=== PATIENT | male | born 1955 | race Caucasian/White ===

== ENCOUNTER 2023-12-26 11:48 | Outpatient (AMB) | payer BC, SELFPAY ==
--- NOTE | 2023-12-26 11:51 | HO.NEPHOV_ITS ---
HPI HPI Comments History of Present Illness Details 68-year-old man with obesity chronic kid lul disease with hypertension. He had an episode of acute kidney injury with hyperkalemia which has resolved. At present he has no specific complaints [facility] Social History Alcohol intake: former Patient Tobacco Use Status: Former Tobacco user Vital Signs 12/26/23 11:53 Height 5 ft 9 in Weight 313 lb BMI 46.2 BP 130/68 Blood Pressure Location Rt brachial Position Sitting Pulse 91 Pulse Source Pulse Oximeter Pulse Oximetry (%) 98 Oxygen Delivery Method Room Air Physical Exam Vital Signs: Last Vital Signs Pulse 91 12/26/23 11:53 BP 130/68 12/26/23 11:53 Pulse Ox 98 12/26/23 11:53 Oxygen Delivery Method Room Air 12/26/23 11:53 BMI result Body Mass Index 46.2 Const General: comfortable Nutritional Appearance: obese Orientation/consciousness: patient oriented x3 HEENT Head: No normal to inspection Mouth: moist mucous membranes Neck Neck: Yes supple and Yes no JVD Resp Auscultation: clear to auscultation bilaterally, no rales and rub present Cardio Jugular venous distension: no JVD Palpation: no palpable S3 and no palpable S4 Heart sounds: no rubs GI Palpation (GI): Soft to palpation and nontender Percussion: No Fluid wave present General: Yes no CVA tenderness Back/Spine/Pelvis Back: no CVA tenderness Skin General skin exam: no rashes or lesions noted Neuro General: patient oriented x3 Extrem General: Yes no pedal edema, No clubbing and Yes edema Assessment & Plan Assessment & Plan (1) CKD (chronic kidney disease): Code(s): N18.9 - Chronic kidney disease, unspecified (2) Hyperkalemia: Code(s): E87.5 - Hyperkalemia Plan Middle-aged man with CKD 3 in the setting of longstanding obesity and diabetes mellitus. He had a history of acute kidney injury which has resolved renal function is back to baseline. Goal is to slow the progression of renal disease. Continue with NAVEEN inhibition. Hemoglobin A1c should be maintained less than 7% and blood pressure less than 130/80. Continue to avoid nephrotoxic agents including NSAIDs. Discussed weight loss and low-sodium diet. He will benefit from an SGLT2 inhibitor. Today the volume status looks acceptable. We will continue the current dose of diuretics. While on high dose of diuretics renal panel needs to be monitored frequently. Orders: Orders Complete Blood Count Auto Diff 12/26/23 N18.30 - Chronic kidney disease, stage 3 unspecified, E87.5 - Hyperkalemia, N18.9 - Chronic kidney disease, unspecified Basic Metabolic Panel 12/26/23 E87.5 - Hyperkalemia, N18.9 - Chronic kidney disease, unspecified Coding Level of Care Code Est Pt Level 4 (22775) Diagnoses CKD (chronic kidney disease) N18.9 Hyperkalemia E87.5 Results Reviewed Results Reviewed: Creatinine note Nephrology Results: No Data to Display
[2023-12-26 11:53] VITALS: BP 130/68; PULSE 91; O2SAT 98; BMI 46.2
== END 2023-12-26 12:24 | disposition home or self-care (01) ==
PROVIDERS: Visit Provider Internal Medicine Hypertension Specialist
DX: N18.9 Chronic kidney disease, unspecified (principal); E87.5 Hyperkalemia
CPT/HCPCS: 99214

== ENCOUNTER → 2023-12-26 11:48 | Outpatient (BNVA) | payer BC, SELFPAY | PROVIDERS: Visit Provider Internal Medicine Hypertension Specialist ==

== ENCOUNTER 2024-01-30 11:31 | Outpatient (AMB) | payer BC, SELFPAY ==
[2024-01-30 11:35] VITALS: BP 110/62; PULSE 80; O2SAT 95; BMI 46.5
--- NOTE | 2024-01-30 11:35 | HO.NEPHOV_ITS ---
HPI HPI Comments History of Present Illness Details 68-year-old man with a history of obesit y longstanding diabetes mellitus and chronic kidney disease. Has history of acute kidney injury and severe hyperkalemia. JULIAN has resolved. He has underlying CKD in a setting of longstanding diabetes mellitus. Baseline creatinine is around 1.1 mg/dL. He is currently on spironolactone and torsemide. Today denies any new complaints no shortness of breath no nausea vomiting. PFSH Social History Alcohol intake: former Patient Tobacco Use Status: Former Tobacco user Vital Signs 01/30/24 11:35 Height 5 ft 9 in Weight 315 lb BMI 46.5 BP 110/62 Blood Pressure Location Lt brachial Position Sitting Pulse 80 Pulse Source Pulse Oximeter Pulse Oximetry (%) 95 Oxygen Delivery Method Room Air Physical Exam Vital Signs: Last Vital Signs Pulse 80 01/30/24 11:35 BP 110/62 01/30/24 11:35 Pulse Ox 95 01/30/24 11:35 Oxygen Delivery Method Room Air 01/30/24 11:35 BMI result Body Mass Index 46.5 Const General: comfortable Nutritional Appearance: obese Orientation/consciousness: patient oriented x3 HEENT Head: No normal to inspection Mouth: moist mucous membranes Neck Neck: Yes supple and Yes no JVD Resp Auscultation: clear to auscultation bilaterally, no rales and rub present Cardio Jugular venous distension: no JVD Palpation: no palpable S3 and no palpable S4 Heart sounds: no rubs GI Palpation (GI): Soft to palpation and nontender Percussion: No Fluid wave present General: Yes no CVA tenderness Back/Spine/Pelvis Back: no CVA tenderness Skin General skin exam: no rashes or lesions noted Neuro General: patient oriented x3 Extrem General: Yes no pedal edema, No clubbing and Yes edema Assessment & Plan Assessment & Plan (1) CKD (chronic kidney disease): Code(s): N18.9 - Chronic kidney disease, unspecified Plan Middle-aged man with CKD 3 in the setting of longstanding obesity and diabetes mellitus. He had a history of acute kidney injury which has resolved renal function is back to baseline. Goal is to slow the progression of renal disease. Continue with NAVEEN inhibition. Hemoglobin A1c should be maintained less than 7% and blood pressure less than 130/80. Continue to avoid nephrotoxic agents including NSAIDs. Discussed weight loss and low-sodium diet. He will benefit from an SGLT2 inhibitor. Today the volume status looks acceptable. We will continue the current dose of diuretics. While on high dose of diuretics renal panel needs to be monitored frequently. Next blood draw scheduled for March 2024. I will see him again in June of 2024. Orders: Orders 2 Basic Metabolic Panel 4 Months N18.9 - Chronic kidney disease, unspecified Vitamin D 25-OH (D2 and D3) 4 Months N18.9 - Chronic kidney disease, unspecified Coding Level of Care Code Est Pt Level 4 (93107) Diagnoses CKD (chronic kidney disease) N18.9 Results Reviewed Results Reviewed: 01/25/2024. Creatinine 1.07 Potassium 4.1. Hemoglobin 11.3. Nephrology Results: No Data to Display
== END 2024-01-30 11:55 | disposition home or self-care (01) ==
PROVIDERS: PCP Family Medicine; Visit Provider Internal Medicine Hypertension Specialist
DX: N18.9 Chronic kidney disease, unspecified (principal)
CPT/HCPCS: 99214

== ENCOUNTER → 2024-01-30 11:31 | Outpatient (BNVA) | payer BC, SELFPAY | PROVIDERS: PCP Family Medicine; Visit Provider Internal Medicine Hypertension Specialist ==

== ENCOUNTER 2024-07-23 13:46 | Outpatient (AMB) | payer BC, SELFPAY ==
--- NOTE | 2024-07-23 13:49 | HO.NEPHOV_ITS ---
Vital Signs 07/23/24 13:51 Height 5 ft 9 in Weight 301 lb 6 oz BMI 44.5 BP 132/70 Blood Pressure Location Rt brachial Position Sitting Pulse 90 Pulse Source Pulse Oximeter Pulse Oximetry (%) 97 Oxygen Delivery Method Room Air Intake Visit Reasons: CKD FU Food Preservation Scientist Required: No Accompanied by: Self / Same As Patient Allergies No Known Allergies Allergy (Verified 07/23/24 13:54) Medication List - Last Reconciled 07/23/24 by Jostin Kenny MD allopurinol 100 mg PO BID betamethasone valerate 0.1% topical BID doxazosin 4 mg PO BEDTIME insulin glargine (Lantus U-100 Insulin) units subcut insulin lispro (Humalog KwikPen (U-100) Insulin) 40 - 100 units subcut TID latanoprost 0.005% 1 drp ophthalmic (eye) QPM simvastatin 20 mg PO DAILY tirzepatide (Mounjaro) 7.5 mg subcut QWEEK torsemide 50 mg PO DAILY triamcinolone acetonide 0.1% appl topical BID HPI Comments Details: 68-year-old man with a history of obesity longstanding diabetes mellitus and chronic kidney disease. Has history of acute kidney injury and severe hyperkalemia. JULIAN has resolved. He has underlying CKD in a setting of longstanding diabetes mellitus. Baseline creatinine is around 1.1 mg/dL. He is currently on spironolactone and torsemide. Today denies any new complaints no shortness of breath no nausea vomiting. 07/23/24 On maunjaro - lost about 30 lbs Off Spironolactone due to high K Torsemide down to 50 mg BP is good Creatinine is bumped up to 1.66. [facility] Medical History (Updated 07/22/24 @ 11:38 by Denise Hay MA) Viral pericarditis Spinal stenosis of lumbar region Sleep apnea Prolapsed lumbosacral intervertebral disc Other anterior pituitary disorders Obesity Metabolic acidosis, increased anion gap Hypertension Hyperlipidemia Hypercholesterolemia History of pericarditis H/O kidney disease Gout GERD (gastroesophageal reflux disease) Diabetes mellitus Coronary atherosclerosis Conductive hearing loss, bilateral Chronic heart failure Cardiac tamponade Anemia Acute sinusitis Surgical History Hx of tonsillectomy Family History Mother Cancer Social History Alcohol intake: former Patient Tobacco Use Status: Former Tobacco user Physical Exam Vital Signs: Last Vital Signs Pulse 90 07/23/24 13:51 BP 132/70 07/23/24 13:51 Pulse Ox 97 07/23/24 13:51 Oxygen Delivery Method Room Air 07/23/24 13:51 BMI result Body Mass Index 44.5 Const General: comfortable; No acute distress Orientation/consciousness: patient oriented x3 Eyes General: appearance normal, both eyes and all related structures Visual Alvarado: normal visual alvarado by confrontation Neck Neck: Yes supple and Yes no JVD Resp Effort & Inspection: normal respiratory effort and respiratory effort not decreased Auscultation: rhonchi Cardio Palpation: no palpable S3 and no palpable S4 Heart sounds: no rubs GI Inspection: Yes normal to inspection Palpation (GI): Soft to palpation Percussion: Yes normal to percussion Auscultation: normal bowel sounds General: Yes no CVA tenderness Back/Spine/Pelvis Back: no CVA tenderness Skin General skin exam: no petechiae and no purpura Neuro General: patient oriented x3 and no focal motor deficits Extrem General: No clubbing and No edema Results Reviewed Results Reviewed: Potassium 5.2 Creatinine 1.66 Nephrology Results: No Data to Display Assessment & Plan Assessment & Plan (1) CKD (chronic kidney disease): Code(s): N18.9 - Chronic kidney disease, unspecified Category: Medical Plan Middle-aged man with CKD 3 in the setting of longstanding obesity and diabetes mellitus. He had a history of acute kidney injury which has resolved renal function is back to baseline. Goal is to slow the progression of renal disease. Continue with NAVEEN inhibition. Hemoglobin A1c should be maintained less than 7% and blood pressure less than 130/80. Continue to avoid nephrotoxic agents including NSAIDs. Discussed weight loss and low-sodium diet. volume status looks acceptable. suggest to decrease Torsemide ot 40 mg DAILY since creatinine is bumped up from 1.07 at 1.66. Agree with the discontinuing spironolactone given JULIAN and hyperkalemia. Orders: Orders Basic Metabolic Panel Today N18.9 - Chronic kidney disease, unspecified Uric Acid Today N18.9 - Chronic kidney disease, unspecified Coding Level of Care Code Est Pt Level 4 (20990) Diagnoses CKD (chronic kidney disease) N18.9
[2024-07-23 13:51] VITALS: BP 132/70; PULSE 90; O2SAT 97; BMI 44.5
== END 2024-07-23 14:20 | disposition home or self-care (01) ==
PROVIDERS: PCP Family Medicine; Visit Provider Internal Medicine Hypertension Specialist
DX: N18.9 Chronic kidney disease, unspecified (principal)
CPT/HCPCS: 99214

== ENCOUNTER → 2024-07-23 13:46 | Outpatient (BNVA) | payer BC, SELFPAY | PROVIDERS: PCP Family Medicine; Visit Provider Internal Medicine Hypertension Specialist ==

== ENCOUNTER 2024-12-24 15:40 | Outpatient (AMB) | payer BC, SELFPAY ==
[2024-12-24 15:41] VITALS: BP 126/60; PULSE 67; O2SAT 96; BMI 43.6
--- NOTE | 2024-12-24 15:41 | HO.NEPHOV_ITS ---
Vital Signs 12/24/24 15:41 Height 5 ft 9 in Weight 295 lb BMI 43.6 BP 126/60 Blood Pressure Location Rt brachial Position Sitting Pulse 67 Pulse Source Pulse Oximeter Pulse Oximetry (%) 96 Oxygen Delivery Method Room Air Intake Visit Reasons: 3 mo fu w/ labs/ Conf Credit Union Field Examiner Required: No Accompanied by: Self / Same As Patient Allergies No Known Allergies Allergy (Verified 12/24/24 15:44) Medication List - Last Reconciled 12/24/24 by Jostin Kenny MD allopurinol 100 mg PO BID betamethasone valerate 0.1% topical BID doxazosin 4 mg PO BEDTIME insulin glargine (Lantus U-100 Insulin) units subcut insulin lispro (Humalog KwikPen (U-100) Insulin) 40 - 100 units subcut TID latanoprost 0.005% 1 drp ophthalmic (eye) QPM lisinopril 20 mg PO DAILY simvastatin 20 mg PO DAILY tirzepatide (Mounjaro) 10 mg subcut QWEEK torsemide 40 mg PO DAILY triamcinolone acetonide 0.1% appl topical BID HPI Comments Details: 68-year-old man with a history of obesity longstanding diabetes mellitus and chronic kidney disease. Has history of acute kidney injury and severe hyperkalemia. JULIAN has resolved. He has underlying CKD in a setting of longstanding diabetes mellitus. Baseline creatinine is around 1.1 mg/dL. He is currently on spironolactone and torsemide. Today denies any new complaints no shortness of breath no nausea vomiting. 07/23/24 On maunjaro - lost about 30 lbs Off Spironolactone due to high K Torsemide down to 50 mg BP is good Creatinine is bumped up to 1.66. 12/24/2024. Overall he is doing well. After adding majority has lost further weight. Torsemide has been decreased to 40 mg. Creatinine has dropped to 0.85. Overall he is feeling fine without any new complaints [facility] Medical History (Updated 07/22/24 @ 11:38 by Denise Hay MA) Viral pericarditis Spinal stenosis of lumbar region Sleep apnea Prolapsed lumbosacral intervertebral disc Other anterior pituitary disorders Obesity Metabolic acidosis, increased anion gap Hypertension Hyperlipidemia Hypercholesterolemia History of pericarditis H/O kidney disease Gout GERD (gastroesophageal reflux disease) Diabetes mellitus Coronary atherosclerosis Conductive hearing loss, bilateral Chronic heart failure Cardiac tamponade Anemia Acute sinusitis Surgical History Hx of tonsillectomy Family History Mother Cancer Social History Alcohol intake: former Patient Tobacco Use Status: Former Tobacco user Physical Exam Vital Signs: Last Vital Signs Pulse 67 12/24/24 15:41 BP 126/60 12/24/24 15:41 Pulse Ox 96 12/24/24 15:41 Oxygen Delivery Method Room Air 12/24/24 15:41 BMI result Body Mass Index 43.6 Comfortable Neck supple no JVD. Lungs entry equal no rales. Heart S1-S2 heard no gallop or rub. Abdomen soft nontender. Neuro alert awake oriented. No asterixis. Extremities no edema. Results Reviewed Results Reviewed: Potassium 5.2 Creatinine 1.66 Nephrology Results: No Data to Display Assessment & Plan Assessment & Plan (1) CKD (chronic kidney disease): Code(s): N18.9 - Chronic kidney disease, unspecified Category: Medical Plan Middle-aged man with CKD 3 in the setting of longstanding obesity and diabetes mellitus. He had a history of acute kidney injury which has resolved renal function is back to baseline. Goal is to slow the progression of renal disease. Continue with NAVEEN inhibition. Hemoglobin A1c should be maintained less than 7% and blood pressure less than 130/80. Continue to avoid nephrotoxic agents including NSAIDs. Discussed weight loss and low-sodium diet. volume status looks acceptable. Agree with Torsemide 40 mg DAILY and titrate dose based on blood pressure and fluid status Agree with the discontinuing spironolactone given JULIAN and hyperkalemia. No contraindication to use SGLT2 inhibitors. Orders: Orders Total Protein Urine Random 6 Months N18.9 - Chronic kidney disease, unspecified UA and rflx microscopic 6 Months N18.9 - Chronic kidney disease, unspecified Creatinine Urine 6 Months N18.9 - Chronic kidney disease, unspecified Basic Metabolic Panel 6 Months N18.9 - Chronic kidney disease, unspecified Coding Level of Care Code Est Pt Level 4 (37204) Diagnoses CKD (chronic kidney disease) N18.9
--- OUTSIDE RECORDS SUMMARY | 2024-12-24 17:30 | XMS_ITS | Encounter Summary ---
Author Organization [facility] Address [address] [place] [address] Care Team Providers Care Paediatric Thoracic Physician Name Role Phone Oneal Farrell MD Primary Care Provider Ludwig Whiting DO Primary Care Provider [phone] Nicolas Gold MD Unavailable Unavailable Juanito Rivas MD Unavailable [phone] Kirk Stringer MD Unavailable Jostin Kenny MD Unavailable [phone] Marcelle Bass RN Unavailable Ashley Tilley MD Unavailable [phone] Bianca Elena Unavailable Ludwig Whiting DO Unavailable [phone] Jostin Kenny MD Unavailable [phone] Trini Brown MD Unavailable [phone] Ashley Tilley MD Unavailable [phone] Franky Fonseca MD Unavailable [phone] Encounter Details Date Type Department Care Team (Late st Contact Info) Description 12/06/2015 Scanned Document [facility] 100 [facility] [address] [place] [id number] Provider, Generic Social History Tobacco Use Types Packs/Day Years Used Date Smoking Tobacco: Former Cigarettes Cigars Comments:Current Tobacco Use r Alcohol Use Standard Drinks/Week Comments Not Asked 0 (1 standard drink = 0.6 oz pur e alcohol) Sex and Gender Information Value Date Recorded Sex Assigned at Male 04/26/2023 10:23 AM EDT Gender Identity Male 04/26/2023 10:23 AM EDT Sexual Orientation Heterosexual (straight) 04/26 10:23 AM EDT documented as of this encounter Plan of Treatment Upcoming Encounters Date Type Department Care Team (Late st Contact Info) Description 04/10/2025 4:00 PM EDT Office Visit [facility] Endocrinology [place] [address] [phone] Trini Brown MD [address] [address] 05/25/2025 3:30 PM EDT Office Visit [facility] [address] [place] [phone] Ludwig Whiting, [address] [place] [address] 06/25/2025 2:00 PM EDT Office Visit [facility] Cardiology [address] [place] [address] Ashley Tilley MD [address] [place] [address] documented as of this encounter Visit Diagnoses Not on filedocumented in this encounter Care Teams Paediatric Thoracic Physician Relationship Specialty Start Date End Date Oneal Farrell MD PCP - General Internal Medicine 08/05/15 11/30/16 Ludwig Whiting DO 1060 [facility] [place] [address] PCP - General Family Medicine 12/01/16 Bianca Elena [address] [place] [address] PCP - Ophthalmology Ophthalmology 01/25/21 [place] [address] [place] [address], [place] [address] PCP - [place] Commercial Attributed 03/26/21 Nicolas Gold MD [address] [place] [address], [place] [address] Endocrinology 07/11/17 Juanito Rivas MD [address] [place] [address] Referring Provider Surgery, Neurosurgery 02/01/18 Kirk Stringer MD [address] [place] [address] Consulting Provider Sleep Medicine 02/01/18 Jostin Kenny MD [address] [place] [address] Nephrology 02/01/18 05/13/23 Marcelle Bass, WING [facility] [address] [place] [address] ICP Transition Nougat Cutter Machine 08/25/20 09/20/21 Ashley Tilley MD [address] [place] [address] Cardiovascular Disease 01/25/21 Jostin Kenny MD [address] [place] [address] Nephrology 05/14/23 Trini Brown MD [address] [place] [address] Endocrinology 01/04/24 Ashley Tilley MD [address] [place] [address] Primary A Operator Cardiovascular Disease 01/17/24 Franky Fonseca MD [address] [place] [address] Nephrology 06/10/24 documented as of this encounter
--- OUTSIDE RECORDS SUMMARY | 2024-12-24 17:30 | XMS_ITS | Encounter Summary ---
Author Organization [facility] Address [address] [place] [address] Care Team Providers Care Classified Advertising Supervisor Name Role Phone Ludwig Whiting DO Primary Care Provider [phone] Nicolas Gold MD Unavailable Unavailable Juanito Rivas MD Unavailable Kirk Stringer MD Unavailable Jostin Kenny MD Unavailable [phone] Ashley Tilley MD Unavailable [phone] Bianca Elena Unavailable Ludwig Whiting DO Unavailable Jostin Kenny MD Unavailable Trini Brown MD Unavailable [phone] Ashley Tilley MD Unavailable [phone] Franky Fonseca MD Unavailable [phone] Encounter Details Date Type Department Care Team (Late st Contact Info) Description 08/13/2022 Scanned Document [facility] Cardiology [address] [place] [address] Ashley Tilley MD [address] [place] [address] Social History Tobacco Use Types Packs/Day Years Used Date Smoking Tobacco: Former Cigarettes 2 27 1 963 - 1989 Cigars Smokeless Tobacco: Never Alcohol Use Standard Drinks/Week Comments No 0 (1 standard drink = 0.6 oz [...] Description 04/10/2025 4:00 PM EDT Office Visit [facility] Endocrinology [address] [address] Trini Brown MD 100 [facility] 101 [place] [address] 05/25/2025 3:30 PM EDT Office Visit [facility] [address] [place] [address] Ludwig Whiting, DO [facility] [place] [address] 06/25/2025 2:00 PM EDT Office Visit [facility] Cardiology [address] [place] [phone] Ashley Tilley MD [address] [place] [address] documented as of this encounter Visit Diagnoses Not on filedocumented in this encounter Care Teams Classified Advertising Supervisor Relationship Specialty Start Date End Date Ludwig Whiting, DO [address] [facility] [place] [address] PCP - General Family Medicine 12/01/16 Bianca Elena [address] [place] [address] PCP - Ophthalmology Ophthalmology 01/25/21 Ludwig Whiting, [address] [place] [address] PCP - [place] Commercial Attributed 03/26/21 Nicolas Gold MD [address] [place] [address] Endocrinology 07/11/17 Juanito Rivas MD [address] [place] [address] Referring Provider Surgery, Neurosurgery 02/01/18 Kirk Stringer MD [address] [place] [address] Consulting Provider Sleep Medicine 02/01/18 Jostin Kenny MD [address] [place] [address] Nephrology 02/01/18 05/13/23 Ashley Tilley MD [address] [place] [address] Cardiovascular Disease 01/25/21 Jostin Kenny MD [address] [place] [address] Nephrology 05/14/23 Trini Brown MD [address] [place] [id number] Endocrinology 01/04/24 Ashley Tilley MD [address] [place] [address] Primary Glass Engraver Cardiovascular Disease 01/17/24 Franky Fonseca MD [address] [place] [address] Nephrology 06/10/24 documented as of this encounter
--- OUTSIDE RECORDS SUMMARY | 2024-12-24 17:30 | XMS_ITS ---
Author Name [facility] Organization Unknown Results Test Name/Text Value Interpretation Date Range Source POC Glucose 115mg/dL Above high normal [id number] 65 - 99 [facility] POC Glucose 114mg/dL Above high normal [id number] 65 - 99 [facility] Eosinophil/leuk NFr Bld Auto 2.6% Normal [id number] [facility] Platelet # Bld Auto 208Thousand/uL Normal [id number] 14 0 - 400 [facility] PMV Bld Jurgen-Zeb 11.6fL Normal [id number] 7.5 - 12 .5 [facility] Hct VFr Bld Auto 42.3% Normal [id number] 38.5 - 50 [facility] Basophils # Bld Auto 29cells/uL Normal [id number] 0 - 2 00 [facility] RBC # Bld Auto 4.55Million/uL Normal [id number] 4.2 - 5 .8 [facility] RDW RBC Auto-Rto 15% Normal [id number] 11 - 15 [facility] Monocytes # Bld Auto 633cells/uL Normal [id number] 200 - 950 [facility] MCHC RBC Auto-mCnc 32.6g/dL Normal [id number] 32 - 36 [facility]CH RBC Qn Auto 30.3pg Normal [id number] 27 - 33 [facility] Neutrophils/leuk NFr Bld Auto 64.5% Normal [id number] [facility] MCV RBC Auto 93fL Normal [id number] 80 - 100 [facility] T Basophils/leuk NFr Bld Auto 0.5% Normal [id number] [facility] Neutrophils # Bld Auto 3677cells/uL Normal [id number] 1500 - 7800 [facility] Lymphocytes/leuk NFr Bld Auto 21.3% Normal [id number] [facility] Hgb Bld-mCnc 13.8g/dL Normal [id number] 13.2 - 17.1 [facility] Monocytes/leuk NFr Bld Auto 11.1% Normal [id number] [facility] Eosinophil # Bld Auto 148cells/uL Normal [id number] 15 - 500 [facility] Lymphocytes # Bld Auto 1214cells/uL Normal [id number] 850 - 3900 [facility] WBC # Bld Auto 5.7Thousand/uL Normal [id number] 3.8 - 1 0.8 [facility] BUN/Creat SerPl SEE NOTE: Normal [id number] 6 - 22 Q [facility] BUN SerPl-mCnc 19mg/dL Normal [id number] 7 - 25 [facility] CO2 SerPl-sCnc 26mmol/L Normal [id number] 20 - 32 [facility] Potassium SerPl-sCnc 4mmol/L Normal [id number] 3.5 - 5.3 [facility] eGFRcr SerPlBld CKD-EPI 2020 96mL/min/1.73m 2 Normal [id number] - [facility] Glucose SerPl-mCnc 76mg/dL Normal [id number] 65 - 99 [facility] Chloride SerPl-sCnc 107mmol/L Normal [id number] 98 - 11 0 [facility] Calcium SerPl-mCnc 9.8mg/dL Normal [id number] 8.6 - 10 .3 [facility] Sodium SerPl-sCnc 142mmol/L Normal [id number] 135 - 146 [facility] Creat SerPl-mCnc 0.82mg/dL Normal [id number] 0.7 - 1.35 [facility] History of Medication Use Medication Directions Dispensed Refills Start Date End Date Status HumaLOG KwikPen 100 UNIT/ML Subcutaneous Solution Pen-injector HumaLOG KwikPen 100 UNIT/ML Subcutaneous Solution Pen-injectorHumaLOG KwikPen (100UNIT/ML Subcutaneous three times daily) Active -Hx Entry Quantity: 0 Refills: 0Unknown, Provider Start : 5-Vso-4050Jiyqdd 10/02/20 18 completed doxazosin (CARDURA) 2 MG tablet Take 1 tablet (2 mg total) by mouth nightly. 11/08/20 21 active Blood Glucose Monitoring Suppl (Lytro Verio) w/Device Kit Use to test blood sugar two times daily 01/23/20 22 active Aspirin 81 81 MG Oral Tablet Delayed Release Aspirin 81 81 MG Oral Tablet Delayed ReleaseAspir-81 81MG, 1 Every Day #0.00, starting 09/03/2007, No Refill. Active. Quantity: 0 Refills: 0Unknown, Provider Start : 9-Ckm-2578Pgalfw 09/03/20 07 completed Dorzolamide HCl-Timolol Mal 22.3-6.8 MG/ML Ophthalmic Solution Dorzolamide HCl-Timolol Mal 22.3-6.8 MG/ML Ophthalmic SolutionDorzolamide HCl-Timolol Mal (22.3-6.8MG/ML Ophthalmic three times daily) Active -Hx Entry Quantity: 0 Refills: 0Unknown, Provider Start : 3-Shu-2116Myduud 10/02/20 18 completed tirzepatide (MOUNJARO) 2.5 mg/0.5 mL pen-injector Inject 1 pen(s) (2.5 mg total) under the skin once a week. 04/04/20 24 active simvastatin (ZOCOR) 20 MG tablet Take 1 tablet (20 mg total) by mouth nightly. 06/12/20 24 active Lantus 100 UNIT/ML injection INJECT 2 ML (200 UNITS TOTAL) UNDER THE SKIN 2 (TWO) TIMES A DAY. 06/19/20 23 active latanoprost (XALATAN) 0.005 % ophthalmic solution Administer 1 drop to both eyes nightly. 10/27/20 19 active hydrALAZINE HCl - 100 MG Oral Tablet hydrALAZINE HCl - 100 MG Oral TabletHydrALAZINE HCl (100MG Oral two times daily) Active -Hx Entry Quantity: 0 Refills: 0Unknown, Provider Start : 0-Cwe-9748Gqvaly 10/02/20 18 completed allopurinol (ZYLOPRIM) 300 MG tablet TAKE 1 TABLET BY MOUTH TWICE A DAY 08/14/20 22 active Simvastatin 40 MG Oral Tablet Simvastatin 40 MG Oral TabletSimvastatin (40MG 1 Oral daily) Active -Hx Entry Quantity: 0 Refills: 0Unknown, Provider Start : 8-Ndv-6855Jgujks 10/02/20 18 completed Cholecalciferol (VITAMIN D3) 2000 UNITS Cap capsule Take 1 capsule (2,000 Units total) by mouth every other day. active vasows-hwcpiuwjc-lj gnesium sulfates (Suprep Bowel Prep Kit) 17.5-3.13-1.6 GM/177ML Solution solution Follow directions provided by physician's office. 03/03/20 22 active tirzepatide (MOUNJARO) 5 mg/0.5 mL pen-injector Inject 1 pen(s) (5 mg total) under the skin once a week. 06/18/20 24 active Allopurinol 300 MG Oral Tablet Allopurinol 300 MG Oral TabletAllopurinol (300MG Oral two times daily) Active -Hx Entry Quantity: 0 Refills: 0Unknown, Provider Start : 4-Kjm-1206Itbffc 10/02/20 18 completed insulin glargine (Lantus) 100 units/mL injection Inject 2 mL (200 Units total) under the skin 2 (two) times a day. 09/28/20 22 active Lisinopril-hydroCHL OROthiazide 20-12.5 MG Oral Tablet Lisinopril-hydroCHLOROt hiazide 20-12.5 MG Oral TabletLisinopril-Hydroc hlorothiazide 20-12.5MG, 2 daily #0.00, starting 09/03/2007, No Refill. Active. Quantity: 0 Refills: 0Unknown, Provider Start : 1-Ofa-2797Vpdqsi 09/03/20 07 completed spironolactone (ALDACTONE) 25 MG tablet TAKE 1 TABLET (25 MG TOTAL) BY MOUTH DAILY. 05/20/20 22 024 active Fish Oil 1000 MG Oral Capsule Fish Oil 1000 MG Oral CapsuleFish Oil (1000MG Oral daily) Active -Hx Entry Quantity: 0 Refills: 0Unknown, Provider Start : 6-Eex-4034Asdgie 10/02/20 18 completed betamethasone valerate (VALISONE) 0.1 % ointment Apply topically 2 (two) times a day. 09/26/20 22 023 active Lantus 100 UNIT/ML injection INJECT 2 ML (200 UNITS TOTAL) UNDER THE SKIN 2 (TWO) TIMES A DAY. 02/21/20 22 active omega-3 fatty acids (FISH OIL) 1000 MG Cap capsule Take by mouth 2 (two) times a day. 300 QD active BiPAP CHANDLER 99 BiPAP CHANDLER 99ResMed AirCurve 10S: IPAP 21 / EPAP 17 cm H2O, ALL NEC SUPPLIES, Heated humidifier&hose. Mask: Pt. Pref. G47.33, CHANDLER: 99months;QTY 1X Ea. Quantity: 1 Refills: 0Shoup Kirk Costello Start : 58-Jin-9876Orbfvt 10/20/20 19 completed Niacin ER 500 MG Oral Capsule Extended Release Niacin ER 500 MG Oral Capsule Extended ReleaseNiacin ER (500MG 1 Oral daily) Active -Hx Entry Quantity: 0 Refills: 0Unknown, Provider Start : 7-Lkx-4659Tuqyij 10/02/20 18 completed Vitamin D3 50 MCG (2000 UT) Oral Capsule Vitamin D3 50 MCG (2000 UT) Oral CapsuleVitamin D3 (2000UNIT 1 Oral daily) Active -Hx Entry Quantity: 0 Refills: 0Unknown, Provider Start : 1-Ray-3292Vacmhp 10/02/20 18 completed Problems Problem Status Onset Date Problem Type Date of Resoluti on Source Personal history of colonic polyps active 2022-02-24 [facility] Anemia of chronic disease active 2021-04-05 [facility] Conductive hearing loss, bilateral active 2020-07-07 [facility] Ex-smoker active 2020-10-05 [facility] Type 2 diabetes mellitus with stage 3a chronic kidney disease, with long-term current use of insulin active 2015-03-18 [facility] 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 [facility]Act [facility] Class 3 severe obesity due to excess calories with serious comorbidity and body mass index (BMI) of 45.0 to 49.9 in adult active 2015-03-18 [facility] GERD (gastroesophageal reflux disease) active 2020-08-24 [facility]Act [facility] Atherosclerosis of abdominal aorta active 2022-10-24 [facility] History of viral pericarditis active 2021-01-25 [facility]Act [facility] Secondary hypercoagulable state active 2022-10-24 [facility]Act [facility] Essential hypertension active 2015-03-18 [facility] Sleep apnea active 2014-02-07 [facility] Chronic low back pain active 2014-02-07 [facility] Other anterior pituitary disorders active 2014-08-11 [facility]Act [facility] 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 active 2021-07-07 ProblemAct [facility] T Type 2 diabetes mellitus with diabetic polyneuropathy, with long-term current use of insulin active 2023-04-27 [facility] Chronic heart failure with preserved ejection fraction active 2021-01-25 [facility]Act [facility] Lumbar herniated disc active 2017-09-24 [facility]Act [facility] Paroxysmal atrial fibrillation active 2020-10-05 ProblemAct [facility] Mixed hyperlipidemia active 2015-03-18 ProblemAct [facility] Gout active 2017-11-02 ProblemAct [facility] Secondary hyperaldosteronism active 2022-10-24 ProblemAct [facility] Encounter for loop recorder at end of battery life active 2024-11-11 ProblemAct [facility] Diabetic retinopathy associated with type 2 diabetes mellitus active 2022-03-16 ProblemAct [facility] Spinal stenosis of lumbar region with radiculopathy active 2017-09-24 ProblemAct [facility] Immunizations Vaccine Date Source Lot Number Status Pneumococcal Conjugate 20-Valent 04/27/2023 [facility] [id number] completed Tdap 04/27/2022 [facility] [id number] completed Zoster Vaccine Recombinant (Shingrix) 04/27/2022 [facility] completed Influenza, Quadrivalent (FLU AD) Adjuvanted Preservative Free IM 65 years and older 10/19/2023 [facility] [id number] completed Influenza Inactivated/Split Preservative Free IM 08/30/2019 [facility] completed TD Preservative Free 11/26/2008 [facility] comp leted Zoster Vaccine Recombinant (Shingrix) 09/05/2022 [facility] [id number] completed Pneumococcal Conjugate 13-Valent 03/18/2015 [facility] [id number] completed Pneumococcal Polysaccharide 23-Valent 08/26/2003 [facility] completed Tdap 12/04/2008 [facility] [id number] completed Influenza, Quadrivalent (FLU ARIX, AFLURIA, FLULAVAL, FLUZONE) Preservative Free IM 10/19/2021 [facility] [id number] completed Covid-19 mRNA Bivalent Vacci ne - Pfizer 30 mcg/0.3mL 12+ 10/27/2022 [facility] [id number] completed Influenza (AFLURIA/FLUZONE) Inactivated/Split Quadrivalent with Preservative IM 2014 [facility] [id number] completed Influenza, Quadrivalent (FLU ARIX, AFLURIA, FLULAVAL, FLUZONE) Preservative Free IM 08/30/2019 [facility] [id number] completed Influenza Inactivated/Split Preservative Free IM 10/27/2022 [facility] [id number] completed Influenza Inactivated/Split Preservative Free IM 09/10/2008 [facility] [id number] completed Influenza Inactivated/Split Preservative Free IM 08/23/2010 [facility] [id number] completed Influenza Inactivated/Split Preservative Free IM 08/16/2009 [facility] [id number] completed Influenza Inactivated/Split Preservative Free IM 08/24/2020 [facility] [id number] completed Influenza Inactivated/Split Preservative Free IM 10/25/2007 [facility] [id number] completed Influenza Inactivated/Split Preservative Free IM 09/05/2012 [facility] [id number] completed Influenza Inactivated/Split Preservative Free IM 11/11/2013 [facility] [id number] completed Zoster Vaccine Recombinant (Shingrix) 04/27/2023 [facility] [id number] completed Covid-19 MRNA Vaccine - Pfiz er 12+ (Purple Cap) 10/27/2021 [facility] [id number] completed
--- OUTSIDE RECORDS SUMMARY | 2024-12-24 17:30 | XMS_ITS | Encounter Summary ---
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 Name Role Phone Ludwig Whiting DO Primary Care Provider [phone] Nicolas Gold MD Unavailable Unavailable Juanito Rivas MD Unavailable Kirk Stringer MD Unavailable Ashley Tilley MD Unavailable [phone] Bianca Elena Unavailable Ludwig Whiting DO Unavailable [phone] Jostin Kenny MD Unavailable [phone] Trini Brown MD Unavailable [phone] Ashley Tilley MD Unavailable [phone] Franky Fonseca MD Unavailable [phone] Reason for Referral * Cardiovascular Test (Routine) - Closed Specialty Diagnoses / Procedures Referred By Jose bronson Referred To Contact Procedures CASE REQUEST EP LAB: REMOVAL LOOP RECORDER Francy Huitron APRN [address] [place] [address] Referral ID Status Reason Start Date Expiration Date Visits Re quested Visits Authorized [id number] Closed 11/11/2024 11/12/2025 1 1 Reason for Visit * Reason Comments Consult * Cardiology (Routine) - Closed Specialty Diagnoses / Procedures Referred By Contact Referred To Contact Cardiac Electrophysiology / Cardiology Diagnoses Paroxysmal atrial fibrillation (HCC) Ashley Tilley MD [address] [place] [address] Mg Electrophy Referral Referral ID Status Reason Start Date Expiration Date V isits Requested Visits Authorized [id number] Closed Consult 09/09/2024 09/10/2025 1 1 Encounter Details Date Type Department Care Team (Late st Contact Info) Description 11/11/2024 3:00 PM EST Office Visit [facility] Heart & Vascular [place] - Electrophysiology [address] [place] [address] Francy Huitron APRN [address] [place] [address] Paroxysmal atrial fibrillation (HCC) (Primary Dx); Pre-op testing Social History Tobacco Use Types Packs/Day Years Used Date Smoking Tobacco: Former Cigarettes 2 27 1 963 - 1989 Cigars Smokeless Tobacco: Never Tobacco Cessation:Counseling Given: Not Answered Alcohol Use Standard Drinks/Week Comments No 0 (1 standard drink = 0.6 oz pur e alcohol) [facility] Utilities Answer Date Recorded In the past 12 months has e [employer], gas, oil, or water [employer] threatened to shut off services in your home? No 11/24/2024 Social Connection and Isolation Panel [NHANES] A nswer Date Recorded In a typical week, how many times do you talk on the phone with family, friends, or neighbors? Three times a week 11/24/2024 Frequency of Social Gatherin gs with Friends and Family Not on file 11/24/2024 Attends Latter-Day Services Not on file 11/24 Active Member of Clubs or Organizations Not on f ile 11/24/2024 Attends Club or Organization Meetings Not on maurizio e 11/24/2024 Marital Status Not on file 11/24/2024 AUDIT-C Answer Date Recorded Q1: How often do you have a drink containing alcohol? Never 11/20/2024 Q2: How many drinks containi ng alcohol do you have on a typical day when you are drinking? Patient does not drink Q3: How often do you have si x or more drinks on one occasion? Never 11/20/2024 Hunger Vital Sign Answer Date Recorded Within the past 12 months, y ou worried that your food would run out before you got the money to buy more. Never true 11/24/20 24 Within the past 12 months, t he food you bought just didn't last and you didn't have money to get more. Never true 11/24/2024 PRAPARE - Transportation Answer Date Re corded In the past 12 months, has l ack of transportation kept you from medical appointments or from getting medications? No 10/28 In the past 12 months, has l ack of transportation kept you from meetings, work, or from getting things needed for daily living? No 11/24/2024 Housing Stability Vital Sign Answer Froy e Recorded In the last 12 months, was t here a time when you were not able to pay the mortgage or rent on time? No 11/24/2024 In the past 12 months, how m any times have you moved where you were living? 0 11/24/2024 At any time in the past 12 m [facility], were you homeless or living in a long-term (including now)? No 11/24/2024 Physical Activity Answer Date Recorded On average, how many days pe r week do you engage in moderate to strenuous exercise (like a brisk walk)? 0 days 08/14/2024 On average, how many minutes do you exercise per day at this level? 0 min 08/14/2024 Sex and Gender Information Value Date Recorded Sex Assigned at Male 04/26/2023 10:23 AM EDT Gender Identity Male 04/26/2023 10:23 AM EDT Sexual Orientation Heterosexual (straight) 04/26 10:23 AM EDT documented as of this encounter Last Filed Vital Signs Vital Sign Reading Time Taken Comments Blood Pressure 130/80 11/11/2024 3:17 PM EST Pulse 105 11/11/2024 3:17 PM EST Temperature - - Respiratory Rate - - Oxygen Saturation - - Inhaled Oxygen Concentration - - Weight 136 kg (300 lb) 11/11/2024 3:17 PM EST Height 175.3 cm (5' 9 ) 11/11/2024 3:17 PM EST Body Mass Index 44.3 11/11/2024 3:17 PM EST documented in this encounter Patient Instructions * Patient Instructions* Francy Huitron APRN - 11/11/2024 4:10 PM EST Your procedure, implantable loop recorder explant, will be performed on December 04, 2023 at [facility] by Dr. Oneal Wong. Nothing to eat or drink after midnight on the day of your procedure. You must follow a clear liquiddiet (as outlined on the table provided) for 24 hours prior to the procedure start. Use the special soap, Hibiclens (chlorhexidine) scrub brushes the night before and the morning of the procedure on your chest Please have blood work done at [facility] within 14 days of your procedure date. If you use insulin or any oral medications for diabetes, please do not take them the morning of theprocedure. Please do not take insulin and torsemide on the morning of the procedure. Take your other medications with a sip of water the morning of the procedure. Our office will contact you about the time to arrive to the surgical center. If you have any questions regarding your procedure please call our offices at [phone]. documented in this encounter H&P Notes * Francy Huitron APRN - 11/11/2024 4:46 PM EST Images from the original note were not included. ELECTROPHYSIOLOGY TEL: FAX: Date of Consult: 11/11/2024 Physician Requesting Consult: Ludwig Whiting DO Patient's Primary Care Physician: Ludwig Whiting DO Patient Name: Varun Galo Date of : 1955 I had the pleasure of seeing Varun Galo today for evaluation in anticipation of ILR explant. Assessment & Plan Assessment: Varun Galo is a 68 year old male referred to electrophysiology by his human resources records clerk, Dr. Delvalle, for explant of an implantable loop recorder. The device was implanted after he wasnoted to have brief episodes of paroxysmal atrial fibrillation following pericardiocentesis for presumed viral pericarditis in July 2020. The device has now reach end of battery life and he wishes to have it explanted. Plan: ILR explant on December 04, 2023 at [facility] with Dr. Wong. Pre-operative labs ordered to [facility]. Instructed patient to start a clear liquid diet 24 hours prior to procedure as he is taking Mounjaro. I provided him with paperwork outlining acceptable liquids. Relevant Information ECG Recent Results (from the past 8760 hour(s)) ECG 12 lead Collection Time: 11/11/24 3:24 PM Result Value Status Ventricular rate 105 Final P-R interval 345 Final QRS duration 80 Final Q-T interval 330 Final QTC calculation (Bazett) 436 Final R axis 50 Final T axis 35 Final Narrative Sinus tachycardia First degree A-V block Cannot rule out Anterior infarct , age undetermined Abnormal ECG Confirmed by MD Mimi, Raul ([id number]) on 11/11/2024 3:57:18 PM Echocardiogram 03/28/2021 Interpretation Summary Left ventricular systolic function is normal. The quantitative EF by 2D Hairston biplane is 61%. Right ventricular systolic function is normal. There is a minimal pericardial effusion. Compared to previous study on September 16, 2020, there is no significant change. Device Information Patient Instruction Your procedure, implantable loop recorder explant, will be performed on December 04, 2023 at [facility] by Dr. Oneal Wong. Nothing to eat or drink after midnight on the day of your procedure. You must follow a clear liquiddiet (as outlined on the table provided) for 24 hours prior to the procedure start. Use the special soap, Hibiclens (chlorhexidine) scrub brushes the night before and the morning of the procedure on your chest Please have blood work done at [facility] within 14 days of your procedure date. If you use insulin or any oral medications for diabetes, please do not take them the morning of theprocedure. Please do not take insulin and torsemide on the morning of the procedure. Take your other medications with a sip of water the morning of the procedure. Our office will contact you about the time to arrive to the surgical center. If you have any questions regarding your procedure please call our offices at [phone]. Consent Discussion The risks, benefits, and alternatives to device explant were reviewed with the patient. Risks discussed include but are not limited to bleeding, infection, damage to surrounding tissue and risks associated with anesthesia such as respiratory suppression and allergic reaction. Consent was signed in the office today. History Patient Active Problem List Diagnosis Type 2 diabetes mellitus with stage 3a chronic kidney disease, with long-term current use of insulin ([facility]) Sleep apnea Class 3 severe obesity due to excess calories with serious comorbidity and body mass index (BMI) of45.0 to 49.9 in adult ([facility]) Other anterior pituitary disorders Essential hypertension Mixed hyperlipidemia Chronic low back pain Isolated gonadotropin deficiency ([facility]) Spinal stenosis of lumbar region with radiculopathy Lumbar herniated disc Gout Conductive hearing loss, bilateral GERD (gastroesophageal reflux disease) Paroxysmal atrial fibrillation ([facility]) Ex-smoker Chronic heart failure with preserved ejection fraction ([facility]) History of viral pericarditis Anemia of chronic disease Coronary artery disease involving pauma coronary artery of pauma heart without angina pectoris Personal history of colonic polyps Diabetic retinopathy associated with type 2 diabetes mellitus ([facility]) Secondary hypercoagulable state ([facility]) Secondary hyperaldosteronism ([facility]) Atherosclerosis of abdominal aorta ([facility]) Type 2 diabetes mellitus with diabetic polyneuropathy, with long-term current use of insulin ([facility]) Encounter for loop recorder at end of battery life HPI: Varun Galo is a 68 y.o. male with a past medical history significant for chronic diastolic heart failure, hypertension, hyperlipidemia, obesity (BMI 43), sleep apnea managed with BIPAP, diabetes, ex smoker and presumed viral pericardial effusion with tamponade status post pericardiocentesis in July 2020 with brief paroxysmal atrial fibrillation during treatment. He had an ILR implantedfor mcc monitoring of atrial fibrillation. His ILR is monitored by his human resources records clerk, Dr. Tilley. There has been no definite atrial fibrillation His device has reached end of battery life and he was referred to electrophysiology for ILR explant. Past Medical History: Diagnosis Date Atrial fibrillation ([facility]) Back pain Congestive heart failure (CHF) ([facility]) Contact dermatitis and other eczema due to plants (except food) Contact dermatitis due to poison kandy: 2014-02-07 00:04:29 Gout History of colon polyps HL (hearing loss) Hypertension Lumbar back pain Obesity PAF (paroxysmal atrial fibrillation) (HCC) PRESENTED WITH TAMPONADE Pericarditis 07/2020 LARGE EFFUSION WITH TAMPONADE Personal history of urinary (tract) infection History of urinary tract infection: 2014 17:36:27 Pure hypercholesterolemia Familial hypercholesterolemia: 2014-02-07 00:04:27 Sciatica History of sciatica: 2014-02-07 00:04:28 Sleep apnea BIPAP Sprain of lumbar region Lumbar strain: 2014-02-07 00:04:28 Trigger finger (acquired) Trigger thumb of right hand: 2014-02-07 00:04:28 Type II or unspecified type diabetes mellitus without mention of complication, not stated as uncontrolled Type 2 diabetes mellitus: 2014 15:46:56 Type II or unspecified type diabetes mellitus without mention of complication, uncontrolled Type 2 diabetes mellitus, uncontrolled: 2014-02-07 00:04:28 Varicella Past Surgical History: Procedure Laterality Date CARDIAC CATHETERIZATION N/A 08/19/2020 Procedure: Right Heart Cath; Surgeon: Coleman Walker MD; Location: [facility]; Service: Cardiovascular; Laterality: N/A; CC PERICARDIOCENTESIS N/A 08/19/2020 Procedure: PERICARDIOCENTESIS; Surgeon: Coleman Walker MD; Location: [facility]; Service: Cardiovascular; Laterality: N/A; COLONOSCOPY Left 04/28/2022 Procedure: COLONOSCOPY; Surgeon: Richard Prakash MD; Location: GI Endoscopy; Service: Gastroenterology; Laterality: Left; ECHOCARDIOGRAM 03/28/2021 EF 61%, RV normal. Minimal pericardial effusion ECHOCARDIOGRAM 09/16/2020 EF 65-70% small effusion. Normal RV. Normal valves IMPLANT LOOP RECORDER N/A 12/28/2020 Procedure: IMPLANT LOOP RECORDER; Surgeon: Roderick Peoples MD; Location: [facility]; Service: Cardiovascular; Laterality: N/A; LOOP RECORDER INSERTION 09/01/2020 30 DAY. Monitored time 43%, SR. VE < 1%, SR, ST, No SX. PERICARDIOCENTESIS 08/19/2020 IN COLONOSCOPY FLX DX W/COLLJ SPEC WHEN PFRMD N/A 12/01/2016 Procedure: COLONOSCOPY; Surgeon: Richard Prakash MD; Location: GI Endoscopy; Service: Gastroenterology TONSILLECTOMY US GUIDED THORACENTESIS- BILATERAL (DIAGNOSTIC & THERAPEUTIC) Bilateral 09/14/2020 Procedure: US Guided Thoracentesis-Bilateral (Diagnostic & Therapeutic); Surgeon: SANDRA Galaviz; Location: [facility]; Service: Interventional Radiology; Laterality: Bilateral; Medications Current Outpatient Medications Medication Sig Dispense Refill allopurinol (ZYLOPRIM) 300 MG tablet TAKE 1 TABLET BY MOUTH TWICE A DAY 180 tablet 3 aspirin enteric coated (ECOTRIN LOW STRENGTH) 81 MG EC tablet Take 1 tablet (81 mg total) by mouth. betamethasone valerate (VALISONE) 0.1 % ointment Apply topically 2 (two) times a day. 30 g 5 Blood Glucose Monitoring Suppl (Readyforce Verio) w/Device Kit Use to test blood sugar two times daily 1 kit 0 Cholecalciferol (VITAMIN D3) 2000 UNITS Cap capsule Take 1 capsule (2,000 Units total) by mouth every other day. Continuous Blood Gluc Sensor (FreeStyle Luis 3 Sensor) Misc 1 each by Does not apply route every 14 days (2 weeks). 6 each 3 doxazosin (CARDURA) 4 MG tablet TAKE 1 TABLET BY MOUTH EVERY DAY NIGHTLY 90 tablet 3 glucose blood test strip 1 test strip by Other (specify) route as needed. Use as instructed insulin glargine (Lantus) 100 units/mL injection Inject 0.8 mL (80 Units total) under the skin 2 (two) times a day. DX CODE E11.21 120 mL 3 insulin lispro (HumaLOG KWIKPEN) 100 UNIT/ML prefilled pen injection Use up to 80 units twice a daybefore meals per sliding scale 60 each 1 Insulin Pen Needle 31G X 5 MM Misc by Does not apply route. Insulin Syringe-Needle U-100 (BD Insulin Syringe U/F) 31G X 5/16 1 ML Misc USE 4 TIMES A DAY WITH INSULIN 400 each 3 multivitamin Tab tablet Take 1 tablet by mouth. omega-3 fatty acids (FISH OIL) 1000 MG Cap capsule Take by mouth 2 (two) times a day. 300 QD OneTouch UltraSoft 2 Lancets Misc Use to test blood sugar two times daily 200 each 1 OneTouch Verio strip Use as instructed to test blood sugars two times daily 200 test strip 1 simvastatin (ZOCOR) 20 MG tablet Take 1 tablet (20 mg total) by mouth nightly. 90 tablet 3 tirzepatide (MOUNJARO) 7.5 mg/0.5 mL pen-injector Inject 1 pen(s) (7.5 mg total) under the skin once a week. 2 mL 3 torsemide (DEMADEX) 20 MG tablet Take 2 tablets (40 mg total) by mouth daily. 180 tablet 3 triamcinolone (KENALOG) 0.1 % cream APPLY TO AFFECTED AREA TWICE A DAY 60 g 1 Vyzulta 0.024 % ophthalmic solution Administer 1 drop to both eyes nightly. Dorzolamide HCl-Timolol Mal PF 2-0.5 % Solution Administer 1 drop to both eyes 2 (two) times a day. latanoprost (XALATAN) 0.005 % ophthalmic solution Administer 1 drop to both eyes nightly. No current facility-administered medications for this visit. Allergies No Known Allergies Social History Social History Tobacco Use Smoking status: Former Current packs/day: 0.00 Average packs/day: 2.0 packs/day for 27.0 years (54.0 ttl pk-yrs) Types: Cigarettes, Cigars Start date: 1960 Quit date: 1989 Years since quittin.9 Smokeless tobacco: Never Vaping Use Vaping status: Never Used Substance Use Topics Alcohol use: No Drug use: Yes Types: Marijuana Family History Family History Problem Relation Age of Onset Breast cancer Mother Diabetes Mother Diabetes Father Glaucoma Father COPD Maternal Uncle Hypertension Paternal Grandfather Review of Systems Review of Systems Constitutional: Negative for chills, fever and weight loss. Cardiovascular: Negative for chest pain, dyspnea on exertion, leg swelling, near-syncope, palpitations and syncope. Respiratory: Negative for cough and shortness of breath. Musculoskeletal: Negative for muscle weakness. Neurological: Negative for dizziness and light-headedness. Psychiatric/Behavioral: Negative for altered mental status. Physical Exam Vitals: 11/11/24 1517 BP: 130/80 BP Location: Right arm Patient Position: Sitting Cuff Size: Large Pulse: (!) 105 Weight: 136 kg (300 lb) Height: 1.753 m (5' 9 ) Physical Exam Constitutional: Appearance: Normal appearance. HENT: Head: Normocephalic. Cardiovascular: Rate and Rhythm: Regular rhythm. Tachycardia present. Pulmonary: Effort: Pulmonary effort is normal. No respiratory distress. Skin: General: Skin is warm and dry. Neurological: Mental Status: He is alert and oriented to person, place, and time. Psychiatric: Behavior: Behavior normal. Sign: Francy Huitron APRN 11/11/2024 4:45 PM documented in this encounter Plan of Treatment Upcoming Encounters Date Type Department Care Team (Late st Contact Info) Description 04/10/2025 4:00 PM EDT Office Visit [facility] Endocrinology [place] [address] [facility] [address] [place] [address] Trini Brown MD 100 [facility] [address] [place] [address] 05/25/2025 3:30 PM EDT [facility] [address] [place] [address] Ludwig Whiting, [address] [place] [address] 06/25/2025 2:00 PM EDT Office Visit [facility] Cardiology [address] [place] [address] Ashley Tilley MD [address] [facility] [address] [place] [id number] documented as of this encounter Procedures Procedure Name Priority Date/Time Associated Diagnosis Comments COMPLETE BLOOD COUNT, WITH DIFFERENTIAL Routine 11/28/2024 7:36 AM EST Pre-op testing BASIC METABOLIC PANEL Routine 11/28/2024 7:36 AM EST Pre-op testing ECG 12-LEAD Routine 11/11/2024 3:24 PM EST Paroxysmal atrial fibrillation (HCC) documented in this encounter Results * Basic metabolic panel (11/28/2024 7:36 AM EST) Pathologist [facility] Glucose 76 65 - 99 mg/dL [facility] Comment: ? Fasting reference interval Blood Urea Nitrogen (BUN) 19 7 - 25 mg/dL [facility] Creatinine 0.82 0.70 - 1.35 mg/dL [facility] Creatinine w/ eGFR 96 > OR = 60 mL/min/1. 73m2 [facility] BUN/Creatinine Ratio SEE NOTE: (calc) [facility] Comment: ?? Not Reported: BUN and Creatinine are within ?? reference range. ? Sodium 142 135 - 146 mmol/L [facility] Potassium 4.0 3.5 - 5.3 mmol/L [facility] Chloride 107 98 - 110 mmol/L [facility] CO2 26 20 - 32 mmol/L [facility] Calcium 9.8 8.6 - 10.3 mg/dL [facility] Blood Blood specimen / Unknown 11/28/2024 7:36 AM EST 11/28/2024 7:36 AM EST Francy Huitron BASIN FINISH OPERATOR [facility] BLOOD ORDERABLE S Performing Organization Address City/State/[facility] Co de Phone Number [email or web address] [address] [place] [phone] * Complete Blood Count, with Differential (11/28/2024 7:36 AM EST) White Blood Cell Count 5.7 3.8 - 10.8 Thousand/u L [facility] Red Blood Cell Count 4.55 4.20 - 5.80 Million/uL [facility] Hemoglobin 13.8 13.2 - 17.1 g/dL [facility] Hematocrit 42.3 38.5 - 50.0 % [facility] MCV 93.0 80.0 - 100.0 fL [facility] MCH 30.3 27.0 - 33.0 pg [facility] MCHC 32.6 32.0 - 36.0 g/dL [facility] Comment: For adults, a slight decrease in the calculated MCHC value (in the range of 30 to 32 g/dL) is most likely not clinically significant; however, it should be interpreted with caution in correlation with other red cell parameters and the patient's clinical condition. RDW 15.0 11.0 - 15.0 % [facility] Platelet Count 208 140 - 400 Thousand/u L [facility] MPV 11.6 7.5 - 12.5 fL [facility] Abs Neutrophils Auto 3,677 1,500 - 7,800 cells/uL [facility] Abs Lymphocytes Auto 1,214 850 - 3,900 cells/uL [facility] Abs Monocytes Auto 633 200 - 950 cells/uL [facility] Abs Eosinophils Auto 148 15 - 500 cells/uL [facility] Abs Basophils Auto 29 0 - 200 cells/uL [facility] Neutrophils Auto 64.5 % [facility] Lymphocytes Auto 21.3 % [employer] [facility] Monocytes Auto 11.1 % [facility] Eosinophils Auto 2.6 % [employer] Basophils Auto 0.5 % [facility] Blood Blood specimen / Unknown 11/28/2024 7:36 AM EST 11/28/2024 7:36 AM EST Francy Huitron BASIN FINISH OPERATOR [employer] LAB BLOOD ORDERABLE S [facility] [address] [place] [address] * ECG 12 lead (11/11/2024 3:24 PM EST) Ventricular rate 105 BPM EKG [facility] P-R interval 345 ms EKG [facility] QRS duration 80 ms EKG [facility] Q-T interval 330 ms EKG [facility] QTC calculation (Bazett) 436 ms EKG [facility] R axis 50 degrees EKG [facility] T axis 35 degrees EKG [facility] 11/11/2024 3:24 PM EST Narrative EKG [facility] - 11/11/2024 3:57 PM EST Sinus tachycardia First degree A-V block Cannot rule out Anterior infarct , age undetermined Abnormal ECG Confirmed by MD Le Eric ([id number]) on 11/11/2024 3:57:18 PM Procedure Note Raul Le MD - 11/11/2024 Sinus tachycardia First degree A-V block Cannot rule out Anterior infarct , age undetermined Abnormal ECG Confirmed by MD Le Eric ([id number]) on 11/11/2024 3:57:18 PM Raul Le MD ECG ORDERABLES [facility] documented in this encounter Visit Diagnoses Diagnosis Paroxysmal atrial fibrillation (HCC)- Primary Atrial fibrillation Pre-op testing Unspecified pre-operative examination documented in this encounter Care Teams Water Plant Maintenance Mechanic Relationship Specialty Start Date End Date Ludwig Whiting DO [address] [place] [address] PCP - General Family Medicine 12/01/16 Bianca Elena [address] [place] [address] PCP - Ophthalmology Ophthalmology 01/25/21 Ludwig Whiting DO [address] [place] [address] PCP - [employer] Attributed 03/26/21 Nicolas Gold MD [address] [place] [address] Endocrinology 07/11/17 Juanito Rivas MD [address] [place] [address] Referring Provider Surgery, Neurosurgery 02/01/18 Kirk Stringer MD [address] [place] [address] Consulting Provider Sleep Medicine 02/01/18 Ashley Tilley MD [address] [place] [address] Cardiovascular Disease 01/25/21 Jostin Kenny MD [address] [place] [address] Nephrology 05/14/23 Trini Brown MD [address] [place] [address] Endocrinology 01/04/24 Ashley Tilley MD [address] [place] [address] Primary Professor Of Economics Cardiovascular Disease 01/17/24 Franky Fonseca MD [address] [place] [address] Nephrology 06/10/24 documented as of this encounter
--- OUTSIDE RECORDS SUMMARY | 2024-12-24 17:30 | XMS_ITS | Encounter Summary ---
Author Organization [facility], Located Within [facility] Address 100 [place] [address] Care Team Providers Care Band Saw Filer Name Role Phone Ludwig Whiting DO Primary Care Provider [phone] Nicolas Gold MD Unavailable Unavailable Juanito Rivas MD Unavailable [phone] Kirk Stringer MD Unavailable [phone] Ashley Tilley MD Unavailable [phone] Bianca Elena Unavailable Ludwig Whiting DO Unavailable [phone] Jostin Kenny MD Unavailable Trini Brown MD Unavailable [phone] Ashley Tilley MD Unavailable [phone] Franky Fonseca MD Unavailable Reason for Visit * Reason Comments Referral Encounter Details Date Type Department Care Team (Late st Contact Info) Description 09/23/[address] [facility] [address] [place] [phone] Thuan Pandya MD [address] [place] [address] Referral Social History Tobacco Use Types Packs/Day Years Used Date Smoking Tobacco: Former Cigarettes 2 27 1 963 - 1989 Cigars Smokeless Tobacco: Never Alcohol Use Standard Drinks/Week Comments No 0 (1 standard drink = 0.6 oz pur e alcohol) Physical Activity Answer Date Recorded On average, [...] Description 04/10/2025 4:00 PM EDT Office Visit [facility] Endocrinology [place] [address] [phone] Trini Brown MD [address] [address] 05/25/2025 3:30 PM EDT Office Visit [facility] [place] 1060 [place] [phone] Ludwig Whiting, 1060 [place] [address] 06/25/2025 2:00 PM EDT Office Visit [facility] Cardiology [address] [place] [address] Ashley Tilley MD [address] [address] documented as of this encounter Visit Diagnoses Not on filedocumented in this encounter Care Teams Band Saw Filer Relationship Specialty Start Date End Date Ludwig Whiting DO 1060 [place] [address] PCP - General Family Medicine 12/01/16 Bianca Elena [address] [place] [address] PCP - Ophthalmology Ophthalmology 01/25/21 Ludwig Whiting DO 1060 [place] [address] PCP - [place] Commercial Attributed 03/26/21 Nicolas Gold MD 1060 [place] [address] Endocrinology 07/11/17 Juanito Rivas MD [address] [place] [address] Referring Provider Surgery, Neurosurgery 02/01/18 Kirk Stringer MD 112 [place] [address] Consulting Provider Sleep Medicine 02/01/18 Ashley Tilley MD [address] [place] [address] Cardiovascular Disease 01/25/21 Jostin Kenny MD [address] [place] [address] Nephrology 05/14/23 Trini Brown MD [address] [place] [address] Endocrinology 01/04/24 Ashley Tilley MD [address] [place] [address] Primary Auto Servicer Cardiovascular Disease 01/17/24 Franky Fonseca MD [address] [place] [address] Nephrology 06/10/24 documented as of this encounter
--- OUTSIDE RECORDS SUMMARY | 2024-12-24 17:30 | XMS_ITS | Encounter Summary ---
Author Organization [facility] Address 100 [place] [address] Care Team Providers Care Laundry Marker Supervisor Name Role Phone Ludwig Whiting DO Primary Care Provider [phone] Nicolas Gold MD Unavailable Unavailable Juanito Rivas MD Unavailable [phone] Kirk Stringer MD Unavailable Jostin Kenny MD Unavailable Marcelle Bass RN Unavailable Ashley Tilley MD Unavailable [phone] Bianca Elena Unavailable Ludwig Whiting DO Unavailable Jostin Kenny MD Unavailable [phone] Trini Brown MD Unavailable Ashley Tilley MD Unavailable [phone] Franky Fonseca MD Unavailable [phone] Encounter Details Date Type Department Care Team (Late st Contact Info) Description 04/07/2021 Scanned Document [facility] 1060 [place] [address] Ludwig Whiting, DO 1060 [facility] [place] [address] Social History Tobacco Use Types Packs/Day Years Used Date Smoking Tobacco: Former Cigarettes Q uit: 1989 Cigars Smokeless Tobacco: Never Alcohol Use Standard Drinks/Week Comments No 0 (1 standard drink = 0.6 oz pur e alcohol) Sex and Gender Information Value Date Recorded Sex Assigned at Male 04/26/2023 10:23 AM EDT Gender Identity Male 04/26/2023 10:23 AM EDT Sexual Orientation Heterosexual (straight) 04/26 10:23 AM EDT COVID-19 Exposure Response Date Recorded In the last month, have you been in contact with someone who was confirmed or suspected to have Coronavirus / COVID-19? No / Unsure 03/26/2021 10:28 AM EDT documented as of this encounter Plan of Treatment Upcoming Encounters Date Type Department Care Team (Late st Contact Info) Description 04/10/2025 4:00 PM EDT Office Visit [facility] Endocrinology [place] [address] [phone] Trini Brown MD [address] [address] 05/25/2025 3:30 PM EDT Office Visit [facility] 1060 [place] [address] Ludwig Whiting, DO 1060 [facility] [place] [address] 06/25/2025 2:00 PM EDT Office Visit [facility] Cardiology [address] [place] [address] Ashley Tilley MD [address] [place] [address] documented as of this encounter Visit Diagnoses Not on filedocumented in this encounter Care Teams Laundry Marker Supervisor Relationship Specialty Start Date End Date Ludwig Whiting DO 1060 [facility] [place] [address] PCP - General Family Medicine 12/01/16 Bianca Elena [address] [place] [address] PCP - Ophthalmology Ophthalmology 01/25/21 Ludwig Whiting DO 1060 [facility] [place] [address] PCP - [place] Commercial Attributed 03/26/21 Nicolas Gold MD 1060 [facility] [place] [address] Endocrinology 07/11/17 Juanito Rivas MD [address] [place] [address] Referring Provider Surgery, Neurosurgery 02/01/18 Kirk Stringer MD [address] [place] [address] Consulting Provider Sleep Medicine 02/01/18 Jostin Kenny MD [address] [place] [address] Nephrology 02/01/18 05/13/23 Marcelle Bass, WING 17 [facility] 2nd [place] [address] ICP Transition Referral Clerk 08/25/20 09/20/21 Ashley Tilley MD [address] [place], [place] [address] Cardiovascular Disease 01/25/21 Jostin Kenny MD [address] [place] [address] Nephrology 05/14/23 Trini Brown MD [address] [place] [address] Endocrinology 01/04/24 Ashley Tilley MD [address] [place] [address] Primary Application Development Project Manager Cardiovascular Disease 01/17/24 Franky Fonseca MD [address] [place] [address] Nephrology 06/10/24 documented as of this encounter
--- OUTSIDE RECORDS SUMMARY | 2024-12-24 17:30 | XMS_ITS | Encounter Summary ---
Author Organization [facility] Address 100 [place] [address] Care Team Providers Care Bread Wrapping Machine Feeder Name Role Phone Ludwig Whiting DO Primary Care Provider [phone] Nicolas Gold MD Unavailable Unavailable Juanito Rivas MD Unavailable [phone] Kirk Stringer MD Unavailable Jostin Kenny MD Unavailable [phone] Ashley Tilley MD Unavailable [phone] Bianca Elena Unavailable Ludwig Whiting DO Unavailable [phone] Jostin Kenny MD Unavailable [phone] Trini Brown MD Unavailable [phone] Ashley Tilley MD Unavailable [phone] Franky Fonseca MD Unavailable [phone] Reason for Visit * Reason Comments Med Change Request Encounter Details Date Type Department Care Team (Late st Contact Info) Description 09/20/2022 [facility] Endocrinology [place] [phone] Nicolas Gold MD Needs valid address Type 2 diabetes mellitus without complications (HCC); Type 2 diabetes mellitus with diabetic nephropathy, with long-term current use of insulin (HCC) Social History Tobacco Use Types Packs/Day Years [...] Exposure Response Date Recorded In the last 10 days, have yo u been in contact with someone who was confirmed or suspected to have Coronavirus/COVID-19? No / Unsure 09/05/2022 11:28 AM EDT documented as of this encounter Plan of Treatment Upcoming Encounters Date Type Department Care Team (Late st Contact Info) Description 04/10/2025 4:00 PM EDT Office Visit [facility] Endocrinology [place] [address] [phone] Trini Brown MD [address] [place] [address] 101 [place] [address] 05/25/2025 3:30 PM EDT Office Visit [facility] 1060 [place] [address] Ludwig Whiting, 10[address] [place] [address] 06/25/2025 2:00 PM EDT Office Visit [facility] Cardiology [address] [place] [address] Ashley Tilley MD [address] [address] documented as of this encounter Visit Diagnoses Diagnosis Type 2 diabetes mellitus without complications (HCC) Type 2 diabetes mellitus with diabetic nephropathy, with long-term current use of insulin (HCC) documented in this encounter Care Teams Bread Wrapping Machine Feeder Relationship Specialty Start Date End Date Ludwig Whiting DO 1060 [place] [address] PCP - General Family Medicine 12/01/16 Bianca Elena [address] [place] [address] PCP - Ophthalmology Ophthalmology 01/25/21 Ludwig Whiting DO 10[address] [place] [address] PCP - [place] Commercial Attributed 03/26/21 Nicolas Gold MD 10[address] [place] [address] Endocrinology 07/11/17 Juanito Rivas MD [address] [place] [address] Referring Provider Surgery, Neurosurgery 02/01/18 Kirk Stringer MD [address] [place] [address] Consulting Provider Sleep Medicine 02/01/18 Jostin Kenny MD [address] [place] [address] Nephrology 02/01/18 05/13/23 Ashley Tilley MD [address] [place] [address] Cardiovascular Disease 01/25/21 Jostin Kenny MD [address] [place] [address] Nephrology 05/14/23 Trini Brown MD [address] [place] [address] Endocrinology 01/04/24 Ashley Tilley MD [address] [place] [address] Primary Church Business Administrator Cardiovascular Disease 01/17/24 Franky Fonseca MD [address] [place] [address] Nephrology 06/10/24 documented as of this encounter
--- OUTSIDE RECORDS SUMMARY | 2024-12-24 17:30 | XMS_ITS | Clinical Summary ---
Author Organization [facility] Address [address] [place] [address] Care Team Providers Care Product Safety Associate Name Role Phone Ludwig Whiting MD Primary Care Provider [phone] Allergies No known active allergies Medications Medication Sig Dispensed Refills Start Date End Date Status ACCU-CHEK SOFTCLIX LANCETS lancets Accu-Chek Softclix Lancets Miscellaneous 4 daily ; Start Date: 12/01/2011; End Date: 0 07/04/2017 Active allopurinol (ZYLOPRIM) 300 MG tablet TAKE 1 TABLET BY MOUTH EVERY DAY 0 09/11/2017 Active Insulin Syringe-Needle U-100 (B-D INS SYR ULTRAFINE 1CC/31G) 31G X 04/10 1 ML MISC USE FOUR TIMES DAILY FOR INSULIN ADMINISTRATION 0 03/15/2016 Active brimonidine (ALPHAGAN P) 0.1 % SOLN Alphagan P 0.1 % Ophthalmic Solution ; Start Date: 04/17/2013; End Date: 0 04/17/2013 Active bumetanide (BUMEX) 2 MG tablet Take 2 mg by mouth. 0 07/13/2015 Acti ve Cholecalciferol (VITAMIN D) 1000 UNITS tablet Vitamin D 1000 UNIT Oral Tablet TAKE 1 TABLET DAILY. ; Start Date: 02/20/2012; End Date: 0 02/20/2012 Active colchicine 0.6 MG tablet Take 0.6 mg by mouth. 0 07/11/2017 Act vanna hydrALAZINE (APRESOLINE) 50 MG tablet Take 75 mg by mouth 3 (three) times a day. 0 Active simvastatin (ZOCOR) tablet 40 mg Take 40 mg by mouth every night at bedtime. 0 Active niacin (NIASPAN) ER capsule 500 mg Take 500 mg by mouth every night at bedtime. 0 Active Immunizations Name Administration Dates Next Due Covid-19 (Pfizer) Dilution Required 03/21/2021,0 02/28/2021 Social History Tobacco Use Types Packs/Day Years Used Date Smoking Tobacco: Former Sex and Gender Information Value Date Recorded Sex Assigned at Not on file Gender Identity Not on file Sexual Orientation Not on file Job Start Date Occupation Industry Not on file Not on file Not on file Last Filed Vital Signs Vital Sign Reading Time Taken Comments Blood Pressure - - Pulse - - Temperature - - Respiratory Rate - - Oxygen Saturation - - Inhaled Oxygen Concentration - - Weight 165.1 kg (364 lb) 09/21/2017 2:36 PM EDT Height 175.3 cm (5' 9 ) 09/21/2017 2:36 PM EDT Body Mass Index 53.75 09/21/2017 2:36 PM EDT Plan of Treatment Health Maintenance Due Date Last Done Comments Hepatitis C Screening 1957 Depression Screening 1969 Preventative Health Evaluation 1975 Colon Cancer Screening (Colonoscopy) 2002 Shingrix-Zoster Vaccine (1 of 2) 2007 DTap / Tdap / Td (2 - Td or Tdap) 12/04/2018 12/04/2008, 11/26/2008 Fall Risk Assessment 2022 Pneumococcal Vaccine (3 of 3 - PPSV23 or PCV20) 2022 03/18/2015, 08/26/2003 COVID-19 Vaccine (3 - season) 2024 03/21/2021, 02/28/2021 Influenza Vaccine (#1) 2024 0, 08/24/2020, 08/30/2019, Additional history exists RSV Adult > 60+ Yrs or (1 - 1-dose 75+ series) 2032 Hepatitis B Vaccines Aged Out No long er eligible based on patient's age to complete this topic RSV Ped < 20 months Aged Out No longe r eligible based on patient's age to complete this topic Care Teams Product Safety Associate Relationship Specialty Start Date End Date Ludwig Whiting MD 1060 [facility] [address] [place], [place] [address] PCP - General Family Medicine 09/21/17
--- OUTSIDE RECORDS SUMMARY | 2024-12-24 17:30 | XMS_ITS | Encounter Summary ---
Author Organization [facility] Address 100 [place] [address] Care Team Providers Care Machine Preservative Filler Name Role Phone Ludwig Whiting DO Primary Care Provider [phone] Nicolas Gold MD Unavailable Unavailable Juanito Rivas MD Unavailable Kirk Stringer MD Unavailable Jostin Kenny MD Unavailable [phone] Marcelle Bass RN Unavailable Ashley Tilley MD Unavailable [phone] Bianca Elena Unavailable Ludwig Whiting DO Unavailable Jostin Kenny MD Unavailable [phone] Trini Brown MD Unavailable [phone] Ashley Tilley MD Unavailable [phone] Franky Fonseca MD Unavailable [phone] Encounter Details Date Type Department Care Team (Late st Contact Info) Description 03/24/2021 Scanned Document [facility] [address] [address] Cardiology, Scan Social History Tobacco Use Types Packs/Day Years [...] 04/10/2025 4:00 PM EDT Office Visit [facility] Endocrinology [place] 100 [facility] 101 [place] [address] Trini Brown MD 100 [facility] 101 [place] [address] 05/25/2025 3:30 PM EDT Office Visit [address] [phone] Ludwig Whiting, [address] [place] [address] 06/25/2025 2:00 PM EDT Office Visit [facility] Cardiology [address] [place] [address] Ashley Tilley MD 100 [facility] 811 [place] [address] documented as of this encounter Visit Diagnoses Not on filedocumented in this encounter Care Teams Machine Preservative Filler Relationship Specialty Start Date End Date Ludwig Whiting, DO 10[address] [place] [address] PCP - General Family Medicine 12/01/16 Bianca Elena [address] [place] [address] PCP - Ophthalmology Ophthalmology 01/25/21 Ludwig Whitign DO 1060 [place] [address] PCP - [place] Commercial Attributed 03/26/21 Nicolsa Gold MD 10[address] [place] [address] Endocrinology 07/11/17 Juanito Rivas MD [address] [place] [address] Referring Provider Surgery, Neurosurgery 02/01/18 Kirk Stringer MD [address] [place] [address] Consulting Provider Sleep Medicine 02/01/18 Jostin Kenny MD [address] [place] [address] Nephrology 02/01/18 05/13/23 Marcelle Bass, WING 17 [facility] 2nd [place] [address] ICP Transition Club Attendant 08/25/20 09/20/21 Ashley Tilley MD [address] [place] [address] Cardiovascular Disease 01/25/21 Jostin Kenny MD [address] [place] [address] Nephrology 05/14/23 Trini Brown MD [address] [place] [address] Endocrinology 01/04/24 Ashley Tilley MD [address] [place] [address] Primary Loom Cleaner Cardiovascular Disease 01/17/24 Franky Fonseca MD [address] [place] [address] Nephrology 06/10/24 documented as of this encounter
--- OUTSIDE RECORDS SUMMARY | 2024-12-24 17:31 | XMS_ITS | Encounter Summary ---
Author Organization [facility] Address [address] [place] [address] Care Team Providers Care Assistant Professor Of Art Name Role Phone Ludwig Whiting DO Primary Care Provider [phone] Nicolas Gold MD Unavailable Unavailable Juanito Rivas MD Unavailable Kirk Stringer MD Unavailable Jostin Kenny MD Unavailable Ashley Tilley MD Unavailable [phone] Bianca Elena Unavailable Ludwig Whiting DO Unavailable Jostin Kenny MD Unavailable [phone] Trini Brown MD Unavailable [phone] Ashley Tilley MD Unavailable [phone] Franky Fonseca MD Unavailable [phone] Encounter Details Date Type Department Care Team (Late st Contact Info) Description 11/16/2022 Scanned Document [facility] PULMONOLGY SCAN Pulmonology, Scan Social History Tobacco Use Types Packs/Day [...] suspected to have Coronavirus/COVID-19? No / Unsure 10/27/2022 1:01 PM EST documented as of this encounter Plan of Treatment Upcoming Encounters Date Type Department Care Team (Late st Contact Info) Description 04/10/2025 4:00 PM EDT Office Visit [facility] Endocrinology [place] 100 [facility] 101 [place] [address] Trini Brown MD 100 [facility] 101 [place] [address] 05/25/2025 3:30 PM EDT Office Visit [facility] 1060 [place] [phone] Ludwig Whiting DO 1060 [place] [address] 06/25/2025 2:00 PM EDT Office Visit [facility] Cardiology [address] [place] [address] Ashley Tilley MD [address] [place] [address] [place] [address] documented as of this encounter Visit Diagnoses Not on filedocumented in this encounter Care Teams Assistant Professor Of Art Relationship Specialty Start Date End Date Ludwig Whiting DO [address] [place] [address] PCP - General Family Medicine 12/01/16 Bianca Elena [address] [place] [address] PCP - Ophthalmology Ophthalmology 01/25/21 Ludwig Whiting DO 1060 [facility] [place] [address] PCP - [place] Commercial Attributed 03/26/21 Nicolas Gold MD 1060 [facility] [place] [address] Endocrinology 07/11/17 Juanito Rivas MD [address] [place] [address] Referring Provider Surgery, Neurosurgery 02/01/18 Kirk Stringer MD [address] [place] [address] Consulting Provider Sleep Medicine 02/01/18 Jostin Kenny MD [address] [place] [address] Nephrology 02/01/18 05/13/23 Ashley Tilley MD [address] [place] [address] Cardiovascular Disease 01/25/21 Jostin Kenny MD [address] [place] [address] Nephrology 05/14/23 Trini Brown MD [address] [place] [address] Endocrinology 01/04/24 Ashley Tilley MD [address] [place] [address] Primary Flight Crew Ordnanceman Cardiovascular Disease 01/17/24 Franky Fonseca MD [address] [place] [address] Nephrology 06/10/24 documented as of this encounter
--- OUTSIDE RECORDS SUMMARY | 2024-12-24 17:31 | XMS_ITS | Encounter Summary ---
Author Organization [facility] Address [address] [place] [address] Care Team Providers Care Handle Lathe Operator Name Role Phone Ludwig Whiting DO Primary Care Provider [phone] Nicolas Gold MD Unavailable Unavailable Juanito Rivas MD Unavailable Kirk Stringer MD Unavailable Ashley Tilley MD Unavailable [phone] Bianca Elena Unavailable Ludwig Whiting DO Unavailable [phone] Jostin Kenny MD Unavailable [phone] Trini Brown MD Unavailable [phone] Ashley Tilley MD Unavailable [phone] Franky Fonseca MD Unavailable [phone] Encounter Details Date Type Department Care Team (Late st Contact Info) Description 11/15/2023 Scanned Document [facility] Endocrinology [address] [phone] Nicolas Gold MD Needs valid address Social History Tobacco Use Types Packs/Day Years [...] Description 04/10/2025 4:00 PM EDT Office Visit [facility] Endocrinology [place] 100 [facility] 101 [place] [address] Trini Brown MD 100 [facility] 101 [place] [address] 05/25/2025 3:30 PM EDT Office Visit [facility] [place] 1060 [place] [address] Ludwig Whiting DO 1060 [place] [address] 06/25/2025 2:00 PM EDT Office Visit [facility] Cardiology [address] [place] [address] Ashley Tilley MD 100 [facility] [address] [place] [address] documented as of this encounter Visit Diagnoses Not on filedocumented in this encounter Care Teams Handle Lathe Operator Relationship Specialty Start Date End Date Ludwig Whiting DO [address] [place] [address] PCP - General Family Medicine 12/01/16 Bianca Elena [address] [place] [address] PCP - Ophthalmology Ophthalmology 01/25/21 Ludwig Whiting DO 1060 [place] [address] PCP - [place] Commercial Attributed 03/26/21 Nicolas Gold MD [address] [facility] [place] [address] Endocrinology 07/11/17 Juanito Rivas MD [address] [place] [address] Referring Provider Surgery, Neurosurgery 02/01/18 Kirk Stringer MD [address] [place] [address] Consulting Provider Sleep Medicine 02/01/18 Ashley Tilley MD [address] [place] [address] Cardiovascular Disease 01/25/21 Jostin Kenny MD [address] [place] [address] Nephrology 05/14/23 Trini Brown MD [address] [place] [address] Endocrinology 01/04/24 Ashley Tilley MD [address] [place] [address] Primary Inseam Trimmer Cardiovascular Disease 01/17/24 Franky Fonseca MD [address] [place] [address] Nephrology 06/10/24 documented as of this encounter
--- OUTSIDE RECORDS SUMMARY | 2024-12-24 17:31 | XMS_ITS | Encounter Summary ---
Author Organization Formerly [facility] Address [address] [place] [address] Care Team Providers Care Junior Accountant Bookkeeper Name Role Phone Ludwig Whiting DO Primary Care Provider [phone] Nicolas Gold MD Unavailable Unavailable Juanito Rivas MD Unavailable Kirk Stringer MD Unavailable [phone] Ashley Tilley MD Unavailable [phone] Bianca Elena Unavailable Ludwig Whiting DO Unavailable [phone] Jostin Kenny MD Unavailable [phone] Trini Brown MD Unavailable [phone] Ashley Tilley MD Unavailable [phone] Franky Fonseca MD Unavailable [phone] Encounter Details Date Type Department Care Team (Late st Contact Info) Description 12/03/2024 Prep for Surgery [facility] Heart & Vascular [place] - Electrophysiology [address] [place] [address] [address] [place] [address] Elvie Schmitz, HOSPITAL INSURANCE CLERK [address] [address] Social History Tobacco Use Types Packs/Day Years Used Date Smoking Tobacco: Former Cigarettes 2 1 963 - 1989 Cigars Smokeless Tobacco: Never Alcohol Use Standard Drinks/Week Comments No 0 (1 standard drink = 0.6 oz pur e alcohol) [facility] Utilities Answer Date Recorded In the past 12 months has th e electric, gas, oil, or water company threatened to shut off services in your home? No 11/24/2024 Social Connection and Isolation Panel [NHANES] A nswer Date Recorded In a typical week, how many times do you talk on the phone with family, friends, or neighbors? Three times a week 11/24/2024 Frequency of Social Gatherin gs with Friends and Family Not on file 11/24/2024 Attends Mosque Services Not on file 11/24 Active Member [...] any time in the past 12 m [facility], were you homeless or living in a mcc (including now)? No 11/24/2024 Physical Activity Answer [...] Description 04/10/2025 4:00 PM EDT Office Visit [facility] Endocrinology [place] 100 [facility] 101 [place] [address] Trini Brown MD 100 [facility] 101 [place] [address] 05/25/2025 3:30 PM EDT Office Visit [facility] 1060 [place] [address] Ludwig Whiting, 1060 [place] [address] 06/25/2025 2:00 PM EDT Office Visit [facility] Cardiology [address] [place] [address] Ashley Tilley MD [address] [facility] [address] [place] [address] documented as of this encounter Visit Diagnoses Not on filedocumented in this encounter Care Teams Junior Accountant Bookkeeper Relationship Specialty Start Date End Date Ludwig Whiting, DO 1060 [facility] [place] [address] PCP - General Family Medicine 12/01/16 Bianca Elena [address] [place] [address] PCP - Ophthalmology Ophthalmology 01/25/21 Ludwig Whiting, DO 1060 [facility] [place] [address] PCP - [place] Commercial Attributed 03/26/21 Nicolas Gold MD 1060 [facility] [place] [address] Endocrinology 07/11/17 Juanito Rivas MD [address] [place] [address] Referring Provider Surgery, Neurosurgery 02/01/18 Kirk Stringer MD [address] [place] [address] Consulting Provider Sleep Medicine 02/01/18 Ashley Tilley MD [address] [place] [address] Cardiovascular Disease 01/25/21 Jostin Kenny MD [address] [place] [address] Nephrology 05/14/23 Trini Brown MD [address] [place] [address] Endocrinology 01/04/24 Ashley Tilley MD [address] [place] [address] Primary Canine Enforcement Officer Cardiovascular Disease 01/17/24 Franky Fonseca MD [address] [place] [address] Nephrology 06/10/24 documented as of this encounter
--- OUTSIDE RECORDS SUMMARY | 2024-12-24 17:31 | XMS_ITS | Encounter Summary ---
Author Organization [facility] Address [address] [place] [address] Care Team Providers Care Floriculture Professor Name Role Phone Ludwig Whiting DO Primary Care Provider [phone] Nicolas Gold MD Unavailable Unavailable Juanito Rivas MD Unavailable Kirk Stringer MD Unavailable Jostin Kenny MD Unavailable [phone] Ashley Tilley MD Unavailable [phone] Bianca Elena Unavailable Ludwig Whiting DO Unavailable Jostin Kenny MD Unavailable Trini Brown MD Unavailable [phone] Ashley Tilley MD Unavailable [phone] Franky Fonseca MD Unavailable [phone] Reason for Visit * Reason Comments Med Change Request Encounter Details Date Type Department Care Team (Late st Contact Info) Description 05/11/2022 [facility] Cardiology [address] [place], [place] [phone] Ashley Tilley MD 100 [place] [facility] 8[address] [place] [address] Med Change Request Social History Tobacco Use Types Packs/Day Years [...] suspected to have Coronavirus/COVID-19? No / Unsure 05/11/2022 1:58 PM EDT documented as of this encounter Plan of Treatment Upcoming Encounters Date Type Department Care Team (Late st Contact Info) Description 04/10/2025 4:00 PM EDT Office Visit [facility] Endocrinology [address] [phone] Trini Brown MD [address] [address] 05/25/2025 3:30 PM EDT [facility] 1060 [place] [address] Ludwig Whiting, [address] [place], [place] [address] 06/25/2025 2:00 PM EDT Office Visit [facility] Cardiology [address] [phone] Ashley Tilley MD [address] [place] [address] documented as of this encounter Visit Diagnoses Diagnosis Essential hypertension Unspecified essential hypertension documented in this encounter Care Teams Floriculture Professor Relationship Specialty Start Date End Date Ludwig Whiting DO 1060 [place] [address] PCP - General Family Medicine 12/01/16 Bianca Elena [address] [place] [address] PCP - Ophthalmology Ophthalmology 01/25/21 Ludwig Whiting DO 1060 [place] [address] PCP - [place] Commercial Attributed 03/26/21 Nicolas Gold MD 1060 [facility] [place] [address] Endocrinology 07/11/17 Juanito Rivas MD [address] [place] [address] Referring Provider Surgery, Neurosurgery 02/01/18 Kirk Stringer MD 112 [place] [address] Consulting Provider Sleep Medicine 02/01/18 Jostin Kenny MD 112 [place] [address] Nephrology 02/01/18 05/13/23 Ashley Tilley MD [address] [place] [address] Cardiovascular Disease 01/25/21 Jostin Kenny MD [address] [place] [address] Nephrology 05/14/23 Trini Brown MD [address] [place] [address] Endocrinology 01/04/24 Ashley Tilley MD [address] [place] [address] Primary Chief Of Vital Statistics Cardiovascular Disease 01/17/24 Franky Fonseca MD [address] [place] [address] Nephrology 06/10/24 documented as of this encounter
--- OUTSIDE RECORDS SUMMARY | 2024-12-24 17:31 | XMS_ITS | Encounter Summary ---
Author Organization [facility] Address [address] [place] [address] Care Team Providers Care Constitutional Law Professor Name Role Phone Ludwig Whiting DO Primary Care Provider [phone] Nicolas Gold MD Unavailable Unavailable Juanito Rivas MD Unavailable Kirk Stringer MD Unavailable [phone] Jostin Kenny MD Unavailable [phone] Marcelle Bass RN Unavailable Ashley Tilley MD Unavailable [phone] Bianca Elena Unavailable Ludwig Whiting DO Unavailable Jostin Kenny MD Unavailable [phone] Trini Brown MD Unavailable [phone] Ashley Tilley MD Unavailable [phone] Franky Fonseca MD Unavailable [phone] Encounter Details Date Type Department Care Team (Late st Contact Info) Description 07/19/2019 Scanned Document [address] [place] [address] Provider, Generic Social History Tobacco Use Types Packs/Day Years Used Date Smoking Tobacco: Former Cigarettes 2 25 Cigars Smokeless Tobacco: Never Comments:quit age 44 Alcohol Use Standard Drinks/Week Comments No 0 [...] Description 04/10/2025 4:00 PM EDT Office Visit [facility] Endocrinology [place] 100 [facility] 101 [place] [address] Trini Brown MD 100 [facility] 101 [place] [address] 05/25/2025 3:30 PM EDT Office Visit [address] [address] Ludwig Whiting, [address] [address] 06/25/2025 2:00 PM EDT Office Visit [facility] Cardiology [address] [address] Ashley Tilley MD 100 [facility] [address] [place] [address] documented as of this encounter Procedures Procedure Name Priority Date/Time Associated Diagnosis Comments HX OPHTHALMOLOGY TESTING PROCEDURES 07/19/2019 documented in this encounter Results * HX OPHTHALMOLOGY TESTING PROCEDURES (07/19/2019) Narrative Chana Clifford - 07/19/2019 Ordered by an unspecified provider. Generic Provider HX AMB PROCEDURES documented in this encounter Visit Diagnoses Not on filedocumented in this encounter Care Teams Constitutional Law Professor Relationship Specialty Start Date End Date Ludwig Whiting DO 1060 [place] [address] PCP - General Family Medicine 12/01/16 Bianca Elena [address] [place] [address] PCP - Ophthalmology Ophthalmology 01/25/21 Ludwig Whiting DO 10[address] [place] [address] PCP - [place] Commercial Attributed 03/26/21 Nicolas Gold MD 1060 [facility] [place] [address] Endocrinology 07/11/17 Juanito Rivas MD 1000 [place] [address] Referring Provider Surgery, Neurosurgery 02/01/18 Kirk Stringer MD [address] [place] [address] Consulting Provider Sleep Medicine 02/01/18 Jostin Kenny MD [address] [place] [address] Nephrology 02/01/18 05/13/23 Marcelle Bass, WING 17 [facility] 2nd [place] [address] ICP Transition Power Station Operator 08/25/20 09/20/21 Ashley Tilley MD [address] [place], [place] [phone] Cardiovascular Disease 01/25/21 Jostin Kenny MD [address] [place] [address] Nephrology 05/14/23 Trini Brown MD [address] [place] [address] Endocrinology 01/04/24 Ashley Tilley MD [address] [place], [place] [phone] Primary Travel Rn Cardiovascular Disease 01/17/24 Frakny Fonseca MD [address] [place] [address] Nephrology 06/10/24 documented as of this encounter
--- OUTSIDE RECORDS SUMMARY | 2024-12-24 17:31 | XMS_ITS | Encounter Summary ---
Author Organization [facility] Address [address] [place] [address] Care Team Providers Care Business Manager College Or University Name Role Phone Ludwig Whiting DO Primary Care Provider [phone] Nicolas Gold MD Unavailable Unavailable Juanito Rivas MD Unavailable Kirk Stringer MD Unavailable Jostin Kenny MD Unavailable [phone] Marcelle Bass RN Unavailable Ashley Tilley MD Unavailable [phone] Bianca Elena Unavailable Ludwig Whiting DO Unavailable Jostin Kenny MD Unavailable [phone] Trini Brown MD Unavailable [phone] Ashley Tilley MD Unavailable [phone] Franky Fonseca MD Unavailable [phone] Encounter Details Date Type Department Care Team (Late st Contact Info) Description 05/26/[address] [facility] 1060 [place] [address] Cardiology, Scan Social History Tobacco Use Types [...] Description 04/10/2025 4:00 PM EDT Office Visit [facility] Endocrinology [place] 100 [facility] 101 [place] [address] Trini Brown MD 100 [facility] 101 [place] [address] 05/25/2025 3:30 PM EDT Office Visit [facility] 1060 [place] [address] Ludwig Whiting DO 1060 [place] [address] 06/25/2025 2:00 PM EDT Office Visit [facility] Cardiology [address] [place] [address] Ashley Tilley MD 100 [facility] [address] [place] [address] documented as of this encounter Visit Diagnoses Not on filedocumented in this encounter Care Teams Business Manager College Or University Relationship Specialty Start Date End Date Ludwig Whiting DO [address] [place] [address] PCP - General Family Medicine 12/01/16 Bianca Elena [address] [place] [address] PCP - Ophthalmology Ophthalmology 01/25/21 Ludwig Whiting DO 10[address] [place] [address] PCP - [place] Commercial Attributed 03/26/21 Nicolas Gold MD 1060 [place] [address] Endocrinology 07/11/17 Juanito Rivas MD 1000 [place] [address] Referring Provider Surgery, Neurosurgery 02/01/18 Kirk Stringer MD 112 [place] [address] Consulting Provider Sleep Medicine 02/01/18 Jostin Kenny MD 112 [place] [address] Nephrology 02/01/18 05/13/23 Marcelle Bass, W[place] [address] [place] [address] ICP Transition Frame Feeder 08/25/20 09/20/21 Ashley Tilley MD [address] [place] [address] Cardiovascular Disease 01/25/21 Jostin Kenny MD [address] [place] [address] Nephrology 05/14/23 Trini Brown MD [address] [place] [address] Endocrinology 01/04/24 Ashley Tilley MD [address] [place] [address] Primary Aoc Airspace Control Officer Cardiovascular Disease 01/17/24 Franky Fonseca MD [address] [place] [address] Nephrology 06/10/24 documented as of this encounter
--- OUTSIDE RECORDS SUMMARY | 2024-12-24 17:31 | XMS_ITS | Encounter Summary ---
Author Organization [facility] Address [address] [place] [address] Care Team Providers Care Brick Cleaner Name Role Phone Ludwig Whiting DO Primary Care Provider [phone] Nicolas Gold MD Unavailable Unavailable Juanito Rivas MD Unavailable Kirk Stringer MD Unavailable Jostin Kenny MD Unavailable [phone] Marcelle Bass RN Unavailable Ashley Tilley MD Unavailable [phone] Bianca Elena Unavailable Ludwig Whiting DO Unavailable Jostin Kenny MD Unavailable [phone] Trini Brown MD Unavailable [phone] Ashley Tilley MD Unavailable [phone] Franky Fonseca MD Unavailable [phone] Encounter Details Date Type Department Care Team (Late st Contact Info) Description 09/02/2020 Scanned Document [facility] [address] [place], [place] [address], [place] [address] Provider, Generic Social History Tobacco Use Types Packs/Day Years Used Date Smoking Tobacco: Former Cigarettes Cigars Smokeless Tobacco: Never Alcohol Use Standard [...] have Coronavirus / COVID-19? No / Unsure 08/20/2020 9:17 AM EDT documented as of this encounter Plan of Treatment Upcoming Encounters Date Type Department Care Team (Late st Contact Info) Description 04/10/2025 4:00 PM EDT Office Visit [facility] Endocrinology [place] 100 [facility] 101 [place] [address] Trini Brown MD 100 [facility] 101 [place] [address] 05/25/2025 3:30 PM EDT Office Visit [address] [address] Ludwig Whiting, [address] [place] [address] 06/25/2025 2:00 PM EDT Office Visit [facility] Cardiology [address] [place] [address] Ashley Tilley MD 100 [facility] 811 [place] [address] documented as of this encounter Procedures Procedure Name Priority Date/Time Associated Diagnosis Comments CARDIOLOGY ECHO 09/02/2020 12:13 PM EDT documented in this encounter Results * CARDIOLOGY ECHO (09/02/2020 12:13 PM EDT) Anatomical Region Laterality Modality Other Narrative 09/02/2020 12:13 PM EDT Ordered by an unspecified provider. Generic Provider HX AMB PROCEDURES documented in this encounter Visit Diagnoses Not on filedocumented in this encounter Care Teams Brick Cleaner Relationship Specialty Start Date End Date Ludwig Whiting DO 1060 [facility] [place] [address] PCP - General Family Medicine 12/01/16 Bianca Elena [address] [place] [address] PCP - Ophthalmology Ophthalmology 01/25/21 Ludwig Whiting DO 1060 [facility] [address] PCP - [place] Commercial Attributed 03/26/21 Nicolas Gold MD 1060 [facility] [place] [address] Endocrinology 07/11/17 Juanito Rivas MD 1000 [place] [address] Referring Provider Surgery, Neurosurgery 02/01/18 Kirk Stringer MD 112 [place] [address] Consulting Provider Sleep Medicine 02/01/18 Jostin Kenny MD 112 [place] [address] Nephrology 02/01/18 05/13/23 Marcelle Bass, RN [address] [facility] [address] 2nd [place] [address] ICP Transition Chemotherapist 08/25/20 09/20/21 Ashley Tilley MD [address] [place] [address] Cardiovascular Disease 01/25/21 Jostin Kenny MD [address] [place] [address] Nephrology 05/14/23 Trini Brown MD [address] [place] [address] Endocrinology 01/04/24 Ashley Tilley MD [address] [place] [address] Primary Mixer Operator Raw Salt Cardiovascular Disease 01/17/24 Franky Fonseca MD [address] [place] [address] Nephrology 06/10/24 documented as of this encounter
--- OUTSIDE RECORDS SUMMARY | 2024-12-24 17:31 | XMS_ITS | Encounter Summary ---
Author Organization [facility] Address [address] [place] [address] Care Team Providers Care Gift Shop Clerk Name Role Phone Ludwig Whiting DO Primary Care Provider [phone] Nicolas Gold MD Unavailable Unavailable Juanito Rivas MD Unavailable Kirk Stringer MD Unavailable Ashley Tilley MD Unavailable [phone] Bianca Elena Unavailable Ludwig Whiting DO Unavailable [phone] Jostin Kenny MD Unavailable [phone] Trini Brown MD Unavailable [phone] Ashley Tilley MD Unavailable [phone] Franky Fonseca MD Unavailable [phone] Encounter Details Date Type Department Care Team (Late st Contact Info) Description 11/18/2024 Orders Only [facility] [address] [place] [address] Cardiology, Scan Social History Tobacco Use Types Packs/Day Years Used Date Smoking Tobacco: Former Cigarettes 2 27 1 963 - 1989 Cigars Smokeless Tobacco: Never Alcohol Use Standard Drinks/Week Comments No 0 (1 standard drink = 0.6 oz pur e alcohol) [facility] Utilities Answer Date Recorded In the past [...] any time in the past 12 m [facility], were you homeless or living in a residential (including now)? No 11/24/2024 Physical Activity Answer [...] Description 04/10/2025 4:00 PM EDT Office Visit [facility] Endocrinology [place] 100 [facility] 101 [place] [address] Trini Brown MD 100 [facility] 101 [place] [address] 05/25/2025 3:30 PM EDT Office Visit [facility] 1060 [place] [phone] Ludwig Whiting, [address] [place] [address] 06/25/2025 2:00 PM EDT Office Visit [facility] Cardiology [address] [place] [address] Ashley Tilley MD [address] [place] [address] documented as of this encounter Procedures Procedure Name Priority Date/Time Associated Diagnosis Comments CARDIOLOGY ECHO Routine 11/18/2024 2:11 PM EST documented in this encounter Results * CARDIOLOGY ECHO (11/18/2024 2:11 PM EST) Anatomical Region Laterality Modality Other Scan Cardiology HX AMB PROCEDURES documented in this encounter Visit Diagnoses Not on filedocumented in this encounter Care Teams Gift Shop Clerk Relationship Specialty Start Date End Date Ludwig Whiting DO [facility] [place] [address] PCP - General Family Medicine 12/01/16 Bianca Elena [address] [place] [address] PCP - Ophthalmology Ophthalmology 01/25/21 Ludwig Whiting DO [address] [place] [address] PCP - [place] Commercial Attributed 03/26/21 Nicolas Gold MD [address] [place] [address] Endocrinology 07/11/17 Juanito Rivas MD [address] [place] [address] Referring Provider Surgery, Neurosurgery 02/01/18 Kirk Stringer MD 112 [place] [address] Consulting Provider Sleep Medicine 02/01/18 Ashley Tilley MD [address] [place] [address] Cardiovascular Disease 01/25/21 Jostin Kenny MD [address] [place] [address] Nephrology 05/14/23 Trini Brown MD [address] [place] [address] Endocrinology 01/04/24 Ashley Tilley MD [address] [place], [place] [phone] Primary Plaster Machine Operator Cardiovascular Disease 01/17/24 Franky Fonseca MD [address] [place] [address] Nephrology 06/10/24 documented as of this encounter
--- OUTSIDE RECORDS SUMMARY | 2024-12-24 17:31 | XMS_ITS | Encounter Summary ---
Author Organization [facility] Address [address] [place] [address] Care Team Providers Care Selector Packer Name Role Phone Ludwig Whiting DO Primary Care Provider [phone] Nicolas Gold MD Unavailable Unavailable Juanito Rivas MD Unavailable Kirk Stringer MD Unavailable Jostin Kenny MD Unavailable [phone] Ashley Tilley MD Unavailable [phone] Bianca Elena Unavailable Ludwig Whiting DO Unavailable Jostin Kenny MD Unavailable [phone] Trini Brown MD Unavailable [phone] Ashley Tilley MD Unavailable [phone] Frnaky Fonseca MD Unavailable [phone] Encounter Details Date Type Department Care Team (Late st Contact Info) Description 07/21/2022 Scanned Document [facility] Cardiology [address] [place] [address] Ashley Tilley MD [address] [place] [address] Social History Tobacco Use Types Packs/Day Years [...] 04/10/2025 4:00 PM EDT Office Visit [facility] Endocrinology [address] [address] Trini Brown MD 100 [facility] 101 [place] [address] 05/25/2025 3:30 PM EDT Office Visit [facility] [address] [place] [address] Ludwig Whiting, DO [facility]0 [place] [address] 06/25/2025 2:00 PM EDT Office Visit [facility] Cardiology [address] [place] [phone] Ashley Tilley MD [address] [place] [address] documented as of this encounter Visit Diagnoses Not on filedocumented in this encounter Care Teams Selector Packer Relationship Specialty Start Date End Date Ludwig Whiting, DO [address] [facility] [address] PCP - General Family Medicine 12/01/16 Bianca Elena [address] [place] [address] PCP - Ophthalmology Ophthalmology 01/25/21 Ludwig Whiting, 10[address] [facility] [place] [address] PCP - [place] Commercial Attributed 03/26/21 Nicolas Gold MD [address] [facility] [place] [address] Endocrinology 07/11/17 Juanito Rivas MD [address] [place] [address] Referring Provider Surgery, Neurosurgery 02/01/18 Kirk Stringer MD [address] [place] [address] Consulting Provider Sleep Medicine 02/01/18 Jostin Kenny MD [address] [place] [address] Nephrology 02/01/18 05/13/23 Ashley Tilley MD [address] [place] [address] Cardiovascular Disease 01/25/21 Jostin Kenny MD [address] [place] [address] Nephrology 05/14/23 Trini Brown MD [address] [place] [id number] Endocrinology 01/04/24 Ashley Tilley MD [address] [place] [address] Primary Lpn Cardiovascular Disease 01/17/24 Franky Fonseca MD [address] [place] [address] Nephrology 06/10/24 documented as of this encounter
--- OUTSIDE RECORDS SUMMARY | 2024-12-24 17:31 | XMS_ITS | Encounter Summary ---
Author Organization [facility] Address [address] [place] [address] Care Team Providers Care Highway Inspector Name Role Phone Ludwig Whiting DO Primary Care Provider [phone] Nicolas Gold MD Unavailable Unavailable Juanito Rivas MD Unavailable [phone] Kirk Stringer MD Unavailable Jostin Kenny MD Unavailable [phone] Marcelle Bass RN Unavailable Ashley Tilley MD Unavailable [phone] Bianca Elena Unavailable Ludwig Whiting DO Unavailable Jostin Kenny MD Unavailable [phone] Trini Brown MD Unavailable [phone] Ashley Tilley MD Unavailable [phone] Franky Fonseca MD Unavailable [phone] Reason for Visit * Reason Comments Medication Refill Encounter Details Date Type Department Care Team (Late st Contact Info) Description 05/19/2019 Refill [facility] Endocrinology [place] [address] [place] [address] Nicolas Gold MD Needs valid address Diabetes mellitus without complication (HCC) Social History Tobacco Use Types Packs/Day [...] [facility] Endocrinology [place] 100 [facility] 101 [place] [address] Trini Brown MD 100 [facility] 101 [place] [address] 05/25/2025 3:30 PM EDT Office Visit [facility] [address] [place] [address] Ludwig Whiting, [address] [place] [address] 06/25/2025 2:00 PM EDT Office Visit [facility] Cardiology [address] [place] [address] Ashley Tilley MD 100 [facility] [address] [place] [address] documented as of this encounter Visit Diagnoses Diagnosis Diabetes mellitus without complication (HCC) Type II or unspecified type diabetes mellitus without mention of complication, not stated as uncontrolled documented in this encounter Care Teams Highway Inspector Relationship Specialty Start Date End Date Ludwig Whiting DO [address] [place] [address] PCP - General Family Medicine 12/01/16 Bianca Elena [address] [place] [address] PCP - Ophthalmology Ophthalmology 01/25/21 Ludwig Whiting DO [address] [place] [address] PCP - [place] Commercial Attributed 03/26/21 Nicolas Gold MD [address] [place] [address] Endocrinology 07/11/17 Juanito Rivas MD [address] [place] [address] Referring Provider Surgery, Neurosurgery 02/01/18 Kirk Stringer MD [address] [place] [address] Consulting Provider Sleep Medicine 02/01/18 Jostin Kenny MD [address] [place] [address] Nephrology 02/01/18 05/13/23 Marcelle Bass, RN [facility] [address] [place], [place] [address] ICP Transition Seat Joiner Chainstitch 08/25/20 09/20/21 Ashley Tilley MD [address] [place] [address] Cardiovascular Disease 01/25/21 Jostin Kenny MD [address] [place] [address] Nephrology 05/14/23 Trini Brown MD [address] [place] [address] Endocrinology 01/04/24 Ashley Tilley MD [address] [place] [address] Primary Pt Escort Cardiovascular Disease 01/17/24 Franky Fonseca MD [address] [place] [address] Nephrology 06/10/24 documented as of this encounter
--- OUTSIDE RECORDS SUMMARY | 2024-12-24 17:31 | XMS_ITS | Encounter Summary ---
Author Organization [facility] Address [address] [place] [address] Care Team Providers Care Product Manager Name Role Phone Ludwig Whiting DO Primary Care Provider [phone] Nicolas Gold MD Unavailable Unavailable Juanito Rivas MD Unavailable [phone] Kirk Stringer MD Unavailable Jostin Kenny MD Unavailable [phone] Marcelle Bass RN Unavailable Ashley Tilley MD Unavailable [phone] Bianca Elena Unavailable Ludwig Whiting DO Unavailable Jostin Kenny MD Unavailable [phone] Trini Brown MD Unavailable [phone] Ashley Tilley MD Unavailable [phone] Franky Fonseca MD Unavailable [phone] Encounter Details Date Type Department Care Team (Late st Contact Info) Description 03/20/2018 Scanned Document [facility] [address] [place], [place] [address], [place] [address] Provider, Generic Social History Tobacco Use Types Packs/Day Years Used Date Smoking Tobacco: Former Cigarettes 2 25 Cigars Comments:quit age 44 Alcohol Use Standard Drinks/Week [...] Description 04/10/2025 4:00 PM EDT Office Visit [facility] Endocrinology [place] 100 [facility] 101 [place] [address] Trini Brown MD 100 [facility] 101 [place] [address] 05/25/2025 3:30 PM EDT Office Visit [address] [address] Ludwig Whiting, [address] [place] [address] 06/25/2025 2:00 PM EDT Office Visit [facility] Cardiology [address] [place] [address] Ashley Tilley MD 100 [facility] [address] [place] [address] documented as of this encounter Procedures Procedure Name Priority Date/Time Associated Diagnosis Comments PULMONARY SLEEP STUDY 03/20/2018 documented in this encounter Results * PULMONARY SLEEP STUDY (03/20/2018) Narrative 03/20/2018 Ordered by an unspecified provider. Generic Provider HX AMB PROCEDURES documented in this encounter Visit Diagnoses Not on filedocumented in this encounter Care Teams Product Manager Relationship Specialty Start Date End Date Ludwig Whiting DO [address] [place] [address] PCP - General Family Medicine 12/01/16 Bianca Elena [address] [place] [address] PCP - Ophthalmology Ophthalmology 01/25/21 [place] [address] [place] [address] PCP - [place] Commercial Attributed 03/26/21 [place] [address] [place] [address] Endocrinology 07/11/17 Juanito Rivas MD [address] [place] [address] Referring Provider Surgery, Neurosurgery 02/01/18 Kirk Stringer MD [address] [place] [address] Consulting Provider Sleep Medicine 02/01/18 Jostin Kenny MD [address] [place] [address] Nephrology 02/01/18 05/13/23 Marcelle Bass, WING [address] [place] [address] ICP Transition Telecommunications Field Engineer 08/25/20 09/20/21 Ashley Tilley MD [address] [place] [address] Cardiovascular Disease 01/25/21 Jostin Kenny MD [address] [place] [address] Nephrology 05/14/23 Trini Brown MD [address] [place] [address] Endocrinology 01/04/24 Ashley Tilley MD [address] [place] [address] Primary Gambling Monitor Cardiovascular Disease 01/17/24 Franky Fonseca MD [address] [place] [address] Nephrology 06/10/24 documented as of this encounter
--- OUTSIDE RECORDS SUMMARY | 2024-12-24 17:31 | XMS_ITS | Clinical Summary ---
Author Organization [facility] Address [address] [place] [address] Care Team Providers Care Clinical Consultant Name Role Phone Ludwig Whiting DO Primary Care Provider [phone] Nicolas Gold MD Unavailable Unavailable Juanito Rivas MD Unavailable [phone] Kirk Stringer MD Unavailable Ashley Tilley MD Unavailable [phone] Bianca Elena Unavailable Ludwig Whiting DO Unavailable [phone] Jostin Kenny MD Unavailable [phone] Trini Brown MD Unavailable [phone] Ashley Tilley MD Unavailable [phone] Franky Fonseca MD Unavailable [phone] Allergies No known active allergies Medications Medication Sig Dispensed Refills Start Date End Date Status aspirin enteric coated (ECOTRIN LOW STRENGTH) 81 MG EC tabletIndications:T ype 2 diabetes mellitus with diabetic nephropathy, with long-term current use of insulin (HCC) Take 1 tablet (81 mg total) by mouth every morning. Active Cholecalciferol (VITAMIN D3) 2000 UNITS Cap capsuleIndications: Healthcare maintenance Take 1 capsule (2,000 Units total) by mouth every morning. Active multivitamin Tab tabletIndications:H ealthcare maintenance Take 1 tablet by mouth. Active omega-3 fatty acids (FISH OIL) 1000 MG Cap capsuleIndications: Mixed hyperlipidemia Take by mouth 2 (two) times a day. 300 QD Active Insulin Pen Needle 31G X 5 MM Misc by Does not apply route. Active glucose blood test strip 1 test strip by Other (specify) route as needed. Use as instructed Active betamethasone valerate (VALISONE) 0.1 % ointmentIndications :Phimosis Apply topically 2 (two) times a day. 30 g 5 3 Active Continuous Blood Gluc Sensor (FreeStyle Luis 3 Sensor) MiscIndications:Typ e 2 diabetes mellitus with diabetic nephropathy, with long-term current use of insulin ([facility]),Type 2 diabetes mellitus with hypoglycemia without coma, with long-term current use of insulin ([facility]) 1 each by Does not apply route every 14 days (2 weeks). 6 each 3 4 Active insulin glargine (Lantus) 100 units/mL injectionIndication s:Type 2 diabetes mellitus without complications ([facility]) Inject 0.8 mL (80 Units total) under the skin 2 (two) times a day. DX CODE E11.21 120 mL 3 4 Active Additional Information Patient taking differently: 35 UnitsSubcutaneous 2 times daily, DX CODE E11.21, Reason: Other, Reported on 11/20/2024 doxazosin (CARDURA) 4 MG tabletIndications:E ssential hypertension TAKE 1 TABLET BY MOUTH EVERY DAY NIGHTLY 90 tablet 3 4 Active simvastatin (ZOCOR) 20 MG tabletIndications:M ixed hyperlipidemia Take 1 tablet (20 mg total) by mouth nightly. 90 tablet 3 4 Active OneTouch Verio stripIndications:Ty pe 2 diabetes mellitus with morbid obesity (HCC) Use as instructed to test blood sugars two times daily 200 test strip 1 4 Active OneTouch UltraSoft 2 Lancets MiscIndications:Typ e 2 diabetes mellitus with morbid obesity (HCC) Use to test blood sugar two times daily 200 each 1 4 Active Blood Glucose Monitoring Suppl (CloudPassage) w/Device KitIndications:Type 2 diabetes mellitus with morbid obesity (HCC) Use to test blood sugar two times daily 1 kit 4 Active torsemide (DEMADEX) 20 MG tabletIndications:C hronic heart failure with preserved ejection fraction (HCC) Take 2 tablets (40 mg total) by mouth daily. 180 tablet 3 4 Active Additional Information Patient taking differently:40 mg OralEvery morning, Reason: Other, Reported on 11/20/2024 allopurinol (ZYLOPRIM) 300 MG tabletIndications:G out, unspecified TAKE 1 TABLET BY MOUTH TWICE A DAY 180 tablet 3 4 Active insulin lispro (HumaLOG KWIKPEN) 100 UNIT/ML prefilled pen injectionIndication s:Type 2 diabetes mellitus with diabetic nephropathy, with long-term current use of insulin ([facility]) Use up to 80 units twice a day before meals per sliding scale 60 each 1 4 Active triamcinolone (KENALOG) 0.1 % creamIndications:St asis dermatitis of both legs APPLY TO AFFECTED AREA TWICE A DAY 60 g 1 4 Active Vyzulta 0.024 % ophthalmic solution Administer 1 drop to both eyes nightly. 4 Active tirzepatide (MOUNJARO) 10 mg/0.5 mL pen-injectorIndicat ions:Type 2 diabetes mellitus with diabetic nephropathy, with long-term current use of insulin ([facility]) Inject 1 Pen (10 mg total) under the skin once a week. 2 mL 3 4 Active Insulin Syringe-Needle U-100 (BD Insulin Syringe U/F) 31G X 5/16 1 ML MiscIndications:Typ e 2 diabetes mellitus with diabetic nephropathy, with long-term current use of insulin ([facility]) USE 4 TIMES A DAY WITH INSULIN 400 each 3 4 Active cetirizine (ZyrTEC) 5 MG chewable tablet Chew 1 tablet (5 mg total) daily. Active lisinopril (PRINIVIL,ZeSTRIL) 20 MG tabletIndications:E ssential hypertension Take 1 tablet (20 mg total) by mouth daily. 90 tablet 3 4 Active Active Problems Problem Noted Date Diagnosed Date Encounter for loop recorder at end of battery li fe 11/11/2024 Type 2 diabetes mellitus wit h diabetic polyneuropathy, with long-term current use of insulin 04/27/2023 Secondary hypercoagulable state 10/24/2022 Overview (10/27/2022): afib [id number] Stroke Risk was calculated. Total Score: 4 Secondary hyperaldosteronism 10/24/2022 Overview (10/24/2022): chf on diuretic Atherosclerosis of abdominal aorta 10/24/2022 Overview (10/24/2022): CT 07/2020 Mild nonproliferative diabet ic retinopathy of both eyes without macular edema associated with type 2 diabetes mellitus 03/16/2022 Personal history of colonic polyps 02/24/2022 Assessment & Plan (02/24/2022 12:44 PM EDT): Adenoma carcinoma sequence discussed High fiber diet Last colon: 11/2016 Recall colonoscopy due: 11/2021 Due to pts BMI, CHF, PRINCE will need to be done in hospital. Will need cardiac clearance Pt has linq monitor A colonoscopy will be scheduled based on current indication. The indications, prep, alternatives and the procedure were thoroughly explained. There is no contraindication to colonoscopy. All questions were answered. The potential risks including but not limited to bleeding, infection, and perforation were also explained. Coronary artery disease invo lving [place] coronary artery of [place] heart without angina pectoris 07/07/2021 Assessment & Plan (07/07/2021 10:42 AM EDT): Seen on CT chest in 2019 Anemia of chronic disease 04/05/2021 Chronic heart failure with preserved ejection fr action 01/25/2021 History of viral pericarditis 01/25/2021 Overview (01/25/2021): 07/2020- pericardial effusion Paroxysmal atrial fibrillation 10/05/2020 Overview (04/27/2023): No further episodes apart from pericarditis. Ex-smoker 10/05/2020 GERD (gastroesophageal reflux disease) 0 Conductive hearing loss, bilateral 07/07/2020 Gout 11/02/2017 Spinal stenosis of lumbar region with radiculopa thy 09/24/2017 Lumbar herniated disc 09/24/2017 Overview (02/01/2018): L5-S1 Type 2 diabetes mellitus wit h stage 3a chronic kidney disease, with long-term current use of insulin 03/18/2015 Overview (12/21/2023): Sees Trini [place] Class 3 severe obesity due t o excess calories with serious comorbidity and body mass index (BMI) of 45.0 to 49.9 in adult 03/18/2015 Essential hypertension 03/18/2015 Mixed hyperlipidemia 03/18/2015 Other anterior pituitary disorders 08/11/2014 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 He has more mild degenerative changes without stenosis at L4-5. He has a central left-sided disc herniation at L5-S1. Resolved Problems Problem Noted Date Diagnosed Date Resolved Date Encounter for loop recorder at end of battery life 11/11/2024 11/24/2024 Personal history of colon cancer 02/24/2022 02/24/2022 Cardiac tamponade 06/22/2021 10/27/2021 Assessment & Plan (07/07/2021 9:50 AM EDT): 07/2020, s/p pericardiocentesis Viral pericarditis 06/22/2021 JULIAN (acute kidney injury) 03/26/2021 Hyponatremia 03/26/2021 04/26/2021 High anion gap metabolic acidosis 03/26/2021 04/26/2021 Hyperkalemia 03/26/2021 04/26/2021 Type 2 diabetes mellitus wit hout complication, with long-term current use of insulin 03/26/2021 10/27/2021 Hypercholesterolemia 03/26/2021 021 Acute sinusitis 03/16/2021 04/26/2021 Chronic diastolic heart failure 10/05/2020 01/25/2021 Acute on chronic diastolic heart failure 09/14/2020 01/25/2021 Hypoxia 09/13/2020 01/25/2021 Pleural effusion 09/13/2020 01/25/2021 Overview (09/14/2020): Added automatically from request for surgery [id number] Shortness of breath 08/16/2020 01/26/20 Elevated liver enzymes 02/01/201806/30 Thoracic or lumbosacral neur itis or radiculitis 02/07/2014 02/01/2018 Special screening for malign ant neoplasm of prostate 02/07/2014 11/02/2017 Hypertension 04/27/2022 Encounters Date Type Department Care Team Description 12/04/2024 8:50 AM EST Anesthesia Event [address] [place] [address] [place] MD Edison, Amanda C, PA-C 12/04/2024 8:30 AM EST - 12/04/2024 9:15 AM EST Surgery [facility] [address] [facility] [address] [place] [address] Oneal Wong MD REMOVAL LOOP RECORDER 12/04/2024 6:54 AM EST - 12/04/2024 10:18 AM EST Hospital Encounter [facility] [address] [facility] [address] [place] [address] Oneal Wong MD Type 2 diabetes mellitus without complications (HCC) Discharge Disposition: Home or Self Care 12/04/2024 Travel 12/03/2024 Prep for Surgery [facility] Heart & Vascular [place] - Electrophysiology [address] [place] [address] [address] [place] [address] Elvie Schmitz APRN 11/24/2024 2:00 PM EST Office Visit [facility] [address] [place] [phone] Ludwig Whiting, DO Type 2 diabetes mellitus with stage 3a chronic kidney disease, with long-term current use of insulin (HCC) (Primary Dx); Type 2 diabetes mellitus with diabetic polyneuropathy, with long-term current use of insulin (HCC); Essential hypertension; Screening for prostate cancer; Mild nonproliferative diabetic retinopathy of both eyes without macular edema associated with type 2 diabetes mellitus (HCC); Paroxysmal atrial fibrillation (HCC) 11/24/2024 Travel 11/20/2024 Travel 11/18/2024 Orders Only [facility] [address] [place] [address] Cardiology, Scan 11/18/2024 Travel 11/14/2024 2:30 PM EST Office Visit [facility] Endocrinology [address] [place] [phone] Trini Brown MD Type 2 diabetes mellitus with morbid obesity (HCC) (Primary Dx); Type 2 diabetes mellitus with diabetic nephropathy, with long-term current use of insulin (HCC); Type 2 diabetes, controlled, with neuropathy (HCC); Mixed hyperlipidemia; Hypertension, essential, benign 11/14/2024 Travel 11/11/2024 3:00 PM EST Office Visit [facility] Heart & Vascular [place] - Electrophysiology [address] [place] [address] Francy Huitron APRN Paroxysmal atrial fibrillation (HCC) (Primary Dx); Pre-op testing 11/11/2024 Travel 10/30/2024 Refill [facility] [address] [place] [address] Ludwig Whiting, DO Stasis dermatitis of both legs 10/24/2024 [facility] Endocrinology [address] [address] Trini Brown MD Type 2 diabetes mellitus with diabetic nephropathy, with long-term current use of insulin ([facility]) 10/21/2024 [facility] Endocrinology [address] [address] Trini Brown MD Type 2 diabetes mellitus with diabetic nephropathy, with long-term current use of insulin ([facility]) 09/23/2024 Telephone [place] [id number] [place] [address] Thuan Pandya MD Referral from Last 3 Months Immunizations Name Administration Dates Next Due Covid-19 MRNA Vaccine - Pfiz er 12+ (Purple Cap) 10/27/2021 Covid-19 mRNA Bivalent Vacci ne - Pfizer 30 mcg/0.3mL 12+ 10/27/2022 Influenza (AFLURIA/FLUZONE) Inactivated/Split Quadrivalent with Preservative IM 2014 Influenza High-Dose Trivalen t,(FLUZONE HIGH-DOSE), Perservative Free IM 0.5 mL 65 years and older 11/24/2024 Influenza Inactivated/Split Preservative Free IM 10/27/2022,08/24/2020,08/30/2019,11/11,09/05/2012,08/23/2010,08/16/2009 ,09/10/2008,10/25/2007 Influenza, Quadrivalent (FLU AD) Adjuvanted Preservative Free IM 65 years and older 10/19/2023 Influenza, Quadrivalent (FLU ARIX, AFLURIA, FLULAVAL, FLUZONE) Preservative Free IM 10/19/2021,08/30/2019 Pneumococcal Conjugate 13-Valent 03/18/2015 Pneumococcal Conjugate 20-Valent 04/27/2023 Pneumococcal Polysaccharide 23-Valent 08/26/2003 TD Preservative Free 11/26/2008 Tdap 04/27/2022,12/04/2008 Zoster Vaccine Recombinant (Shingrix) ,09/05/2022,04/27/2022(Defer red: Other) Family History Medical History Relation Name Comments Diabetes Father Glaucoma Father COPD Maternal Uncle Breast cancer Mother Diabetes Mother Hypertension Paternal Grandfather Relation Name Status Comments Father Maternal Uncle Mother Paternal Grandfather Social History Tobacco Use Types Packs/Day Years Used Date Smoking Tobacco: Former Cigarettes 2 27 1 963 - 1989 Cigars Smokeless Tobacco: Never Tobacco Cessation:Counseling Given: Not Answered Alcohol Use Standard Drinks/Week Comments No 0 (1 standard drink = 0.6 oz pur e alcohol) [facility] Utilities Answer Date Recorded In the [...] and Family Not on file 11/24/2024 Attends [employer] Not on file 11/24 Active Member [...] in the past 12 m [facility], were you homeless or living in a group home (including now)? No 11/24/2024 Physical Activity Answer [...] Orientation Heterosexual (straight) 04/26 10:23 AM EDT Last Filed Vital Signs Vital Sign Reading Time Taken Comments Blood Pressure 178/78 12/04/2024 10:00 AM EST Pulse 71 12/04/2024 9:35 AM EST Temperature 36.5 ??C (97.7 ??F) 12/04/2024 9:14 AM ES T Respiratory Rate 16 12/04/2024 9:50 AM EST Oxygen Saturation 95% 12/04/2024 9:35 AM EST Inhaled Oxygen Concentration - - Weight 135 kg (297 lb 12.8 oz) 11/24/2024 2:12 P M EST Height 175.3 cm (5' 9 ) 11/24/2024 2:12 PM EST Body Mass Index 43.98 11/24/2024 2:12 PM EST Plan of Treatment Upcoming Encounters Date Type Department Care Team (Late st Contact Info) Description 04/10/2025 4:00 PM EDT Office Visit [facility] Endocrinology [place] [address] [facility] [address] [place] [address] Trini Brown MD [address] [place] [address] [address] [place] [address] 05/25/2025 3:30 PM EDT Office Visit [address] [phone] Ludwig Whiting, DO [address] [facility] [place] [address] 06/25/2025 2:00 PM EDT Office Visit [facility] Cardiology [place] [address] [place] [phone] Ashley Tilley MD [address] [place] [address] Health Maintenance Due Date Last Done Comments RSV Vaccine 60 years and older and Patients (1 - Risk 60-74 years 1-dose series) 2017 Physical 01/09/2018 01/09/2017 COVID-19 Vaccine ( season) 2024 11/03/2023, 10/27/2022, 10/27/2021, Additional history exists Microalbumin/Creatinine Ratio Urine 11/15/2024 11/15/2023, 02/28/2023, 03/21/2022, Additional history exists Foot Exam 04/04/2025 04/04/2024, 03/26, 04/04/2024, Additional history exists Hemoglobin A1C 05/13/2025 11/12/2024, 05/26, 04/02/2024, Additional history exists Ophthalmology Exam 08/15/2025 08/15/2024, 0 03/07/2022 (Previously Completed), 02/09/2022, Additional history exists Lipid Panel 11/12/2025 11/12/2024, 090 03/2024, 06/09/2024, Additional history exists Creatinine with GFR 11/28/2025 11/28/2024, 11/12/2024, 07/16/2024, Additional history exists Colonoscopy 04/28/2027 04/28/2022, 12/01/2016 DTaP/Tdap/Td Vaccines (3 - Td or Tdap) 04/27/2032 04/27/2022, 12/04/2008, 11/26/2008 Hepatitis C Virus Screening Completed 08/05/2018 Abdominal Aortic Aneurysm (AAA) Screening Completed 08/18/2020 Chronic Controlled Substance User PDMP Review Discontinued 09/13/2020 Pneumococcal Vaccines 50+ Completed 2022, 03/18/2015, 08/26/2003 Zoster (Shingles) Vaccine Completed 04/27/2023, 09/2022 Influenza Vaccine Completed 11/24/2024, , 10/19/2023, Additional history exists Hepatitis B Vaccines Aged Out No long er eligible based on patient's age to complete this topic Medical Devices Explanted Type Area Bed Worker Device Identifier Shelf Expiration Date Model / Serial / Lot [id number] System Grants Administrator Rvl Linq - [id number] Implanted:Qty : 1 on 12/28/2020 by Roderick Peoples MD at [facility] Explanted:Qty : 1 on 12/04/2024 by Oneal Wong MD at [facility] Implantable Loop Recorder [employer] MINIMALLY INVASIVE T 09/22/2021 [id number] / [id number] / Procedures Procedure Name Priority Date/Time Associated Diagnosis Comments POCT GLUCOSE, FINGERSTICK Routine 12/04/2024 9:56 AM EST REMOVAL LOOP RECORDER 12/04/2024 8:52 AM EST Encounter for loop recorder at end of battery life Special Needs -If you use insulin or any oral medications for diabetes, please do not take them the morning of the procedure.-Please do not take insulin and torsemide on the morning of the procedure. -Take your other medications with a sip of water the morning of the procedure. POCT GLUCOSE, FINGERSTICK Routine 12/04/2024 7:36 AM EST BASIC METABOLIC PANEL Routine 11/28/2024 7:36 AM EST Pre-op testing COMPLETE BLOOD COUNT, WITH DIFFERENTIAL Routine 11/28/2024 7:36 AM EST Pre-op testing CARDIOLOGY ECHO Routine 11/18/2024 2:11 PM EST ECHOCARDIOGRAM (TTE) COMPREHENSIVE (CONTRAST PRN) Routine 11/18/2024 11:09 AM EST Chronic heart failure with preserved ejection fraction (HCC) LIPID PANEL REFLEX DIRECT LDL Routine 11/12/2024 11:17 AM EST Mixed hyperlipidemia BASIC METABOLIC PANEL Routine 11/12/2024 11:14 AM EST Type 2 diabetes mellitus with morbid obesity (HCC) HEMOGLOBIN AND HEMATOCRIT Routine 11/12/2024 11:14 AM EST Type 2 diabetes mellitus with morbid obesity (HCC) HEMOGLOBIN A1C Routine 11/12/2024 11:14 AM EST Type 2 diabetes mellitus with morbid obesity (HCC) ECG 12-LEAD Routine 11/11/2024 3:24 PM EST Paroxysmal atrial fibrillation (HCC) HX OPHTHALMOLOGY TESTING PROCEDURES Routine 08/15/2024 2:11 PM EDT MICROALBUMIN, CREATININE, URINE, RANDOM Routine 11/15/2023 10:43 AM EST Type 2 diabetes mellitus with diabetic nephropathy, with long-term current use of insulin (HCC) CT ABDOMEN+PELVIS W/CONTRAST W/PO Routine 08/18/2020 12:50 PM EDT HEPATITIS C VIRUS (HCV) ANTIBODY Routine 08/05/2018 2:09 PM EDT Need for hepatitis C screening test from Last 3 Months or Most Recently Relevant to Health Maintenance Results * (ABNORMAL) POCT Glucose, Fingerstick (12/04/2024 9:56 AM EST) Only the most recent of2 resultswithin the time period is included. POC Glucose 115(H) 65 - 99 mg/dL 12/04/2024 9:58 AM EST Blood specimen / Unknown 12/04/2024 9:56 AM EST 12/04/2024 9:58 AM EST Oneal Wong MD POINT OF CARE TEST O RDERABLES HOSPITAL LAB See Below * Complete Blood Count, with Differential (11/28/2024 7:36 AM EST) White Blood Cell Count 5.7 3.8 - 10.8 Thousand/u L [facility] Red Blood Cell Count 4.55 4.20 - 5.80 Million/uL [facility] Hemoglobin 13.8 13.2 - 17.1 g/dL [facility] Hematocrit 42.3 38.5 - 50.0 % [facility] MCV 93.0 80.0 - 100.0 fL [facility] MCH 30.3 27.0 - 33.0 pg [facility] MCHC 32.6 32.0 - 36.0 g/dL [facility] Comment: For adults, a slight decrease in the calculated MCHC value (in the range of 30 to 32 g/dL) is most likely not clinically significant; however, it should be interpreted with caution in correlation with other red cell parameters and the patient's clinical condition. RDW 15.0 11.0 - 15.0 % [facility] Platelet Count 208 140 - 400 Thousand/u L [facility] MPV 11.6 7.5 - 12.5 fL [facility] Abs Neutrophils Auto 3,677 1,500 - 7,800 cells/uL [facility] Abs Lymphocytes Auto 1,214 850 - 3,900 cells/uL [facility] Abs Monocytes Auto 633 200 - 950 cells/uL [facility] Abs Eosinophils Auto 148 15 - 500 cells/uL [facility] Abs Basophils Auto 29 0 - 200 cells/uL [facility] Neutrophils Auto 64.5 % [employer] Lymphocytes Auto 21.3 % [employer] Monocytes Auto 11.1 % [facility] Eosinophils Auto 2.6 % [employer] Basophils Auto 0.5 % [facility] Blood Blood specimen / Unknown 11/28/2024 7:36 AM EST 11/28/2024 7:36 AM EST Francy Huitron RACING SECRETARY LAB BLOOD ORDERABLE S Performing Organization Address [facility] de Phone Number [email or web address] [address] [place] [address] * Basic metabolic panel (11/28/2024 7:36 AM EST) Only the most recent of2 resultswithin the time period is included. Glucose 76 65 - 99 mg/dL [facility] Comment: ? Fasting reference interval Blood Urea Nitrogen (BUN) 19 7 - 25 mg/dL [facility] Creatinine 0.82 0.70 - 1.35 mg/dL [facility] Creatinine w/ eGFR 96 > OR = 60 mL/min/1. 73m2 [facility] BUN/Creatinine Ratio SEE NOTE: (calc) [facility] Comment: ?? Not Reported: BUN and Creatinine are within ?? reference range. ? Sodium 142 135 - 146 mmol/L [facility] Potassium 4.0 3.5 - 5.3 mmol/L [facility] Chloride 107 98 - 110 mmol/L [facility] CO2 26 20 - 32 mmol/L [facility] Calcium 9.8 8.6 - 10.3 mg/dL [facility] Blood Blood specimen / Unknown 11/28/2024 7:36 AM EST 11/28/2024 7:36 AM EST Francy Huitron RACING SECRETARY LAB BLOOD ORDERABLE S Performing Organization Address [facility]/ZIP Co de Phone Number [email or web address] [address] [place] [address] * CARDIOLOGY ECHO (11/18/2024 2:11 PM EST) Anatomical Region Laterality Modality Other Scan Cardiology HX AMB PROCEDURES * ECHOCARDIOGRAM COMPREHENSIVE WITH CONTRAST (11/18/2024 11:09 AM EST) Anatomical Region Laterality Modality Ultrasound 11/18/2024 11:4 7 AM EST Narrative 11/18/2024 11:47 AM EST To view the final report click the scan hyperlink below. Scanned documents are not accessible through [employer]lick. Please contact Medical Records for a copy of your scanned result. Procedure Note Ashley Tilley MD - 11/18/2024 To view the final report click the scan hyperlink below. Scanned documents are not accessible through fflick. [facility] for a copy of your scanned result. Ashley Tilley MD CV ECHO ORD ERABLES * (ABNORMAL) Lipid Panel Reflex Direct LDL (11/12/2024 11:17 AM EST) Cholesterol, Total 131 <200 mg/dL [facility] Cholesterol, HDL 30(L) > OR = 40 mg/dL [facility] Triglycerides 126 <150 mg/dL [facility] LDL Cholesterol 78 mg/dL (calc) [facility] Comment: Reference range: <100 Desirable range <100 mg/dL for primary prevention; ?? <70 mg/dL for patients with CHD or diabetic patients with > or = 2 CHD risk factors. LDL-C is now calculated using the Christopher-Serrato calculation, which is a validated novel method providing better accuracy than the Friedewald equation in the estimation of LDL-C. Christopher SS et al. JUAN J. 2013;310(19): 3259-0952 (http://education.Ilusis/faq/RHF452) Cholesterol/HDL Ratio 4.4 <5.0 (calc) [facility] Non HDL Chol. (LDL+VLDL) 101 <130 mg/dL (calc) [facility] Comment: For patients with diabetes plus 1 major ASCVD risk factor, treating to a non-HDL-C goal of <100 mg/dL (LDL-C of <70 mg/dL) is considered a therapeutic option. Blood Blood specimen / Unknown 11/12/2024 11:17 AM EST 11/12/2024 11:18 AM EST Narrative [facility] - 11/13/2024 4:09 AM EST FASTING:YES FASTING: YES Ashley Tilley MD LAB BLOOD O RDERABLES Performing Organization Address [facility] de Phone Number [email or web address] [address] [place] [phone] * Hemoglobin and Hematocrit (11/12/2024 11:14 AM EST) Hemoglobin 14.1 13.2 - 17.1 g/dL [facility] Hematocrit 43.0 38.5 - 50.0 % [facility] Blood Blood specimen / Unknown 11/12/2024 11:14 AM EST 11/12/2024 11:15 AM EST [employer] [facility] - 11/13/2024 4:33 AM EST FASTING:YES FASTING: YES Trini Brown MD LAB BLOOD ORDERABLES Performing Organization Address [facility] de Phone Number [email or web address] [address] [place] [phone] * (ABNORMAL) Hemoglobin A1C (11/12/2024 11:14 AM EST) Hemoglobin A1C 6.1(H) <5.7 % of total Hgb [facility] Comment: For someone without known diabetes, a hemoglobin A1c value between 5.7% and 6.4% is consistent with prediabetes and should be confirmed with a follow-up test. For someone with known diabetes, a value <7% indicates that their diabetes is well controlled. A1c targets should be individualized based on duration of diabetes, age, comorbid conditions, and other considerations. This assay result is consistent with an increased risk of diabetes. Currently, no consensus exists regarding use of hemoglobin A1c for diagnosis of diabetes for children. Blood Blood specimen / Unknown 11/12/2024 11:14 AM EST 11/12/2024 11:15 AM EST Narrative [facility] - 11/13/2024 4:33 AM EST FASTING:YES FASTING: YES Trini Brown MD LAB BLOOD ORDERABLES Performing Organization Address [facility]/ZIP Co de Phone Number [email or web address] [address] [place] [phone] * ECG 12 lead (11/11/2024 3:24 PM EST) Ventricular rate 105 BPM EKG [facility] P-R interval 345 ms EKG [facility] QRS duration 80 ms EKG [facility] Q-T interval 330 ms EKG [facility] QTC calculation (Bazett) 436 ms EKG [facility] R axis 50 degrees EKG [facility] T axis 35 degrees [facility] 11/11/2024 3:24 PM EST Narrative EKG [facility] - 11/11/2024 3:57 PM EST Sinus [...] 3:57:18 PM Raul Le MD ECG ORDERABLES Performing Organization Address [facility] de Phone Number [facility] * OPHTHALMOLOGY TESTING PROCEDURES (08/15/2024 2:11 PM EDT) Scan Ophthalmology HX AMB PROCEDURES * Microalbumin, Creatinine, Urine, Random (11/15/2023 10:43 AM EST) Creatinine, Urine, Random 103 20 - 320 mg/dL [facility] Microalbumin, Urine, Random 1.3 See Note: mg/dL [facility] Comment: Reference Range: Reference Range Not established Microalbumin/Creat inine Ratio 13 <30 mcg/mg creat [facility] Comment: The ADA defines abnormalities in albumin excretion as follows: Albuminuria Category ?Result (mcg/mg creatinine) Normal to Mildly increased ?? <30 Moderately increased ? 30-299 Severely increased ? > OR = 300 The ADA recommends that at least two of three specimens collected within a 3-6 month period be abnormal before considering a patient to be within a diagnostic category. Urine Voided urine specimen / Unknown 11/15/2023 10:43 AM EST 11/15/2023 10:45 AM EST Narrative [facility] - 11/16/2023 4:57 PM EST FASTING:YES FASTING: YES Nicolas Gold MD URINE ORDERABLES [employer] [address] [place] [phone] * CT Abdomen+pelvis w/contrast w/PO (08/18/2020 12:50 PM EDT) Anatomical Region Laterality Modality Abdomen, Pelvis Computed Tomogra phy 08/18/2020 12:5 3 PM EDT Impressions 08/18/2020 3:06 PM EDT 1. ??Moderate pericardial effusion measuring simple fluid density. No pulmonary embolism. 2. ??Lwtij-gx-vxtmbyzw right and small left pleural effusions with associated atelectasis. 3. ??Hepatomegaly. 4. ??Diffuse skin thickening of the anterior abdominal wall around the level of the umbilicus with mild subcutaneous edema. Correlate clinically. VTE: negative Terri Beard M.D. resident care supervisor I personally reviewed the images and, if necessary, I edited the report. I agree with the report as now presented. Narrative 08/18/2020 3:06 PM EDT EXAMINATION: CT ANGIOGRAM OF THE CHEST WITH AND WITHOUT CONTRAST (CT PULMONARY ANGIOGRAM FOR PE) CT ABDOMEN + PELVIS WITH CONTRAST WITH PO CLINICAL INFORMATION: dyspnea, hypoxia, abdominal pain, nausea, weight loss COMPARISON: CXR from 08/16/2020 ?? TECHNIQUE: Prior to contrast administration, noncontrast localization images were obtained. Subsequently, multidetector volumetric imaging was performed from the thoracic inlet to the pubic symphysis through the chest, abdomen, and pelvis following the administration of 80 mL Omnipaque 350 intravenous contrast. No contrast reaction reported Sagittal, coronal, and MIP oblique sagittal (through the chest only) reformatted images were obtained on the CT workstation, uploaded to PACS, and reviewed. Total exam dose-length product: 4143.2 mGy-cm This CT examination was performed using dose optimization techniques as appropriate, variously including the following: * ??Automated exposure control * ??Adjustment of mA and/or kV according to patient size (this includes techniques or standardized protocols for targeted exams where dose is matched to indication/reason for exam; i.e. extremities or head) * ??Use of iterative reconstruction technique FINDINGS: QUALITY OF STUDY/CONTRAST BOLUS: Satisfactory. PULMONARY ARTERIES: No central or segmental pulmonary emboli. ?? THORACIC AORTA: No aneurysm or dissection. LUNG/PLEURA: Small to moderate right and small left pleural effusions with associated atelectasis. No focal consolidation, nodules or masses. No pneumothorax. MEDIASTINUM: Normal heart size. Coronary artery calcifications noted. Moderate pericardial effusion measuring simple fluid density. No hilar lymphadenopathy. Multiple mildly prominent mediastinal lymph nodes are visualized, though none are pathologically enlarged by size criteria. ??No evidence of septal bowing or right heart strain. Heterogeneous enlarged thyroid gland with a peripherally calcified nodule visualized within the left lobe. CHEST WALL/AXILLA: No axillary or internal mammary lymphadenopathy. ABDOMEN/PELVIS: LIVER, GALLBLADDER AND BILIARY TREE: The liver is enlarged in size measuring 22 cm in maximum cc dimension and normal in shape and attenuation. No focal hepatic lesion or biliary ductal dilatation is present. The gallbladder is unremarkable with no evidence of radiopaque gallstones, gallbladder wall thickening, or obvious pericholecystic inflammatory changes. ?? PANCREAS: Normal; no mass or surrounding fluid. ?? SPLEEN: Normal size. Small splenule noted at the tail the pancreas. No focal lesion. ?? ADRENAL GLANDS: Normal; no mass. ?? KIDNEYS AND URETERS: The kidneys are normal in size, shape, and attenuation. No hydronephrosis, hydroureter, or calculi. Mild bilateral nonspecific perinephric stranding. ?? GASTROINTESTINAL TRACT: Stomach and small bowel non-dilated. Scattered diverticulosis without evidence of diverticulitis. No colonic wall thickening or pericolonic inflammatory changes. ??Normal appendix. ABDOMINAL WALL: No significant hernia is appreciated. There is diffuse skin thickening of the anterior abdominal wall around the level of the umbilicus with mild subcutaneous edema. ?? LYMPHOVASCULAR STRUCTURES: No lymphadenopathy. The aorta is unremarkable. Scattered atherosclerotic calcifications noted. ?? BLADDER: No focal mass. Mild wall thickening, likely secondary to underdistention. No bladder calculi. ?? PELVIC VISCERA: The prostate and seminal vesicles are normal. OSSEOUS STRUCTURES: No acute or suspicious osseous abnormality. Moderate multilevel spondylosis. Diffuse idiopathic skeletal hyperostosis. ?? Procedure Note Shoaib Cedeño MD - 08/18/2020 EXAMINATION: CT ANGIOGRAM OF THE CHEST WITH AND WITHOUT CONTRAST (CT PULMONARYANGIOGRAM FOR PE) CT ABDOMEN + PELVIS WITH CONTRAST WITH PO CLINICAL INFORMATION: dyspnea, hypoxia, abdominal pain, nausea, weight loss COMPARISON: CXR from 08/16/2020 TECHNIQUE: Prior to contrast administration, noncontrast localization images were obtained. Subsequently, multidetector volumetric imaging was performedfrom the thoracic inlet to the pubic symphysis through the chest, abdomen,and pelvis following the administration of 80 mL Omnipaque 350 intravenous contrast. No contrast reaction reported Sagittal, coronal, and MIP oblique sagittal (through the chest only) reformatted images were obtained on the CT workstation, uploaded to PACS,and reviewed. Total exam dose-length product: 4143.2 mGy-cm This CT examination was performed using dose optimization techniques as appropriate, variously including the following: * Automated exposure control * Adjustment of mA and/or kV according to patient size (this includes techniques or standardized protocols for targeted exams where dose ismatched to indication/reason for exam; i.e. extremities or head) * Use of iterative reconstruction technique FINDINGS: QUALITY OF STUDY/CONTRAST BOLUS: Satisfactory. PULMONARY ARTERIES: No central or segmental pulmonary emboli. THORACIC AORTA: No aneurysm or dissection. LUNG/PLEURA: Small to moderate right and small left pleural effusionswith associated atelectasis. No focal consolidation, nodules or masses. No pneumothorax. MEDIASTINUM: Normal heart size. Coronary artery calcifications noted.Moderate pericardial effusion measuring simple fluid density. No hilarlymphadenopathy. Multiple mildly prominent mediastinal lymph nodes are visualized, thoughnone are pathologically enlarged by size criteria. No evidence of septalbowing or right heart strain. Heterogeneous enlarged thyroid gland with aperipherally calcified nodule visualized within the left lobe. CHEST WALL/AXILLA: No axillary or internal mammary lymphadenopathy. ABDOMEN/PELVIS: LIVER, GALLBLADDER AND BILIARY TREE: The liver is enlarged in sizemeasuring 22 cm in maximum cc dimension and normal in shape and attenuation. Nofocal hepatic lesion or biliary ductal dilatation is present. The gallbladderis unremarkable with no evidence of radiopaque gallstones, gallbladder wall thickening, or obvious pericholecystic inflammatory changes. PANCREAS: Normal; no mass or surrounding fluid. SPLEEN: Normal size. Small splenule noted at the tail the pancreas. Nofocal lesion. ADRENAL GLANDS: Normal; no mass. KIDNEYS AND URETERS: The kidneys are normal in size, shape, andattenuation. No hydronephrosis, hydroureter, or calculi. Mild bilateral nonspecific perinephric stranding. GASTROINTESTINAL TRACT: Stomach and small bowel non-dilated. Scattered diverticulosis without evidence of diverticulitis. No colonic wallthickening or pericolonic inflammatory changes. Normal appendix. ABDOMINAL WALL: No significant hernia is appreciated. There is diffuseskin thickening of the anterior abdominal wall around the level of theumbilicus with mild subcutaneous edema. LYMPHOVASCULAR STRUCTURES: No lymphadenopathy. The aorta isunremarkable. Scattered atherosclerotic calcifications noted. BLADDER: No focal mass. Mild wall thickening, likely secondary to underdistention. No bladder calculi. PELVIC VISCERA: The prostate and seminal vesicles are normal. OSSEOUS STRUCTURES: No acute or suspicious osseous abnormality. Moderate multilevel spondylosis. Diffuse idiopathic skeletal hyperostosis. IMPRESSION: 1. Moderate pericardial effusion measuring simple fluid density. Nopulmonary embolism. 2. Wsfbz-at-knpyidqx right and small left pleural effusions withassociated atelectasis. 3. Hepatomegaly. 4. Diffuse skin thickening of the anterior abdominal wall around thelevel of the umbilicus with mild subcutaneous edema. Correlate clinically. VTE: negative Terri Beard M.D. resident care supervisor I personally reviewed the images and, if necessary, I edited the report.I agree with the report as now presented. Miguel Sen MD [facility] CT ORDERABLES * Hepatitis C Virus (HCV) Antibody (08/05/2018 2:09 PM EDT) Hepatitis C Antibody NON-REACTI VE NON-REACT [facility] Hepatitis C Antibody (s/co) 0.25 <1.00 [facility] Blood specimen (specimen) Blood specimen / Unknown 08/05/2018 2:09 PM EDT 08/05/2018 2:09 PM EDT Narrative Resulting Agency Comment Performing Organization Information: ?Site ID: [id number] ?Name: [employer] ?Address: [address] [place] [address], [place] [address] ?Director: Meek Isabel MD Ludwig Whiting DO LAB BLOOD ORDERAB L[employer] [facility] NL1 [address], [place] [address] from Last 3 Months or Most Recently Relevant to Health Maintenance Advance Directives * Full Code (Latest Code Status on File) Date Activated Date Inactivated Comments 12/04/2024 10:17 AM * Full Code Date Activated Date Inactivated Comments 03/26/2021 2:33 PM 04/28/2022 7:17 AM Question Answer Comments Decision Thoroughly Discussed with: Patient * Full Code Date Activated Date Inactivated Comments 09/13/2020 9:23 PM 12/28/2020 12:40 PM * Full Code Date Activated Date Inactivated Comments 08/16/2020 11:37 PM 09/13/2020 4:36 PM Healthcare Agents on File Name Relationship Healthcare Agent Relationship Communication April Galo Spouse 4. Next of Kin ( Spouse, Adult Child, Parent, Adult Sibling, Grandparent) Care Teams Clinical Consultant Relationship Specialty Start Date End Date Ludwig Whiting DO [address] [facility] [place] [address] PCP - General Family Medicine 12/01/16 Bianca Elena [address] [place] [address] PCP - Ophthalmology Ophthalmology 01/25/21 Ludwig Whiting DO [address] [facility] [place] [address] PCP - [place] Commercial Attributed 03/26/21 Nicolas Gold MD [address] [facility] [place] [address] Endocrinology 07/11/17 Juanito Rivas MD [address] [place] [address] Referring Provider Surgery, Neurosurgery 02/01/18 Kirk Stringer MD [address] [place] [address] Consulting Provider Sleep Medicine 02/01/18 Ashley Tilley MD [address] [place] [address] Cardiovascular Disease 01/25/21 Jostin Kenny MD [address] [place] [address] Nephrology 05/14/23 Trini Brown MD [address] [place] [address] Endocrinology 01/04/24 Ashley Tilley MD [address] [place] [address] Primary Police Lieutenant Patrol Cardiovascular Disease 01/17/24 Franky Fonseca MD [address] [place] [address] Nephrology 06/10/24
--- OUTSIDE RECORDS SUMMARY | 2024-12-24 17:31 | XMS_ITS | Encounter Summary ---
Author Organization [facility] Address [address] [place] [address] Care Team Providers Care School Cafeteria Head Cook Name Role Phone Ludwig Whiting DO Primary Care Provider [phone] Nicolas Gold MD Unavailable Unavailable Juanito Rivas MD Unavailable Kirk Stringer MD Unavailable Jostin Kenny MD Unavailable [phone] Marcelle Bass RN Unavailable Ashley Tilley MD Unavailable [phone] Bianca Elena Unavailable Ludwig Whiting DO Unavailable Jostin Kenny MD Unavailable [phone] Trini Brown MD Unavailable [phone] Ashley Tilley MD Unavailable [phone] Franky Fonseca MD Unavailable [phone] Encounter Details Date Type Department Care Team (Late st Contact Info) Description 01/25/2021 [facility] [address] [place] [address] Ludwig Whiting, DO [address] [place] [address] Social History Tobacco Use Types Packs/Day Years [...] or suspected to have Coronavirus / COVID-19? Yes 01/27/2021 5:50 PM EST documented as of this encounter Plan of Treatment Upcoming Encounters Date Type Department Care Team (Late st Contact Info) Description 04/10/2025 4:00 PM EDT Office Visit [facility] Endocrinology [place] 100 [facility] 101 [place] [address] Trini Brown MD 100 [facility] 101 [place] [address] 05/25/2025 3:30 PM EDT Office Visit [facility] [address] [place] [address] Ludwig Whiting, DO [address] [place] [address] 06/25/2025 2:00 PM EDT Office Visit [facility] Cardiology [address] [place] [address] Ashley Tilley MD [address] [place] [address] documented as of this encounter Visit Diagnoses Not on filedocumented in this encounter Care Teams School Cafeteria Head Cook Relationship Specialty Start Date End Date Ludwig Whiting DO [address] [place] [address] PCP - General Family Medicine 12/01/16 Bianca Elena [address] [place] [address] PCP - Ophthalmology Ophthalmology 01/25/21 Ludwig Whiting, DO [address] [place] [address] PCP - [place] Commercial Attributed 03/26/21 Nicolas Gold MD [address] [place] [address] Endocrinology 07/11/17 Juanito Rivas MD [address] [place] [address] Referring Provider Surgery, Neurosurgery 02/01/18 Kirk Stringer MD [address] [place] [address] Consulting Provider Sleep Medicine 02/01/18 Jostin Kenny MD [address] [place] [address] Nephrology 02/01/18 05/13/23 Marcelle Bass, RN [address] [facility] [address] [place] [address] ICP Transition Wellness Director 08/25/20 09/20/21 Ashley Tilley MD [address] [place] [address] Cardiovascular Disease 01/25/21 Jostin Kenny MD [address] [place] [phone] Nephrology 05/14/23 Trini Brown MD [address] [place] [id number] Endocrinology 01/04/24 Ashley Tilley MD [address] [place] [address] Primary Fixed Income Analyst Cardiovascular Disease 01/17/24 Franky Fonseca MD [address] [place] [address] Nephrology 06/10/24 documented as of this encounter
--- OUTSIDE RECORDS SUMMARY | 2024-12-24 17:31 | XMS_ITS | Encounter Summary ---
Author Organization [facility] Address [address] [place] [address] Care Team Providers Care Rv Repair Technician Name Role Phone Ludwig Whiting DO Primary Care Provider [phone] Nicolas Gold MD Unavailable Unavailable Juanito Rivas MD Unavailable Kirk Stringer MD Unavailable Jostin Kenny MD Unavailable [phone] Marcelle Bass RN Unavailable Ashley Tilley MD Unavailable [phone] Bianca Elena Unavailable Ludwig Whiting DO Unavailable Jostin Kenny MD Unavailable [phone] Trini Brown MD Unavailable [phone] Ashley Tilley MD Unavailable [phone] Franky Fonseca MD Unavailable [phone] Encounter Details Date Type Department Care Team (Latest Contact Info) Description 12/21/2020 Lab Requisition [employer] [address] [facility] [address] [place] [address] Roderick Peoples MD [address] [place], [place] [phone] Encounter for laboratory testing for COVID-19 virus Social History Tobacco Use Types Packs/Day Years [...] PM EDT Office Visit [facility] [place] [facility] Endocrinology [place] [address] [address] Trini Brown MD 100 [facility] 101 [place] [address] 05/25/2025 3:30 PM EDT Office Visit [facility] [address] [place] [address] Ludwig Whiting, [address] [place] [address] 06/25/2025 2:00 PM EDT Office Visit [facility] Cardiology [address] [place] [address] Ashley Tilley MD [address] [place] [address] documented as of this encounter Procedures Procedure Name Priority Date/Time Associated Diagnosis Comments COVID-19 RT-PCR ([facility]) Routine 12/21/2020 11:24 AM EST Encounter for laboratory testing for COVID-19 virus [ICD-10-CM] documented in this encounter Results * COVID-19 RT-PCR ([facility]) (12/21/2020 11:24 AM EST) COVID-19 RT-PCR SARS-COV-2 NOT DETECTED Not Detected 12/22/2020 1:52 PM EST [facility] Comment: ADDITIONAL INFORMATION The [employer] COVID-19 RT-PCR Assay is Real-Time Reverse Test Case Developer Polymerase Chain Reaction (component lab tech-PCR) for the in vitro qualitative detection of three SARS-Cov-2 target sequences unique to the coronavirus disease 2019 (COVID-19). This is an Emergency Use Authorization (EUA) in vitro diagnostic (IVD) test that has been modified to include the [employer] automated liquid handler. Its analytical performance characteristics have been determined by the certified shorthand reporter and verified by [facility] in a manner consistent with CLIA requirements. This test may be used for clinical purposes and should not be regarded as purely investigational or for research use only. This laboratory is certified under the Clinical Laboratory Improvement Amendments of 1988 (CLIA) as qualified to perform high complexity clinical testing. Reference interval for this testing is SARS-CoV-2 Not Detected. Fact sheets for this Emergency Use Authorization assay can be found at the following links: For Healthcare Providers: https://www.fda.gov/media/794394/download For Patients: https://www.fda.gov/media/604971/download TEST LIMITATIONS Positive results are indicative of the presence of SARS-CoV-2 RNA; clinical correlation with patient history and other diagnostic information is necessary to determine patient infection status. Positive results do not rule out bacterial infection or co-infection with other viruses. The agent detected may not be the definite cause of disease. Negative results do not exclude SARS-CoV-2 infection and should not be used as the sole basis for patient management decisions. Negative results must be combined with clinical observations, patient history, and epidemiological information. Improper sample collection, transport or storage may impede the ability of the assay to detect target sequences. Inconclusive specimens are not repeated, and recollection and submission of a new sample is recommended. The performance of the TaqPath COVID-19 Combo Kit was established using nasopharyngeal swab, nasopharyngeal aspirate, and bronchoalveolar lavage (BAL) specimens. The limit of detection for the assay was determined to be 0.75copies/uL in the specimens of nasopharyngeal swab. Other specimen types may be need for further validation before testing on this system. For further details refer to the [employer] TaqPath COVID-19 Combo Kit EUA submission (https://www.[employer].gov/media/627416/download). ----- Test performed by [facility], [address] [place] [address] CLIA# [id number] ?[id number] ? Gabriele Harris M.D., Ph.D., [facility], Clinical Vessel Builder Microbiology Nasopharyngeal swab / Unknown 12/21/2020 11:24 AM EST 12/21/2020 11:24 AM EST Narrative [facility] - 12/22/2020 1:52 PM EST Performed at [facility], [address] [place] [address], [place] Lic 0695, CLIA [id number] Roderick Peoples MD MICROBIOLOGY - GENER AL ORDERABLES [address] [address] documented in this encounter Visit Diagnoses Diagnosis Encounter for laboratory testing for COVID-19 virus documented in this encounter Care Teams Rv Repair Technician Relationship Specialty Start Date End Date Ludwig Whiting DO [address] [facility] [place] [address] PCP - General Family Medicine 12/01/16 Bianca Elena [address] [place] [address] PCP - Ophthalmology Ophthalmology 01/25/21 Ludwig Whiting DO [address] [place] [address] PCP - [place] Commercial Attributed 03/26/21 Nicolas Gold MD [address] [place] [address] Endocrinology 07/11/17 Juanito Rivas MD [address] [place] [address] Referring Provider Surgery, Neurosurgery 02/01/18 Kirk Stringer MD [address] [place] [address] Consulting Provider Sleep Medicine 02/01/18 Jostin Kenny MD [address] [place] [address] Nephrology 02/01/18 05/13/23 Marcelle Bass, WING [address] [facility] [address] [place] [address] ICP Transition Lube Attendant 08/25/20 09/20/21 Ashley Tilley MD [address] [place] [address] Cardiovascular Disease 01/25/21 Jostin Kenny MD [address] [place] [address] Nephrology 05/14/23 Trini Brown MD [address] [place] [address] Endocrinology 01/04/24 Ashley Tilley MD [address] [place] [address] Primary Pump And Blower Operator Cardiovascular Disease 01/17/24 Franky Fonseca MD [address] [place] [address] Nephrology 06/10/24 documented as of this encounter
--- OUTSIDE RECORDS SUMMARY | 2024-12-24 17:31 | XMS_ITS | Encounter Summary ---
Author Organization [facility] Address [address] [place] [address] Care Team Providers Care Senior Landscape Architect Name Role Phone Ludwig Whiting DO Primary Care Provider [phone] Nicolas Gold MD Unavailable Unavailable Juanito Rivas MD Unavailable Kirk Stringer MD Unavailable [phone] Jostin Kenny MD Unavailable [phone] Marcelle Bass RN Unavailable Ashley Tilley MD Unavailable [phone] Bianca Elena Unavailable Ludwig Whiting DO Unavailable Jostin Kenny MD Unavailable [phone] Trini Brown MD Unavailable [phone] Ashley Tilley MD Unavailable [phone] Franky Fonseca MD Unavailable [phone] Encounter Details Date Type Department Care Team (Late st Contact Info) Description 07/20/2021 Scanned Document [facility] Cardiology [address] [place] [address] Ashley Tilley MD 100 [facility] 811 [place] [address] Social History Tobacco Use Types Packs/Day Years [...] have Coronavirus / COVID-19? No / Unsure 07/07/2021 2:30 PM EDT documented as of this encounter Plan of Treatment Upcoming Encounters Date Type Department Care Team (Late st Contact Info) Description 04/10/2025 4:00 PM EDT Office Visit [facility] Endocrinology [place] [address] [phone] Trini Brown MD [address] [place] [address] 05/25/2025 3:30 PM EDT [facility] 1060 [place] [phone] Ludwig Whiting, 10[address] [place] [address] 06/25/2025 2:00 PM EDT Office Visit [facility] Cardiology [address] [place] [phone] Ashley Tilley MD [address] [place] [address] documented as of this encounter Visit Diagnoses Not on filedocumented in this encounter Care Teams Senior Landscape Architect Relationship Specialty Start Date End Date Ludwig Whiting DO 10[address] [place] [address] PCP - General Family Medicine 12/01/16 Bianca Elena [address] [place] [address] PCP - Ophthalmology Ophthalmology 01/25/21 Ludwig Whiting DO 10[address] [place] [address] PCP - [place] Commercial Attributed 03/26/21 Nicolas Gold MD 10[address] [place] [address] Endocrinology 07/11/17 Juanito Rivas MD [address] [place] [address] Referring Provider Surgery, Neurosurgery 02/01/18 Kirk Stringer MD [address] [place] [address] Consulting Provider Sleep Medicine 02/01/18 Jostin Kenny MD [address] [place] [address] Nephrology 02/01/18 05/13/23 Marcelle Bass, WING [address] [facility] 2nd [place] [address] ICP Transition Cut Off Saw Operator 08/25/20 09/20/21 Ashley Tilley MD [address] [place] [address] Cardiovascular Disease 01/25/21 Jostin Kenny MD [address] [place] [phone] Nephrology 05/14/23 Trini Brown MD [address] [place] [address] Endocrinology 01/04/24 Ashley Tilley MD [address] [place] [address] Primary Sql Programmer Analyst Cardiovascular Disease 01/17/24 Franky Fonseca MD [address] [place] [address] Nephrology 06/10/24 documented as of this encounter
--- OUTSIDE RECORDS SUMMARY | 2024-12-24 17:31 | XMS_ITS | Encounter Summary ---
Author Organization [facility] Address 100 [place] [address] Care Team Providers Care District Director Name Role Phone Ludwig Whiting DO Primary Care Provider [phone] Nicolas Gold MD Unavailable Unavailable Juanito Rivas MD Unavailable Kirk Stringer MD Unavailable Ashley Tilley MD Unavailable [phone] Bianca Elena Unavailable Ludwig Whiting DO Unavailable [phone] Jostin Kenny MD Unavailable [phone] Trini Brown MD Unavailable [phone] Ashley Tilley MD Unavailable [phone] Franky Fonseca MD Unavailable [phone] Reason for Visit * Auth/Cert Specialty Diagnoses / Procedures Referred By Jose t Referred To Contact Diagnoses Encounter for loop recorder at end of battery life Procedures REMOVAL LOOP RECORDER Referral ID Status Reason Start Date Expiration Date Visits Re quested Visits Authorized [id number] 1 1 Encounter Details Date Type Department Care Team (Late st Contact Info) Description 12/04/2024 8:50 AM EST Anesthesia Event [facility] [address] [place] [address] Rancho Mac MD 99 [facility] [place] [address] Layla Boggs, PAAshly [address] [place] [address] Anesthesia Record Procedure Summary Procedure Name Responsible Anesthesiologist Anesthesia Start Time Anesthesia Stop Time REMOVAL LOOP RECORDER (Left) Rancho Mac MD 12/04/24 0850 12/04/24 0916 Events Date Time Event Comment 12/04/2024 0810 AN Equip Check 0817 0850 An Start 0852 An Start Data 0902 Skin Incision 0913 AN Stop Data 0916 An Stop 0916 Handoff to Receiving I compl eted my handoff to the receiving clinician during which we: 1. Identified the patient 2. Identified the responsible provider 3. Reviewed pertinent medical history 4. Discussed the surgical or procedural course 5. Reviewed intraoperative management and issues during anesthesia 6. Set expectations for the post-procedure period 7. Allowed opportunity for questions and acknowledgement of understanding. Meds Name Total labetalol 5 mg/mL injection 40 mg ceFAZolin 2 g in 20 mL SWFI syringe (pre mix) 3 g LR 100 mL * Agents Name Aux O2 * Blood No blood administrations on file. Lines, Drains, and Airways Type Details Placement Removal Incision (Adult, Obstetrics, Pediatrics) 09/14/20; 1956; left; posterior, medial; back 09/14/201956 by Dacia Bond RN Incision (Adult, Obstetrics, Pediatrics) 09/14/20; 1957; right; posterior, medial; back 09/14/201957 by Dacia Bond RN Incision (Adult, Obstetrics, Pediatrics) 12/04/24; 0801; Left; chest; Skin Glue, Covaderm 12/04/24 08 by Alyce Todd RN PIV-Single luman 12/04/24; 0800; metacarpal vein (top of hand), left; cihy-dnl-acfjsl catheter system; 20 gauge; 12/04/24; 0955 12/04/24 0800 by Skyla Castillo RN 12/04/24 09 by Inocencia Valenzuela RN documented in this encounter Social History Tobacco Use Types Packs/Day Years Used Date Smoking Tobacco: Former Cigarettes 2 27 1 963 - 1989 Cigars Smokeless Tobacco: Never Alcohol Use Standard Drinks/Week Comments No 0 (1 standard drink = 0.6 oz pur e alcohol) [facility] Utilities Answer Date Recorded In the past 12 months has th e [employer], gas, oil, or water [employer] threatened to shut off services in your home? No 11/24/2024 Social Connection and Isolation Panel [NHANES] A nswer Date Recorded In a typical week, how many times do you talk on the phone with family, friends, or neighbors? Three times a week 11/24/2024 Frequency of Social Gatherin gs with Friends and Family Not on file 11/24/2024 Attends Sabianist Services Not on file 11/24 Active Member [...] any time in the past 12 m [facility], were you homeless or living in a half-way (including now)? No 11/24/2024 Physical Activity Answer [...] - - Temperature - - Respiratory Rate 1 12/04/2024 8:56 AM EST Oxygen Saturation 95% 12/04/2024 9:11 AM EST Inhaled Oxygen Concentration - - Weight - - Height - - Body Mass Index - - documented in this encounter OR Notes * Anesthesia Postprocedure Evaluation - Nyla Kelley MD - 12/04/2024 10:14 AM EST Department of Anesthesiology Post-Anesthesia Evaluation Patient Name: Varun Galo : 1955 Admission Date: 12/04/2024 Attending Provider: Oneal Wong MD Date of Service: 12/04/2024 Procedure Summary Date: 12/04/24 Room / Location: [facility] OR [address] [place] [address] OR Anesthesia Start: 849 Anesthesia Stop: 915 Procedure: REMOVAL LOOP RECORDER (Left) Diagnosis: Encounter for loop recorder at end of battery life (Encounter for loop recorder at end of battery life [Z45.09]) Surgeons: Oneal Wong MD Responsible Provider: Rancho Mac MD Anesthesia Type: MAC ASA Status: 3 Anesthesia Type: MAC No notable events documented. Last vitals Vitals Value Taken Time BP 184/74 12/04/2452 Temp 36.5 ??C (97.7 ??F) 12/04/24 09 Pulse 76 12/04/24 0946 Resp 16 12/04/24924 SpO2 95 % 12/04/24945 Vitals shown include unfiled device data. Evaluation Vital signs are in the patient's normal range: Yes Respiratory function stable; airway patent: Yes Cardiovascular function and hydration status are stable: Yes Mental status recovered; patient participates in evaluation: Yes Pain control satisfactory: Yes Nausea and vomiting control is satisfactory: Yes This is an OB patient: No Quality Metrics -Obstructive sleep apnea risk education given perioperatively -Two or more strategies used to mitigate risk of obstructive sleep apnea Nyla Kelley MD 12/04/2024 10:14 AM * Anesthesia Preprocedure Evaluation - Nyla Kelley MD - 12/04/2024 7:40 AM EST Department of Anesthesiology Pre-Procedure Evaluation Patient Name: Varun Galo : 1955 Admission Date: 12/04/2024 Attending Provider: Oneal Wong MD Date of Service: 12/04/2024 Scheduled Procedure: REMOVAL LOOP RECORDER, Left Pre-operative Diagnosis: Encounter for loop recorder at end of battery life [Z45.09] Relevant Problems No relevant active problems No Known Allergies STOP-Bang score not indicated as patient has known PRINCE diagnosis Patient summary reviewed. ECG reviewed. Pre-procedure vital signs reviewed. NPO status verified. Respiratory Positives: sleep apnea on CPAP Cardiovascular Positives: Exercise tolerance: >4 METS CAD CHF hypercholesterolemia hypertension- atrial fibrillation (paroxysmal) Negatives: pacemakerAdditional Findings: Hx pericarditis w/ cardiac tamponade s/p pericardiocentesis (2019) Documented CAD however no LHC on file - on ASA/Statin A.Fib in 2019 after treatement for pericarditiis s/p ILR Echo 11/18/24 ?? Normal left ventricular size and systolic function. ?? The calculated LV ejection fraction (MOD, Biplane) is 60 %. ?? Normal right ventricular size and function. ?? No hemodynamically significant valvular disease. ?? Trace anterior pericardial effusion. ?? Definity contrast was used to better visualize the endocardium. ?? Compared to the prior study dated 03/28/2021, there is no significant change. Neuromuscular Positives: neuromuscular disease: GI/Hepatic/Renal Positives: GERD chronic renal disease CRI weight gain (BMI 43.98) Morbid obesity CRI Endo/MET Positives: diabetes mellitus type 2 using insulin gout Additional Findings: On Mounjaro Hem/Lymph Skel/Skin Additional Findings: Lumbar spinal stenosis Psych HEENT Obstetrics Other Syndromes Additional Notes 69 y/o M pmhx HTN, HLD, DMT2 (On insuline/Mounjaro), HRrecEF, PRINCE (BiPAP), pericarditis (?viral etiology) c/b tamponade s/p pericardiocentesis (2019) w/ post-op A.Fib s/p ILR now at end of battery life who presents for removal of ILR. Physical Exam Airway Mallampati III TM distance >3 FB Neck ROM: limited Pulmonary (+) decreased breath sounds Abdominal (+) obesity Additional findings - Randle with dense soft tissue Can see the uvula on mouth opening Past Medical History: Diagnosis Date Atrial fibrillation (HCC) Back pain Congestive heart failure (CHF) (HCC) Contact dermatitis and other eczema due to plants (except food) Contact dermatitis due to poison kandy: 2014-02-07 00:04:29 Gout History of colon polyps HL (hearing loss) Hypertension Lumbar back pain Obesity PAF (paroxysmal atrial fibrillation) ([facility]) PRESENTED WITH TAMPONADE Pericarditis 07/2020 LARGE EFFUSION [...] Heart Cath; Surgeon: Coleman Walker MD; Location: [facility]; Service: Cardiovascular; Laterality: N/A; CC PERICARDIOCENTESIS N/A 08/19/2020 Procedure: PERICARDIOCENTESIS; Surgeon: Coleman Walker MD; Location: [facility]; Service: Cardiovascular; Laterality: N/A; COLONOSCOPY Left 04/28/2022 Procedure: COLONOSCOPY; Surgeon: Richard Prakash MD; Location: GI Endoscopy; Service: Gastroenterology; Laterality: Left; ECHOCARDIOGRAM 03/28/2021 EF 61%, RV normal. Minimal pericardial effusion ECHOCARDIOGRAM 09/16/2020 EF 65-70% small effusion. Normal RV. Normal valves IMPLANT LOOP RECORDER N/A 12/28/2020 Procedure: IMPLANT LOOP RECORDER; Surgeon: Roderick Peoples MD; Location: [facility]; Service: Cardiovascular; Laterality: N/A; LOOP RECORDER INSERTION 09/01/2020 30 DAY. Monitored time 43%, SR. VE < 1%, SR, ST, No SX. PERICARDIOCENTESIS 08/19/2020 [place] COLONOSCOPY FLX DX W/COLLJ SPEC WHEN PFRMD N/A 12/01/2016 Procedure: COLONOSCOPY; Surgeon: Richard Prakash MD; Location: GI Endoscopy; Service: Gastroenterology TONSILLECTOMY US GUIDED THORACENTESIS- BILATERAL (DIAGNOSTIC & THERAPEUTIC) Bilateral 09/14/2020 Procedure: US Guided Thoracentesis-Bilateral (Diagnostic & Therapeutic); Surgeon: SANDRA Galaviz; Location: [facility]; Service: Interventional Radiology; Laterality: Bilateral; Family History Problem Relation Age of Onset Breast cancer Mother Diabetes Mother Diabetes Father Glaucoma Father COPD Maternal Uncle Hypertension Paternal Grandfather Social History Socioeconomic History Marital status: Spouse name: Not on file Number of children: Not on file Years of education: Not on file Highest education level: Not on file Occupational History Not on file Tobacco Use Smoking status: Former Current packs/day: 0.00 Average packs/day: 2.0 packs/day for 27.0 years (54.0 ttl pk-yrs) Types: Cigarettes, Cigars Start date: 1962 Quit date: 1989 Years since quittin.0 Smokeless tobacco: Never Vaping Use Vaping status: Never Used Substance and Sexual Activity Alcohol use: No Drug use: Yes Types: Marijuana Comment: hold 7 days Sexual activity: Yes Other Topics Concern Not on file Social History Narrative Not on file Social Determinants of Health Financial Resource Strain: Not on file Food Insecurity: No Food Insecurity (11/24/2024) Hunger Vital Sign Worried About Running Out of Food in the Last Year: Never true Ran Out of Food in the Last Year: Never true Transportation Needs: No Transportation Needs (11/24/2024) PRAPARE - Transportation Lack of Transportation (Medical): No Lack of Transportation (Non-Medical): No Physical Activity: Inactive (08/14/2024) Physical Activity Days of Exercise per Week: 0 days Minutes of Exercise per Session: 0 min Stress: Not on file Social Connections: Unknown (11/24/2024) Social Connection and Isolation Panel [NHANES] Frequency of Communication with Friends and Family: Three times a week Frequency of Social Gatherings with Friends and Family: Not on file Attends Sabianist Services: Not on file Active Member of Clubs or Organizations: Not on file Attends Club or Organization Meetings: Not on file Marital Status: Not on file Housing Stability: Low Risk (11/24/2024) Housing Stability Vital Sign Unable to Pay for Housing in the Last Year: No Number of Times Moved in the Last Year: 0 Homeless in the Last Year: No Ht Readings from Last 1 Encounters: 11/20/24 1.753 m (5' 9 ) Wt Readings from Last 1 Encounters: 11/20/24 (!) 137 kg (301 lb) Body mass index is 44.45 kg/m??. White Blood Cell Count Date Value Ref Range Status 11/28/2024 5.7 3.8 - 10.8 Thousand/uL Final Hemoglobin Date Value Ref Range Status 11/28/2024 13.8 13.2 - 17.1 g/dL Final Hematocrit Date Value Ref Range Status 11/28/2024 42.3 38.5 - 50.0 % Final Platelet Count Date Value Ref Range Status 11/28/2024 208 140 - 400 Thousand/uL Final Sodium Date Value Ref Range Status 11/28/2024 142 135 - 146 mmol/L Final Potassium Date Value Ref Range Status 11/28/2024 4.0 3.5 - 5.3 mmol/L Final CO2 Date Value Ref Range Status 11/28/2024 26 20 - 32 mmol/L Final Chloride Date Value Ref Range Status 11/28/2024 107 98 - 110 mmol/L Final POC Glucose Date Value Ref Range Status 12/04/2024 114 (H) 65 - 99 mg/dL Final Blood Urea Nitrogen (BUN) Date Value Ref Range Status 11/28/2024 19 7 - 25 mg/dL Final Creatinine Date Value Ref Range Status 11/28/2024 0.82 0.70 - 1.35 mg/dL Final Calcium Date Value Ref Range Status 11/28/2024 9.8 8.6 - 10.3 mg/dL Final ABO/Rh Date Value Ref Range Status 03/26/2021 O NEGATIVE Final INR Date Value Ref Range Status 03/26/2021 1.0 Final Comment: INR Therapeutic Ranges: Standard dose anticoagulant 2.0 to 3.0, High dose anticoagulant 2.5-3.5. 08/16/2020 1.4 Final Comment: INR Therapeutic Ranges: Standard dose anticoagulant 2.0 to 3.0, High dose anticoagulant 2.5-3.5. 07/30/2020 1.1 Final Comment: INR Therapeutic Ranges: Standard dose anticoagulant 2.0 to 3.0, High dose anticoagulant 2.5-3.5. Lab Results Component Value Date ABORH O NEGATIVE 03/26/2021 Recent Results (from the past 8760 hour(s)) [...] Mimi, Raul (121) on 11/11/2024 3:57:18 PM NPO Status: Anesthesia Plan ASA Score: ASA 3 Consent: The anesthetic plan and associated risks was discussed with patient. Anesthesia Plan: MAC anesthesia The plan was discussed with the following care providers: attending. Post-Operative Pain Management: Routine Analgesia and Antiemetics : Attending Note I personally evaluated and examined the patient prior to the intra-operative phase of care. Layla Boggs PA-C documented in this encounter Plan of Treatment Upcoming Encounters Date Type Department Care Team (Late st Contact Info) Description 04/10/2025 4:00 PM EDT Office Visit [facility] Endocrinology [place] 100 [facility] [address] [place] [address] Trini Brown MD [address] [place] [address] 05/25/2025 3:30 PM EDT [facility] [address] [place] [phone] Ludwig Whiting, [address] [place], [place] [phone] 06/25/2025 2:00 PM EDT Office Visit [facility] Cardiology [address] [place] [address] Ashley Tilley MD [address] [place] [facility] [address] [place] [address] documented as of this encounter Visit Diagnoses Not on filedocumented in this encounter Administered Medications Inactive Administered Medications - up to 1 most recent administrations Medication Order MAR Action Action Date Dose Rate Site lactated ringers (LR) infusion Intravenous, Continuous PRN, Starting on Rajwinder 12/04/24 at 0852, Anesthesia Intra-op New Bag 12/04/2024 8:52 AM EST ceFAZolin (ANCEF) 2 g in 20 mL SWFI syringe (premix) Intravenous, As needed, Starting on Rajwinder 12/04/24 at 0904, Anesthesia Intra-op Given 12/04/2024 8:50 AM EST 3 g labetalol (NORMODYNE,TRANDATE) injection Intravenous, As needed, Starting on Rajwinder 12/04/24 at 0857, Anesthesia Intra-op Given 12/04/2024 9:09 AM EST 15 mg documented in this encounter Care Teams District Director Relationship Specialty Start Date End Date Ludwig Whiting DO [address] [place] [address] PCP - General Family Medicine 12/01/16 Bianca Elena [address] [place] [address] PCP - Ophthalmology Ophthalmology 01/25/21 Ludwig Whiting DO [address] [place] [address] PCP - [place] Commercial Attributed 03/26/21 Nicolas Gold MD [address] [facility] [place] [address] Endocrinology 07/11/17 Juanito Rivas MD [address] [place] [address] Referring Provider Surgery, Neurosurgery 02/01/18 Kirk Stringer MD [address] [place] [address] Consulting Provider Sleep Medicine 02/01/18 Ashley Tilley MD [address] [place] [address] Cardiovascular Disease 01/25/21 Jostin Kenny MD [address] [place] [phone] Nephrology 05/14/23 Trini Brown MD [address] [place] [address] Endocrinology 01/04/24 Ashley Tilley MD [address] [place] [address] Primary Calender Feeder Cardiovascular Disease 01/17/24 Franky Fonseca MD [address] [place] [address] Nephrology 06/10/24 documented as of this encounter
--- OUTSIDE RECORDS SUMMARY | 2024-12-24 17:31 | XMS_ITS | Encounter Summary ---
Author Organization [facility] Address [address] [place] [address] Care Team Providers Care Management Planner Name Role Phone Ludwig Whiting DO Primary Care Provider [phone] Nicolas Gold MD Unavailable Unavailable Juanito Rivas MD Unavailable Kirk Stringer MD Unavailable [phone] Ashley Tilley MD Unavailable [phone] Bianca Elena Unavailable Ludwig Whiting DO Unavailable [phone] Jostin Kenny MD Unavailable [phone] Trini Brown MD Unavailable [phone] Ashley Tilley MD Unavailable [phone] Franky Fonseca MD Unavailable [phone] Encounter Details Date Type Department Care Team (Late st Contact Info) Description 11/23/2023 Telephone [facility] Endocrinology [address] [phone] Inderjit Dey MD [address] [address] Social History Tobacco Use Types Packs/Day Years Used Date Smoking Tobacco: Former Cigarettes 2 27 1 3 - 1989 Cigars Smokeless Tobacco: Never Alcohol [...] Description 04/10/2025 4:00 PM EDT Office Visit [facility] Endocrinology [place] 100 [facility] 101 [place] [address] Trini rBown MD 100 [facility] 101 [place] [address] 05/25/2025 3:30 PM EDT Office Visit [facility] 10[address] [place] [phone] Ludwig Whiting DO [address] [place] [address] 06/25/2025 2:00 PM EDT Office Visit [facility] Cardiology [address] [place] [address] Ashley [facility]illey MD [facility] [address] [place] [address] documented as of this encounter Visit Diagnoses Not on filedocumented in this encounter Care Teams Management Planner Relationship Specialty Start Date End Date Ludwig Whiting DO [address] [place] [address] PCP - General Family Medicine 12/01/16 Bianca Elena [address] [place] [address] PCP - Ophthalmology Ophthalmology 01/25/21 Ludwig Whiting DO [address] [place] [address] PCP - [place] Commercial Attributed 03/26/21 Nicolas Gold MD [address] [place] [address] Endocrinology 07/11/17 Juanito Rivas MD [address] [place] [address] Referring Provider Surgery, Neurosurgery 02/01/18 Kirk Stringer MD 112 [place] [address] Consulting Provider Sleep Medicine 02/01/18 Ashley Tilley MD [address] [place] [address] Cardiovascular Disease 01/25/21 Jostin Kenny MD [address] [place] [phone] Nephrology 05/14/23 Trini Brown MD [address] [place] [address] Endocrinology 01/04/24 Ashley Tilley MD [address] [place] [address] Primary Functional Architect Cardiovascular Disease 01/17/24 Franky Fonseca MD [address] [place], [place] [address] Nephrology 06/10/24 documented as of this encounter
--- OUTSIDE RECORDS SUMMARY | 2024-12-24 17:31 | XMS_ITS | Encounter Summary ---
Author Organization [facility] Address [address] [place] [address] Care Team Providers Care Special Systems Technician Name Role Phone Ludwig Whiting DO Primary Care Provider [phone] Nicolas Gold MD Unavailable Unavailable Juanito Rivas MD Unavailable [phone] Kirk Stringer MD Unavailable Ashley Tilley MD Unavailable [phone] Bianca Elena Unavailable Ludwig Whiting DO Unavailable [phone] Jostin Kenny MD Unavailable [phone] Trini Brown MD Unavailable [phone] Ashley Tilley MD Unavailable [phone] Franky Fonseca MD Unavailable [phone] Encounter Details Date Type Department Care Team (Latest Contact Info) Description 11/24/2024 Travel Social History Tobacco Use Types Packs/Day Years Used Date Smoking Tobacco: Former Cigarettes 2 27 1 963 - 1989 Cigars Smokeless Tobacco: Never Alcohol Use Standard Drinks/Week Comments No 0 (1 standard drink = 0.6 oz pur e alcohol) [facility] Utilities Answer Date Recorded In the [...] and Family Not on file 11/24/2024 Attends Church Services Not on file 11/24 Active Member [...] time in the past 12 m [facility], were you homeless or living in a senior living (including now)? No 11/24/2024 Physical Activity Answer [...] Description 04/10/2025 4:00 PM EDT Office Visit [facility] Endocrinology [place] [address] [place] [address] Trini Brown MD 100 [facility] 101 [place] [address] 05/25/2025 3:30 PM EDT Office Visit [facility] 1060 [place] [address] Ludwig Whiting DO 1060 [place] [address] 06/25/2025 2:00 PM EDT Office Visit [facility] Cardiology [address] [place] [address] Ashley Tilley MD [address] [address] documented as of this encounter Visit Diagnoses Not on filedocumented in this encounter Care Teams Special Systems Technician Relationship Specialty Start Date End Date Ludwig Whiting DO 10[address] [place] [address] PCP - General Family Medicine 12/01/16 Bianca Elena [address] [place] [address] PCP - Ophthalmology Ophthalmology 01/25/21 Ludwig Whiting DO [address] [place] [address] PCP - [place] Commercial Attributed 03/26/21 Nicolas Gold MD 1060 [facility] [place] [address] Endocrinology 07/11/17 Juanito Rivas MD [address] [place] [address] Referring Provider Surgery, Neurosurgery 02/01/18 Kirk Stringer MD [address] [place] [address] Consulting Provider Sleep Medicine 02/01/18 Ashley Tilley MD [address] [place] [address] [place] [address] Cardiovascular Disease 01/25/21 Jostin Kenny MD [address] [place] [address] Nephrology 05/14/23 Trini Brown MD [address] [place] [address] Endocrinology 01/04/24 Ashley Tilley MD [address] [place] [address] [place] [address] Primary Sheet Metal Engineer Cardiovascular Disease 01/17/24 Franky Fonseca MD [address] [place] [address] Nephrology 06/10/24 documented as of this encounter
--- OUTSIDE RECORDS SUMMARY | 2024-12-24 17:31 | XMS_ITS | Encounter Summary ---
Author Organization [facility] Address [address] [place] [address] Care Team Providers Care Senior Product Development Engineer Name Role Phone Ludwig Whiting DO Primary Care Provider [phone] Nicolas Gold MD Unavailable Unavailable Juanito Rivas MD Unavailable Kirk Stringer MD Unavailable [phone] Ashley Tilley MD Unavailable [phone] Bianca Elena Unavailable Ludwig Whiting DO Unavailable [phone] Jostin Kenny MD Unavailable [phone] Trini Brown MD Unavailable [phone] Ashley Tilley MD Unavailable [phone] Franky Fonseca MD Unavailable [phone] Encounter Details Date Type Department Care Team (Latest Contact Info) Description 12/04/2024 Travel Social History Tobacco Use Types Packs/Day Years Used Date Smoking Tobacco: Former Cigarettes 2 27 1 963 - 1989 Cigars Smokeless Tobacco: Never Alcohol Use Standard Drinks/Week Comments No 0 (1 standard drink = 0.6 oz pur e alcohol) [facility] Utilities Answer Date Recorded In [...] and Family Not on file 11/24/2024 Attends Restorationist Services Not on file 11/24 Active Member [...] any time in the past 12 m [facility], were you homeless or living in [...] Description 04/10/2025 4:00 PM EDT Office Visit [facility] Endocrinology [place] [address] [place] [address] Trini Brown MD 100 [facility] 101 [place] [address] 05/25/2025 3:30 PM EDT Office Visit [facility] 1060 [place] [address] Ludwig Whiting DO 1060 [place] [address] 06/25/2025 2:00 PM EDT Office Visit [facility] Cardiology [address] [place] [address] Ashley Tilley MD [address] [address] documented as of this encounter Visit Diagnoses Not on filedocumented in this encounter Care Teams Senior Product Development Engineer Relationship Specialty Start Date End Date Ludwig Whiting DO 1060 [place] [address] PCP - General Family Medicine 12/01/16 Bianca Elena [address] [place] [address] PCP - Ophthalmology Ophthalmology 01/25/21 Ludwig Whiting DO 1060 [place] [address] PCP - [place] Commercial Attributed 03/26/21 Nicolas Gold MD 1060 [facility] [place] [address] Endocrinology 07/11/17 Juanito Rivas MD [address] [place] [address] Referring Provider Surgery, Neurosurgery 02/01/18 Kirk Stringer MD [address] [place] [address] Consulting Provider Sleep Medicine 02/01/18 Ashley Tilley MD [address] [place] [address] Cardiovascular Disease 01/25/21 Jostin Kenny MD [address] [place] [address] Nephrology 05/14/23 Trini Brown MD [address] [place] [address] Endocrinology 01/04/24 Ashley Tilley MD [address] [place] [address] Primary Ultrasonic Cleaner Cardiovascular Disease 01/17/24 Franky Fonseca MD [address] [place] [address] Nephrology 06/10/24 documented as of this encounter
--- OUTSIDE RECORDS SUMMARY | 2024-12-24 17:31 | XMS_ITS | Encounter Summary ---
Author Organization [facility] Address [address] [place] [address] Care Team Providers Care Boiler Tube Reamer Name Role Phone Ludwig Whiting DO Primary Care Provider [phone] Nicolas Gold MD Unavailable Unavailable Juanito Rivas MD Unavailable [phone] Kirk Stringer MD Unavailable Jostin Kenny MD Unavailable Marcelle Bass RN Unavailable Ashley Tilley MD Unavailable [phone] Bianca Elena Unavailable Ludwig Whiting DO Unavailable Jostin Kenny MD Unavailable [phone] Trini Brown MD Unavailable [phone] Ashley Tilley MD Unavailable [phone] Franky Fonseca MD Unavailable [phone] Reason for Visit * Reason Comments Medication Refill Encounter Details Date Type Department Care Team (Late st Contact Info) Description 09/07/2019 Refill [facility] Endocrinology [place] [address] [place] [address] Nicolas Gold MD Needs valid address Diabetes [...] [facility] Endocrinology [place] 100 [facility] 101 [place] [address] Trini Brown MD [address] [facility] 101 [place] [address] 05/25/2025 3:30 PM EDT Office Visit [facility] 10[address] [place] [address] Ludwig Whiting, 1060 [place] [address] 06/25/2025 2:00 PM EDT Office Visit [facility] Cardiology [address] [place] [address] Ashley Tilley MD [address] [facility] 811 [place] [address] documented as of this encounter Visit Diagnoses Diagnosis Diabetes mellitus without complication (HCC) Type II or unspecified type diabetes mellitus without mention of complication, not stated as uncontrolled documented in this encounter Care Teams Boiler Tube Reamer Relationship Specialty Start Date End Date Ludwig Whiting DO 1060 [place] [address] PCP - General Family Medicine 12/01/16 Bianca Elena [address] [place] [address] PCP - Ophthalmology Ophthalmology 01/25/21 Ludwig Whiting DO 1060 [place] [address] PCP - [place] Commercial Attributed 03/26/21 Nicolas Gold MD 1060 [place] [address] Endocrinology 07/11/17 Juanito Rivas MD [address] [place] [address] Referring Provider Surgery, Neurosurgery 02/01/18 Kirk Stringer MD [address] [place] [address] Consulting Provider Sleep Medicine 02/01/18 Jostin Kenny MD [address] [place] [address] Nephrology 02/01/18 05/13/23 Marcelle Bass, RN 17 [facility] 2nd [place], [place] [address] ICP Transition Oil Pipeline Operator 08/25/20 09/20/21 Ashley Tilley MD [address] [place] [address] Cardiovascular Disease 01/25/21 Jostin Kenny MD [address] [place] [address] Nephrology 05/14/23 Trini Brown MD [address] [place] [address] Endocrinology 01/04/24 Ashley Tilley MD [address] [place] [address] Primary Aerial Photograph Interpreter Cardiovascular Disease 01/17/24 Franky Fonseca MD [address] [place] [address] Nephrology 06/10/24 documented as of this encounter
--- OUTSIDE RECORDS SUMMARY | 2024-12-24 17:31 | XMS_ITS | Encounter Summary ---
Author Organization [facility] Address [address] [place] [address] Care Team Providers Care Second Officer Name Role Phone Ludwig Whiting DO Primary Care Provider [phone] Nicolas Gold MD Unavailable Unavailable Juanito Rivas MD Unavailable Kirk Stringer MD Unavailable Jostin Kenny MD Unavailable [phone] Marcelle Bass RN Unavailable Ashley Tilley MD Unavailable [phone] Bianca Elena Unavailable Ludwig Whiting DO Unavailable Jostin Kenny MD Unavailable Trini Brown MD Unavailable [phone] Ashley Tilley MD Unavailable [phone] Franky Fonseca MD Unavailable [phone] Encounter Details Date Type Department Care Team (Late st Contact Info) Description 10/14/2020 Scanned Document [facility] 10[address] [place] [address] Ludwig Whiting, DO 1060 [place] [address] Social History Tobacco Use Types Packs/Day Years [...] Description 04/10/2025 4:00 PM EDT Office Visit [facility] Endocrinology [place] 100 [facility] 101 [place] [address] Trini Brown MD 100 [facility] 101 [place] [address] 05/25/2025 3:30 PM EDT Office Visit [address] [address] Ludwig Whiting, DO 1060 [place] [address] 06/25/2025 2:00 PM EDT Office Visit [facility] Cardiology [address] [place] [address] Ashley Tilley MD 100 [facility] 811 [place] [address] documented as of this encounter Visit Diagnoses Not on filedocumented in this encounter Care Teams Second Officer Relationship Specialty Start Date End Date Ludwig Whiting DO 1060 [place] [address] PCP - General Family Medicine 12/01/16 Bianca Elena [address] [place] [address] PCP - Ophthalmology Ophthalmology 01/25/21 Ludwig hWiting DO 1060 [place] [address] PCP - [place] Commercial Attributed 03/26/21 Nicolas Gold MD 1060 [place] [address] Endocrinology 07/11/17 Juanito Rivas MD [address] [place] [address] Referring Provider Surgery, Neurosurgery 02/01/18 Kirk Stringer MD [address] [place] [address] Consulting Provider Sleep Medicine 02/01/18 Jostin Kenny MD [address] [place] [address] Nephrology 02/01/18 05/13/23 Marcelle Bass, RN 17 [facility] 2nd Floor [place], [place] [address] ICP Transition Court Supervisor 08/25/20 09/20/21 Ashley Tilley MD [address] [place] [address] Cardiovascular Disease 01/25/21 Jostin Kenny MD [address] [place] [address] Nephrology 05/14/23 Trini Brown MD [address] [place] [address] Endocrinology 01/04/24 Ashley Tilley MD [address] [place] [address] Primary Injection Mold Tooling Technician Cardiovascular Disease 01/17/24 Franky Fonseca MD [address] [place] [address] Nephrology 06/10/24 documented as of this encounter
--- OUTSIDE RECORDS SUMMARY | 2024-12-24 17:31 | XMS_ITS | Encounter Summary ---
Author Organization [facility] Address [address] [place] [address] Care Team Providers Care Professor Of Spanish Name Role Phone Ludwig Whiting DO Primary Care Provider [phone] Nicolas Gold MD Unavailable Unavailable Juanito Rivas MD Unavailable [phone] Kirk Stringer MD Unavailable Jostin Kenny MD Unavailable [phone] Ashley Tilley MD Unavailable [phone] Bianca Elena Unavailable Ludwig Whiting DO Unavailable Jostin Kenny MD Unavailable [phone] Trini Brown MD Unavailable [phone] Ashley Tilley MD Unavailable [phone] Franky Fonseca MD Unavailable [phone] Encounter Details Date Type Department Care Team (Late st Contact Info) Description 02/02/2023 Scanned Document [facility] Ludwig Whiting, DO [address] [place] [address] Social History Tobacco Use Types Packs/Day Years [...] 4:00 PM EDT Office Visit [facility] Endocrinology [place] 100 [facility] 101 [place] [address] Trini Brown MD 100 [facility] 101 [place] [address] 05/25/2025 3:30 PM EDT Office Visit [facility] 1060 [place] [address] Ludwig Whiting DO 10[address] [place] [address] 06/25/2025 2:00 PM EDT Office Visit [facility] Cardiology [address] [place] [address] Ashley Tilley MD 100 [facility] [address] [place] [address] documented as of this encounter Visit Diagnoses Not on filedocumented in this encounter Care Teams Professor Of Spanish Relationship Specialty Start Date End Date Ludwig Whiting DO [address] [place], [place] [address] PCP - General Family Medicine 12/01/16 Bianca Elena [address] [place] [address] PCP - Ophthalmology Ophthalmology 01/25/21 Ludwig Whiting DO 1060 [facility] [place] [facility] [place] [address] PCP - [place] Commercial Attributed 03/26/21 Nicolas Gold MD [facility] [place] [facility] [place] [address] Endocrinology 07/11/17 Juanito Rivas MD [address] [place] [address] Referring Provider Surgery, Neurosurgery 02/01/18 Kirk Stringer MD 112 [place] [address] Consulting Provider Sleep Medicine 02/01/18 Jostin Kenny MD 112 [place] [address] Nephrology 02/01/18 05/13/23 Ashley Tilley MD [address] [place] [address] Cardiovascular Disease 01/25/21 Jostin Kenny MD [address] [place] [address] Nephrology 05/14/23 Trini Brown MD [address] [place] [address] Endocrinology 01/04/24 Ashley Tilley MD [address] [place] [address] Primary Greenhouse Transplanter Cardiovascular Disease 01/17/24 Franky Fonseca MD [address] [place] [address] Nephrology 06/10/24 documented as of this encounter
--- OUTSIDE RECORDS SUMMARY | 2024-12-24 17:31 | XMS_ITS | Encounter Summary ---
Author Organization [facility] Address [address] [place] [address] Care Team Providers Care Outside Salesperson Name Role Phone Ludwig Whiting DO Primary Care Provider [phone] Nicolas Gold MD Unavailable Unavailable Junaito Rivas MD Unavailable [phone] Kirk Stringer MD Unavailable Jostin Kenny MD Unavailable [phone] Ashley Tilley MD Unavailable [phone] Bianca Elena Unavailable Ludwig Whiting DO Unavailable [phone] Jostin Kenny MD Unavailable [phone] Trini Brown MD Unavailable [phone] Ashley Tilley MD Unavailable [phone] Franky Fonseca MD Unavailable [phone] Encounter Details Date Type Department Care Team (Late st Contact Info) Description 03/08/2022 Scanned Document OPHTHALMOLOGY 85 [place] [address] Ophthalmology, Scan Social History Tobacco Use Types Packs/Day [...] [facility] Endocrinology [place] 100 [facility] 101 [place] [address] Trini Brown MD 100 [facility] 101 [place] [address] 05/25/2025 3:30 PM EDT Office Visit [facility] 1060 [place] [address] Ludwig Whiting DO 10[address] [place] [address] 06/25/2025 2:00 PM EDT Office Visit [facility] Cardiology [address] [place] [address] Ashley Tilley MD [address] [place] [address] [place] [address] documented as of this encounter Visit Diagnoses Not on filedocumented in this encounter Care Teams Outside Salesperson Relationship Specialty Start Date End Date Ludwig Whiting DO [address] [place] [address] PCP - General Family Medicine 12/01/16 Bianca Elena [address] [place] [address] PCP - Ophthalmology Ophthalmology 01/25/21 Ludwig Whiting DO 10[address] [place] [address] PCP - [place] Commercial Attributed 03/26/21 Nicolas Gold MD 1060 [facility] [place] [address] Endocrinology 07/11/17 Juanito Rivas MD 1000 [place] [address] Referring Provider Surgery, Neurosurgery 02/01/18 Kirk Stringer MD 112 [place] [address] Consulting Provider Sleep Medicine 02/01/18 Jostin Kenny MD 112 [place] [address] Nephrology 02/01/18 05/13/23 Ashley Tilley MD [address] [place] [address] Cardiovascular Disease 01/25/21 Jostin Kenny MD [address] [place] [address] Nephrology 05/14/23 Trini Brown MD [address] [place] [address] Endocrinology 01/04/24 Ashley Tilley MD [address] [place] [address] Primary Cardiovascular Technologist Cardiovascular Disease 01/17/24 Franky Fonseca MD [address] [place] [address] Nephrology 06/10/24 documented as of this encounter
--- OUTSIDE RECORDS SUMMARY | 2024-12-24 17:31 | XMS_ITS | Encounter Summary ---
Author Organization [facility]ly [facility] Address [address] [place] [address] Care Team Providers Care Gas Or Water Meter Installer Name Role Phone Ludwig Whiting DO Primary Care Provider [phone] Nicolas Gold MD Unavailable Unavailable Juanito Rivas MD Unavailable [phone] Kirk Stringer MD Unavailable Ashley Tilley MD Unavailable [phone] Bianca Elena Unavailable Ludwig Whiting DO Unavailable [phone] Jostin Kenny MD Unavailable [phone] Trini Brown MD Unavailable [phone] Ashley Tilley MD Unavailable [phone] Franky Fonseca MD Unavailable [phone] Reason for Visit * Reason Comments Follow-up 6mths follow up Encounter Details Date Type Department Care Team (Latest Contact Info) Description 11/24/2024 2:00 PM EST Office Visit [address] [address] Ludwig Whiting, DO [address] [place] [address] Type 2 diabetes mellitus with stage 3a chronic kidney disease, with long-term current use of insulin (HCC) (Primary Dx); Type 2 diabetes mellitus with diabetic polyneuropathy, with long-term current use of insulin (HCC); Essential hypertension; Screening for prostate cancer; Mild nonproliferative diabetic retinopathy of both eyes without macular edema associated with type 2 diabetes mellitus (HCC); Paroxysmal atrial fibrillation (HCC) Social History Tobacco Use Types Packs/Day Years Used Date Smoking Tobacco: Former Cigarettes 2 27 1 963 - 1989 Cigars Smokeless Tobacco: Never Alcohol Use Standard Drinks/Week Comments No 0 (1 standard drink = 0.6 oz pur e alcohol) [facility] Utilities Answer Date Recorded In the past 12 months has e electric, gas, oil, or water [employer] threatened to shut off services in your home? No 11/24/2024 Social Connection and Isolation Panel [NHANES] A nswer Date Recorded In a typical week, how many times do you talk on the phone with family, friends, or neighbors? Three times a week 11/24/2024 Frequency of Social Gatherin gs with Friends and Family Not on file 11/24/2024 Attends Anglican Services Not on file 11/24 Active Member [...] any time in the past 12 m [facility], were you homeless or living in a chcf (including now)? No 11/24/2024 Physical Activity Answer [...] Sign Reading Time Taken Comments Blood Pressure 156/75 11/24/2024 2:45 PM EST Pulse 76 11/24/2024 2:45 PM EST Temperature - - Respiratory Rate - - Oxygen Saturation 98% 11/24/2024 2:12 PM EST Inhaled Oxygen Concentration - - Weight 135 kg (297 lb 12.8 oz) 11/24/2024 2:12 P M EST Height 175.3 cm (5' 9 ) 11/24/2024 2:12 PM EST Body Mass Index 43.98 11/24/2024 2:12 PM EST documented in this encounter Progress Notes * Ludwig Whiting, DO - 11/24/2024 2:21 PM EST ASSESSMENT/PLAN Problem List Items Addressed This Visit Endocrine Type 2 diabetes mellitus with stage 3a chronic kidney disease, with long-term current use of insulin (HCC) - Primary Relevant Orders Lipid Panel Reflex Direct LDL Complete Blood Count, with Differential Comprehensive Metabolic Panel TSH REFLEX FREE T4 Mild nonproliferative diabetic retinopathy of both eyes without macular edema associated with type 2 diabetes mellitus (HCC) Type 2 diabetes mellitus with diabetic polyneuropathy, with long-term current use of insulin (HCC) Relevant Orders Lipid Panel Reflex Direct LDL Complete Blood Count, with Differential Comprehensive Metabolic Panel TSH REFLEX FREE T4 Cardiovascular and Mediastinum Essential hypertension Relevant Medications lisinopril (PRINIVIL,ZeSTRIL) 20 MG tablet Other Relevant Orders Lipid Panel Reflex Direct LDL Complete Blood Count, with Differential Comprehensive Metabolic Panel TSH REFLEX FREE T4 Paroxysmal atrial fibrillation (HCC) Other Visit Diagnoses Screening for prostate cancer Relevant Orders PSA Next follow-up needs 30 min Stasis dermatitis- treat with triamcinolone cream. Doing well. Gout-on allopurinol 300mg twice daily without side effects. Check uric acid. HFpEF- on toresemide 40mg every day. Hypertension- currently on doxazosin- restart lisinopril 20mg a day. Does check blood pressures at home. Low back pain- neurosurgeon no surgery unless he loses weight. Didn;t do MRI again since 2017. Deals with it. Feels a lot better with weight loss. Morbid obesity- defers bariatric surgery. Hyperlipidemia- on simvastatin 40mg a day;on 3000mg of fish oil OTC DM2 with CKD3a; polyneuropathy, mild b/l retonopathy-per endocrine Dr Brown. Using Luis. On [id number] mg bid now. Humalog with meals. On mounjaro 10mg now. Losing weight. CKD 3a- sees nephrology. Much improved creatinine now with lower diuretic use. CAD- on baby ASA Secondary hyperaldosteronism- CHF on torsemide 40mg PAF- has implantable loop for a one episode of Afib. Coming out 12/20. No anticoag. Hyperkalemia- had it in the past. Sees guide escort every 3 months. Had it with spironolactone and when kidney function was worse with diuretics. Will monitor with restart of lisinopril. Has bmp scheduled for nephrology next month. Atherosclerosis of aorta- control blood pressure and cholesterol. Anemia of chronic disease- improved. I spent a total of 41 minutes on the day of the visit. During the day of the visit, time was spent including the following: Examining the patient Chart review in preparation for the visit Documenting in the patient record Reviewing Labs & Radiology Medication Reconciliation Return in about 6 months (around 05/25/2025) for 30min appt.. Communication barriers and lifestyle preferences were addressed with the patient. The care plan including medications and self-management goals were reviewed to the best of the patient's ability. Allquestions and concerns were answered. Patient and/or family verbalized understanding of the plan ofcare. The following portions of the patient's chart were reviewed and updated as appropriate: allergies, current medications, past family history, past medical history, past social history, past surgical history and problem list. Chief Complaint: Chief Complaint Patient presents with Follow-up 6mths follow up HPI HPI SOCIAL HISTORY Social History Socioeconomic History Marital status: Spouse [...] Friends and Family: Not on file Attends Anglican Services: Not on file Active Member of Clubs or Organizations: Not on file Attends Club or Organization Meetings: Not on file Marital Status: Not on file Housing Stability: Low Risk (11/24/2024) Housing Stability Vital Sign Unable to Pay for Housing in the Last Year: No Number of Times Moved in the Last Year: 0 Homeless in the Last Year: No FAMILY HISTORY Family History Problem Relation Age of Onset Breast cancer Mother Diabetes Mother Diabetes Father Glaucoma Father COPD Maternal Uncle Hypertension Paternal Grandfather ALLERGIES No Known Allergies SURGICAL HISTORY Past Surgical History: Procedure Laterality Date CARDIAC CATHETERIZATION N/A 08/19/2020 Procedure: Right Heart Cath; Surgeon: Coleman Walker MD; [facility]; Service: Cardiovascular; Laterality: N/A; CC PERICARDIOCENTESIS N/A 08/19/2020 Procedure: PERICARDIOCENTESIS; Surgeon: Coleman Walker MD; Location: [facility]; Service: Cardiovascular; Laterality: N/A; COLONOSCOPY Left 04/28/2022 Procedure: COLONOSCOPY; Surgeon: Richard Prakash MD; Location: [facility]; Service: Gastroenterology; Laterality: Left; ECHOCARDIOGRAM 03/28/2021 EF 61%, RV normal. Minimal pericardial effusion ECHOCARDIOGRAM 09/16/2020 EF 65-70% small effusion. Normal RV. Normal valves IMPLANT LOOP RECORDER N/A 12/28/2020 Procedure: IMPLANT LOOP RECORDER; Surgeon: Roderick Peoples MD; Location: [facility]; Service: Cardiovascular; Laterality: N/A; LOOP RECORDER INSERTION 09/01/2020 30 DAY. Monitored time 43%, SR. VE < 1%, SR, ST, No SX. PERICARDIOCENTESIS 08/19/2020 PA COLONOSCOPY FLX DX W/COLLJ SPEC WHEN PFRMD N/A 12/01/2016 Procedure: COLONOSCOPY; Surgeon: Richard Prakash MD; Location: GI Endoscopy; Service: Gastroenterology TONSILLECTOMY US GUIDED THORACENTESIS- BILATERAL (DIAGNOSTIC & THERAPEUTIC) Bilateral 09/14/2020 Procedure: US Guided Thoracentesis-Bilateral (Diagnostic & Therapeutic); Surgeon: SANDRA Galaviz; Location: [facility]; Service: Interventional Radiology; Laterality: Bilateral; PROBLEM LIST Patient Active Problem List Diagnosis Type 2 diabetes mellitus with stage 3a chronic kidney disease, with long-term current use of insulin (HCC) Sleep apnea Class 3 severe obesity due to excess calories with serious comorbidity and body mass index (BMI) of45.0 to 49.9 in adult (HCC) Other anterior pituitary disorders Essential hypertension Mixed hyperlipidemia Chronic low back pain Isolated gonadotropin deficiency (HCC) Spinal stenosis of lumbar region with radiculopathy Lumbar herniated disc Gout Conductive hearing loss, bilateral GERD (gastroesophageal reflux disease) Paroxysmal atrial fibrillation (HCC) Ex-smoker Chronic heart failure with preserved ejection fraction (HCC) History of viral pericarditis Anemia of chronic disease Coronary artery disease involving [place] coronary artery of [place] heart without angina pectoris Personal history of colonic polyps Mild nonproliferative diabetic retinopathy of both eyes without macular edema associated with type 2 diabetes mellitus (HCC) Secondary hypercoagulable state (HCC) Secondary hyperaldosteronism (HCC) Atherosclerosis of abdominal aorta (HCC) Type 2 diabetes mellitus with diabetic polyneuropathy, with long-term current use of insulin (HCC) ROS Review of Systems Constitutional: Negative. Respiratory: Negative. Cardiovascular: Negative. PHYSICAL EXAM Wt Readings from Last 3 Encounters: 11/24/24 135 kg (297 lb 12.8 oz) 11/14/24 (!) 137 kg (301 lb) 11/11/24 136 kg (300 lb) , BP Readings from Last 3 Encounters: 11/24/24 (!) 156/75 11/14/24 (!) 189/82 11/11/24 130/80 Body mass index is 43.98 kg/m??. Vitals: 11/24/24 1412 11/24/24 1417 11/24/24 1445 BP: (!) 156/70 (!) 163/78 (!) 156/75 BP Location: Left arm Patient Position: Sitting Cuff Size: Medium (Standard) Pulse: 88 81 76 SpO2: 98% Weight: 135 kg (297 lb 12.8 oz) Height: 1.753 m (5' 9 ) Physical Exam Eyes: Conjunctiva/sclera: Conjunctivae normal. Cardiovascular: Rate and Rhythm: Normal rate and regular rhythm. Heart sounds: Normal heart sounds. Pulmonary: Effort: Pulmonary effort is normal. Breath sounds: Normal breath sounds. Musculoskeletal: Right lower leg: No edema. Left lower leg: No edema. Skin: Comments: Eczematous plaques bilateral shins and calves above sock line RESULTS VISIT ORDERS Orders Placed This Encounter Procedures Flu Vaccine, High-Dose Trivalent (FLUZONE-HD) Preservative Free IM 0.5 mL 65 years and older Lipid Panel Reflex Direct LDL Order Specific Question: Release to Patient Answer: Immediate [1] Complete Blood Count, with Differential Order Specific Question: Release to Patient Answer: Immediate [1] Comprehensive Metabolic Panel Order Specific Question: Release to Patient Answer: Immediate [1] PSA Order Specific Question: Release to Patient Answer: Immediate [1] TSH REFLEX FREE T4 Order Specific Question: Release to Patient Answer: Immediate [1] Requested Prescriptions Signed Prescriptions Disp Refills lisinopril (PRINIVIL,ZeSTRIL) 20 MG tablet 90 tablet 3 Sig: Take 1 tablet (20 mg total) by mouth daily. DISCHARGE MEDS Outpatient Encounter Medications as of 11/24/2024 Medication Sig Dispense Refill allopurinol (ZYLOPRIM) 300 MG tablet TAKE 1 TABLET BY MOUTH TWICE A DAY 180 tablet 3 aspirin enteric coated (ECOTRIN LOW STRENGTH) 81 MG EC tablet Take 1 tablet (81 mg total) by mouth every morning. betamethasone valerate (VALISONE) 0.1 % ointment Apply topically 2 (two) times a day. 30 g 5 Blood Glucose Monitoring Suppl ([employer] Verio) w/Device Kit Use to test blood sugar two times daily 1 kit 0 Cholecalciferol (VITAMIN D3) 2000 UNITS Cap capsule Take 1 capsule (2,000 Units total) by mouth every morning. Continuous Blood Gluc Sensor (FreeStyle Luis 3 [...] (two) times a day. DX CODE E11.21 (Patient taking differently: Inject 0.35 mL (35 Units total) under the skin 2 (two) times a day. DX CODE E11.21) 120 mL 3 insulin lispro (HumaLOG KWIKPEN) [...] mouth nightly. 90 tablet 3 tirzepatide (MOUNJARO) 10 mg/0.5 mL pen-injector Inject 1 Pen (10 mg total) under the skin once a week. 2 mL 3 torsemide (DEMADEX) 20 MG tablet Take 2 tablets (40 mg total) by mouth daily. (Patient taking differently: Take 2 tablets (40 mg total) by mouth every morning.) 180 tablet 3 triamcinolone (KENALOG) 0.1 % cream APPLY TO AFFECTED AREA TWICE A DAY 60 g 1 Vyzulta 0.024 % ophthalmic solution Administer 1 drop to both eyes nightly. lisinopril (PRINIVIL,ZeSTRIL) 20 MG tablet Take 1 tablet (20 mg total) by mouth daily. 90 tablet 3 [DISCONTINUED] Dorzolamide HCl-Timolol Mal PF 2-0.5 % Solution Administer 1 drop to both eyes 2 (two) times a day. [DISCONTINUED] HumaLOG KWIKPEN 100 UNIT/ML prefilled pen injection INJECT 40-100 UNITS UNDER THE SKIN 3 (THREE) TIMES A DAY BEFORE MEALS. 270 each 1 [DISCONTINUED] Insulin Syringe-Needle U-100 (BD Insulin Syringe U/F) 31G X 5/16 1 ML Misc USE 4 TIMES A DAY WITH INSULIN 400 each 3 [DISCONTINUED] latanoprost (XALATAN) 0.005 % ophthalmic solution Administer 1 drop to both eyes nightly. [DISCONTINUED] tirzepatide (MOUNJARO) 7.5 mg/0.5 mL pen-injector Inject 1 pen(s) (7.5 mg total) under the skin once a week. 2 mL 3 [DISCONTINUED] triamcinolone (KENALOG) 0.1 % cream APPLY TO AFFECTED AREA TWICE A DAY 60 g 1 No facility-administered encounter medications on file as of 11/24/2024. There are no Patient Instructions on file for this visit. Electronically signed by: Ludwig Whiting, 11/25/2024 documented in this encounter Plan of Treatment Upcoming Encounters Date Type Department Care Team (Late st Contact Info) Description 04/10/2025 4:00 PM EDT Office Visit [facility] Endocrinology [place] 100 [facility] [address] [place] [address] Trini Brown MD 100 [facility] [address] [place] [address] 05/25/2025 3:30 PM EDT Office Visit [facility] [address] [place] [phone] Ludwig Whiting DO [address] [place] [address] 06/25/2025 2:00 PM EDT Office Visit [facility] Cardiology [address] [place] [address] Ashley Tilley MD [address] [place] [address] Scheduled Orders Name Type Priority Associated Diagnoses Orde r Schedule Lipid Panel Reflex Direct LDL Lab Routine Type 2 diabetes mellitus with stage 3a chronic kidney disease, with long-term current use of insulin (HCC) Type 2 diabetes mellitus with diabetic polyneuropathy, with long-term current use of insulin (HCC) Essential hypertension Ordered: 11/24/2024 Complete Blood Count, with Differential Lab Routine Type 2 diabetes mellitus with stage 3a chronic kidney disease, with long-term current use of insulin (HCC) Type 2 diabetes mellitus with diabetic polyneuropathy, with long-term current use of insulin (HCC) Essential hypertension Ordered: 11/24/2024 Comprehensive Metabolic Panel Lab Routine Type 2 diabetes mellitus with stage 3a chronic kidney disease, with long-term current use of insulin (HCC) Type 2 diabetes mellitus with diabetic polyneuropathy, with long-term current use of insulin (HCC) Essential hypertension Ordered: 11/24/2024 PSA Lab Routine Screening for prostate cancer Ordered: 11/24/2024 TSH REFLEX FREE T4 Lab Routine Type 2 diabetes mellitus with stage 3a chronic kidney disease, with long-term current use of insulin (HCC) Type 2 diabetes mellitus with diabetic polyneuropathy, with long-term current use of insulin (HCC) Essential hypertension Ordered: 11/24/2024 documented as of this encounter Visit Diagnoses Diagnosis Type 2 diabetes mellitus with stage 3a chronic kidney disease, with long-term current use of insulin (HCC)- Primary Type 2 diabetes mellitus with diabetic polyneuropathy, with long-term current use of insulin (HCC) Essential hypertension Unspecified essential hypertension Screening for prostate cancer Special screening for malignant neoplasm of prostate Mild nonproliferative diabetic retinopathy of both eyes without macular edema associated with type 2 diabetes mellitus (HCC) Paroxysmal atrial fibrillation (HCC) Atrial fibrillation documented in this encounter Care Teams Gas Or Water Meter Installer Relationship Specialty Start Date End Date Ludwig Whiting DO [address] [facility] [address] PCP - General Family Medicine 12/01/16 Bianca Elena [address] [place] [address] PCP - Ophthalmology Ophthalmology 01/25/21 Ludwig Whiting DO [address] [facility] [address] PCP - [place] Commercial Attributed 03/26/21 Nicolas Gold MD [address] [facility] [address] Endocrinology 07/11/17 Juanito Rivas MD [address] [place] [address] Referring Provider Surgery, Neurosurgery 02/01/18 Kirk Stringer MD [address] [place] [address] Consulting Provider Sleep Medicine 02/01/18 Ashley Tilley MD [address] [place] [address] Cardiovascular Disease 01/25/21 Jostin Kenny MD [address] [place] [id number] Nephrology 05/14/23 Trini Brown MD [address] [place] [address] Endocrinology 01/04/24 Ashley Tilley MD [address] [place] [address] Primary Wastewater Operator Cardiovascular Disease 01/17/24 Franky Fonseca MD [address] [place] [address] Nephrology 06/10/24 documented as of this encounter
--- OUTSIDE RECORDS SUMMARY | 2024-12-24 17:31 | XMS_ITS | Encounter Summary ---
Author Organization [facility] Address [address] [place] [address] Care Team Providers Care Ground Crew Linesman Name Role Phone Ludwig Whiting DO Primary Care Provider [phone] Nicolas Gold MD Unavailable Unavailable Juanito Rivas MD Unavailable Kirk Stringer MD Unavailable Jostin Kenny MD Unavailable [phone] Ashley Tilley MD Unavailable [phone] Bianca Elena Unavailable Ludwig Whitnig DO Unavailable Jostin Kenny MD Unavailable [phone] Trini Brown MD Unavailable [phone] Ashley Tilley MD Unavailable [phone] Franky Fonseca MD Unavailable [phone] Encounter Details Date Type Department Care Team (Late st Contact Info) Description 04/26/2022 Scanned Document [facility] PRIMARY CARE SCAN Ludwig Whiting DO [address] [place] [address] Social History Tobacco Use Types Packs/Day Years [...] suspected to have Coronavirus/COVID-19? No / Unsure 04/28/2022 7:44 AM EDT documented as of this encounter Plan of Treatment Upcoming Encounters Date Type Department Care Team (Late st Contact Info) Description 04/10/2025 4:00 PM EDT Office Visit [facility] Endocrinology [place] 100 [facility] 101 [place] [address] Trini Brown MD 100 [facility] [address] [place] [address] 05/25/2025 3:30 PM EDT Office Visit [facility] [address] [place] [phone] Ludwig Whiting, [address] [place] [address] 06/25/2025 2:00 PM EDT Office Visit [facility] Cardiology [address] [place] [address] Ashley Tilley MD 100 [facility] [address] [place] [address] documented as of this encounter Visit Diagnoses Not on filedocumented in this encounter Care Teams Ground Crew Linesman Relationship Specialty Start Date End Date Ludwig Whiting DO [address] [place] [address] PCP - General Family Medicine 12/01/16 Bianca Elena [address] [place] [address] PCP - Ophthalmology Ophthalmology 01/25/21 Ludwig Whiting DO [address] [place] [address] PCP - [place] Commercial Attributed 03/26/21 Nicolas Gold MD [address] [place] [address] Endocrinology 07/11/17 Juanito Rivas MD [address] [place] [address] Referring Provider Surgery, Neurosurgery 02/01/18 Kirk Stringer MD [address] [place] [address] Consulting Provider Sleep Medicine 02/01/18 Jostin Kenny MD [address] [place] [address] Nephrology 02/01/18 05/13/23 Ashley Tilley MD [address] [place] [address] Cardiovascular Disease 01/25/21 Jostin Kenny MD [address] [place] [address] Nephrology 05/14/23 Trini Brown MD [address] [place] [address] Endocrinology 01/04/24 Ashley Tilley MD [address] [place] [address] Primary Articulation Officer Cardiovascular Disease 01/17/24 Franky Fonseca MD [address] [place] [address] Nephrology 06/10/24 documented as of this encounter
--- OUTSIDE RECORDS SUMMARY | 2024-12-24 17:31 | XMS_ITS | Encounter Summary ---
Author Organization [facility] Address [address] [place] [address] Care Team Providers Care Meals On Wheels Driver Name Role Phone Oneal Farrell MD Primary Care Provider Ludwig Whiting DO Primary Care Provider [phone] Nicolas Gold MD Unavailable Unavailable Juanito Rivas MD Unavailable [phone] Kirk Stringer MD Unavailable Jostin Kenny MD Unavailable [phone] Marcelle Bass RN Unavailable Ashley Tilley MD Unavailable [phone] Bianca Elena Unavailable Ludwig Whiting DO Unavailable [phone] Jostin Kenny MD Unavailable [phone] Trini Brown MD Unavailable [phone] Ashley Tilley MD Unavailable [phone] Franky Fonseca MD Unavailable [phone] Encounter Details Date Type Department Care Team (Late st Contact Info) Description 05/01/2016 Scanned Document [facility] 100 [facility] 101 [place] [address] Provider, Generic Social History Tobacco Use Types [...] 04/10/2025 4:00 PM EDT Office Visit [facility] Endocrinology [place] [address] [phone] Trini Brown MD [address] [address] 05/25/2025 3:30 PM EDT Office Visit [facility] [address] [place] [phone] Ludwig Whiting, [address] [place] [address] 06/25/2025 2:00 PM EDT Office Visit [facility] Cardiology [address] [place] [address] Ashley Tilley MD [address] [place] [address] documented as of this encounter Visit Diagnoses Not on filedocumented in this encounter Care Teams Meals On Wheels Driver Relationship Specialty Start Date End Date Oneal Farrell MD PCP - General Internal Medicine 08/05/15 11/30/16 Ludwig Whiting DO [address] [place] [address] PCP - General Family Medicine 12/01/16 Bianca Elena [address] [place] [address] PCP - Ophthalmology Ophthalmology 01/25/21 [place] [address] [place] [address], [place] [address] PCP - [place] Commercial Attributed 03/26/21 Nicolas Gold MD [address] [place] [address], [place] [address] Endocrinology 07/11/17 Juanito Rivas MD [address] [place] [address] Referring Provider Surgery, Neurosurgery 02/01/18 Kirk Stringer MD [address] [place] [address] Consulting Provider Sleep Medicine 02/01/18 Jostin Kenny MD [address] [place] [address] Nephrology 02/01/18 05/13/23 Marcelle Bass, WING [facility] [place] [address] ICP Transition Global Regulatory Lead 08/25/20 09/20/21 Ashley Tilley MD [address] [place] [address] Cardiovascular Disease 01/25/21 Jostin Kenny MD [address] [place] [address] Nephrology 05/14/23 Trini Brown MD [address] [place] [address] Endocrinology 01/04/24 Ashley Tilley MD [address] [place] [address] Primary Aquatics Lifeguard Cardiovascular Disease 01/17/24 Franky Fonseca MD [address] [place] [address] Nephrology 06/10/24 documented as of this encounter
--- OUTSIDE RECORDS SUMMARY | 2024-12-24 17:31 | XMS_ITS | Encounter Summary ---
Author Organization [facility] Address [address] [place] [address] Care Team Providers Care Vp Account Director Name Role Phone Ludwig Whiting DO Primary Care Provider [phone] Nicolas Gold MD Unavailable Unavailable Juanito Rivas MD Unavailable Kirk Stringer MD Unavailable [phone] Jostin Kenny MD Unavailable [phone] Marcelle Bass RN Unavailable Ashley Tilley MD Unavailable [phone] Bianca Elena Unavailable Ludwig Whiting DO Unavailable Jostin Kenny MD Unavailable [phone] Trini Brown MD Unavailable [phone] Ashley Tilley MD Unavailable [phone] Franky Fonseca MD Unavailable [phone] Encounter Details Date Type Department Care Team (Late st Contact Info) Description 12/30/2020 Scanned Document [facility] [address] [phone] Cardiology, Scan Social History Tobacco Use Types [...] have Coronavirus / COVID-19? No / Unsure 12/28/2020 12:35 PM EST documented as of this encounter Plan of Treatment Upcoming Encounters Date Type Department Care Team (Late st Contact Info) Description 04/10/2025 4:00 PM EDT Office Visit [facility] End[facility] [place] [address] [facility] [address] [place] [address] Trini Brown MD [address] [address] [place] [address] 05/25/2025 3:30 PM EDT Office Visit [address] [phone] Ludwig Whiting, [address] [place] [address] 06/25/2025 2:00 PM EDT Office Visit [facility] Cardiology [address] [place] [phone] Ashley Tilley MD [address] [facility] [address] [place] [address] documented as of this encounter Visit Diagnoses Not on filedocumented in this encounter Care Teams Vp Account Director Relationship Specialty Start Date End Date Ludwig Whiting DO [address] [place] [address] PCP - General Family Medicine 12/01/16 Bianca Elena [address] [place] [address] PCP - Ophthalmology Ophthalmology 01/25/21 Ludwig Whiting DO [address] [place] [address] PCP - [place] [employer] Attributed 03/26/21 Nicolas Gold MD [address] [place] [address] Endocrinology 07/11/17 Juanito Rivas MD [address] [place] [address] Referring Provider Surgery, Neurosurgery 02/01/18 Kirk Stringer MD [address] [place] [address] Consulting Provider Sleep Medicine 02/01/18 Jostin Kenny MD [address] [place] [address] Nephrology 02/01/18 05/13/23 Marcelle Bass, WING [address] [place] [address] ICP Transition Bag Shaker 08/25/20 09/20/21 Ashley Tilley MD [address] [place] [address] Cardiovascular Disease 01/25/21 Jostin Kenny MD [address] [place] [address] Nephrology 05/14/23 Trini Brown MD [address] [place] [address] Endocrinology 01/04/24 Ashley Tilley MD [address] [place] [address] Primary Opener Tender Cardiovascular Disease 01/17/24 Franky Fonseca MD [address] [place] [address] Nephrology 06/10/24 documented as of this encounter
--- OUTSIDE RECORDS SUMMARY | 2024-12-24 17:31 | XMS_ITS | Encounter Summary ---
Author Organization [facility] Address [address] [place] [address] Care Team Providers Care Security Orderly Name Role Phone Ludwig Whiting DO Primary Care Provider [phone] Nicolas Gold MD Unavailable Unavailable Juanito Rivas MD Unavailable Kirk Stringer MD Unavailable Ashley Tilley MD Unavailable [phone] Bianca Elena Unavailable Ludwig Whiting DO Unavailable [phone] Jostin Kenny MD Unavailable [phone] Trini Brown MD Unavailable [phone] Ashley Tilley MD Unavailable [phone] Franky Fonseca MD Unavailable [phone] Reason for Visit * Auth/Cert Specialty Diagnoses / Procedures Referred By Jose t Referred To Contact Diagnoses Encounter for loop recorder at end of battery life Procedures REMOVAL LOOP RECORDER Referral ID Status Reason Start Date Expiration Date Visits Re quested Visits Authorized [id number] 1 1 Encounter Details Date Type Department Care Team (Latest Contact Info) Description 12/04/2024 6:54 AM EST - 12/04/2024 10:18 AM EST Hospital Encounter [facility] [address] [facility] [address] [place] [address] Oneal Wong MD 65 [facility] [address] [place], [place] [id number] Type 2 diabetes mellitus without complications (HCC) Discharge Disposition: Home or Self Care Social History Tobacco Use Types Packs/Day Years Used Date Smoking Tobacco: Former Cigarettes 2 27 1 963 - 1989 Cigars Smokeless Tobacco: Never Alcohol Use Standard Drinks/Week Comments No 0 (1 standard drink = 0.6 oz pur e alcohol) [facility] Utilities Answer Date Recorded In the past [...] and Family Not on file 11/24/2024 Attends Hinduism Services Not on file 11/24 Active Member [...] any time in the past 12 m [facility], were you homeless or living in a skilled nursing (including now)? No 11/24/2024 Physical Activity Answer [...] EST Inhaled Oxygen Concentration - - Weight 137 kg (301 lb) 11/20/2024 8:36 AM EST Height 175.3 cm (5' 9 ) 11/20/2024 8:36 AM EST Body Mass Index 44.45 11/20/2024 8:36 AM EST documented in this encounter Discharge Summaries * Mela Ramos, GERRY - 12/04/2024 9:17 AM EST Images from the original note were not included. Discharge Summary [facility] Brief Overview Patient Demographics CANDELARIA GALO 1955 69 y.o. No Known Allergies Admission Date: 12/04/2024 Admitting Provider: Oneal Wong MD Discharge Provider: Oneal Wong MD Primary Care Physician at Discharge: Ludwig Whiting DO [employer] Machine Tender: Ashley Tony MD Discharge Date: 12/04/2024 Primary Discharge Diagnosis Principal Problem (Resolved): Encounter for loop recorder at end of battery life (POA: Not Applicable) Active Problems: Encounter for loop recorder at end of battery life (POA: Not Applicable) Summary: Uncomplicated ILR explant. Discharge Disposition Home Or Self Care Discharge Medications Modified Medications Sig torsemide 20 MG tablet Commonly known as: DEMADEX What changed: when to take this Take 2 tablets (40 mg total) by mouth daily. Quantity: 180 tablet Medications To Continue Sig allopurinol 300 MG tablet Commonly known as: ZYLOPRIM TAKE 1 TABLET BY MOUTH TWICE A DAY Quantity: 180 tablet aspirin enteric coated 81 MG EC tablet Commonly known as: ECOTRIN LOW STRENGTH Take 1 tablet (81 mg total) by mouth every morning. betamethasone valerate 0.1 % ointment Commonly known as: VALISONE Apply topically 2 (two) times a day. Quantity: 30 g cetirizine 5 MG chewable tablet Commonly known as: ZyrTEC Chew 1 tablet (5 mg total) daily. Cholecalciferol 2000 UNITS Caps capsule Commonly known as: VITAMIN D3 Take 1 capsule (2,000 Units total) by mouth every morning. doxazosin 4 MG tablet Commonly known as: CARDURA TAKE 1 TABLET BY MOUTH EVERY DAY NIGHTLY Quantity: 90 tablet FreeStyle Luis 3 Sensor Misc 1 each by Does not apply route every 14 days (2 weeks). Quantity: 6 each * glucose blood test strip 1 test strip by Other (specify) route as needed. Use as instructed * OneTouch Verio strip Generic drug: glucose blood Use as instructed to test blood sugars two times daily Quantity: 200 test strip insulin glargine 100 units/mL injection Commonly known as: Lantus Inject 0.8 mL (80 Units total) under the skin 2 (two) times a day. DX CODE E11.21 Quantity: 120 mL insulin lispro 100 UNIT/ML prefilled pen injection Commonly known as: HumaLOG KWIKPEN Use up to 80 units twice a day before meals per sliding scale Quantity: 60 each Insulin Pen Needle 31G X 5 MM Misc by Does not apply route. Insulin Syringe-Needle U-100 31G X 5/16 1 ML Misc Commonly known as: BD Insulin Syringe U/F USE 4 TIMES A DAY WITH INSULIN Quantity: 400 each lisinopril 20 MG tablet Commonly known as: PRINIVIL,ZeSTRIL Take 1 tablet (20 mg total) by mouth daily. Quantity: 90 tablet multivitamin Tabs tablet Take 1 tablet by mouth. omega-3 fatty acids 1000 MG Caps capsule Commonly known as: FISH OIL Take by mouth 2 (two) times a day. 300 QD OneTouch UltraSoft 2 Lancets Misc Use to test blood sugar two times daily Quantity: 200 each OneTouch Verio w/Device Kit Use to test blood sugar two times daily Quantity: 1 kit simvastatin 20 MG tablet Commonly known as: ZOCOR Take 1 tablet (20 mg total) by mouth nightly. Quantity: 90 tablet tirzepatide 10 mg/0.5 mL pen-injector Commonly known as: MOUNJARO Inject 1 Pen (10 mg total) under the skin once a week. Quantity: 2 mL triamcinolone 0.1 % cream Commonly known as: KENALOG APPLY TO AFFECTED AREA TWICE A DAY Quantity: 60 g Vyzulta 0.024 % ophthalmic solution Generic drug: latanoprostene Administer 1 drop to both eyes nightly. * There are duplicate medications prescribed to the patient Discharge Orders No discharge procedures on file. Future Appointments Date Time Provider Department Center 04/10/2025 4:00 PM MD LIZ Fish ENDO EN AC [facility] 05/25/2025 3:30 PM Ludwig Whiting DO [facility] PC [facility] R 06/25/2025 2:00 PM MD LIZ Dunlap CARD [place] Card [place] Whiting DO [address] [place] [address] Bianca Yeh [address] [place] [address] Details of Hospital Stay Hospital Course Candelaria Galo was admitted to the [facility] on 12/04/2024. Consent and NPO states were confirmed and patient underwent a successful ILR explant. Please refer to Oneal Wong MD's operative note for complete details of the procedure. Patient was takento the PACU for post operative recovery, which was uneventful. Once he met same day PACU discharge criteria, instructions were reinforced by the nursing team, and he was discharged home. Of note, no changes were made to his home medications. No formal follow up with EP is required. Mr. Galo will follow up with his primary foster winder, Dr. Lisa Tony, as previously scheduled. Procedures: Surgical/Procedural Cases on this Admission Case IDs Date Procedure Surgeon Location Status [id number] 12/04/24 REMOVAL LOOP RECORDER Oneal Wong MD [facility] OR Comp Conclusions Complications during procedure: none. Summary: Uncomplicated ILR explant. Recommendations/Plan: No need for post-operative antibiotics. Discharge home now. Resume prior medications. Tylenol PRN for pain. No heparin or Lovenox for 24 hours. Call MD with any questions. Complications: none Physical Exam at Discharge Discharge Condition: stable Vitals: 12/04/24 0940 12/04/24 0950 12/04/24 0955 12/04/24 1000 BP: (!) 178/80 (!) 178/78 (!) 178/78 BP Location: Patient Position: Pulse: Resp: (!) 1 16 Temp: TempSrc: SpO2: Weight: Height: Last Vitals: Pulse:71,Resp:16,BP:(!) 178/78,SpO2:95 %,Weight: (!) 137 kg (301 lb) Temp Last 24 hrs: Temp Min: 97.7 ??F (36.5 ??C) Max: 97.9 ??F (36.6 ??C) Of note, this senior grant writer performed the discharge summary remotely and was not involved in direct patient care. Discharge approved by Dr. Wong post ILR explant. Sign Mela Ramos, GERRY 12/04/2024 4:24 PM Associated attestation - Oneal Wong MD - 12/05/2024 12:36 PM EST I have reviewed the discharge for this patient and agree that the patient is stable for discharge. documented in this encounter Discharge Instructions * Discharge Instr - Other Orders* Mela Ramos, LARD TUB WASHER - 12/04/2024 9:14 AM EST Post Internal Loop Recorder Discharge Instructions Electrophysiologists: Dr. Raul Le, Dr. Oneal Wong, Dr. Roque London, Dr. Maximino Childs, Dr. Antonio Floyd, Dr. Thuan Pandya, Dr. Breann Schneider, Dr. Jenny Nguyễn Office: [phone] (8am-4:30pm Sun -Sunday). The on-call MD can be contacted by the answering service for any urgent or emergent matters. Our answering service is available after hours for emergencies and can contact the On-Call MD. Care of the Puncture Sites: Do not take a tub bath, sit in a hot tub, or swim until the puncture site is healed. This usually takes a few days. A small bruise and minimal discomfort at the insertion site is normal. Keep the site clean and dry. You may get the site wet the day after the procedure. Use regular soapand water and pat the area dry; do not rub. Do not use alcohol, ointment, lotion, powder or creams over the site. Monitor the site daily for signs of infection: fever, redness, swelling, warmth, new soreness or drainage. Report any of these symptoms to your onyx chip terrazzo worker. No heavy lifting or strenuous exercise for 5 days. Wound healing: if bleeding occurs, apply pressure for 20 minutes. If it does not stop, go to the nearest ER or walk-in center. General Instructions for patients who received anesthesia during loop recorder implant: If nausea or vomiting occur when you arrive home, please drink clear fluids in small amounts as youare able, such as: water, ice chips, diluted fruit juice, low calorie sports drinks. Please also eat bland, easy to digest foods in small amounts as you are able, such as: bananas, applesauce, rice, toast, crackers. Please call our office if you cannot drink fluids without vomiting, if you are vomiting or nauseousfor >24 hours, you feel light-headed or dizzy or if you have a headache. Do not make important personal or business decisions for 24 hours after your procedure. Do not operate kitchen appliances, machinery or power tools for 24 hours after your procedure. documented in this encounter Medications at Time of Discharge Medication Sig Dispensed Refills Start Date End Date allopurinol (ZYLOPRIM) 300 MG tabletIndications:Gout , unspecified TAKE 1 TABLET BY MOUTH TWICE A DAY 180 tablet 3 09/13/2024 aspirin enteric coated (ECOTRIN LOW STRENGTH) 81 MG EC tabletIndications:Type 2 diabetes mellitus with diabetic nephropathy, with long-term current use of insulin ([facility]) Take 1 tablet (81 mg total) by mouth every morning. betamethasone valerate (VALISONE) 0.1 % ointmentIndications:Ph imosis Apply topically 2 (two) times a day. 30 g 5 02/27/2023 Blood Glucose Monitoring Suppl (Tistagames) w/Device KitIndications:Type 2 diabetes mellitus with morbid obesity (HCC) Use to test blood sugar two times daily 1 kit 07/18/2024 cetirizine (ZyrTEC) 5 MG chewable tablet Chew 1 tablet (5 mg total) daily. Cholecalciferol (VITAMIN D3) 2000 UNITS Cap capsuleIndications:Hea lthcare maintenance Take 1 capsule (2,000 Units total) by mouth every morning. Continuous Blood Gluc Sensor (FreeStyle Luis 3 Sensor) MiscIndications:Type 2 diabetes mellitus with diabetic nephropathy, with long-term current use of insulin (HCC),Type 2 diabetes mellitus with hypoglycemia without coma, with long-term current use of insulin ([facility]) 1 each by Does not apply route every 14 days (2 weeks). 6 each 3 01/04/2024 doxazosin (CARDURA) 4 MG tabletIndications:Esse ntial hypertension TAKE 1 TABLET BY MOUTH EVERY DAY NIGHTLY 90 tablet 3 04/28/2024 glucose blood test strip 1 test strip by Other (specify) route as needed. Use as instructed insulin glargine (Lantus) 100 units/mL injectionIndications:T ype 2 diabetes mellitus without complications (HCC) Inject 0.8 mL (80 Units total) under the skin 2 (two) times a day. DX CODE E11.21 120 mL 3 04/01/2024 insulin lispro (HumaLOG KWIKPEN) 100 UNIT/ML prefilled pen injectionIndications:T ype 2 diabetes mellitus with diabetic nephropathy, with long-term current use of insulin ([facility]) Use up to 80 units twice a day before meals per sliding scale 60 each 1 10/27/2024 Insulin Pen Needle 31G X 5 MM Misc by Does not apply route. Insulin Syringe-Needle U-100 (BD Insulin Syringe U/F) 31G X 5/16 1 ML MiscIndications:Type 2 diabetes mellitus with diabetic nephropathy, with long-term current use of insulin ([facility]) USE 4 TIMES A DAY WITH INSULIN 400 each 3 11/14/2024 lisinopril (PRINIVIL,ZeSTRIL) 20 MG tabletIndications:Esse ntial hypertension Take 1 tablet (20 mg total) by mouth daily. 90 tablet 3 11/24/2024 multivitamin Tab tabletIndications:Heal thcare maintenance Take 1 tablet by mouth. omega-3 fatty acids (FISH OIL) 1000 MG Cap capsuleIndications:Mix ed hyperlipidemia Take by mouth 2 (two) times a day. 300 QD OneTouch UltraSoft 2 Lancets MiscIndications:Type 2 diabetes mellitus with morbid obesity (HCC) Use to test blood sugar two times daily 200 each 1 07/18/2024 OneTouch Verio stripIndications:Type 2 diabetes mellitus with morbid obesity (HCC) Use as instructed to test blood sugars two times daily 200 test strip 1 07/18/2024 simvastatin (ZOCOR) 20 MG tabletIndications:Mixe d hyperlipidemia Take 1 tablet (20 mg total) by mouth nightly. 90 tablet 3 06/12/2024 tirzepatide (MOUNJARO) 10 mg/0.5 mL pen-injectorIndication s:Type 2 diabetes mellitus with diabetic nephropathy, with long-term current use of insulin ([facility]) Inject 1 Pen (10 mg total) under the skin once a week. 2 mL 3 11/14/2024 torsemide (DEMADEX) 20 MG tabletIndications:Call Or Contact Centre Team Leader lelia heart failure with preserved ejection fraction (HCC) Take 2 tablets (40 mg total) by mouth daily. 180 tablet 3 08/14/2024 triamcinolone (KENALOG) 0.1 % creamIndications:Stasi s dermatitis of both legs APPLY TO AFFECTED AREA TWICE A DAY 60 g 1 11/02/2024 Vyzulta 0.024 % ophthalmic solution Administer 1 drop to both eyes nightly. 09/29/2024 documented as of this encounter H&P Notes * Oneal Wong MD - 12/04/2024 8:40 AM EST INTERVAL NOTE - DAY OF SURGERY/PROCEDURE This note validates the H&P. The patient has been examined and there are no changes to the H&P. MD Signature: Oneal Wong MD Date: 12/04/2024 Time: 8:40 AM Source Note - Francy Huitron APRN - 11/11/2024 4:46 PM EST Images from the original note were not included. ELECTROPHYSIOLOGY TEL: FAX: Date of Consult: 11/11/2024 Physician Requesting Consult: Ludwig Whiting DO Patient's Primary Care Physician: Ludwig Whiting DO Patient Name: Candelaria Galo Date of : 1955 I had the pleasure of seeing Candelaria Galo today for evaluation in anticipation of ILR explant. Assessment & Plan Assessment: Candelaria Galo is a 68 year old male referred to electrophysiology by his foster winder, Dr. Delvalle, for explant of an implantable loop recorder. The device was implanted after he wasnoted to have brief episodes of paroxysmal atrial fibrillation following pericardiocentesis for presumed viral pericarditis in July 2020. The device has now reach end of battery life and he wishes to have it explanted. Plan: ILR explant on December 04, 2023 at [facility] with Dr. Wong. Pre-operative labs ordered to [facility]. Instructed patient to start a clear liquid [...] be performed on December 04, 2023 at [facility] by Dr. Oneal Wong. Nothing to [...] chest Please have blood work done at [facility] within 14 days of your procedure date. [...] your procedure please call our offices at [phone]. 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[facility]) Spinal stenosis of lumbar region with radiculopathy Lumbar herniated disc Gout Conductive hearing loss, bilateral GERD (gastroesophageal reflux disease) Paroxysmal atrial fibrillation ([facility]) Ex-smoker Chronic heart failure with preserved ejection fraction ([facility]) History of viral pericarditis Anemia of chronic disease Coronary artery disease involving [place] coronary artery of [place] heart without angina pectoris Personal history of colonic polyps Diabetic retinopathy associated with type 2 diabetes mellitus ([facility]) Secondary hypercoagulable state ([facility]) Secondary hyperaldosteronism ([facility]) Atherosclerosis of abdominal aorta ([facility]) Type 2 diabetes mellitus with diabetic polyneuropathy, with long-term current use of insulin ([facility]) Encounter for loop recorder at end of battery life HPI: Candelaria Galo is a 68 y.o. male with a past medical history significant for chronic diastolic heart failure, hypertension, hyperlipidemia, obesity (BMI 43), sleep apnea managed with BIPAP, diabetes, ex smoker and presumed viral pericardial effusion with tamponade status post pericardiocentesis in July 2020 with brief paroxysmal atrial fibrillation during treatment. He had an ILR implantedfor senior care monitoring of atrial fibrillation. His ILR is monitored by his foster winder, Dr. Tilley. There has been no definite atrial fibrillation His device has reached end of battery life and he was referred to electrophysiology for ILR explant. Past Medical History: Diagnosis Date Atrial fibrillation ([facility]) Back pain Congestive heart failure (CHF) ([facility]) Contact dermatitis and other eczema due to plants (except food) Contact dermatitis due to poison kandy: 2014-02-07 00:04:29 Gout History of colon polyps HL (hearing loss) Hypertension Lumbar back pain Obesity PAF (paroxysmal atrial fibrillation) ([facility]) PRESENTED WITH TAMPONADE Pericarditis 07/2020 LARGE EFFUSION [...] Heart Cath; Surgeon: Coleman Walker MD; Location: [facility]; Service: Cardiovascular; Laterality: N/A; CC PERICARDIOCENTESIS N/A 08/19/2020 Procedure: PERICARDIOCENTESIS; Surgeon: Coleman Walker MD; Location: [facility]; Service: Cardiovascular; Laterality: N/A; COLONOSCOPY Left 04/28/2022 Procedure: COLONOSCOPY; Surgeon: Richard Prakash MD; Location: GI Endoscopy; Service: Gastroenterology; Laterality: Left; ECHOCARDIOGRAM 03/28/2021 EF 61%, RV normal. Minimal pericardial effusion ECHOCARDIOGRAM 09/16/2020 EF 65-70% small effusion. Normal RV. Normal valves IMPLANT LOOP RECORDER N/A 12/28/2020 Procedure: IMPLANT LOOP RECORDER; Surgeon: Roderick Peoples MD; Location: [facility]; Service: Cardiovascular; Laterality: N/A; LOOP RECORDER INSERTION 09/01/2020 30 DAY. Monitored time 43%, SR. VE < 1%, SR, ST, No SX. PERICARDIOCENTESIS 08/19/2020 [place] COLONOSCOPY FLX DX W/COLLJ SPEC WHEN PFRMD N/A 12/01/2016 Procedure: COLONOSCOPY; Surgeon: Richard Prakash MD; Location: GI Endoscopy; Service: Gastroenterology TONSILLECTOMY US GUIDED THORACENTESIS- BILATERAL (DIAGNOSTIC & THERAPEUTIC) Bilateral 09/14/2020 Procedure: US Guided Thoracentesis-Bilateral (Diagnostic & Therapeutic); Surgeon: SANDRA Galaviz; Location: [facility]; Service: Interventional Radiology; Laterality: Bilateral; Medications [...] 30 g 5 Blood Glucose Monitoring Suppl (OneTouch Verio) w/Device Kit Use to test blood [...] 11/11/2024 4:45 PM documented in this encounter Miscellaneous Notes * Op Note - Oneal Wong MD - 12/04/2024 9:00 AM EST Images from the original note were not included. [address] [address] OPERATIVE REPORT Patient Name: Candelaria Galo Date of : 1955 Date of Procedure: 12/04/2024 Surgeons and Role: * Oneal Wong MD - Primary Pre-op Diagnosis: Encounter for loop recorder at end of battery life [Z45.09] Post-Op Diagnosis Codes: * Encounter for loop recorder at end of battery life [Z45.09] Details of Procedure Procedure(s): REMOVAL LOOP RECORDER Additional Procedures Surgeon: Oneal Wong MD Director Of Digital Marketing: none Anesthesia: Monitor Anesthesia Care Indications: ILR battery depletion Description of Procedure: Consent The risks, benefits, and alternatives to ILR explantation were explained to the patient in great detail. The risks discussed with the patient include but are not limited to bleeding and infection. Operative Procedure After informed consent was obtained, the patient was brought into the OR and placed on the table inthe supine position. The patient's left upper chest was prepped and draped in sterile fashion. The skin and subcutaneoustissue over the ILR was anesthetized with 1% lidocaine. A small incision was made over the ILR. Thetissue was dissected and using a hemostat and the ILR was completely removed. The pocket was flushed with sterile antibiotic solution. The incision was closed with an un-interrupted 3.0 Vicryl suture. The wound was dressed with a skin glue dressing. There were no complications and the patient tolerated the procedure well. The patient was brought to the recovery room in stable condition. Dr. Wong personally performed all aspects of the procedure. Conclusions Complications during procedure: none. Summary: Uncomplicated ILR explant. Recommendations/Plan: No need for post-operative antibiotics. Discharge home now. Resume prior medications. Tylenol PRN for pain. No heparin or Lovenox for 24 hours. Call MD with any questions. Complications: none Implants: Implant Name Type Inv. Item Serial No. Force Dispatcher Lot No. LRB No. Used Action [id number] SYSTEM FOUR H AGENT RVL LINQ - [id number] Implantable Loop Recorder [id number] RECORDER CARDIAC RVL LINQ INS MONITOR [id number] [employer] MINIMALLY INVASIVE T N/A 1 Explanted Signed: Oneal Wong MD 12/04/2024 9:13 AM documented in this encounter Plan of Treatment Upcoming Encounters Date Type Department Care Team (Late st Contact Info) Description 04/10/2025 4:00 PM EDT Office Visit [facility] [place] [address] [facility] [address] [place] [address] Trini Brown MD [address] [facility] [address] [place] [address] 05/25/2025 3:30 PM EDT [facility] [address] [place] [id number] Ludwig Whiting DO [address] [place] [address] 06/25/2025 2:00 PM EDT Office Visit [facility] [address] [place] [phone] Ashley Tilley MD [address] [address] documented as of this encounter Procedures Procedure [...] GLUCOSE, FINGERSTICK Routine 12/04/2024 7:36 AM EST documented in this encounter Results * (ABNORMAL) POCT Glucose, Fingerstick (12/04/2024 9:56 AM EST) POC Glucose 115(H) 65 - 99 mg/dL 12/04/2024 9:58 AM EST Blood specimen / Unknown 12/04/2024 9:56 AM EST 12/04/2024 9:58 AM EST Oneal Wong MD POINT OF CARE TEST O JOSE F Performing Organization Address [facility] Co de Phone Number [facility] See Below * (ABNORMAL) POCT Glucose, Fingerstick (12/04/2024 7:36 AM EST) POC Glucose 114(H) 65 - 99 mg/dL 12/04/2024 7:36 AM EST Blood specimen / Unknown 12/04/2024 7:36 AM EST 12/04/2024 7:37 AM EST Oneal Wong MD POINT OF CARE TEST O JOSE F Performing Organization Address [facility] Co ri Phone Number [facility] See Below documented in this encounter Visit Diagnoses Diagnosis Encounter for loop recorder at end of battery life- Primary Type 2 diabetes mellitus without complications (HCC) documented in this encounter Admitting Diagnoses Diagnosis Encounter for loop recorder at end of battery life documented in this encounter Administered Medications Inactive Administered Medications - up to 1 most recent administrations Medication Order MAR Action Action Date Dose Rate Site lactated ringers (LR) infusion 125 mL/hr, Intravenous, Continuous, Starting on Rajwinder 12/04/24 at 1030, PACU (only) chlorhexidine gluconate 2 % wipes Topical, Once, On Rajwinder 12/04/24 at 0730, For 1 dose, Pre-Procedure EP, Apply to torso (front, back, sides) neck, arms, legs, and buttocks Given 12/04/2024 7:37 AM EST hydrALAZINE (APRESOLINE) injection 2.5 mg 2.5 mg, Intravenous, Every 10 min PRN, SBP greater than 180 mmHg, Starting on Rajwinder 12/04/24 at 1017, For 8 doses, PACU (only), Not to exceed 20 mg povidone-iodine (BETADINE) 5 % nasal swab kit Nasal, Once, On Rajwinder 12/04/24 at 0730, For 1 dose, Pre-Procedure EP, Two swabs per nostil, 15 seconds each Given 12/04/2024 7:36 AM EST documented in this encounter Active and Recently Administered Medications Times are shown in EST. Scheduled Medication Order 12/02/2024 12/03/2024 12/04/2024 ceFAZolin (ANCEF) 2 g in 20 mL SWFI syringe (premix) 2 g, Intravenous, Once, On Rajwinder 12/04/24 at 0730, For 1 dose, Pre-Procedure EP, All antimicrobials used at [facility] require an indication. Please complete the following documentation. Surgical Prophylaxis 0730 (Due) chlorhexidine gluconate 2 % wipes (COMPLETED) Topical, Once, On Rajwinder 12/04/24 at 0730, For 1 dose, Pre-Procedure EP, Apply to torso (front, back, sides) neck, arms, legs, and buttocks 0737 (Given - Provid er: Skyla Castillo RN - Comment: scanner does not recognize barcode) povidone-iodine (BETADINE) 5 % nasal swab kit (COMPLETED) Nasal, Once, On Rajwinder 12/04/24 at 0730, For 1 dose, Pre-Procedure EP, Two swabs per nostil, 15 seconds each 0736 (Given - Provid er: Skyla Castillo RN - Comment: unable to scan barcode) Continuous Medication Order 12/02/2024 12/03/2024 12/04/2024 lactated ringers (LR) infusion 125 mL/hr, Intravenous, Continuous, Starting on Rajwinder 12/04/24 at 1030, PACU (only) PRN Medication Order 12/02/2024 12/03/2024 12/04/2024 ceFAZolin (ANCEF) 1 g in sodium chloride irrigation (NS) 0.9 % 500 mL OR irrigation (CANCELED) As needed, Starting on Rajwnider 12/04/24 at 0859, Intra-op 0859 (Given - Provid er: Oneal Wong MD) hydrALAZINE (APRESOLINE) injection 2.5 mg 2.5 mg, Intravenous, Every 10 min PRN, SBP greater than 180 mmHg, Starting on Rajwinder 12/04/24 at 1017, For 8 doses, PACU (only), Not to exceed 20 mg lidocaine (XYLOCAINE) 0.5 % 30 mL, bupivacaine (MARCAINE) 30 mL (CANCELED) As needed, Starting on Rajwinder 12/04/24 at 0905, Intra-op 0905 (Given - Provid er: Oneal Wong MD) documented in this encounter Care Teams Security Orderly Relationship Specialty Start Date End Date Ludwig Whiting DO [address] [place] [address] PCP - General Family Medicine 12/01/16 Bianca Elena [address] [place] [address] PCP - Ophthalmology Ophthalmology 01/25/21 Ludwig Whiting DO [address] [place] [address] PCP - [place] Commercial Attributed 03/26/21 Nicolas Gold MD [address] [place] [address] Endocrinology 07/11/17 Juanito Rivas MD [address] [place] [address] Referring Provider Surgery, Neurosurgery 02/01/18 Kirk Stringer MD [address] [place] [address] Consulting Provider Sleep Medicine 02/01/18 Ashley Tilley MD [address] [place] [address] Cardiovascular Disease 01/25/21 Jostin Kenny MD [address] [place] [address] Nephrology 05/14/23 Trini Brown MD [address] [place] [address] Endocrinology 01/04/24 Ashley Tilley MD [address] [place] [address] Primary Excelsior Machine Tender Cardiovascular Disease 01/17/24 Franky Fonseca MD [address] [place] [address] Nephrology 06/10/24 documented as of this encounter
--- OUTSIDE RECORDS SUMMARY | 2024-12-24 17:31 | XMS_ITS | Encounter Summary ---
Author Organization Formerly [facility] Address [address] [place] [address] Care Team Providers Care Detail Supervisor Name Role Phone Oneal Farrell MD Primary Care Provider [phone] Ludwig Whiting DO Primary Care Provider [phone] Nicolas Gold MD Unavailable Unavailable Juanito Rivas MD Unavailable [phone] Kirk Stringer MD Unavailable [phone] Jostin Kenny MD Unavailable [phone] Marcelle Bass RN Unavailable Ashley Tilley MD Unavailable Bianca Elena Unavailable Ludwig Whiting DO Unavailable [phone] Jostin Kenny MD Unavailable [phone] Trini Brown MD Unavailable [phone] Ashley Tilley MD Unavailable [phone] Franky Fonseca MD Unavailable [phone] Reason for Visit * Reason Comments Medication Refill Encounter Details Date Type Department Care Team (Late st Contact Info) Description 08/22/2016 Refill [facility] Endocrinology [address] [address] Nicolas Gold MD Needs valid address Social [...] Description 04/10/2025 4:00 PM EDT Office Visit [facility] Endocrinology [place] 100 [facility] 101 [place] [address] Trini Brown MD [address] [place] [address] [address] [place] [address] 05/25/2025 3:30 PM EDT Office Visit [facility] 10[address] [place] [address] Ludwig Whiting, [address] [place] [address] 06/25/2025 2:00 PM EDT Office Visit [facility] Cardiology [address] [place] [address] Ashley Tilley MD 100 [facility] [address] [place] [address] documented as of this encounter Visit Diagnoses Not on filedocumented in this encounter Care Teams Detail Supervisor Relationship Specialty Start Date End Date Oneal Farrell MD PCP - General Internal Medicine 08/05/15 11/30/16 Ludwig Whiting DO [address] [place] [address] PCP - General Family Medicine 12/01/16 Bianca Elena [address] [place] [address] PCP - Ophthalmology Ophthalmology 01/25/21 [place] [address] [place] [address] PCP - [place] Commercial Attributed 03/26/21 Nicolas Gold MD [address] [place] [address], [place] [address] Endocrinology 07/11/17 Juanito Rivas MD 1000 [place] [address] Referring Provider Surgery, Neurosurgery 02/01/18 Kirk Stringer MD [address] [place] [address] Consulting Provider Sleep Medicine 02/01/18 Jostin Kenny MD [address] [place] [address] Nephrology 02/01/18 05/13/23 Marcelle Bass, WING [address] [facility] [address] [place] [address] ICP Transition Rn Family 08/25/20 09/20/21 Ashley Tilley MD [address] [place] [address] Cardiovascular Disease 01/25/21 Jostin Kenny MD [address] [place] [address] Nephrology 05/14/23 Trini Brown MD [address] [place] [address] Endocrinology 01/04/24 Ashley Tilley MD [address] [place] [address] Primary Income Tax Consultant Cardiovascular Disease 01/17/24 Franky Fonseca MD [address] [place] [address] Nephrology 06/10/24 documented as of this encounter
--- OUTSIDE RECORDS SUMMARY | 2024-12-24 17:31 | XMS_ITS | Encounter Summary ---
Author Organization Formerly [facility] Address [address] [place] [address] Care Team Providers Care Licensed Prosthetist/Orthotist Name Role Phone Ludwig Whiting DO Primary Care Provider [phone] Nicolas Gold MD Unavailable Unavailable Juanito Rivas MD Unavailable Kirk Stringer MD Unavailable Jostin Kenny MD Unavailable [phone] Marcelle Bass RN Unavailable Ashley Tilley MD Unavailable [phone] Bianca Elena Unavailable Ludwig Whiting DO Unavailable Jostin Kenny MD Unavailable [phone] Trini Brown MD Unavailable [phone] Ashley Tilley MD Unavailable [phone] Franky Fonseca MD Unavailable [phone] Encounter Details Date Type Department Care Team (Late st Contact Info) Description 09/21/2017 Scanned Document [address] [place] [address] Provider, Generic Social History Tobacco Use Types Packs/Day Years Used Date Smoking Tobacco: Former Cigarettes Cigars Comments:Current Tobacco Use r Alcohol Use Standard Drinks/Week Comments No 0 [...] EDT Office Visit [facility] Endocrinology [place] [address] [facility] 101 [place] [address] Trini Brown MD 100 [facility] 101 [place] [address] 05/25/2025 3:30 PM EDT Office Visit [facility] 10[address] [place] [address] Ludwig Whiting DO [address] [place] [address] 06/25/2025 2:00 PM EDT Office Visit [facility] Cardiology [address] [place] [address] Ashley Tilley MD 100 [facility] [address] [place] [address] documented as of this encounter Visit Diagnoses Not on filedocumented in this encounter Care Teams Licensed Prosthetist/Orthotist Relationship Specialty Start Date End Date Ludwig Whiting DO [address] [place] [address] PCP - General Family Medicine 12/01/16 Bianca Elena [address] [place] [address] PCP - Ophthalmology Ophthalmology 01/25/21 Ludwig Whiting DO [address] [place] [address] PCP - [place] Commercial Attributed 03/26/21 Nicolas Gold MD [address] [place] [address] Endocrinology 07/11/17 Juanito Rivas MD [address] [place] [address] Referring Provider Surgery, Neurosurgery 02/01/18 Kirk Stringer MD [address] [place] [address] Consulting Provider Sleep Medicine 02/01/18 Jostin Kenny MD [address] [place] [address] Nephrology 02/01/18 05/13/23 Marcelle Bass, WING [address] [place] [address] ICP Transition Plant Culture Manager 08/25/20 09/20/21 Ashley Tilley MD [address] [place] [address] Cardiovascular Disease 01/25/21 Jostin Kenny MD [address] [place] [address] Nephrology 05/14/23 Trini Brown MD [address] [place] [address] Endocrinology 01/04/24 Ashley Tilley MD [address] [place] [address] Primary Supervisor Insulation Cardiovascular Disease 01/17/24 Franky Fonseca MD [address] [place] [address] Nephrology 06/10/24 documented as of this encounter
--- OUTSIDE RECORDS SUMMARY | 2024-12-24 17:31 | XMS_ITS | Encounter Summary ---
Author Organization [facility] Address [address] [place] [address] Care Team Providers Care Hoop Coiler Name Role Phone Ludwig Whiting DO Primary Care Provider [phone] Nicolas Gold MD Unavailable Unavailable Juanito Rivas MD Unavailable Kirk Stringer MD Unavailable Ashley Tilley MD Unavailable [phone] Bianca Elena Unavailable Ludwig Whiting DO Unavailable Jostin Kenny MD Unavailable [phone] Trini Brown MD Unavailable [phone] Ashley Tilley MD Unavailable [phone] Franky Fonseca MD Unavailable [phone] Encounter Details Date Type Department Care Team (Late st Contact Info) Description 05/09/2024 Scanned Document [facility] ENDOCRINOLOGY SCAN Endocrinology, Scan Social History Tobacco Use Types Packs/Day [...] Description 04/10/2025 4:00 PM EDT Office Visit [facility] Endocrinology [place] 100 [facility] [address] [place] [address] Trini Brown MD [address] [facility] [facility] [address] [place] [address] 05/25/2025 3:30 PM EDT Office Visit [facility] [address] [place] [address] Ludwig Whiting DO [address] [place] [address] 06/25/2025 2:00 PM EDT Office Visit [facility] Cardiology [address] [place] [address] Ashley Tilley MD 100 [facility] [address] [place] [address] documented as of this encounter Visit Diagnoses Not on filedocumented in this encounter Care Teams Hoop Coiler Relationship Specialty Start Date End Date Ludwig Whiting DO [address] [place] [address] PCP - General Family Medicine 12/01/16 Bianca Elena 139 [facility] [address] [place] [address] PCP - Ophthalmology Ophthalmology 01/25/21 Ludwig Whiting DO 1060 [facility] [place] [address] PCP - [place] Commercial Attributed 03/26/21 Nicolas Gold MD [address] [facility] [place] [address] Endocrinology 07/11/17 Juanito Rivas MD [address] [place] [address] Referring Provider Surgery, Neurosurgery 02/01/18 Kirk Stringer MD [address] [place] [address] Consulting Provider Sleep Medicine 02/01/18 Ashley Tilley MD [address] [place] [address] Cardiovascular Disease 01/25/21 Jostin Kenny MD [address] [place] [address] Nephrology 05/14/23 Trini Brown MD [address] [place] [address] Endocrinology 01/04/24 Ashley Tilley MD [address] [place] [address] Primary Food Safety Director Cardiovascular Disease 01/17/24 Franky Fonseca MD [address] [place] [address] Nephrology 06/10/24 documented as of this encounter
--- OUTSIDE RECORDS SUMMARY | 2024-12-24 17:31 | XMS_ITS | Encounter Summary ---
Author Organization [facility] Address [address] [place] [address] Care Team Providers Care Java Sybase Developer Name Role Phone Oneal Farrell MD Primary Care Provider [phone] Ludwig Whiting DO Primary Care Provider [phone] Nicolas Gold MD Unavailable Unavailable Juanito Rivas MD Unavailable [phone] Kirk Stringer MD Unavailable [phone] Jostin Kenny MD Unavailable [phone] Marcelle Bass RN Unavailable Ashley Tilley MD Unavailable Bianca Elena Unavailable Ludwig Whiting DO Unavailable [phone] Jostin Kenny MD Unavailable Trini Brown MD Unavailable [phone] Ashley Tilley MD Unavailable [phone] Franky Fonseca MD Unavailable [phone] Reason for Visit * Reason Comments Medication Refill Encounter Details Date Type Department Care Team (Late st Contact Info) Description 07/30/2016 Refill [facility] Endocrinology [address] [address] Nicolas Gold MD Needs valid address Social [...] Description 04/10/2025 4:00 PM EDT Office Visit [facility] Endocrinology [place] 100 [facility] 101 [place] [address] Trini Brown MD [address] [place] [address] 101 [place] [address] 05/25/2025 3:30 PM EDT Office Visit [facility] [address] [place] [address] Ludwig Whiting, [address] [place] [address] 06/25/2025 2:00 PM EDT Office Visit [facility] Cardiology [address] [place] [address] Ashley Tilley MD 100 [facility] [address] [place] [address] documented as of this encounter Visit Diagnoses Not on filedocumented in this encounter Care Teams Java Sybase Developer Relationship Specialty Start Date End Date Oneal Farrell MD PCP - General Internal Medicine 08/05/15 11/30/16 Ludwig Whiting DO [address] [place] [address] PCP - General Family Medicine 12/01/16 Bianca Elena [address] [place] [address] PCP - Ophthalmology Ophthalmology 01/25/21 [place] [address] [place] [address] PCP - [place] Commercial Attributed 03/26/21 Nicolas Gold MD [address] [place] [address], [place] [address] Endocrinology 07/11/17 Juanito Rivas MD 1000 [place] [address] Referring Provider Surgery, Neurosurgery 02/01/18 Kirk Stringer MD 112 [place] [address] Consulting Provider Sleep Medicine 02/01/18 Jostin Kenny MD [address] [place] [address] Nephrology 02/01/18 05/13/23 Marcelle Bass, WING [facility] 2[facility] [place] [address] ICP Transition Collect On Delivery Clerk 08/25/20 09/20/21 Ashley Tilley MD [address] [place] [address] Cardiovascular Disease 01/25/21 Jostin Kenny MD [address] [place] [address] Nephrology 05/14/23 Trini Brown MD [address] [place] [address] Endocrinology 01/04/24 Ashley Tilley MD [address] [place] [address] Primary [place]man Cardiovascular Disease 01/17/24 Franky Fonseca MD [address] [place] [address] Nephrology 06/10/24 documented as of this encounter
--- OUTSIDE RECORDS SUMMARY | 2024-12-24 17:31 | XMS_ITS | Encounter Summary ---
Author Organization [facility] Address [address] [place] [address] Care Team Providers Care Tank Setter Name Role Phone Ludwig Whiting DO Primary Care Provider [phone] Nicolas Gold MD Unavailable Unavailable Juanito Rivas MD Unavailable Kirk Stringer MD Unavailable [phone] Ashley Tilley MD Unavailable [phone] Bianca Elena Unavailable Ludwig Whiting DO Unavailable Jostin Kenny MD Unavailable [phone] Trini Brown MD Unavailable [phone] Ashley Tilley MD Unavailable [phone] Franky Fonseca MD Unavailable [phone] Encounter Details Date Type Department Care Team (Late st Contact Info) Description 06/04/2024 Scanned Document [facility] PULMONOLGY SCAN Pulmonary, Scan Social History Tobacco Use Types Packs/Day [...] 04/10/2025 4:00 PM EDT Office Visit [facility] Endocrinology [place] 100 [facility] [address] [place] [address] Trini Brown MD 100 [facility] [address] [place] [address] 05/25/2025 3:30 PM EDT Office Visit [facility] 10[address] [place] [address] uLdwig Whiting DO [facility] [place] [address] 06/25/2025 2:00 PM EDT Office Visit [facility] Cardiology [address] [place] [address] Ashley Tilley MD [address] [facility] [address] [place] [address] documented as of this encounter Visit Diagnoses Not on filedocumented in this encounter Care Teams Tank Setter Relationship Specialty Start Date End Date Ludwig Whiting DO [address] [place] [address] PCP - General Family Medicine 12/01/16 Bianca Elena 139 [facility] [address] [place] [address] PCP - Ophthalmology Ophthalmology 01/25/21 Ludwig Whiting DO 1060 [place] [address] PCP - [place] Commercial Attributed 03/26/21 Nicolas Gold MD 1060 [place] [address] Endocrinology 07/11/17 Juanito Rivas MD [address] [place] [address] Referring Provider Surgery, Neurosurgery 02/01/18 Kirk Stringer MD [address] [place] [address] Consulting Provider Sleep Medicine 02/01/18 Ashley Tilley MD [address] [place] [address] Cardiovascular Disease 01/25/21 Jostin Kenny MD [address] [place] [address] Nephrology 05/14/23 Trini Brown MD [address] [place] [address] Endocrinology 01/04/24 Ashley Tilley MD [address] [place] [address] Primary Demolition Hammer Operator Cardiovascular Disease 01/17/24 Franky Fonseca MD [address] [facility] 103 [place] [address] Nephrology 06/10/24 documented as of this encounter
--- OUTSIDE RECORDS SUMMARY | 2024-12-24 17:31 | XMS_ITS | Encounter Summary ---
Author Organization [facility] Address [address] [place] [address] Care Team Providers Care Cartography/Mapping Technician Name Role Phone Ludwig Whiting DO Primary Care Provider [phone] Nicolas Gold MD Unavailable Unavailable Juanito Rivas MD Unavailable Kirk Stringer MD Unavailable Jostin Kenny MD Unavailable [phone] Marcelle Bass RN Unavailable Ashley Tilley MD Unavailable [phone] Bianca Elena Unavailable Ludwig Whiting DO Unavailable Jostin Kenny MD Unavailable [phone] Trini Brown MD Unavailable [phone] Ashley Tilley MD Unavailable [phone] Franky Fonseca MD Unavailable [phone] Encounter Details Date Type Department Care Team (Late st Contact Info) Description 06/01/2021 Scanned Document [facility] [address] [address] Ludwig Whiting, DO [address] [place] [address] Social History Tobacco Use Types Packs/Day Years [...] Description 04/10/2025 4:00 PM EDT Office Visit [facility] Endocrinology [place] 100 [facility] 101 [place] [address] Trini Brown MD 100 [facility] 101 [place] [address] 05/25/2025 3:30 PM EDT Office Visit [address] [address] Ludwig Whiting, DO [address] [place] [address] 06/25/2025 2:00 PM EDT Office Visit [facility] Cardiology [address] [place] [address] Ashley Tilley MD 100 [facility] [address]11 [place] [address] documented as of this encounter Visit Diagnoses Not on filedocumented in this encounter Care Teams Cartography/Mapping Technician Relationship Specialty Start Date End Date Ludwig Whiting DO [address] [place] [address] PCP - General Family Medicine 12/01/16 Bianca Elena [address] [place] [address] PCP - Ophthalmology Ophthalmology 01/25/21 Ludwig Whiting DO [address] [place] [address] PCP - [place] Commercial Attributed 03/26/21 Nicolas Gold MD [address] [place] [address] Endocrinology 07/11/17 Juanito Rivas MD [address] [place] [address] Referring Provider Surgery, Neurosurgery 02/01/18 Kirk Stringer MD [address] [place] [address] Consulting Provider Sleep Medicine 02/01/18 Jostin Kenny MD [address] [place] [address] Nephrology 02/01/18 05/13/23 Marcelle Bass, RN 17 [facility] 2nd [place], [place] [address] ICP Transition Controlled Area Checker 08/25/20 09/20/21 Ashley Tilley MD [address] [place] [address] Cardiovascular Disease 01/25/21 Jostin Kenny MD [address] [place] [address] Nephrology 05/14/23 Trini Brown MD [address] [place] [address] Endocrinology 01/04/24 Ashley Tilley MD [address] [place] [address] Primary Facility Engineer Cardiovascular Disease 01/17/24 Franky Fonseca MD [address] [place] [address] Nephrology 06/10/24 documented as of this encounter
--- OUTSIDE RECORDS SUMMARY | 2024-12-24 17:31 | XMS_ITS | Encounter Summary ---
Author Organization [facility] Address [address] [place] [address] Care Team Providers Care Director Biostatistics Name Role Phone Ludwig Whiting DO Primary Care Provider [phone] Nicolas Gold MD Unavailable Unavailable Juanito Rivas MD Unavailable [phone] Kirk Stringer MD Unavailable Jostin Kenny MD Unavailable [phone] Ashley Tilley MD Unavailable [phone] Bianca Elena Unavailable Ludwig Whiting DO Unavailable Jostin Kenny MD Unavailable [phone] Trini Brown MD Unavailable [phone] Ashley Tilley MD Unavailable [phone] Franky Fonseca MD Unavailable [phone] Encounter Details Date Type Department Care Team (Late st Contact Info) Description 03/24/2022 Scanned Document [address] [address] Ludwig Whiting, DO [address] [place] [address] Social History Tobacco Use Types Packs/Day Years [...] 4:00 PM EDT Office Visit [facility] Endocrinology [place] 100 [facility] 101 [place] [address] Trini Brown MD 100 [facility] 101 [place] [address] 05/25/2025 3:30 PM EDT Office Visit [facility] 10[address] [place] [address] Ludwig Whiting, DO [address] [place] [address] 06/25/2025 2:00 PM EDT Office Visit [facility] Cardiology [address] [place] [address] Ashley Tilley MD 100 [facility] [address] [place] [address] documented as of this encounter Visit Diagnoses Not on filedocumented in this encounter Care Teams Director Biostatistics Relationship Specialty Start Date End Date Ludwig Whiting, DO 1060 [place] [address] PCP - General Family Medicine 12/01/16 Bianca Elena [address] [place] [address] PCP - Ophthalmology Ophthalmology 01/25/21 Ludwig Whiting, DO 1060 [facility] [place] [address] PCP - [place] [employer] Attributed 03/26/21 Nicolas Gold MD 1060 [facility] [place] [address] Endocrinology 07/11/17 Juanito Rivas MD [address] [place] [address] Referring Provider Surgery, Neurosurgery 02/01/18 Kirk Stringer MD [address] [place] [address] Consulting Provider Sleep Medicine 02/01/18 Jostin Kenny MD [address] [place] [address] Nephrology 02/01/18 05/13/23 Ashley Tilley MD [address] [place] [address] Cardiovascular Disease 01/25/21 Jostin Kenny MD [address] [place] [address] Nephrology 05/14/23 Trini Brown MD [address] [place] [id number] Endocrinology 01/04/24 Ashley Tilley MD [address] [place] [address] Primary Plant Senior Manager Cardiovascular Disease 01/17/24 Franky Fonseca MD [address] [place] [id number] Nephrology 06/10/24 documented as of this encounter
--- OUTSIDE RECORDS SUMMARY | 2024-12-24 17:31 | XMS_ITS | Encounter Summary ---
Author Organization [facility] Address [address] [place] [address] Care Team Providers Care Tactical Air Control Party Name Role Phone Ludwig Whiting DO Primary Care Provider [phone] Nicolas Gold MD Unavailable Unavailable Juanito Rivas MD Unavailable Kirk Stringer MD Unavailable Ashley Tilley MD Unavailable [phone] Bianca Elena Unavailable Ludwig Whiting DO Unavailable [phone] Jostin Kenny MD Unavailable [phone] Trini Brown MD Unavailable [phone] Ashley Tilley MD Unavailable [phone] Franky Fonseca MD Unavailable [phone] Reason for Visit * Auth/Cert Specialty Diagnoses / Procedures Referred By Jose t Referred To Contact Diagnoses Encounter for loop recorder at end of battery life Procedures REMOVAL LOOP RECORDER Referral ID Status Reason Start Date Expiration Date Visits Re quested Visits Authorized [id number] 1 1 Encounter Details Date Type Department Care Team (Late st Contact Info) Description 12/04/2024 8:30 AM EST - 12/04/2024 9:15 AM EST [facility] 65 [facility] 500 [place] [phone] Oneal Wong MD 65 [facility] 405 [place] [address] REMOVAL LOOP RECORDER Social History Tobacco Use Types Packs/Day Years Used Date Smoking Tobacco: Former Cigarettes 2 1 963 - 1989 Cigars Smokeless Tobacco: Never Alcohol Use Standard Drinks/Week Comments No 0 (1 standard drink = 0.6 oz pur e alcohol) [facility] Utilities Answer Date Recorded In [...] and Family Not on file 11/24/2024 Attends [employer] Not on file 11/24 Active Member [...] any time in the past 12 m [facility], were you homeless or living in a prison (including now)? No 11/24/2024 Physical Activity Answer [...] Sign Reading Time Taken Comments Blood Pressure 161/73 12/04/2024 9:14 AM EST Pulse 73 12/04/2024 9:14 AM EST Temperature 36.5 ??C (97.7 ??F) 12/04/2024 9:14 AM ES T Respiratory Rate 14 12/04/2024 9:14 AM EST Oxygen Saturation 95% 12/04/2024 9:14 AM EST Inhaled Oxygen Concentration - - Weight 137 kg (301 lb) 11/20/2024 8:36 AM EST Height 175.3 cm (5' 9 ) 11/20/2024 8:36 AM EST Body Mass Index 44.45 11/20/2024 8:36 AM EST documented in this encounter Discharge Summaries * Mela Ramos, EXHIBIT CLEANER - 12/04/2024 9:17 AM EST Images from the original note were not included. Discharge Summary [facility] Brief Overview Patient Demographics CANDELARIA GALO 1955 69 y.o. No Known Allergies Admission Date: 12/04/2024 Admitting Provider: Oneal Wong MD Discharge Provider: Oneal Wong MD Primary Care Physician at Discharge: Ludwig Whiting DO Hardware Engineer: Ashley Tony MD Discharge Date: 12/04/2024 Primary [...] 06/25/2025 2:00 PM MD LIZ Dunlap CARD [place] Card [place] Ludwig Whiting DO [address] [facility] [place] [address] Bianca Yeh [address] [place] [address] Details of Hospital Stay Hospital Course Candelaria Galo was admitted to the [facility] [place] on 12/04/2024. Consent and NPO states were [...] Galo will follow up with his primary supervisor testing, Dr. Lisa Tony, as previously scheduled. Procedures: Surgical/Procedural Cases on this Admission Case IDs Date Procedure Surgeon Location Status [id number] 12/04/24 REMOVAL LOOP RECORDER Oneal Wong MD [facility] Comp Conclusions Complications during procedure: none. [...] 97.9 ??F (36.6 ??C) Of note, this global technical writer performed the discharge summary remotely and was not involved in direct patient care. Discharge approved by Dr. Wong post ILR explant. Sign Mela Ramos APRN 12/04/2024 4:24 PM Associated attestation - Oneal Wong MD - 12/05/2024 12:36 PM EST I have reviewed the discharge for this patient and agree that the patient is stable for discharge. documented in this encounter Discharge Instructions * Discharge Instr - Other Orders* Mela Ramos, EXHIBIT CLEANER - 12/04/2024 9:14 AM EST Post Internal Loop Recorder Discharge Instructions Electrophysiologists: Dr. Raul Le, Dr. Oneal Wong, Dr. Roque London, Dr. Maximino Childs, Dr. Antonio Floyd, Dr. Thuan Pandya, Dr. Breann Schneider, Dr. Jenny Nguyễn Office: [phone] (8am-4:30pm Sun -Sunday). The on-call MD can [...] Report any of these symptoms to your instructional media services technician. No heavy lifting or strenuous exercise for [...] nephropathy, with long-term current use of insulin ([facility]) Take 1 tablet (81 mg total) by mouth every morning. betamethasone valerate (VALISONE) 0.1 % ointmentIndications:Ph imosis Apply topically 2 (two) times a day. 30 g 5 02/27/2023 Blood Glucose Monitoring Suppl ([place]) w/Device KitIndications:Type 2 diabetes mellitus with morbid obesity ([facility]) Use to test blood sugar two times [...] nephropathy, with long-term current use of insulin ([facility]),Type 2 diabetes mellitus with hypoglycemia without coma, with long-term current use of insulin ([facility]) 1 each by Does not apply route [...] nephropathy, with long-term current use of insulin ([facility]) Use up to 80 units twice a day before meals per sliding scale 60 each 1 10/27/2024 Insulin Pen Needle 31G X 5 MM Misc by Does not apply route. Insulin Syringe-Needle U-100 (BD Insulin Syringe U/F) 31G X 5/16 1 ML MiscIndications:Type 2 diabetes mellitus with diabetic nephropathy, with long-term current use of insulin ([facility]) USE 4 TIMES A DAY WITH INSULIN [...] MiscIndications:Type 2 diabetes mellitus with morbid obesity ([facility]) Use to test blood sugar two times daily 200 each 1 07/18/2024 OneTouch Verio stripIndications:Type 2 diabetes mellitus with morbid obesity ([facility]) Use as instructed to test blood sugars two times daily 200 test strip 1 07/18/2024 simvastatin (ZOCOR) 20 MG tabletIndications:Mixe d hyperlipidemia Take 1 tablet (20 mg total) by mouth nightly. 90 tablet 3 06/12/2024 tirzepatide (MOUNJARO) 10 mg/0.5 mL pen-injectorIndication s:Type 2 diabetes mellitus with diabetic nephropathy, with long-term current use of insulin ([facility]) Inject 1 Pen (10 mg total) under the skin once a week. 2 mL 3 11/14/2024 torsemide (DEMADEX) 20 MG tabletIndications:[employer] lelia heart failure with preserved ejection fraction [...] old male referred to electrophysiology by his supervisor testing, Dr. Delvalle, for explant of an implantable loop recorder. The device was implanted after he wasnoted to have brief episodes of paroxysmal atrial fibrillation following pericardiocentesis for presumed viral pericarditis in July 2020. The device has now reach end of battery life and he wishes to have it explanted. Plan: ILR explant on December 04, 2023 at [facility] with Dr. Wong. Pre-operative labs ordered to [...] be performed on December 04, 2023 at [facility] by Dr. Oneal Wong. Nothing to eat [...] your procedure please call our offices at [phone]. Consent Discussion The risks, benefits, and alternatives [...] disease, with long-term current use of insulin ([facility]) Sleep apnea Class 3 severe obesity due to excess calories with serious comorbidity and body mass index (BMI) of45.0 to 49.9 in adult ([facility]) Other anterior pituitary disorders Essential hypertension Mixed hyperlipidemia Chronic low back pain Isolated gonadotropin deficiency ([facility]) Spinal stenosis of lumbar region with radiculopathy Lumbar herniated disc Gout Conductive hearing loss, bilateral GERD (gastroesophageal reflux disease) Paroxysmal atrial fibrillation ([facility]) Ex-smoker Chronic heart failure with preserved ejection fraction ([facility]) History of viral pericarditis Anemia of chronic disease Coronary artery disease involving [place] coronary artery of [place] heart without angina pectoris Personal history of colonic polyps Diabetic retinopathy associated with type 2 diabetes mellitus ([facility]) Secondary hypercoagulable state ([facility]) Secondary hyperaldosteronism ([facility]) Atherosclerosis of abdominal aorta ([facility]) Type 2 diabetes mellitus with diabetic polyneuropathy, with long-term current use of insulin ([facility]) Encounter for loop recorder at end of [...] fibrillation. His ILR is monitored by his supervisor testing, Dr. Tilley. There has been no definite atrial fibrillation His device has reached end of battery life and he was referred to electrophysiology for ILR explant. Past Medical History: Diagnosis Date Atrial fibrillation ([facility]) Back pain Congestive heart failure (CHF) ([facility]) Contact dermatitis and other eczema due to plants (except food) Contact dermatitis due to poison kandy: 2014-02-07 00:04:29 Gout History of colon polyps HL (hearing loss) Hypertension Lumbar back pain Obesity PAF (paroxysmal atrial fibrillation) ([facility]) PRESENTED WITH TAMPONADE Pericarditis 07/2020 LARGE EFFUSION [...] Heart Cath; Surgeon: Coleman Walker MD; Location: [facility]; Service: Cardiovascular; Laterality: N/A; CC PERICARDIOCENTESIS N/A 08/19/2020 Procedure: PERICARDIOCENTESIS; Surgeon: Coleman Walker MD; Location: [facility]; Service: Cardiovascular; Laterality: N/A; COLONOSCOPY Left 04/28/2022 Procedure: COLONOSCOPY; Surgeon: Richard Prakash MD; Location: GI Endoscopy; Service: Gastroenterology; Laterality: Left; ECHOCARDIOGRAM 03/28/2021 EF 61%, RV normal. Minimal pericardial effusion ECHOCARDIOGRAM 09/16/2020 EF 65-70% small effusion. Normal RV. Normal valves IMPLANT LOOP RECORDER N/A 12/28/2020 Procedure: IMPLANT LOOP RECORDER; Surgeon: Roderick Peoples MD; Location: [facility]; Service: Cardiovascular; Laterality: N/A; LOOP RECORDER INSERTION 09/01/2020 30 DAY. Monitored time 43%, SR. VE < 1%, SR, ST, No SX. PERICARDIOCENTESIS 08/19/2020 [place] COLONOSCOPY FLX DX W/COLLJ SPEC WHEN PFRMD N/A 12/01/2016 Procedure: COLONOSCOPY; Surgeon: Richard Prakash MD; Location: GI Endoscopy; Service: Gastroenterology TONSILLECTOMY US GUIDED THORACENTESIS- BILATERAL (DIAGNOSTIC & THERAPEUTIC) Bilateral 09/14/2020 Procedure: US Guided Thoracentesis-Bilateral (Diagnostic & Therapeutic); Surgeon: SANDRA Galaviz; [facility]; Service: Interventional Radiology; Laterality: Bilateral; Medications [...] from the original note were not included. [facility] [address] [address] OPERATIVE REPORT Patient Name: Candelaria Galo Date of : 1955 Date of Procedure: 12/04/2024 Surgeons and Role: * Oneal Wong MD - Primary Pre-op Diagnosis: Encounter for loop recorder at end of battery life [Z45.09] Post-Op Diagnosis Codes: * Encounter for loop recorder at end of battery life [Z45.09] Details of Procedure Procedure(s): REMOVAL LOOP RECORDER Additional Procedures Surgeon: Oneal Wong MD Supervisor Partial Denture Department: none Anesthesia: Monitor Anesthesia Care Indications: ILR [...] small incision was made over the ILR. The tissue was dissected and using a hemostat and [...] Implant Name Type Inv. Item Serial No. Office Sweeper Lot No. LRB No. Used Action LNQ11 SYSTEM PIPE BLANKS CUT OFF SAW OPERATOR RVL LINQ - [id number] Implantable Loop Recorder LNQ11 RECORDER CARDIAC RVL LINQ INS MONITOR [id number] [employer] MINIMALLY INVASIVE T N/A 1 Explanted Signed: Oneal Wong MD 12/04/2024 9:13 AM documented in this encounter Plan of Treatment Upcoming Encounters Date Type Department Care Team (Late st Contact Info) Description 04/10/2025 4:00 PM EDT Office Visit [facility] Endocrinology [place] 100 [facility] 101 [place] [address] Trini Brown MD 100 [facility] [address] [place] [address] 05/25/2025 3:30 PM EDT [facility] [address] [place] [address] Ludwig Whiting, [address] [place] [address] 06/25/2025 2:00 PM EDT Office Visit [facility] Cardiology [address] [place] [address] Ashley Tilley MD [address] [place] [address] documented as of this encounter Procedures Procedure [...] Wong MD POINT OF CARE TEST O RDERABERYL Performing Organization Address [facility] de Phone Number [facility] See Below * (ABNORMAL) POCT Glucose, Fingerstick (12/04/2024 7:36 AM EST) POC Glucose 114(H) 65 - 99 mg/dL 12/04/2024 7:36 AM EST Blood specimen / Unknown 12/04/2024 7:36 AM EST 12/04/2024 7:37 AM EST Oneal Wong MD POINT OF CARE TEST O RDERABERYL Performing Organization Address [facility] Phone Number [facility]OS[facility]ITAL [facility] See Below documented in this encounter Visit Diagnoses Diagnosis Encounter for loop recorder at end of battery life- Primary Type 2 diabetes mellitus without complications (HCC) Encounter for loop recorder at end of battery life documented in this encounter Admitting Diagnoses Diagnosis Encounter for loop recorder at end of battery life documented in this encounter Administered Medications Inactive Administered Medications - up to 1 most recent administrations Medication Order MAR Action Action Date Dose Rate Site lactated ringers (LR) infusion 125 mL/hr, Intravenous, Continuous, Starting on Rajwidner 12/04/24 at 1030, PACU (only) ceFAZolin (ANCEF) 1 g in sodium chloride irrigation (NS) 0.9 % 500 mL OR irrigation As needed, Starting on Sun12/04/24 at 0859, Intra-op Given 12/04/2024 8:59 AM EST 500 mL Left Chest chlorhexidine gluconate 2 % wipes Topical, Once, On Sun12/04/24 at 0730, For 1 dose, Pre-Procedure EP, [...] % 30 mL, bupivacaine (MARCAINE) 30 mL As needed, Starting on Rajwinder 12/04/24 at 0905, Intra-op Given 12/04/2024 9:05 AM EST 6 mL Left Chest povidone-iodine (BETADINE) 5 % nasal swab kit [...] dose, Pre-Procedure EP, All antimicrobials used at [facility] require an indication. Please complete the [...] OR irrigation (CANCELED) As needed, Starting on Rajwinder 12/04/24 at 0859, Intra-op 0859 (Given - [...] MD) documented in this encounter Care Teams Tactical Air Control Party Relationship Specialty Start Date End Date Ludwig Whiting DO [address] [facility] [place] [address] PCP - General Family Medicine 12/01/16 Bianca Elena [address] [place] [address] PCP - Ophthalmology Ophthalmology 01/25/21 Ludwig Whiting DO [address] [facility] [place] [address] PCP - [place] [employer] Attributed 03/26/21 Nicolas Gold MD [address] [facility] [place] [address] Endocrinology 07/11/17 Juanito Rivas MD [address] [place] [address] Referring Provider Surgery, Neurosurgery 02/01/18 Kirk Stringer MD [address] [place] [address] Consulting Provider Sleep Medicine 02/01/18 Ashley Tilley MD [address] [place] [address] Cardiovascular Disease 01/25/21 Jostin Kenny MD [address] [place] [phone] Nephrology 05/14/23 Trini Brown MD [address] [place] [address] Endocrinology 01/04/24 Ashley Tilley MD [address] [place] [address] Primary Hardware Engineer Cardiovascular Disease 01/17/24 Franky Fonseca MD [address] [place] [address] Nephrology 06/10/24 documented as of this encounter
--- OUTSIDE RECORDS SUMMARY | 2024-12-24 17:31 | XMS_ITS | Encounter Summary ---
Author Organization [facility] Address [address] [place] [address] Care Team Providers Care Halal Butcher Name Role Phone Oneal Farrell MD Primary Care Provider [phone] Ludwig Whiting DO Primary Care Provider [phone] Nicolas Gold MD Unavailable Unavailable Juanito Rivas MD Unavailable [phone] Kirk Stringer MD Unavailable Jostin Kenny MD Unavailable [phone] Marcelle Bass RN Unavailable Ashley Tilley MD Unavailable [phone] Bianca Elena Unavailable Ludwig Whiting DO Unavailable [phone] Jostin Kenny MD Unavailable [phone] Trini Brown MD Unavailable [phone] Ashley Tilley MD Unavailable [phone] Franky Fonseca MD Unavailable [phone] Encounter Details Date Type Department Care Team (Late st Contact Info) Description 08/02/2016 Scanned Document [facility] Endocrinology [place] [address] [address] Provider, Generic Social History Tobacco Use Types [...] Description 04/10/2025 4:00 PM EDT Office Visit [facility] Endocrinology [place] [address] [address] Trini Brown MD 100 [facility] 101 [place] [address] 05/25/2025 3:30 PM EDT Office Visit [facility] 10[address] [place] [phone] Ludwig Whiting, [address] [place] [address] 06/25/2025 2:00 PM EDT Office Visit [facility] Cardiology [address] [place] [address] Ashley Tilley MD 100 [facility] [address] [place] [address] documented as of this encounter Visit Diagnoses Not on filedocumented in this encounter Care Teams Halal Butcher Relationship Specialty Start Date End Date Oneal Farrell MD PCP - General Internal Medicine 08/05/15 11/30/16 Ludwig Whiting DO [facility] [place] [address] PCP - General Family Medicine 12/01/16 Bianca Elena [address] [place] [address] PCP - Ophthalmology Ophthalmology 01/25/21 Ludwig Whiting DO [address] [place] [address], [place] [address] PCP - [employer] Commercial Attributed 03/26/21 Nicolas Gold MD [address] [place] [address], [place] [address] Endocrinology 07/11/17 Juanito Rivas MD [address] [place] [address] Referring Provider Surgery, Neurosurgery 02/01/18 Kirk Stringer MD 112 [place] [address] Consulting Provider Sleep Medicine 02/01/18 Jostin Kenny MD [address] [place] [address] Nephrology 02/01/18 05/13/23 Marcelle Bass, [facility] [address] [place] [address] ICP Transition Rn Surgery 08/25/20 09/20/21 Ashley Tilley MD [address] [place] [address] Cardiovascular Disease 01/25/21 Jostin Kenny MD [address] [place] [address] Nephrology 05/14/23 Trini Brown MD [address] [place] [address] Endocrinology 01/04/24 Ashley Tilley MD [address] [place] [address] Primary Faculty Member Cardiovascular Disease 01/17/24 Franky Fonseca MD [address] [place] [address] Nephrology 06/10/24 documented as of this encounter
--- OUTSIDE RECORDS SUMMARY | 2024-12-24 17:32 | XMS_ITS | Encounter Summary ---
Author Organization [facility] Address [address] [place] [address] Care Team Providers Care General Pediatrician Name Role Phone Ludwig Whiting DO Primary Care Provider [phone] Nicolas Gold MD Unavailable Unavailable Juanito Rivas MD Unavailable Kirk Stringer MD Unavailable Jostin Kenny MD Unavailable [phone] Marcelle Bass RN Unavailable Ashley Tilley MD Unavailable [phone] Bianca Elena Unavailable Ludwig Whiting DO Unavailable Jostin Kenny MD Unavailable [phone] Trini Brown MD Unavailable [phone] Ashley Tilley MD Unavailable [phone] Franky Fonseca MD Unavailable Encounter Details Date Type Department Care Team (Late st Contact Info) Description 08/28/2018 Scanned Document [facility] 1060 [place] [address] Ludwig Whiting, DO 1060 [place] [address] Social History Tobacco Use Types Packs/Day Years [...] EDT Office Visit [facility] Endocrinology [place] 100 [facility] 101 [place] [address] Trini Brown MD 100 [facility] 101 [place] [address] 05/25/2025 3:30 PM EDT Office Visit [place] [address] [place] [address] Ludwig Whiting, DO 1060 [place] [address] 06/25/2025 2:00 PM EDT Office Visit [facility] Cardiology [address] [place] [address] Ashley Tilley MD 100 [facility] [address] [place] [address] documented as of this encounter Visit Diagnoses Not on filedocumented in this encounter Care Teams General Pediatrician Relationship Specialty Start Date End Date Ludwig Whiting DO 1060 [place] [address] PCP - General Family Medicine 12/01/16 Bianca Elena [address] [place] [address] PCP - Ophthalmology Ophthalmology 01/25/21 Ludwig Whiting DO 10[address] [place] [address] PCP - [place] Commercial Attributed 03/26/21 Nicolas Gold MD [address] [place] [address] Endocrinology 07/11/17 Juanito Rivas MD [address] [place] [address] Referring Provider Surgery, Neurosurgery 02/01/18 Kirk Stringer MD [address] [place] [address] Consulting Provider Sleep Medicine 02/01/18 Jostin Kenny MD [address] [place] [address] Nephrology 02/01/18 05/13/23 Marcelle Bass, RN 17 [facility] 2nd [place], [place] [address] ICP Transition Watermaster 08/25/20 09/20/21 Ashley Tilley MD [address] [place] [address] Cardiovascular Disease 01/25/21 Jostin Kenny MD [address] [place] [address] Nephrology 05/14/23 Trini Brown MD [address] [place] [address] Endocrinology 01/04/24 Ashley Tilley MD [address] [place] [address] Primary Survey Research Manager Cardiovascular Disease 01/17/24 Franky Fonseca MD [address] [place] [address] Nephrology 06/10/24 documented as of this encounter
--- OUTSIDE RECORDS SUMMARY | 2024-12-24 17:32 | XMS_ITS | Encounter Summary ---
Author Organization [facility] Address [address] [place] [address] Care Team Providers Care Paper Feeder Name Role Phone Ludwig Whiting DO Primary Care Provider [phone] Nicolas Gold MD Unavailable Unavailable Juanito Rivas MD Unavailable [phone] Kirk Stringer MD Unavailable Jostin Kenny MD Unavailable [phone] Ashley Tilley MD Unavailable [phone] Bianca Elena Unavailable Ludwig Whiting DO Unavailable Jostin Kenny MD Unavailable [phone] Trini Brown MD Unavailable Ashley Tilley MD Unavailable [phone] Franky Fonseca MD Unavailable [phone] Encounter Details Date Type Department Care Team (Late st Contact Info) Description 02/09/2022 Scanned Document [address] [address] Provider, Generic Social History Tobacco Use Types [...] [facility] Endocrinology [place] 100 [facility] 101 [place] [address] Trini Brown MD 100 [facility] 101 [place] [address] 05/25/2025 3:30 PM EDT Office Visit [facility] 1060 [place] [address] Ludwig Whiting, [address] [address] 06/25/2025 2:00 PM EDT Office Visit [facility] Cardiology [address] [place] [address] Ashley Tilley MD 100 [facility] [address] [place] [address] documented as of this encounter Procedures Procedure Name Priority Date/Time Associated Diagnosis Comments HX OPHTHALMOLOGY TESTING PROCEDURES 02/09/2022 documented in this encounter Results * HX OPHTHALMOLOGY TESTING PROCEDURES (02/09/2022) 02/09/2022 Narrative Yadira Lewis - 02/09/2022 Ordered by an unspecified provider. Generic Provider HX AMB PROCEDURES documented in this encounter Visit Diagnoses Not on filedocumented in this encounter Care Teams Paper Feeder Relationship Specialty Start Date End Date Ludwig Whiting DO 1060 [place] [address] PCP - General Family Medicine 12/01/16 Bianca Elena [address] [place] [address] PCP - Ophthalmology Ophthalmology 01/25/21 Ludwig Whiting DO 1060 [place] [address] PCP - [place] Commercial Attributed 03/26/21 Nicolas Gold MD 1060 [facility] [place] [address] Endocrinology 07/11/17 Juanito Rivas MD [address] [place] [address] Referring Provider Surgery, Neurosurgery 02/01/18 Kirk Stringer MD 112 [place] [address] Consulting Provider Sleep Medicine 02/01/18 Jostin Kenny MD 112 [place] [address] Nephrology 02/01/18 05/13/23 Ashley Tilley MD [address] [place] [address] Cardiovascular Disease 01/25/21 Jostin Kenny MD [address] [place] [address] Nephrology 05/14/23 Trini Brown MD [address] [place] [address] Endocrinology 01/04/24 Ashley Tilley MD [address] [place] [address] Primary Cost Estimating Engineer Cardiovascular Disease 01/17/24 Franky Fonseca MD [address] [place] [address] Nephrology 06/10/24 documented as of this encounter
--- OUTSIDE RECORDS SUMMARY | 2024-12-24 17:32 | XMS_ITS | Encounter Summary ---
Author Organization [facility] Address [address] [place] [address] Care Team Providers Care Automatic Toe Laster Name Role Phone Ludwig Whiting DO Primary Care Provider [phone] Nicolas Gold MD Unavailable Unavailable Juanito Rivas MD Unavailable Kirk Stringer MD Unavailable Ashley Tilley MD Unavailable [phone] Bianca Elena Unavailable Ludwig Whiting DO Unavailable [phone] Jostin Kenny MD Unavailable [phone] Trini Brown MD Unavailable [phone] Ashley Tilley MD Unavailable [phone] Franky Fonseca MD Unavailable [phone] Reason for Visit * Reason Comments Medication Refill Encounter Details Date Type Department Care Team (Late st Contact Info) Description 08/10/2023 Refill [facility] Endocrinology [address] [address] Nicolas Gold MD Needs valid address Mixed hyperlipidemia Social History Tobacco Use Types Packs/Day Years [...] AM EDT documented as of this encounter Miscellaneous Notes * Telephone Encounter - Neva Jimenes APRN - 08/10/2023 11:10 AM EDT Please kindly change next appt to currently practicing provider, thanks! ~ Neva documented in this encounter Plan of Treatment Upcoming Encounters Date Type Department Care Team (Late st Contact Info) Description 04/10/2025 4:00 PM EDT Office Visit [facility] Endocrinology [place] 100 [facility] 101 [place] [address] Trini Brown MD [address] [place] [address] 101 [place] [address] 05/25/2025 3:30 PM EDT Office Visit [facility] 1060 [place] [address] Ludwig Whiting, [address] [place] [address] 06/25/2025 2:00 PM EDT [facility] Cardiology [address] [place] [address] Ashley Tilley MD [address] [address] documented as of this encounter Visit Diagnoses Diagnosis Mixed hyperlipidemia documented in this encounter Care Teams Automatic Toe Laster Relationship Specialty Start Date End Date Ludwig Whiting DO [address] [place] [address] PCP - General Family Medicine 12/01/16 Bianca Elena [address] [place] [address] PCP - Ophthalmology Ophthalmology 01/25/21 Ludwig Whiting DO [address]60 [place] [address] PCP - [place] Commercial Attributed 03/26/21 Nicolas Gold MD [address] [place] [address] Endocrinology 07/11/17 Juanito Rivas MD [address] [place] [address] Referring Provider Surgery, Neurosurgery 02/01/18 Kirk Stringer MD 112 [place] [address] Consulting Provider Sleep Medicine 02/01/18 Ashley Tilley MD [address] [place] [address] Cardiovascular Disease 01/25/21 Jostin Kenny MD [address] [place] [address] Nephrology 05/14/23 Trini Brown MD [address] [place] [address] Endocrinology 01/04/24 Ashley Tilley MD [address] [place] [address] Primary Erp Technical Lead Cardiovascular Disease 01/17/24 Franky Fonseca MD [address] [place] [address] Nephrology 06/10/24 documented as of this encounter
--- OUTSIDE RECORDS SUMMARY | 2024-12-24 17:32 | XMS_ITS | Encounter Summary ---
Author Organization [facility] Address [address] [place] [address] Care Team Providers Care Medical Cash Poster Name Role Phone Ludwig Whiting DO Primary Care Provider [phone] Nicolas Gold MD Unavailable Unavailable Juanito Rivas MD Unavailable [phone] Kirk Stringer MD Unavailable [phone] Ashley Tilley MD Unavailable [phone] Bianca Elena Unavailable Ludwig Whiting DO Unavailable [phone] Jostin Kenny MD Unavailable [phone] Trini Brown MD Unavailable [phone] Ashley Tilley MD Unavailable [phone] Franky Fonseca MD Unavailable [phone] Reason for Visit * Reason Comments Med Change Request Encounter Details Date Type Department Care Team (Late st Contact Info) Description 06/19/2023 [facility] Endocrinology [address] [address] Nicolas Gold MD Needs valid address Type 2 diabetes mellitus without complications (HCC) Social History Tobacco Use Types Packs/Day [...] Office Visit [facility] Endocrinology [place] 100 [facility] 101 [place] [address] Trini Brown MD [address] [address] 05/25/2025 3:30 PM EDT Office Visit [facility] 1060 [place] [address] Ludwig Whiting DO 1060 [place] [address] 06/25/2025 2:00 PM EDT Office Visit [facility] Cardiology [address] [place] [address] Ashley Tilley MD [address] [address] documented as of this encounter Visit Diagnoses Diagnosis Type 2 diabetes mellitus without complications (HCC) documented in this encounter Care Teams Medical Cash Poster Relationship Specialty Start Date End Date Ludwig Whiting DO 1060 [place] [address] PCP - General Family Medicine 12/01/16 Bianca Elena [address] [place] [address] PCP - Ophthalmology Ophthalmology 01/25/21 Ludwig Whiting DO 1060 [place] [address] PCP - [place] Commercial Attributed 03/26/21 Nicolas Gold MD [facility]0 [place] [address] Endocrinology 07/11/17 Juanito Rivas MD [address] [place] [address] Referring Provider Surgery, Neurosurgery 02/01/18 Kirk Stringer MD [address] [place] [address] Consulting Provider Sleep Medicine 02/01/18 Ashley Tilley MD [address] [place] [address] Cardiovascular Disease 01/25/21 Jostin Kenny MD [address] [place] [address] Nephrology 05/14/23 Trini Brown MD [address] [place] [address] Endocrinology 01/04/24 Ashley Tilley MD [address] [place] [address] Primary Glass Mechanic Cardiovascular Disease 01/17/24 Franky Fonseca MD [address] [place] [address] Nephrology 06/10/24 documented as of this encounter
--- OUTSIDE RECORDS SUMMARY | 2024-12-24 17:32 | XMS_ITS | Encounter Summary ---
Author Organization [facility] Address [address] [place] [address] Care Team Providers Care Security System Installer Name Role Phone Ludwig Whiting DO Primary Care Provider [phone] Nicolas Gold MD Unavailable Unavailable Juanito Rivas MD Unavailable Kirk Stringer MD Unavailable [phone] Jostin Kenny MD Unavailable [phone] Marcelle Bass RN Unavailable Ashley Tilley MD Unavailable [phone] Bianca Elena Unavailable Ludwig Whiting DO Unavailable Jostin Kenny MD Unavailable [phone] Trini Brown MD Unavailable [phone] Ashley Tilley MD Unavailable [phone] Franky Fonseca MD Unavailable [phone] Reason for Visit * Reason Comments Medication Refill Encounter Details Date Type Department Care Team (Late st Contact Info) Description 08/15/2021 Refill [facility] 10[address] [place] [address] Ludwig Whiting, DO 1060 [place] [address] Gout, unspecified Social History Tobacco Use Types Packs/Day Years [...] Visit [facility] Endocrinology [place] 100 [facility] 101 [place] [address] Trini Brown MD 100 [facility] 101 [place] [address] 05/25/2025 3:30 PM EDT Office Visit [facility] [address] [place] [address] Ludwig Whiting, DO [address] [place] [address] 06/25/2025 2:00 PM EDT Office Visit [facility] Cardiology [address] [place] [address] Ashley Tilley MD [address] [address] documented as of this encounter Visit Diagnoses Diagnosis Gout, unspecified documented in this encounter Care Teams Security System Installer Relationship Specialty Start Date End Date Ludwig Whiting DO 1060 [place] [address] PCP - General Family Medicine 12/01/16 Bianca Elena [address] [place] [address] PCP - Ophthalmology Ophthalmology 01/25/21 [place] [address] [place] [address] PCP - [place] Commercial Attributed 03/26/21 Nicolas Gold MD [address] [place] [address] Endocrinology 07/11/17 Juanito Rivas MD [address] [place] [address] Referring Provider Surgery, Neurosurgery 02/01/18 Kirk Stringer MD [address] [place] [address] Consulting Provider Sleep Medicine 02/01/18 Jostin Kenny MD [address] [place] [address] Nephrology 02/01/18 05/13/23 Marcelle Bass, WING [address] [place] [address] ICP Transition Vc++ Developer 08/25/20 09/20/21 Ashley Tilley MD [address] [place] [address] Cardiovascular Disease 01/25/21 Jostin Kenny MD [address] [place] [address] Nephrology 05/14/23 Trini Brown MD [address] [place] [address] Endocrinology 01/04/24 Ashley Tilley MD [address] [place] [address] Primary Medical Surgery Nurse Cardiovascular Disease 01/17/24 Franky Fonseca MD [address] [place] [address] Nephrology 06/10/24 documented as of this encounter
--- OUTSIDE RECORDS SUMMARY | 2024-12-24 17:32 | XMS_ITS | Encounter Summary ---
Author Organization [facility] Address [address] [place] [address] Care Team Providers Care Wet Washer Machine Name Role Phone Ludwig Whiting DO Primary Care Provider [phone] Nicolas Gold MD Unavailable Unavailable Juanito Rivas MD Unavailable [phone] Kirk Stringer MD Unavailable Jostin Kenny MD Unavailable [phone] Ashley Tilley MD Unavailable [phone] Bianca Elena Unavailable Ludwig Whiting DO Unavailable Jostin Kenny MD Unavailable [phone] Trini Brown MD Unavailable [phone] Ashley Tilley MD Unavailable [phone] Franky Fonseca MD Unavailable Encounter Details Date Type Department Care Team (Late st Contact Info) Description 02/24/2022 Scanned Document [facility] [address] [place] [address] Christi Wick PA [address] [facility] 303 [place] [address] Social History Tobacco Use Types Packs/Day Years [...] 04/10/2025 4:00 PM EDT Office Visit [facility] Endocrinology [place] 100 [facility] 101 [place] [address] Trini Brown MD 100 [facility] 101 [place] [address] 05/25/2025 3:30 PM EDT Office [facility] 1060 [place] [address] Ludwig Whiting DO 1060 [place] [address] 06/25/2025 2:00 PM EDT Office Visit [facility] Cardiology [address] [place] [address] Ashley Tilley MD 100 [facility] 811 [place] [address] documented as of this encounter Visit Diagnoses Not on filedocumented in this encounter Care Teams Wet Washer Machine Relationship Specialty Start Date End Date Ludwig Whiting DO [address] [place] [address] [place] [address] PCP - General Family Medicine 12/01/16 Bianca Elena [address] [place] [address] PCP - Ophthalmology Ophthalmology 01/25/21 Ludwig Whiting DO 1060 [facility] [place] [address] PCP - [place] Commercial Attributed 03/26/21 Nicolas Gold MD 1060 [facility] [place] [address] Endocrinology 07/11/17 Juanito Rivas MD [address] [place] [address] Referring Provider Surgery, Neurosurgery 02/01/18 Kirk Stringer MD 112 [place] [address] Consulting Provider Sleep Medicine 02/01/18 Jostin Kenny MD 112 [place] [address] Nephrology 02/01/18 05/13/23 Ashley Tilley MD [address] [place] [address] Cardiovascular Disease 01/25/21 Jostin Kenny MD [address] [place] [address] Nephrology 05/14/23 Trini Brown MD [address] [place] [address] Endocrinology 01/04/24 Ashley Tilley MD [address] [place], [place] [address] Primary Nurse Consultant Cardiovascular Disease 01/17/24 Franky Fonseca MD [address] [place] [address] Nephrology 06/10/24 documented as of this encounter
--- OUTSIDE RECORDS SUMMARY | 2024-12-24 17:32 | XMS_ITS | Encounter Summary ---
Author Organization [facility] Address [address] [place] [address] Care Team Providers Care Ocean Lifeguard Name Role Phone Ludwig Whiting DO Primary Care Provider [phone] Nicolas Gold MD Unavailable Unavailable Juanito Rivas MD Unavailable Kirk Stringer MD Unavailable Jostin Kenny MD Unavailable [phone] Marcelle Bass RN Unavailable Ashley Tilley MD Unavailable [phone] Bianca Elena Unavailable Ludwig Whiting DO Unavailable Jostin Kenny MD Unavailable Trini Brown MD Unavailable [phone] Ashley Tilley MD Unavailable [phone] Franky Fonseca MD Unavailable [phone] Reason for Visit * Reason Comments Medication Refill Encounter Details Date Type Department Care Team (Late st Contact Info) Description 11/11/2017 Refill [facility] 1060 [place] [address] Ludwig Whiting, DO 1059 [place] [address] Gout, unspecified cause, unspecified chronicity, unspecified site Social History Tobacco Use Types Packs/Day Years [...] encounter Miscellaneous Notes * Telephone Encounter - Wendy Givens LPN - 11/12/2017 9:13 AM EST Prescription sent in on 11/02/17 documented in this encounter Plan of Treatment Upcoming Encounters Date Type Department Care Team (Late st Contact Info) Description 04/10/2025 4:00 PM EDT Office Visit [facility] Endocrinology [address] [address] Trini Brown MD 100 [facility] 101 [place] [address] 05/25/2025 3:30 PM EDT Office Visit [facility] 1060 [place] [address] Ludwig Whiting, DO 0 [place] [address] 06/25/2025 2:00 PM EDT Office Visit [facility] Cardiology [address] [place] [address] Ashley Tilley MD [address] [place] [address] documented as of this encounter Visit Diagnoses Diagnosis Gout, unspecified cause, unspecified chronicity, unspecified site documented in this encounter Care Teams Ocean Lifeguard Relationship Specialty Start Date End Date Ludwig Whiting DO 1060 [facility] [place] [address] PCP - General Family Medicine 12/01/16 Bianca Elena [address] [place] [address] PCP - Ophthalmology Ophthalmology 01/25/21 Ludwig Whiting DO 1060 [facility] [place] [address] PCP - [place] Commercial Attributed 03/26/21 Nicolas Gold MD 1060 [facility] [place] [address] Endocrinology 07/11/17 Juanito Rivas MD [address] [place] [address] Referring Provider Surgery, Neurosurgery 02/01/18 Kirk Stringer MD 112 [place] [address] Consulting Provider Sleep Medicine 02/01/18 Jostin Kenny MD 112 [place] [address] Nephrology 02/01/18 05/13/23 Marcelle Bass, RN [address] [place] [address] ICP Transition Hairspring Truing Inspector 08/25/20 09/20/21 Ashley Tilley MD [address] [place] [address] Cardiovascular Disease 01/25/21 Jostin Kenny MD [address] [place] [address] Nephrology 05/14/23 Trini Brown MD [address] [place] [address] Endocrinology 01/04/24 Ashley Tilley MD [address] [place] [address] Primary Homicide Squad Sergeant Cardiovascular Disease 01/17/24 Franky Fonseca MD [address] [place] [address] Nephrology 06/10/24 documented as of this encounter
--- OUTSIDE RECORDS SUMMARY | 2024-12-24 17:32 | XMS_ITS | Encounter Summary ---
Author Organization [facility] Address [address] [place] [address] Care Team Providers Care Emissions Repair Technician Name Role Phone Ludwig Whiting DO Primary Care Provider [phone] Nicolas Gold MD Unavailable Unavailable Juanito Rivas MD Unavailable Kirk Stringer MD Unavailable [phone] Jostin Kenny MD Unavailable [phone] Marcelle Bass RN Unavailable Ashley Tilley MD Unavailable [phone] Bianca Elena Unavailable Ludwig Whiting DO Unavailable Jostin Kenny MD Unavailable [phone] Trini Brown MD Unavailable [phone] Ashley Tilley MD Unavailable [phone] Franky Fonseca MD Unavailable [phone] Encounter Details Date Type Department Care Team (Late st Contact Info) Description 12/31/2019 Scanned Document [facility] [address] [place], [place] [address], [place] [address] Provider, Generic Social History Tobacco Use Types [...] Visit [facility] Endocrinology [place] 100 [facility] 101 [place] [address] Trini Brown MD 100 [facility] 101 [place] [address] 05/25/2025 3:30 PM EDT Office Visit [address] [address] Ludwig Whiting, [address] [address] 06/25/2025 2:00 PM EDT Office Visit [facility] Cardiology [address] [place] [address] Ashley Tilley MD [address] [address] documented as of this encounter Procedures Procedure Name Priority Date/Time Associated Diagnosis Comments HX OPHTHALMOLOGY TESTING PROCEDURES 12/31/2019 documented in this encounter Results * HX OPHTHALMOLOGY TESTING PROCEDURES (12/31/2019) 12/31/2019 Narrative Yadira Lewis - 12/31/2019 Ordered by an unspecified provider. Generic Provider HX AMB PROCEDURES documented in this encounter Visit Diagnoses Not on filedocumented in this encounter Care Teams Emissions Repair Technician Relationship Specialty Start Date End Date Ludwig Whiting DO 10[address] [place] [address] PCP - General Family Medicine 12/01/16 Bianca Elena [address] [place] [address] PCP - Ophthalmology Ophthalmology 01/25/21 Ludwig Whiting DO 10[address] [place] [address] PCP - Hydro Commercial Attributed 03/26/21 Nicolas Gold MD 10[address] [place] [address] Endocrinology 07/11/17 Juanito Rivas MD [address] [place] [address] Referring Provider Surgery, Neurosurgery 02/01/18 Kirk Stringer MD [address] [place] [address] Consulting Provider Sleep Medicine 02/01/18 Jostin Kenny MD [address] [place] [address] Nephrology 02/01/18 05/13/23 Marcelle Bass, WING [address] [place] [place] [address] [address] ICP Transition Dielectric Press Operator 08/25/20 09/20/21 Ashley Tilley MD [address] [place] [address] Cardiovascular Disease 01/25/21 Jostin Kenny MD [address] [place] [address] Nephrology 05/14/23 Trini Brown MD [address] [place] [address] Endocrinology 01/04/24 Ashley Tilley MD [address] [place] [address] Primary Corn Husker Machine Operator Cardiovascular Disease 01/17/24 rFanky Fonseca MD [address] [place] [address] Nephrology 06/10/24 documented as of this encounter
--- OUTSIDE RECORDS SUMMARY | 2024-12-24 17:32 | XMS_ITS | Encounter Summary ---
Author Organization [facility] Address [address] [place] [address] Care Team Providers Care System Development Manager Name Role Phone Ludwig Whiting DO Primary Care Provider [phone] Nicolas Glod MD Unavailable Unavailable Juanito Rivas MD Unavailable Kirk Stringer MD Unavailable Jostin Kenny MD Unavailable [phone] Marcelle Bass RN Unavailable Ashley Tilley MD Unavailable [phone] Bianca Elena Unavailable Ludwig Whiting DO Unavailable Jostin Kenny MD Unavailable [phone] Trini Brown MD Unavailable [phone] Ashley Tilley MD Unavailable [phone] Franky Fonseca MD Unavailable [phone] Encounter Details Date Type Department Care Team (Late st Contact Info) Description 07/07/2020 Scanned Document [facility] [address] [place], [place] [address], [place] [address] Ludwig Whiting, DO 1060 [facility] [place] [address] Social History Tobacco Use Types Packs/Day Years [...] have Coronavirus / COVID-19? No / Unsure 06/24/2020 1:02 PM EDT documented as of this encounter Plan of Treatment Upcoming Encounters Date Type Department Care Team (Late st Contact Info) Description 04/10/2025 4:00 PM EDT Office Visit [facility] Endocrinology [address] [address] Trini Brown MD [address] [address] 05/25/2025 3:30 PM EDT [facility] 1060 [place] [address] Ludwig Whiting, DO 1060 [facility] [place] [address] 06/25/2025 2:00 PM EDT Office Visit [facility] Cardiology [address] [place] [address] Ashley Tilley MD [address] [place] [address] documented as of this encounter Visit Diagnoses Not on filedocumented in this encounter Care Teams System Development Manager Relationship Specialty Start Date End Date Ludwig Whiting DO 1060 [facility] [place] [address] PCP - General Family Medicine 12/01/16 Bianca Elena [address] [place] [address] PCP - Ophthalmology Ophthalmology 01/25/21 Ludwig Whiting DO 1060 [facility] [place] [address] PCP - [place] Commercial Attributed 03/26/21 Nicolas Gold MD 1060 [facility] [place] [address] Endocrinology 07/11/17 Juanito Rivas MD [address] [place] [address] Referring Provider Surgery, Neurosurgery 02/01/18 Kirk Stringer MD [address] [place] [address] Consulting Provider Sleep Medicine 02/01/18 Jostin Kenny MD [address] [place] [address] Nephrology 02/01/18 05/13/23 Marcelle Bass, WING 17 [facility] 2[address] [place] [address] ICP Transition Bobj Developer 08/25/20 09/20/21 Ashley Tilley MD [address] [place], [place] [phone] Cardiovascular Disease 01/25/21 Jostin Kenny MD [address] [place] [address] Nephrology 05/14/23 Trini Brown MD [address] [place] [address] Endocrinology 01/04/24 Ashley Tilley MD [address] [place] [address] Primary Director Of Web Marketing Cardiovascular Disease 01/17/24 Franky Fonseca MD [address] [place] [address] Nephrology 06/10/24 documented as of this encounter
--- OUTSIDE RECORDS SUMMARY | 2024-12-24 17:32 | XMS_ITS | Encounter Summary ---
Author Organization [facility] Address [address] [place] [address] Care Team Providers Care Educational Paraprofessional Name Role Phone Ludwig Whiting DO Primary Care Provider [phone] Nicolas Gold MD Unavailable Unavailable Juanito Rivas MD Unavailable [phone] Kirk Stringer MD Unavailable Jostin Kenny MD Unavailable [phone] Marcelle Bass RN Unavailable Ashley Tilley MD Unavailable [phone] Bianca Elena Unavailable Ludwig Whiting DO Unavailable Jostin Kenny MD Unavailable [phone] Trini Brown MD Unavailable [phone] Ashley Tilley MD Unavailable [phone] Franky Fonseca MD Unavailable [phone] Reason for Visit * Reason Comments Medication Refill Encounter Details Date Type Department Care Team (Late st Contact Info) Description 11/12/2017 Refill [facility] Endocrinology [address] [address] Nicolas Gold MD Needs valid address Diabetes [...] EDT Office Visit [facility] Endocrinology [place] 100 [facility] 101 [place] [address] Trini Brown MD 100 [facility] 101 [place] [address] 05/25/2025 3:30 PM EDT Office Visit [facility] 1060 [place] [address] Ludwig Whiting, 1060 [place] [address] 06/25/2025 2:00 PM EDT Office Visit [facility] Cardiology [address] [place] [address] Ashley Tilley MD 100 [facility] 811 [place] [address] documented as of this encounter Visit Diagnoses Diagnosis Diabetes mellitus without complication (HCC) Type II or unspecified type diabetes mellitus without mention of complication, not stated as uncontrolled documented in this encounter Care Teams Educational Paraprofessional Relationship Specialty Start Date End Date Ludwig Whiting DO 1060 [place] [address] PCP - General Family Medicine 12/01/16 Bianca Elena [address] [place], [place] [address] PCP - Ophthalmology Ophthalmology 01/25/21 Ludwig Whiting DO [address]60 [place] [address] PCP - [place] Commercial Attributed 03/26/21 Nicolas Gold MD 1060 [place] [address] Endocrinology 07/11/17 Juanito Rivas MD [address] [place] [address] Referring Provider Surgery, Neurosurgery 02/01/18 Kirk Stringer MD [address] [place] [address] Consulting Provider Sleep Medicine 02/01/18 Jostin Kenny MD [address] [place] [address] Nephrology 02/01/18 05/13/23 Marcelle Bass, WING 17 [facility] 2[facility] [address] [place], [place] [address] ICP Transition Sound Truck Operator 08/25/20 09/20/21 Ashley Tilley MD [address] [place] [address] Cardiovascular Disease 01/25/21 Jostin Kenny MD [address] [place] [address] Nephrology 05/14/23 Trini Brown MD [address] [place] [address] Endocrinology 01/04/24 Ashley Tilley MD [address] [place] [address] Primary Equipment Operator/Laborer/Supervisor Cardiovascular Disease 01/17/24 Franky Fonseca MD [address] [place] [address] Nephrology 06/10/24 documented as of this encounter
--- OUTSIDE RECORDS SUMMARY | 2024-12-24 17:32 | XMS_ITS | Encounter Summary ---
Author Organization [facility] Address [address] [place] [address] Care Team Providers Care Helper/Driver Name Role Phone Ludwig Whiting DO Primary Care Provider [phone] Nicolas Gold MD Unavailable Unavailable Juanito Rivas MD Unavailable [phone] Kirk Stringer MD Unavailable Jostin Kenny MD Unavailable [phone] Marcelle Bass RN Unavailable Ashley Tilley MD Unavailable [phone] Bianca Elena Unavailable Ludwig Whiting DO Unavailable Jostin Kenny MD Unavailable [phone] Trini Brown MD Unavailable [phone] Ashley Tilley MD Unavailable [phone] Franky Fonseca MD Unavailable [phone] Reason for Visit * Reason Comments Medication Refill Encounter Details Date Type Department Care Team (Late st Contact Info) Description 11/01/2019 Refill [facility] 1060 [place] [address] Ludwig Whiting, DO 1060 [place] [address] Gout, unspecified cause, unspecified chronicity, unspecified site [...] 4:00 PM EDT Office Visit [facility] Endocrinology [place] [address] [address] Trini Brown MD 100 [facility] 101 [place] [address] 05/25/2025 3:30 PM EDT Office Visit [facility] 1060 [place] [address] Ludwig Whiting, DO 1060 [place] [address] 06/25/2025 2:00 PM EDT Office Visit [facility] Cardiology [address] [place] [address] Ashley Tilley MD [address] [address] documented as of this encounter Visit Diagnoses Diagnosis Gout, unspecified cause, unspecified chronicity, unspecified site documented in this encounter Care Teams Helper/Driver Relationship Specialty Start Date End Date Ludwig Whiting DO 1060 [place] [address] PCP - General Family Medicine 12/01/16 Bianca Elena [address] [place] [address] PCP - Ophthalmology Ophthalmology 01/25/21 [place] [address] [place] [address] PCP - [place] Commercial Attributed 03/26/21 Nicolas Gold MD [facility] [place] [address] Endocrinology 07/11/17 Juanito Rivas MD 1000 [place] [address] Referring Provider Surgery, Neurosurgery 02/01/18 Kirk Stringer MD 112 [place] [address] Consulting Provider Sleep Medicine 02/01/18 Jostin Kenny MD 112 [place] [address] Nephrology 02/01/18 05/13/23 Marcelle Bass, WING 17 [facility] 2nd [place] [address] [facility] Transition Leather Production Worker 08/25/20 09/20/21 Ashley Tilley MD [address] [place], [place] [phone] Cardiovascular Disease 01/25/21 Jostin Kenny MD [address] [place] [address] Nephrology 05/14/23 Trini Brown MD [address] [place] [address] Endocrinology 01/04/24 Ashley Tilley MD [address] [place] [address] Primary Household Appliance Assembler Cardiovascular Disease 01/17/24 Franky Fonseca MD [address] [place] [address] Nephrology 06/10/24 documented as of this encounter
--- OUTSIDE RECORDS SUMMARY | 2024-12-24 17:32 | XMS_ITS | Encounter Summary ---
Author Organization [facility] [place] [facility] Address [address] [place] [address] Care Team Providers Care Financial Officer Name Role Phone Ludwig Whiting DO Primary Care Provider [phone] Nicolas Gold MD Unavailable Unavailable Juanito Rivas MD Unavailable [phone] Kirk Stringer MD Unavailable Jostin Kenny MD Unavailable [phone] Marcelle Bass RN Unavailable Ashley Tilley MD Unavailable [phone] Bianca Elena Unavailable Ludwig Whiting DO Unavailable Jostin Kenny MD Unavailable [phone] Trini Brown MD Unavailable [phone] Ashley Tilley MD Unavailable [phone] Franky Fonseca MD Unavailable [phone] Encounter Details Date Type Department Care Team (Late st Contact Info) Description 10/02/2018 Scanned Document [facility] [address] [place] [phone] Provider, Generic Social History Tobacco Use Types [...] Description 04/10/2025 4:00 PM EDT Office Visit [facility] Endocrinology [place] 100 [facility] 101 [place] [address] Trini Brown MD 100 [facility] 101 [place] [address] 05/25/2025 3:30 PM EDT Office Visit [address] [phone] Ludwig Whiting DO [facility] [place] [address] 06/25/2025 2:00 PM EDT Office Visit [facility] Cardiology [address] [address] Ashley Tilley MD [address] [address] documented as of this encounter Visit Diagnoses Not on filedocumented in this encounter Care Teams Financial Officer Relationship Specialty Start Date End Date Ludwig Whiting DO [address] [place] [address] PCP - General Family Medicine 12/01/16 Bianca Elena [address] [place] [address] PCP - Ophthalmology Ophthalmology 01/25/21 Ludwig Whiting DO 1060 [place] [address] PCP - [place] Commercial Attributed 03/26/21 Nicolas Gold MD 1060 [place] [address] Endocrinology 07/11/17 Juanito Rivas MD 1000 [place] [address] Referring Provider Surgery, Neurosurgery 02/01/18 Kirk Stringer MD 112 [place] [address] Consulting Provider Sleep Medicine 02/01/18 Jostin Kenny MD 112 [place] [address] Nephrology 02/01/18 05/13/23 Marcelle Bass, WING [address] [place] [address] ICP Transition Machine Operators 08/25/20 09/20/21 Ashley Tilley MD [address] [place] [address] Cardiovascular Disease 01/25/21 Jostin Kenny MD [address] [place] [address] Nephrology 05/14/23 Trini Brown MD [address] [place] [address] Endocrinology 01/04/24 Ashley Tilley MD [address] [place] [address] Primary Cartridge Maker Cardiovascular Disease 01/17/24 Franky Fonseca MD [address] [place] [address] Nephrology 06/10/24 documented as of this encounter
--- OUTSIDE RECORDS SUMMARY | 2024-12-24 17:32 | XMS_ITS | Encounter Summary ---
Author Organization [facility] Address 100 [place] [address] Care Team Providers Care Band Ripsaw Operator Name Role Phone Ludwig Whiting DO Primary Care Provider [phone] Nicolas Gold MD Unavailable Unavailable Juanito Rivas MD Unavailable Kirk Stringer MD Unavailable Jostin Kenny MD Unavailable [phone] Marcelle Bass RN Unavailable Ashley Tilley MD Unavailable [phone] Bianca Elena Unavailable Ludwig Whiting DO Unavailable Jostin Kenny MD Unavailable Trini Brown MD Unavailable [phone] Ashley Tilley MD Unavailable [phone] Franky Fonseca MD Unavailable [phone] Encounter Details Date Type Department Care Team (Late st Contact Info) Description 08/17/2017 Scanned Document [address] [place] [address] Ludwig Whiting, DO 10[address] [place] [address] Social History Tobacco Use Types Packs/Day Years [...] Description 04/10/2025 4:00 PM EDT Office [facility] Endocrinology [place] 100 [facility] 101 [place] [address] Trini Brown MD 100 [facility] 101 [place] [address] 05/25/2025 3:30 PM EDT Office Visit [address] [address] Ludwig Whiting, DO 10[address] [place] [address] 06/25/2025 2:00 PM EDT Office Visit [facility] Cardiology [address] [place] [address] Ashley Tilley MD 100 [facility] 811 [place] [address] documented as of this encounter Visit Diagnoses Not on filedocumented in this encounter Care Teams Band Ripsaw Operator Relationship Specialty Start Date End Date Ludwig Whiting DO 10[address] [place] [address] PCP - General Family Medicine 12/01/16 Bianca Elena [address] [place], [place] [address] PCP - Ophthalmology Ophthalmology 01/25/21 Ludwig Whiting DO 1060 [place] [address] PCP - [place] Commercial Attributed 03/26/21 Nicolas Gold MD 1060 [place] [address] Endocrinology 07/11/17 Juanito Rivas MD 1000 [place] [address] Referring Provider Surgery, Neurosurgery 02/01/18 Kirk Stringer MD [address] [place] [address] Consulting Provider Sleep Medicine 02/01/18 Jostin Kenny MD [address] [place] [address] Nephrology 02/01/18 05/13/23 Marcelle Bass, WING [facility] 2[facility] [address] [place], [place] [address] ICP Transition Station Helper 08/25/20 09/20/21 Ashley Tilley MD [address] [place] [address] Cardiovascular Disease 01/25/21 Jostin eKnny MD [address] [place] [address] Nephrology 05/14/23 Trini Brown MD [address] [place] [address] Endocrinology 01/04/24 Ashley Tilley MD [address] [place] [address] Primary Product Safety Test Engineer Cardiovascular Disease 01/17/24 Franky Fonseca MD [address] [place] [address] Nephrology 06/10/24 documented as of this encounter
--- OUTSIDE RECORDS SUMMARY | 2024-12-24 17:32 | XMS_ITS | Encounter Summary ---
Author Organization [facility] Address [address] [place] [address] Care Team Providers Care Sleeve Wheel Maker Name Role Phone Ludwig Whiting DO Primary Care Provider [phone] Nicolas Gold MD Unavailable Unavailable Juanito Rivas MD Unavailable Kirk Stringer MD Unavailable Jostin Kenny MD Unavailable [phone] Marcelle Bass RN Unavailable Ashley Tilley MD Unavailable [phone] Bianca Elena Unavailable Ludwig Whiting DO Unavailable Jostin Kenny MD Unavailable Trini Brown MD Unavailable [phone] Ashley Tilley MD Unavailable [phone] Franky Fonseca MD Unavailable Encounter Details Date Type Department Care Team (Late st Contact Info) Description 06/08/2017 Scanned Document [facility] 1060 [place] [address] Provider, Generic Social History Tobacco Use Types [...] Description 04/10/2025 4:00 PM EDT Office Visit [facility] Endocrinology [place] 100 [facility] 101 [place] [address] Trini Brown MD 100 [facility] 101 [place] [address] 05/25/2025 3:30 PM EDT Office Visit [facility] 10[address] [place] [address] Ludwig Whiting DO 1060 [place] [address] 06/25/2025 2:00 PM EDT Office Visit [facility] Cardiology [address] [place] [address] Ashley Tilley MD 100 [facility] [address] [place] [address] documented as of this encounter Visit Diagnoses Not on filedocumented in this encounter Care Teams Sleeve Wheel Maker Relationship Specialty Start Date End Date Ludwig Whiting DO 1060 [place] [address] PCP - General Family Medicine 12/01/16 Bianca Elena [address] [place] [address] PCP - Ophthalmology Ophthalmology 01/25/21 Ludwig Whiting DO 1060 [place] [address] PCP - [place] Commercial Attributed 03/26/21 Nicolas Gold MD 1060 [place] [address] Endocrinology 07/11/17 Juanito Rivas MD 1000 [place] [address] Referring Provider Surgery, Neurosurgery 02/01/18 Kirk Stringer MD 112 [place] [address] Consulting Provider Sleep Medicine 02/01/18 Jostin Kenny MD 112 [place] [address] Nephrology 02/01/18 05/13/23 Marcelle Bass, WING [address] [place] [address] ICP Transition Inspector Clip On Sunglasses 08/25/20 09/20/21 Ashley Tilley MD [address] [place] [address] Cardiovascular Disease 01/25/21 Jostin Kenny MD [address] [place] [address] Nephrology 05/14/23 Trini Brown MD [address] [place] [address] Endocrinology 01/04/24 Ashley Tilley MD [address] [place] [address] Primary Leather Patcher Cardiovascular Disease 01/17/24 Franky Fonseca MD [address] [place] [address] Nephrology 06/10/24 documented as of this encounter
--- OUTSIDE RECORDS SUMMARY | 2024-12-24 17:32 | XMS_ITS | Encounter Summary ---
Author Organization [facility] Address [address] [place] [address] Care Team Providers Care Toll Collector Name Role Phone Ludwig Whiting DO Primary Care Provider [phone] Nicolas Gold MD Unavailable Unavailable Juanito Rivas MD Unavailable [phone] Kirk Stringer MD Unavailable Jostin Kenny MD Unavailable [phone] Ashley Tilley MD Unavailable [phone] Bianca Elena Unavailable Ludwig Whiting DO Unavailable Jostin Kenny MD Unavailable [phone] Trini Brown MD Unavailable [phone] Ashley Tilley MD Unavailable [phone] Franky Fonseca MD Unavailable [phone] Encounter Details Date Type Department Care Team (Late st Contact Info) Description 12/05/2021 Scanned Document [facility] INTERNAL MED SCAN Ludwig Whiting, DO [address] [place] [address] Social History Tobacco Use Types Packs/Day Years [...] have Coronavirus / COVID-19? No / Unsure 11/08/2021 1:46 PM EST documented as of this encounter Plan of Treatment Upcoming Encounters Date Type Department Care Team (Late st Contact Info) Description 04/10/2025 4:00 PM EDT [facility] [place] 100 [facility] 101 [place] [address] Trini Brown MD 100 [facility] 101 [place] [address] 05/25/2025 3:30 PM EDT Office Visit [facility] 10[address] [place] [address] Ludwig Whiting, [address] [place] [address] 06/25/2025 2:00 PM EDT Office Visit [facility] Cardiology [address] [place] [address] Ashley Tilley MD 100 [facility] [address] [place] [address] documented as of this encounter Visit Diagnoses Not on filedocumented in this encounter Care Teams Toll Collector Relationship Specialty Start Date End Date Ludwig Whiting DO [address] [place] [address] PCP - General Family Medicine 12/01/16 Bianca Elena [address] [place] [address] PCP - Ophthalmology Ophthalmology 01/25/21 Ludwig Whiting DO 1060 [facility] [place] [address] PCP - [place] Commercial Attributed 03/26/21 Nicolas Gold MD [address] [place] [address] Endocrinology 07/11/17 Juanito Rivas MD [address] [place] [address] Referring Provider Surgery, Neurosurgery 02/01/18 Kirk Stringer MD [address] [place] [address] Consulting Provider Sleep Medicine 02/01/18 Jostin Kenny MD [address] [place] [address] Nephrology 02/01/18 05/13/23 Ashley Tilley MD [address] [place] [address] Cardiovascular Disease 01/25/21 Jostin Kenny MD [address] [place] [address] Nephrology 05/14/23 Trini Brown MD [address] [place] [address] Endocrinology 01/04/24 Ashley Tilley MD [address] [place] [address] Primary Defensive Driving Instructor Cardiovascular Disease 01/17/24 Franky Fonseca MD [address] [place] [address] Nephrology 06/10/24 documented as of this encounter
--- OUTSIDE RECORDS SUMMARY | 2024-12-24 17:32 | XMS_ITS | Clinical Summary ---
Author Organization [facility] Address [address] [place] [address] Phone Care Team Providers Care Bag Machine Tender Name Role Phone Ludwig Whiting DO Primary Care Provider [phone] Allergies No known active allergies Medications allopurinol (ZYLOPRIM) 300 MG tablet Take 300 mg by mouth in the morning and 300 mg in the evening. 100mg BID. 7 Active aspirin (ST YONATHAN) 81 MG EC tablet Take 1 tablet by mouth 1 (one) time each day Active Dorzolamide HCl-Timolol Mal PF 22.3-6.8 MG/ML solution Administer 1 drop into affected eye(s) twice a day 0 Active omega-3 (FISH OIL) 1000 MG capsule Take 3,000 mg by mouth in the morning and 3,000 mg in the evening. Active simvastatin (ZOCOR) 40 MG tablet Take 1 tablet by mouth 1 (one) time each day 0 Active Multiple Minerals-Vitamins (CALCIUM PYPZNKP-QLO-TFYNP ALS PO) Take 1 capsule by mouth 1 (one) time each day Active allopurinol (ZYLOPRIM) 100 MG tablet Take 100 mg by mouth in the morning and 100 mg in the evening. 1 Active spironolactone (ALDACTONE) 25 MG tablet Take 25 mg by mouth 1 (one) time each day 1 Active lisinopril 20 MG tablet Take 20 mg by mouth 1 (one) time each day 1 Active latanoprost (XALATAN) 0.005 % ophthalmic solution 1 Active Cholecalciferol 50 MCG (1999 UT) capsule Take 2,000 Units by mouth every other day Active doxazosin (CARDURA) 4 MG tablet TAKE 1 TABLET BY MOUTH EVERY DAY NIGHTLY 3 Active Lantus 100 UNIT/ML injection INJECT 2 ML (200 UNITS TOTAL) UNDER THE SKIN 2 (TWO) TIMES A DAY. 3 Active HumaLOG KWIKPEN 100 UNIT/ML solution pen-injector INJECT 200 UNITS UNDER THE SKIN DAILY ON AN EMPTY STOMACH. 3 Active torsemide (DEMADEX) 100 MG tablet Take 50 mg by mouth 1 (one) time each day 3 Active Sodium Zirconium Cyclosilicate (Lokelma) 10 g pack Take 1 Package by mouth every Sunday and Sunday 30 each 3 4 Active Active Problems Problem Noted Date Diagnosed Date Abdominal aortic atherosclerosis 10/24/2022 Overview (05/08/2023): CT 07/2020 Secondary hyperaldosteronism 10/24/2022 Overview (05/08/2023): chf on diuretic Secondary hypercoagulable state 10/24/2022 Overview (05/08/2023): afib [id number] Stroke Risk was calculated. Total Score: 4 Retinopathy due to type 2 diabetes mellitus 02/25 History of polyp of colon 02/24/2022 Overview (04/04/2022): Last Assessment & Plan: Adenoma carcinoma sequence discussed High fiber diet [...] bleeding, infection, and perforation were also explained. Anemia of chronic disease 04/05/2021 Essential hypertension 04/05/2021 Acute nontraumatic kidney injury 03/26/2021 Hyperkalemia 03/26/2021 Hyponatremia 03/26/2021 Type 2 diabetes mellitus without complication Paroxysmal atrial fibrillation 10/05/2020 Chronic low back pain 02/07/2014 Overview (04/05/2021): Lumbar MRI from 08/15/17 and 12/06/12 reveals significant degenerative changes with foraminal stenosis at L5-S1. He has more mild degenerative changes without stenosis at L4-5. He has a central left-sided disc herniation at L5-S1. Resolved Problems Problem Noted Date Diagnosed Date Resolved Date Coronary atherosclerosis 07/07/202108/2022 Overview (10/19/2021): Last Assessment & Plan: Seen on CT chest in 2019 Cardiac tamponade 06/22/2021 04/04/2022 Overview (10/19/2021): Last Assessment & Plan: 07/2020, s/p pericardiocentesis Viral pericarditis 06/22/2021 2 Hypercholesterolemia 03/26/2021 022 Metabolic acidosis, increased anion gap (IAG) 03/26/2004/04/2022 Acute sinusitis 03/16/2021 04/04/2022 Chronic heart failure co-occ urrent with normal ejection fraction 01/25/2021 04/04/2022 History of pericarditis 01/25/2021 05 Overview (04/05/2021): 07/2020- pericardial effusion Ex-smoker 10/05/2020 04/04/2022 Gastroesophageal reflux disease 08/24/2020 04/04/2022 Conductive hearing loss, bilateral 07/07/2020 04/04/2022 Gout 11/02/2017 04/04/2022 Spinal stenosis of lumbar region 09/24/2017 04/04/2022 Prolapsed lumbar intervertebral disc 09/24/2017 04/04/2022 Overview (04/05/2021): L5-S1 Obesity 03/18/2015 04/04/2022 Other anterior pituitary disorders 08/11/2014 04/04/2022 Sleep apnea 02/07/2014 04/04/2022 Overview (04/05/2021): Annotation : bi-pap Encounters Date Type Department Care Team Description 12/22/2024 Orders Only [facility] [address] [address] Jostin Kenny MD from Last 3 Months Immunizations Name Administration Dates Next Due Influenza TIV (IM) 08/24/2020, 9,2014,11/11,09/05/2012,08/23/2010,08/16/2009 ,09/10/2008,10/25/2007 Influenza, Quadrivalent, Pre servative Free 10/19/2021,08/30/2019 Influenza, Quadrivalent, Wit h Preservative 2014 Influenza, Unspecified 10/27/2022 Pfizer SARS-COV-2 10/27/2022,,03/21/2021,02/28 Pneumococcal Conjugate 04/27/2023 Pneumococcal Conjugate 13-Valent 03/18/2015 Pneumococcal Polysaccharide 08/26/2003 Shingrix 04/27/2023,09/05/2022 Td, Unspecified 11/26/2008 Tdap 04/27/2022,12/04/2008 Family History Medical History Relation Comments Cancer Mother Relation Status Comments Father Unknown Mother Unknown Social History Tobacco Use Types Packs/Day Years Used Date Smoking Tobacco: Former Cigarettes Q uit: 11/26/2001 Smokeless Tobacco: Never Tobacco Cessation:Counseling Given: No Sex and Gender Information Value Date Recorded Sex Assigned at Not on file Legal Sex Male 5:02 PM EST Gender Identity Not on file Sexual Orientation Not on file Last Filed Vital Signs Vital Sign Reading Time Taken Comments Blood Pressure 126/64 11/27/2023 2:37 PM EST Pulse 93 11/27/2023 2:37 PM EST Temperature - - Respiratory Rate - - Oxygen Saturation 96% 11/27/2023 2:37 PM EST Inhaled Oxygen Concentration - - Weight 146 kg (322 lb) 11/27/2023 2:37 PM EST Height 177.8 cm (5' 10 ) 12/07/2020 12:00 PM EST Body Mass Index 46.2 12/07/2020 12:00 PM EST Plan of Treatment Health Maintenance Due Date Last Done Comments Colorectal Cancer Screening: Annual FOBT 2006 Colorectal Cancer Screening: Colonoscopy 2006 Colorectal Cancer Screening: Sigmoidoscopy 2006 Diabetes: Ophthalmology Exam 04/05/2021 Diabetes: Pedal Pulse Checked 04/05/2021 Diabetes: Sensory Foot Exam 04/05/2021 Diabetes: Visual Foot Exam 04/05/2021 Diabetes: Hemoglobin A1C 06/20/2022 03/21/2022, 05/0 12/2020 Pneumococcal Vaccine: 65+ Years (3 of 3 - PPSV23 or PCV20) 06/22/2023 04/27/2023, 03/18/2015, 08/26/2003 Influenza Vaccine (#1) 2024 , 10/19/2021, 08/24/2020, Additional history exists Hepatitis B Vaccine Aged Out No longe r eligible based on patient's age to complete this topic Procedures Procedure Name Priority Date/Time Associated Diagnosis Comments URIC ACID Routine 12/22/2024 11:15 AM EST BASIC METABOLIC PANEL Routine 12/22/2024 11:15 AM EST EXT RESULT ENTRY Routine 03/21/2022 from Last 3 Months or Most Recently Relevant to Health Maintenance Results * Uric Acid (12/22/2024 11:15 AM EST) Uric Acid 4.3 4.0 - 8.0 mg/dL See order comments Comment: Therapeutic target for gout patients: <6.0 mg/dL 12/22/2024 11:1 5 AM EST 12/22/2024 11:16 AM EST Narrative [facility] - 12/23/2024 4:34 AM EST FASTING:YES FASTING: YES Resulting Agency Comment Performing Organization Information: ?Site ID: [id number] ?Name: [facility] ?Address: [address] [place] [id number] ?Director: Meek Isabel Jostin Kenny MD LAB BLOOD ORDERABLES Final Res ult [facility] See order comments [place] [address] * (ABNORMAL) Basic Metabolic Panel (12/22/2024 11:15 AM EST) Glucose 119(H) 65 - 99 mg/dL See order comments Comment: ? Fasting reference interval For someone without known diabetes, a glucose value between 100 and 125 mg/dL is consistent with prediabetes and should be confirmed with a follow-up test. BUN 22 7 - 25 mg/dL See order comments Creatinine 0.84 0.70 - 1.35 mg/dL See order comments eGFR CKD-EPI CR 2020 96 > OR = 60 mL/min/1. 73m2 See order comments BUN/Creatinine Ratio SEE NOTE: 6 - 22 (calc) See order comments Comment: ?? Not Reported: BUN and Creatinine are within ?? reference range. ? Sodium 137 135 - 146 mmol/L See order comments Potassium 4.2 3.5 - 5.3 mmol/L See order comments Chloride 102 98 - 110 mmol/L See order comments Bicarbonate (CO2) 25 20 - 32 mmol/L See order comments Calcium 10.0 8.6 - 10.3 mg/dL See order comments 12/22/2024 11:1 5 AM EST 12/22/2024 11:16 AM EST Narrative [facility] - 12/23/2024 4:34 AM EST FASTING:YES FASTING: YES Resulting Agency Comment Performing Organization Information: ?Site ID: [id number] ?Name: [facility] ?Address: [address] [place] [phone] ?Director: Meek Isabel Jostin Kenny MD LAB BLOOD ORDERABLES Final Res ult [facility] See order comments [place] [address] * (ABNORMAL) EXT RESULT ENTRY (03/21/2022) Sodium 138 137 - 147 Potassium 4.5 3.4 - 5.5 Chloride 105.0 99.0 - 108.0 Bicarbonate (CO2) 25 22 - 30 mmol/L Creatinine 0.84 0.60 - 1.30 mg/dL eGFR Non-Afr Wallisian 93 eGFR 107 AST (SGOT) 21 U/L Alkaline Phosphatase 26 U/L Hemoglobin A1C 5.7 4.0 - 6.0 Creatinine, Urine Random 23 mg/dL Alb/Creat Ratio, Ur 130 mg/g Creat Triglycerides 265(A) 40 - 160 Cholesterol 109 0 - 200 HDL 25(A) 35 - 70 MG/DL LDL Calculated 53 0 - 160 mg/dL 03/21/2022 Historical Provider LAB BLOOD ORDERABLES Nancy l Result from Last 3 Months or Most Recently Relevant to Health Maintenance Insurance Care Teams Bag Machine Tender Relationship Specialty Start Date End Date Ludwig Whiting DO [address] [place], [place] PCP - General Family Medicine 04/05/21
--- OUTSIDE RECORDS SUMMARY | 2024-12-24 17:32 | XMS_ITS | Encounter Summary ---
Author Organization [facility] Address [address] [place] [address] Care Team Providers Care Florist Helper Name Role Phone Ludwig Whiting DO Primary Care Provider [phone] Nicolas Gold MD Unavailable Unavailable Juanito Rivas MD Unavailable [phone] Kirk Stringer MD Unavailable Jostin Kenny MD Unavailable [phone] Marcelle Bass RN Unavailable Ashley Tilley MD Unavailable [phone] Bianca Elena Unavailable Ludwig Whiting DO Unavailable Jostin Kenny MD Unavailable [phone] Trini Brown MD Unavailable [phone] Ashley Tilley MD Unavailable [phone] Franky Fonseca MD Unavailable [phone] Reason for Visit * Reason Comments Medication Refill Encounter Details Date Type Department Care Team (Late st Contact Info) Description 08/19/2018 Refill [facility] Endocrinology [place] 100 [facility] 101 [place] [address] Nicolas Gold MD Needs valid address Diabetes [...] encounter Miscellaneous Notes * Telephone Encounter - Rupa Sheriff MA - 08/19/2018 1:50 PM EDT Sent to pharmacy. documented in this encounter Plan of Treatment Upcoming Encounters Date Type Department Care Team (Late st Contact Info) Description 04/10/2025 4:00 PM EDT [facility] Visit [facility]in[facility] [place] [address] [phone] Trini Brown MD [address] [place] [address] 05/25/2025 3:30 PM EDT [facility] 1060 [place] [address] Ludwig Whiting, [address] [place], [place] [address] 06/25/2025 2:00 PM EDT Office Visit [facility] Cardiology [address] [place] [address] sAhley Tilley MD [address] [place] [address] documented as of this encounter Visit Diagnoses Diagnosis Diabetes mellitus without complication (HCC) Type II or unspecified type diabetes mellitus without mention of complication, not stated as uncontrolled documented in this encounter Care Teams Florist Helper Relationship Specialty Start Date End Date Ludwig Whiting DO [address] [place] [address] PCP - General Family Medicine 12/01/16 Bianca Elena [address] [place] [address] PCP - Ophthalmology Ophthalmology 01/25/21 Ludwig Whiting DO [address] [place] [address] PCP - [place] Commercial Attributed 03/26/21 Nicolas Gold MD [address] [place] [address] Endocrinology 07/11/17 Juanito Rivas MD [address] [place] [address] Referring Provider Surgery, Neurosurgery 02/01/18 Kirk Stringer MD [address] [place] [address] Consulting Provider Sleep Medicine 02/01/18 Jostin Kenny MD [address] [place] [address] Nephrology 02/01/18 05/13/23 Marcelle Bass, WING [address] [address] ICP Transition [employer] Manufacturing Technician 08/25/20 09/20/21 Ashley Tilley MD [address] [place] [address] Cardiovascular Disease 01/25/21 Jostin Kenny MD [address] [place] [address] Nephrology 05/14/23 Trini Brown MD [address] [place] [id number] Endocrinology 01/04/24 Ashley Tilley MD [address] [place] [address] Primary Collective Bargaining Specialist Cardiovascular Disease 01/17/24 Franky Fonseca MD [address] [place] [address] Nephrology 06/10/24 documented as of this encounter
--- OUTSIDE RECORDS SUMMARY | 2024-12-24 17:32 | XMS_ITS | Encounter Summary ---
Author Organization [facility] Address [address] [place] [address] Care Team Providers Care Pediatric Ophthalmologist Name Role Phone Ludwig Whiting DO Primary Care Provider [phone] Nicolas Gold MD Unavailable Unavailable Juanito Rivas MD Unavailable [phone] Kirk Stringer MD Unavailable [phone] Ashley Tilley MD Unavailable [phone] Bianca Elena Unavailable Ludwig Whiting DO Unavailable [phone] Jostin Kenny MD Unavailable [phone] Trini Brown MD Unavailable [phone] Ashley Tilley MD Unavailable [phone] Franky Fonseca MD Unavailable [phone] Reason for Visit * Reason Comments Medication Refill Encounter Details Date Type Department Care Team (Late st Contact Info) Description 06/18/2023 Refill [facility] Endocrinology [address] [address] Nicolas Gold MD Needs valid address Type [...] Description 04/10/2025 4:00 PM EDT Office Visit [facility] Endocrinology [place] [address] [facility] 101 [place] [address] Trini Brown MD [address] [address] 05/25/2025 3:30 PM EDT Office Visit [facility] 10[address] [place] [address] Ludwig Whiting DO [address] [place] [address] 06/25/2025 2:00 PM EDT Office Visit [facility] Cardiology [address] [place] [address] Ashley Tilley MD [address] [address] documented as of this encounter Visit Diagnoses Diagnosis Type 2 diabetes mellitus without complications (HCC) documented in this encounter Care Teams Pediatric Ophthalmologist Relationship Specialty Start Date End Date Ludwig Whiting DO [address] [place] [address] PCP - General Family Medicine 12/01/16 Bianca Elena [address] [place] [address] PCP - Ophthalmology Ophthalmology 01/25/21 Ludwig Whiting DO [address] [place] [address] PCP - [place] Commercial Attributed 03/26/21 Nicolas Gold MD [facility] [place] [address] Endocrinology 07/11/17 Juanito Rivas MD [address] [place] [address] Referring Provider Surgery, Neurosurgery 02/01/18 Kirk Stringer MD [address] [place] [address] Consulting Provider Sleep Medicine 02/01/18 Ashley Tilley MD [address] [place] [address] Cardiovascular Disease 01/25/21 Jostin Kenny MD [address] [place] [address] Nephrology 05/14/23 Trini Brown MD [address] [place] [address] Endocrinology 01/04/24 Ashley Tilley MD [address] [place] [address] Primary Chocolate Coater Cardiovascular Disease 01/17/24 Franky Fonseca MD [address] [place] [address] Nephrology 06/10/24 documented as of this encounter
--- OUTSIDE RECORDS SUMMARY | 2024-12-24 17:32 | XMS_ITS | Encounter Summary ---
Author Organization [facility] Address [address] [place] [address] Care Team Providers Care Risk Control Specialist Name Role Phone Ludwig Whiting DO Primary Care Provider [phone] Nicolas Gold MD Unavailable Unavailable Juanito Rivas MD Unavailable [phone] Kirk Stringer MD Unavailable Jostin Kenny MD Unavailable [phone] Ashley Tilley MD Unavailable [phone] Bianca Elena Unavailable Ludwig Whiting DO Unavailable Jostin Kenny MD Unavailable Trini Brown MD Unavailable [phone] Ashley Tilley MD Unavailable [phone] Franky Fonseca MD Unavailable Encounter Details Date Type Department Care Team (Late st Contact Info) Description 11/04/2021 Scanned Document [facility] PRIMARY CARE SCAN Ludwig Whiting DO [address] [place] [address] Social History Tobacco Use Types Packs/Day Years [...] have Coronavirus / COVID-19? No / Unsure 10/27/2021 1:00 PM EST documented as of this encounter Plan of Treatment Upcoming Encounters Date Type Department Care Team (Late st Contact Info) Description 04/10/2025 4:00 PM EDT Office Visit [facility] Endocrinology [place] 100 [facility] 101 [place] [address] Trini Brown MD 100 [facility] 101 [place] [address] 05/25/2025 3:30 PM EDT Office Visit [facility] [address] [place] [address] Ludwig Whiting, [address] [place] [address] 06/25/2025 2:00 PM EDT Office Visit [facility] Cardiology [address] [place] [address] Ashley [facility]illey MD [facility] [address] [place] [address] documented as of this encounter Visit Diagnoses Not on filedocumented in this encounter Care Teams Risk Control Specialist Relationship Specialty Start Date End Date Ludwig Whiting DO [address] [place] [address] PCP - General Family Medicine 12/01/16 Bianca Elena [address] [place] [address] PCP - Ophthalmology Ophthalmology 01/25/21 Ludwig Whiting DO [address] [facility] [place] [address] PCP - [place] Commercial Attributed 03/26/21 Nicolas Gold MD [address] [place] [address] Endocrinology 07/11/17 Juanito Rivas MD [address] [place] [address] Referring Provider Surgery, Neurosurgery 02/01/18 Kirk Stringer MD [address] [place] [address] Consulting Provider Sleep Medicine 02/01/18 Jostin Kenny MD [address] [place] [address] Nephrology 02/01/18 05/13/23 Ashley Tilley MD [address] [place] [address] Cardiovascular Disease 01/25/21 Jostin Kenny MD [address] [place] [address] Nephrology 05/14/23 Trini Brown MD [address] [place] [address] Endocrinology 01/04/24 Ashley Tilley MD [address] [place] [address] Primary Child Attendant Cardiovascular Disease 01/17/24 Franky Fonseca MD [address] [place] [address] Nephrology 06/10/24 documented as of this encounter
--- OUTSIDE RECORDS SUMMARY | 2024-12-24 17:32 | XMS_ITS | Encounter Summary ---
Author Organization Formerly [facility] Address [address] [place] [address] Care Team Providers Care Pilot Plant Supervisor Name Role Phone Ludwig Whiting DO Primary Care Provider [phone] Nicolas Gold MD Unavailable Unavailable Juanito Rivas MD Unavailable [phone] Kirk Stringer MD Unavailable [phone] Jostin Kenny MD Unavailable [phone] Marcelle Bass RN Unavailable Ashley Tilley MD Unavailable [phone] Bianca Elena Unavailable Ludwig Whiting DO Unavailable Jostin Kenny MD Unavailable [phone] Trini Brown MD Unavailable [phone] Ashley Tilley MD Unavailable [phone] Franky Fonseca MD Unavailable [phone] Reason for Visit * Reason Comments Medication Refill Encounter Details Date Type Department Care Team (Late st Contact Info) Description 04/22/2018 Refill [facility] Endocrinology [address] [address] Nicolas Gold MD Needs valid address Diabetes [...] Description 04/10/2025 4:00 PM EDT Office Visit [facility] Endocrinology [place] 100 [facility] 101 [place] [address] Trini Brown MD 100 [facility] 101 [place] [address] 05/25/2025 3:30 PM EDT Office Visit [facility] 1060 [place] [address] Ludwig Whiting, 1060 [place] [address] 06/25/2025 2:00 PM EDT Office Visit [facility] Cardiology [address] [place] [address] Ashley Tilley MD 100 [facility] 811 [place] [address] documented as of this encounter Visit Diagnoses Diagnosis Diabetes mellitus without complication (HCC) Type II or unspecified type diabetes mellitus without mention of complication, not stated as uncontrolled documented in this encounter Care Teams Pilot Plant Supervisor Relationship Specialty Start Date End Date Ludwig Whiting DO 1060 [place] [address] PCP - General Family Medicine 12/01/16 Bianca Elena [address] [place], [place] [address] PCP - Ophthalmology Ophthalmology 01/25/21 Ludwig Whiting DO 10[address] [place] [address] PCP - [place] Commercial Attributed 03/26/21 Nicolas Gold MD 10[address] [place] [address] Endocrinology 07/11/17 Juanito Rivas MD [address] [place] [address] Referring Provider Surgery, Neurosurgery 02/01/18 Kirk Stringer MD [address] [place] [address] Consulting Provider Sleep Medicine 02/01/18 Jostin Kenny MD [address] [place] [address] Nephrology 02/01/18 05/13/23 Marcelle Bass, WING [facility] [address] [place], [place] [address] ICP Transition Grape Picker 08/25/20 09/20/21 Ashley Tilley MD [address] [place] [address] Cardiovascular Disease 01/25/21 Jostin Kenny MD [address] [place] [address] Nephrology 05/14/23 Trini Brown MD [address] [place] [address] Endocrinology 01/04/24 Ashley Tilley MD [address] [place] [address] Primary Development Coach Cardiovascular Disease 01/17/24 Franky Fonseca MD [address] [place] [address] Nephrology 06/10/24 documented as of this encounter
--- OUTSIDE RECORDS SUMMARY | 2024-12-24 17:32 | XMS_ITS | Encounter Summary ---
Author Organization [facility] Address [address] [place] [address] Care Team Providers Care Counter Intelligence Name Role Phone Ludwig Whiting DO Primary Care Provider [phone] Nicolas Gold MD Unavailable Unavailable Juanito Rivas MD Unavailable [phone] Kirk Stringer MD Unavailable [phone] Jostin Kenny MD Unavailable [phone] Ashley Tilley MD Unavailable [phone] Bianca Elena Unavailable Ludwig Whiting DO Unavailable [phone] Jostin Kenny MD Unavailable [phone] Trini Brown MD Unavailable [phone] Ashley Tilley MD Unavailable [phone] Franky Fonseca MD Unavailable [phone] Encounter Details Date Type Department Care Team (Late st Contact Info) Description 11/29/2021 Scanned Document [address] [address] Provider, Generic Social History Tobacco [...] EDT Office Visit [facility] Endocrinology [place] 100 [facility] 101 [place] [address] Trini Brown MD [address] [facility] 101 [place] [address] 05/25/2025 3:30 PM EDT Office Visit [facility] 1060 [place] [address] Ludwig Whiting, 10[address] [place] [address] 06/25/2025 2:00 PM EDT Office Visit [facility] Cardiology [address] [place] [address] Ashley Tilley MD [address] [place] [address] documented as of this encounter Visit Diagnoses Not on filedocumented in this encounter Care Teams Counter Intelligence Relationship Specialty Start Date End Date Ludwig Whiting, DO [address] [facility] [place] [address] PCP - General Family Medicine 12/01/16 Bianca Elena [address] [place] [address] PCP - Ophthalmology Ophthalmology 01/25/21 Ludwig Whiting, DO [address] [facility] [place] [address] PCP - [place] Commercial Attributed 03/26/21 Nicolas Gold MD 1060 [facility] [place] [address] Endocrinology 07/11/17 Juanito Rivas MD [address] [place] [address] Referring Provider Surgery, Neurosurgery 02/01/18 Kirk Stringer MD 112 [place] [address] Consulting Provider Sleep Medicine 02/01/18 Jostin Kenny MD [address] [place] [address] Nephrology 02/01/18 05/13/23 Ashley Tilley MD [address] [place] [address] Cardiovascular Disease 01/25/21 Jostin Kenny MD [address] [place] [address] Nephrology 05/14/23 Trini Brown MD [address] [place] [phone] Endocrinology 01/04/24 Ashley Tilley MD [address] [place] [phone] Primary Artificial Breeding Technician Cardiovascular Disease 01/17/24 Franky Fonseca MD [address] [place] [id number] Nephrology 06/10/24 documented as of this encounter
--- OUTSIDE RECORDS SUMMARY | 2024-12-24 17:32 | XMS_ITS | Encounter Summary ---
Author Organization [facility] Address [address] [place] [address] Care Team Providers Care Excelsior Machine Operator Name Role Phone Ludwig Whiting DO Primary Care Provider [phone] Nicolas Gold MD Unavailable Unavailable Juanito Rivas MD Unavailable [phone] Kirk Stringer MD Unavailable Jostin Kenny MD Unavailable [phone] Ashley Tilley MD Unavailable [phone] Bianca Elena Unavailable Ludwig Whiting DO Unavailable [phone] Jostin Kenny MD Unavailable [phone] Trini Brown MD Unavailable [phone] Ashley Tilley MD Unavailable [phone] Franky Fonseca MD Unavailable [phone] Encounter Details Date Type Department Care Team (Late st Contact Info) Description 10/25/2021 Scanned Document [address] [address] Provider, Generic Social History Tobacco [...] Description 04/10/2025 4:00 PM EDT Office Visit [facility] Endocrinology [place] 100 [facility] 101 [place] [address] Trini Brown MD 100 [facility] 101 [place] [address] 05/25/2025 3:30 PM EDT Office Visit [facility] 1060 [place] [address] Ludwig Whiting, [address] [place] [address] 06/25/2025 2:00 PM EDT Office Visit [facility] Cardiology [address] [place] [address] Ashley Tilley MD [address] [place] [address] documented as of this encounter Visit Diagnoses Not on filedocumented in this encounter Care Teams Excelsior Machine Operator Relationship Specialty Start Date End Date Ludwig Whiting, DO 1060 [place] [address] PCP - General Family Medicine 12/01/16 Bianca Elena [address] [place] [address] PCP - Ophthalmology Ophthalmology 01/25/21 Ludwig Whiting, DO 1060 [place] [address] PCP - [place] Commercial Attributed 03/26/21 Nicolas Gold MD 1060 [place] [address] Endocrinology 07/11/17 Juanito Rivas MD [address] [place] [address] Referring Provider Surgery, Neurosurgery 02/01/18 Kirk Stringer MD 112 [place] [address] Consulting Provider Sleep Medicine 02/01/18 Jostin Kenny MD [address] [place] [address] Nephrology 02/01/18 05/13/23 Ashley Tilley MD [address] [place] [address] Cardiovascular Disease 01/25/21 Jostin Kenny MD [address] [place] [address] Nephrology 05/14/23 Trini Brown MD [address] [place] [phone] Endocrinology 01/04/24 Ashley Tilley MD [address] [place], [place] [phone] Primary Navy Material Inspector Cardiovascular Disease 01/17/24 Franky Fonseca MD [address] [place] [phone] Nephrology 06/10/24 documented as of this encounter
--- OUTSIDE RECORDS SUMMARY | 2024-12-24 17:32 | XMS_ITS | Encounter Summary ---
Author Organization [facility] Address [address] [place] [address] Care Team Providers Care Side Seam Machine Operator Name Role Phone Ludwig Whiting DO Primary Care Provider [phone] Nicolas Gold MD Unavailable Unavailable Juanito Rivas MD Unavailable [phone] Kirk Stringer MD Unavailable Jostin Kenny MD Unavailable [phone] Ashley Tilley MD Unavailable [phone] Bianca Elena Unavailable Ludwig Whiting DO Unavailable [phone] Jostin Kenny MD Unavailable [phone] Trini Brown MD Unavailable [phone] Ashley Tilley MD Unavailable [phone] Franky Fonseca MD Unavailable [phone] Reason for Visit * Reason Comments Medication Refill Encounter Details Date Type Department Care Team (Late st Contact Info) Description 10/25/2021 Refill [facility] Endocrinology [place] [phone] Nicolas Gold MD Needs valid address Type [...] Description 04/10/2025 4:00 PM EDT Office Visit [facility] Endocrinology [place] 100 [facility] 101 [place] [address] Trini Brown MD 100 [facility] 101 [place] [address] 05/25/2025 3:30 PM EDT Office [facility] 1060 [place] [address] Ludwig Whiting, DO 1060 [place] [address] 06/25/2025 2:00 PM EDT Office Visit [facility] Cardiology [address] [place] [address] Ashley Tilley MD [address] [address] documented as of this encounter Visit Diagnoses Diagnosis Type 2 diabetes mellitus without complications (HCC) documented in this encounter Care Teams Side Seam Machine Operator Relationship Specialty Start Date End Date Ludwig Whiting DO 1060 [place] [address] PCP - General Family Medicine 12/01/16 Bianca Elena [address] [place] [address] PCP - Ophthalmology Ophthalmology 01/25/21 Ludwig Whiting DO 1060 [place] [address] PCP - [place] Commercial Attributed 03/26/21 Nicolas Gold MD 1060 [facility] [address] Endocrinology 07/11/17 Juanito Rivas MD [address] [place] [address] Referring Provider Surgery, Neurosurgery 02/01/18 Kirk Stringer MD 112 [place] [address] Consulting Provider Sleep Medicine 02/01/18 Jostin Kenny MD [address] [place] [address] Nephrology 02/01/18 05/13/23 Ashley Tilley MD [address] [place] [address] Cardiovascular Disease 01/25/21 Jostin Kenny MD [address] [place] [address] Nephrology 05/14/23 Trini Brown MD [address] [place] [address] Endocrinology 01/04/24 Ashley Tilley MD [address] [place] [address] Primary Bat Lathe Operator Cardiovascular Disease 01/17/24 Franky Fonseca MD [address] [place] [address] Nephrology 06/10/24 documented as of this encounter
--- OUTSIDE RECORDS SUMMARY | 2024-12-24 17:32 | XMS_ITS | Encounter Summary ---
Author Organization [facility] Address 100 [place] [address] Care Team Providers Care Studio Model Name Role Phone Oneal Farrell MD Primary Care Provider [phone] Ludwig Whiting DO Primary Care Provider [phone] Nicolas Gold MD Unavailable Unavailable Juanito Rivas MD Unavailable [phone] Kirk Stringer MD Unavailable Jostin Kenny MD Unavailable [phone] Marcelle Bass RN Unavailable Ashley Tilley MD Unavailable Bianca Elena Unavailable Ludwig Whiting DO Unavailable [phone] Ludwig Whiting DO Primary Care Provider Jostin Kenny MD Unavailable [phone] Trini Brown MD Unavailable [phone] Ashley Tilley MD Unavailable [phone] Franky Fonseca MD Unavailable [phone] Encounter Details Date Type Department Care Team (Late st Contact Info) Description 02/22/2009 Scanned Document [facility] 1060 [place] [address] Provider, Generic Social History Tobacco Use Types Packs/Day Years Used Date Smoking Tobacco: Never Assessed Sex and Gender Information Value Date Recorded Sex Assigned at Male 04/26/2023 10:23 AM EDT Gender Identity Male 04/26/2023 10:23 AM EDT Sexual Orientation Heterosexual (straight) 04/26 10:23 AM EDT documented as of this encounter Plan of Treatment Upcoming Encounters Date Type Department Care Team (Late st Contact Info) Description 04/10/2025 4:00 PM EDT Office Visit [facility] Endocrinology [place] 100 [facility] [address] [place] [address] Trini Brown MD 100 [facility] 101 [place] [address] 05/25/2025 3:30 PM EDT Office Visit [facility] [address] [place] [address] Ludwig Whiting, 1060 [place] [address] 06/25/2025 2:00 PM EDT Office Visit [facility] Cardiology [address] [place] [address] Ashley Tilley MD [address] [place] [address] documented as of this encounter Procedures Procedure Name Priority Date/Time Associated Diagnosis Comments XRAY EXTERNAL RESULT 02/22/2009 documented in this encounter Results * XRAY EXTERNAL RESULT (02/22/2009) Anatomical Region Laterality Modality Computed Radiogr aphy Narrative 01/12/2017 5:17 AM EST Ordered by an unspecified provider. Generic Provider IMG DIAGNOSTIC IMAGI NG ORDERABLES documented in this encounter Visit Diagnoses Not on filedocumented in this encounter Care Teams Studio Model Relationship Specialty Start Date End Date Oneal Farrell MD PCP - General Internal Medicine 08/05/15 11/30/16 Ludwig Whiting, DO 1060 [place] [address] PCP - General Family Medicine 12/01/16 Bianca Elena [address] [place] [address] PCP - Ophthalmology Ophthalmology 01/25/21 Ludwig Whiting, DO 1060 [place] [address] PCP - [place] Commercial Attributed 03/26/21 Ludwig Whiting, DO 1060 [place] [address] PCP - General 08/04/15 Nicolas Gold MD 1060 [place] [address] Endocrinology 07/11/17 Juanito Rivas MD [address] [place] [address] Referring Provider Surgery, Neurosurgery 02/01/18 Kirk Stringer MD [address] [place] [address] Consulting Provider Sleep Medicine 02/01/18 Jostin Kenny MD 112 [place] [address] Nephrology 02/01/18 05/13/23 Marcelle Bass, RN [address] [facility] [address] 2nd [place] [address] ICP Transition Driver Service Technician 08/25/20 09/20/21 Ashley Tilley MD [address] [place] [address] Cardiovascular Disease 01/25/21 Jostin Kenny MD [address] [place] [address] Nephrology 05/14/23 Trini Brown MD [address] [place] [address] Endocrinology 01/04/24 Ashley Tilley MD [address] [place] [address] Primary Chemist Proteins Cardiovascular Disease 01/17/24 Franky Fonseca MD [address] [place] [address] Nephrology 06/10/24 documented as of this encounter
--- OUTSIDE RECORDS SUMMARY | 2024-12-24 17:32 | XMS_ITS | Encounter Summary ---
Author Organization [facility] Address [address] [place] [address] Care Team Providers Care Caddymaster Name Role Phone Ludwig Whiting DO Primary Care Provider [phone] Nicolas Gold MD Unavailable Unavailable Juanito Rivas MD Unavailable Kirk Stringer MD Unavailable Jostin Kenny MD Unavailable [phone] Marcelle Bass RN Unavailable Ashley Tilley MD Unavailable [phone] Bianca Elena Unavailable Ludwig Whiting DO Unavailable Jostin Kenny MD Unavailable [phone] Trini Brown MD Unavailable [phone] Ashley Tilley MD Unavailable [phone] Franky Fonseca MD Unavailable [phone] Encounter Details Date Type Department Care Team (Late st Contact Info) Description 03/23/2017 Scanned Document [address] [place] [address] Provider, Generic Social History Tobacco Use Types [...] Description 04/10/2025 4:00 PM EDT Office Visit [facility] Endocrinology [place] 100 [facility] 101 [place] [address] Trini Brown MD 100 [facility] 101 [place] [address] 05/25/2025 3:30 PM EDT Office Visit [facility] 1060 [place] [address] Ludwig Whiting DO 1060 [place] [address] 06/25/2025 2:00 PM EDT Office Visit [facility] Cardiology [address] [place] [address] Ashley Tilley MD 100 [facility] [address] [place] [address] documented as of this encounter Visit Diagnoses Not on filedocumented in this encounter Care Teams Caddymaster Relationship Specialty Start Date End Date Ludwig Whiting DO [address] [place] [address] PCP - General Family Medicine 12/01/16 Bianca Elena [address] [place] [address] PCP - Ophthalmology Ophthalmology 01/25/21 Ludwig Whiting DO [address] [place] [address] PCP - [place] Commercial Attributed 03/26/21 Nicolas Gold MD [address] [place] [address] Endocrinology 07/11/17 Juanito Rivas MD 1000 [place] [address] Referring Provider Surgery, Neurosurgery 02/01/18 Kirk Stringer MD 112 [place] [address] Consulting Provider Sleep Medicine 02/01/18 Jostin Kenny MD 112 [place] [address] Nephrology 02/01/18 05/13/23 Marcelle Bass, WING [address] [place] [address] ICP Transition Locomotive Firer/Fireman 08/25/20 09/20/21 Ashley Tilley MD [address] [place] [address] Cardiovascular Disease 01/25/21 Jostin Kenny MD [address] [place] [address] Nephrology 05/14/23 Trini Brown MD [address] [place] [address] Endocrinology 01/04/24 Ashley Tilley MD [address] [place] [address] Primary Soil Conservation Aide Cardiovascular Disease 01/17/24 Franky Fonseca MD [address] [place] [address] Nephrology 06/10/24 documented as of this encounter
--- OUTSIDE RECORDS SUMMARY | 2024-12-24 17:32 | XMS_ITS | Encounter Summary ---
Author Organization [facility] Address [address] [place] [address] Care Team Providers Care Hydroelectric Component Machinist Name Role Phone Ludwig Whiting DO Primary Care Provider [phone] Nicolas Gold MD Unavailable Unavailable Juanito Rivas MD Unavailable Kirk Stringer MD Unavailable Jostin Kenny MD Unavailable [phone] Marcelle Bass RN Unavailable Ashley Tilley MD Unavailable [phone] Bianca Elena Unavailable Ludwig Whiting DO Unavailable Jostin Kenny MD Unavailable [phone] Trini Brown MD Unavailable [phone] Ashley Tilley MD Unavailable [phone] Franky Fonseca MD Unavailable [phone] Encounter Details Date Type Department Care Team (Late st Contact Info) Description 12/19/2017 Scanned Document [facility] 1060 [place] [address] Provider, Generic Social History Tobacco Use Types [...] Visit [facility] Endocrinology [place] 100 [facility] 101 [place] [address] Trini Brown MD [address] [address] 05/25/2025 3:30 PM EDT Office Visit [facility] 1060 [place] [address] Ludwig Whiting DO 1060 [place] [address] 06/25/2025 2:00 PM EDT Office Visit [facility] Cardiology [address] [place] [address] Ashley Tilley MD 100 [facility] [address] [place] [address] documented as of this encounter Visit Diagnoses Not on filedocumented in this encounter Care Teams Hydroelectric Component Machinist Relationship Specialty Start Date End Date Ludwig Whiting DO 1060 [place] [address] PCP - General Family Medicine 12/01/16 Bianca Elena [address] [place] [address] PCP - Ophthalmology Ophthalmology 01/25/21 Ludwig Whiting DO [address] [place] [address] PCP - [place] Commercial Attributed 03/26/21 Nicolas Gold MD 10[address] [place] [address] Endocrinology 07/11/17 Juanito Rivas MD 1000 [place] [address] Referring Provider Surgery, Neurosurgery 02/01/18 Kirk Stringer MD 112 [place] [address] Consulting Provider Sleep Medicine 02/01/18 Jostin Kenny MD 112 [place] [address] Nephrology 02/01/18 05/13/23 Marcelle Bass, WING [address] 2nd [place] [address] ICP Transition Flexible Machining System Machinist 08/25/20 09/20/21 Ashley Tilley MD [address] [place] [address] Cardiovascular Disease 01/25/21 Jostin Kenny MD [address] [place] [address] Nephrology 05/14/23 Trini Brown MD [address] [place] [address] Endocrinology 01/04/24 Ashley Tilley MD [address] [place] [address] Primary Special Events Assistant Cardiovascular Disease 01/17/24 Franky Fonseca MD [address] [place] [address] Nephrology 06/10/24 documented as of this encounter
--- OUTSIDE RECORDS SUMMARY | 2024-12-24 17:32 | XMS_ITS | Encounter Summary ---
Author Organization [facility] Address [address] [facility] [address] [place] [address] Phone Care Team Providers Care Dynamite Cartridge Crimper Name Role Phone Jenniferdaniel Ludwig Primary Care Provider Encounter Details Date Type Department Care Team (Late st Contact Info) Description 12/22/2024 Orders Only [facility] [address] [facility] [address] [place] [address] Jostin Kenny MD Social History Tobacco Use Types Packs/Day Years Used Date Smoking Tobacco: Former Cigarettes Q uit: 11/26/2001 Smokeless Tobacco: Never Sex and Gender Information Value Date Recorded Sex Assigned at Not on file Legal Sex Male 5:02 PM EST Gender Identity Not on file Sexual Orientation Not on file documented as of this encounter Plan of Treatment Not on file documented as of this encounter Procedures Procedure Name Priority Date/Time Associated Diagnosis Comments URIC ACID Routine 12/22/2024 11:15 AM EST BASIC METABOLIC PANEL Routine 12/22/2024 11:15 AM EST documented in this encounter Results * Uric Acid (12/22/2024 11:15 AM EST) Uric Acid 4.3 4.0 - 8.0 mg/dL See order comments Comment: Therapeutic target for gout patients: <6.0 mg/dL 12/22/2024 11:1 5 AM EST 12/22/2024 11:16 AM EST Narrative [facility] - 12/23/2024 4:34 AM EST FASTING:YES FASTING: YES Resulting Agency Comment Performing Organization Information: ?Site ID: [id number] ?Name: [facility] ?Address: [address] [place] [phone] ?Director: Meek Isabel Jostin Kenny MD LAB BLOOD ORDERABLES Final Res ult [facility] See order comments [place] [address] * (ABNORMAL) Basic Metabolic Panel (12/22/2024 11:15 [...] Performing Organization Information: ?Site ID: [id number] ?Name: [facility] ?Address: [address] [place] [phone] ?Director: Meek Isabel Jostin Kenny MD LAB BLOOD ORDERABLES Final Res ult [facility] See order comments [place] [address] documented in this encounter Visit Diagnoses Not on filedocumented in this encounter Care Teams Dynamite Cartridge Crimper Relationship Specialty Start Date End Date Ludwig Whiting DO [address] [place], [place] PCP - General Family Medicine 04/05/21 documented as of this encounter
--- OUTSIDE RECORDS SUMMARY | 2024-12-24 17:32 | XMS_ITS | Encounter Summary ---
Author Organization [facility] Address [address] [place] [address] Care Team Providers Care Campus Safety Officer Name Role Phone Ludwig Whiting DO Primary Care Provider [phone] Nicolas Gold MD Unavailable Unavailable Juanito Rivas MD Unavailable Kirk Stringer MD Unavailable Jostin Kenny MD Unavailable [phone] Marcelle Bass RN Unavailable Ashley Tilley MD Unavailable [phone] Bianca Elena Unavailable Ludwig Whiting DO Unavailable Jostin Kenny MD Unavailable [phone] Trini Brown MD Unavailable [phone] Ashley Tilley MD Unavailable [phone] Franky Fonseca MD Unavailable [phone] Encounter Details Date Type Department Care Team (Late st Contact Info) Description 07/28/2021 Scanned Document [facility] [address] [place] [address] Ludwig Whiting, DO [address] [facility] [place] [address] Social History Tobacco Use Types Packs/Day Years [...] 4:00 PM EDT Office Visit [facility] Endocrinology [address] [address] Trini Brown MD [address] [address] 05/25/2025 3:30 PM EDT Office Visit [facility] [address] [place] [address] Ludwig Whiting, DO 1060 [facility] [address] 06/25/2025 2:00 PM EDT Office Visit [facility] Cardiology [address] [place] [address] Ashley Tilley MD [address] [place] [address] documented as of this encounter Visit Diagnoses Not on filedocumented in this encounter Care Teams Campus Safety Officer Relationship Specialty Start Date End Date Ludwig Whiting DO [address] [place] [address] PCP - General Family Medicine 12/01/16 Bianca Elena [address] [place] [address] PCP - Ophthalmology Ophthalmology 01/25/21 Ludwig Whiting DO [address] [place] [address] PCP - [place] Commercial Attributed 03/26/21 Nicolas Gold MD [address] [facility] [place] [address] Endocrinology 07/11/17 Juanito Rivas MD [address] [place] [address] Referring Provider Surgery, Neurosurgery 02/01/18 Kirk Stringer MD [address] [place] [address] Consulting Provider Sleep Medicine 02/01/18 Jostin Kenny MD [address] [place] [address] Nephrology 02/01/18 05/13/23 Marcelle Bass, WING [facility] [place] [address] ICP Transition Check Out Cashier 08/25/20 09/20/21 Ashley Tilley MD [address] [place] [address] Cardiovascular Disease 01/25/21 Jostin Kenny MD [address] [place] [address] Nephrology 05/14/23 Trini Brown MD [address] [place] [address] Endocrinology 01/04/24 Ashley Tilley MD [address] [place] [address] Primary Hearing Aid Mechanic Cardiovascular Disease 01/17/24 Franky Fonseca MD [address] [place] [address] Nephrology 06/10/24 documented as of this encounter
--- OUTSIDE RECORDS SUMMARY | 2024-12-24 17:32 | XMS_ITS | Encounter Summary ---
Author Organization [facility] Address [address] [place] [address] Care Team Providers Care Housing Inspector Name Role Phone Oneal Farrell MD Primary Care Provider [phone] Ludwig Whiting DO Primary Care Provider [phone] Nicolas Gold MD Unavailable Unavailable Juanito Rivas MD Unavailable [phone] Kirk Stringer MD Unavailable Jostin Kenny MD Unavailable [phone] Marcelle Bass RN Unavailable Ashley Tilley MD Unavailable Bianca Elena Unavailable Ludwig Whiting DO Unavailable [phone] Ludwig Whiting DO Primary Care Provider Jostin Kenny MD Unavailable [phone] Trini Brown MD Unavailable [phone] Ashley Tilley MD Unavailable [phone] Franky Fonseca MD Unavailable [phone] Encounter Details Date Type Department Care Team (Late st Contact Info) Description 02/15/2012 Scanned Document [facility] [address] [place] [address] Provider, Generic Social History Tobacco Use Types [...] 4:00 PM EDT Office Visit [facility] Endocrinology [place] [address] [facility] 101 [place] [address] Trini Brown MD 100 [facility] 101 [place] [address] 05/25/2025 3:30 PM EDT Office Visit [facility] [address] [place] [address] Ludwig Whiting, [address] [place] [address] 06/25/2025 2:00 PM EDT Office Visit [facility] Cardiology [address] [place] [address] Ashley Tilley MD [address] [place] [address] documented as of this encounter Procedures Procedure Name Priority Date/Time Associated Diagnosis Comments MRI EXTERNAL RESULT 02/15/2012 documented in this encounter Results * MRI EXTERNAL RESULT (02/15/2012) Anatomical Region Laterality Modality Magnetic Resonan ce Narrative 01/12/2017 5:17 AM EST Ordered by an unspecified provider. Generic Provider IMG MRI ORDERABLES documented in this encounter Visit Diagnoses Not on filedocumented in this encounter Care Teams Housing Inspector Relationship Specialty Start Date End Date Oneal Farrell MD PCP - General Internal Medicine 08/05/15 11/30/16 Ludwig Whiting, DO 1060 [place] [address] PCP - General Family Medicine 12/01/16 Bianca Elena [address] [place] [address] PCP - Ophthalmology Ophthalmology 01/25/21 Ludwig Whiting, DO 1060 [place] [address] PCP - [place] Commercial Attributed 03/26/21 Ludwig Whiting, DO [address] [place] [address] PCP - General 08/04/15 Nicolas Gold MD 1060 [place] [address] Endocrinology 07/11/17 Juanito Rivas MD [address] [place] [address] Referring Provider Surgery, Neurosurgery 02/01/18 Kirk Stringer MD [address] [place] [address] Consulting Provider Sleep Medicine 02/01/18 Jostin Kenny MD [address] [place] [address] Nephrology 02/01/18 05/13/23 Marcelle Bass, RN [address] [facility] [address] 2nd [place] [address] ICP Transition Roll Up Guider Operator 08/25/20 09/20/21 Ashley Tilley MD [address] [place] [address] Cardiovascular Disease 01/25/21 Jostin Kenny MD [address] [place] [address] Nephrology 05/14/23 Trini Brown MD [address] [place] [address] Endocrinology 01/04/24 Ashley Tilley MD [address] [place] [address] Primary Warehouse Freight Handler Cardiovascular Disease 01/17/24 Franky Fonseca MD [address] [place] [address] Nephrology 06/10/24 documented as of this encounter
--- OUTSIDE RECORDS SUMMARY | 2024-12-24 17:32 | XMS_ITS | Encounter Summary ---
Author Organization [facility] Address [address] [place] [address] Care Team Providers Care Net Ui Developer Name Role Phone Oneal Farrell MD Primary Care Provider Ludwig Whiting DO Primary Care Provider [phone] Nicolas Gold MD Unavailable Unavailable Juanito Rivas MD Unavailable [phone] Kirk Stringer MD Unavailable [phone] Jostin Kenny MD Unavailable [phone] Marcelle Bass RN Unavailable Ashley Tilley MD Unavailable [phone] Bianca Elena Unavailable Ludwig Whiting DO Unavailable [phone] Jostin Kenny MD Unavailable [phone] Trini Brown MD Unavailable [phone] Ashley Tilley MD Unavailable [phone] Franky Fonseca MD Unavailable [phone] Encounter Details Date Type Department Care Team (Late st Contact Info) Description 08/16/[address] [facility] [address] [place] [address] Provider, Generic Social History Tobacco Use Types [...] 04/10/2025 4:00 PM EDT Office Visit [facility] Endocrinology [place] [address] [facility] [address] [place] [address] Trini Brown MD 100 [facility] 101 [place] [address] 05/25/2025 3:30 PM EDT Office Visit [facility] [address] [place] [address] Ludwig Whiting, [address] [place] [address] 06/25/2025 2:00 PM EDT Office Visit [facility] Cardiology [address] [place] [address] Ashley Tilley MD 100 [facility] [address] [place] [address] documented as of this encounter Visit Diagnoses Not on filedocumented in this encounter Care Teams Net Ui Developer Relationship Specialty Start Date End Date Oneal Farrell MD PCP - General Internal Medicine 08/05/15 11/30/16 Ludwig Whiting, DO [address] [place] [address] PCP - General Family Medicine 12/01/16 Bianca Elena [address] [place] [address] PCP - Ophthalmology Ophthalmology 01/25/21 Ludwig Whiting, DO [address] [place] [address] PCP - [place] Commercial Attributed 03/26/21 Nicolas Gold MD 1060 [place] [address] Endocrinology 07/11/17 Juanito Rivas MD [address] [place] [address] Referring Provider Surgery, Neurosurgery 02/01/18 Kirk Stringer MD 112 [place] [address] Consulting Provider Sleep Medicine 02/01/18 Jostin Kenny MD 112 [place] [address] Nephrology 02/01/18 05/13/23 Marcelle Bass, WING 17 [facility] 2nd [place] [address] ICP Transition Medical Affairs Director 08/25/20 09/20/21 Ashley Tilley MD [address] [place] [address] Cardiovascular Disease 01/25/21 Jostin Kenny MD [address] [place] [address] Nephrology 05/14/23 Trini Brown MD [address] [place] [address] Endocrinology 01/04/24 Ashely Tilley MD [address] [place] [address] Primary Social Media Content Specialist Cardiovascular Disease 01/17/24 Franky Fonseca MD [address] [place] [address] Nephrology 06/10/24 documented as of this encounter
--- OUTSIDE RECORDS SUMMARY | 2024-12-24 17:32 | XMS_ITS | Encounter Summary ---
Author Organization [facility] Address [address] [place] [address] Care Team Providers Care Produce Wrapper Name Role Phone Ludwig Whiting DO Primary Care Provider [phone] Nicolas Gold MD Unavailable Unavailable Juanito Rivas MD Unavailable [phone] Kirk Stringer MD Unavailable [phone] Jostin Kenny MD Unavailable [phone] Ashley Tilley MD Unavailable [phone] Bianca Elena Unavailable Ludwig Whiting DO Unavailable Jostin Kenny MD Unavailable [phone] Trini Brown MD Unavailable [phone] Ashley Tilley MD Unavailable [phone] Franky Fonseca MD Unavailable [phone] Reason for Visit * Reason Comments Medication Refill Encounter Details Date Type Department Care Team (Late st Contact Info) Description 03/02/2022 Refill [facility] [address] [place] [address] Richard Prakash MD [address] [facility] [address] [place] [address] History of colon polyps Social History Tobacco Use Types Packs/Day Years [...] encounter Miscellaneous Notes * Telephone Encounter - May Draper PA-C - 03/03/2022 10:59 AM EDT Will change to suprep - please ensure he has updated prep instructions documented in this encounter Plan of Treatment Upcoming Encounters Date Type Department Care Team (Late st Contact Info) Description 04/10/2025 4:00 PM EDT Office Visit [facility] Endocrinology [address] [address] Trini Brown MD [address] [place] [address] 05/25/2025 3:30 PM EDT [facility] 1060 [place] [address] Ludwig Whiting, [address] [place] [address] 06/25/2025 2:00 PM EDT Office Visit [facility] Cardiology [address] [address] Ashley Tilley MD [address] [place] [address] documented as of this encounter Visit Diagnoses Diagnosis History of colon polyps documented in this encounter Care Teams Produce Wrapper Relationship Specialty Start Date End Date Ludwig Whiting DO 10[address] [place] [address] PCP - General Family Medicine 12/01/16 Bianca Elena [address] [place] [address] PCP - Ophthalmology Ophthalmology 01/25/21 Ludwig Whiting DO [address] [place] [address] PCP - [place] Commercial Attributed 03/26/21 Nicolas Gold MD [address] [place] [address] Endocrinology 07/11/17 Juanito Rivas MD [address] [place] [address] Referring Provider Surgery, Neurosurgery 02/01/18 Kirk Stringer MD [address] [place] [address] Consulting Provider Sleep Medicine 02/01/18 Jostin Kenyn MD [address] [place] [address] Nephrology 02/01/18 05/13/23 Ashley Tilley MD [address] [place] [address] Cardiovascular Disease 01/25/21 Jostin Kenny MD [address] [place] [address] Nephrology 05/14/23 Trini Brown MD [address] [place] [address] Endocrinology 01/04/24 Ashley Tilley MD [address] [place] [address] Primary Fleet Administrator Cardiovascular Disease 01/17/24 Franky Fonseca MD [address] [place] [address] Nephrology 06/10/24 documented as of this encounter
--- OUTSIDE RECORDS SUMMARY | 2024-12-24 17:32 | XMS_ITS | Encounter Summary ---
Author Organization [facility] Address [address] [place] [address] Care Team Providers Care Cloth Wire Weaver Name Role Phone Ludwig Whiting DO Primary Care Provider [phone] Nicolas Gold MD Unavailable Unavailable Juanito Rivas MD Unavailable [phone] Kirk Stringer MD Unavailable Jostin Kenny MD Unavailable [phone] Ashley Tilley MD Unavailable [phone] Bianca Elena Unavailable Ludwig Whiting DO Unavailable +[phone] Jostni Kenny MD Unavailable [phone] Trini Brown MD Unavailable [phone] Ashley Tilley MD Unavailable [phone] Franky Fonseca MD Unavailable [phone] Encounter Details Date Type Department Care Team (Late st Contact Info) Description 10/17/2021 Scanned Document [address] [address] Ludwig Whiting, DO [address] [place] [address] Social History Tobacco Use Types Packs/Day Years [...] have Coronavirus / COVID-19? No / Unsure 10/04/2021 12:53 PM EST documented as of this encounter Plan of Treatment Upcoming Encounters Date Type Department Care Team (Late st Contact Info) Description 04/10/2025 4:00 PM EDT Office Visit [facility] Endocrinology [place] 100 [facility] 101 [place] [address] Trini Brown MD 100 [facility] 101 [place] [address] 05/25/2025 3:30 PM EDT Office Visit [facility] [address] [place] [address] Ludwig Whiting, DO [address] [place] [address] 06/25/2025 2:00 PM EDT Office Visit [facility] Cardiology [address] [place] [address] Ashley Tilley MD [address] [address] documented as of this encounter Visit Diagnoses Not on filedocumented in this encounter Care Teams Cloth Wire Weaver Relationship Specialty Start Date End Date Ludwig Whiting DO [address] [place] [address] PCP - General Family Medicine 12/01/16 Bianca Elena [address] [place] [address] PCP - Ophthalmology Ophthalmology 01/25/21 Ludwig Whiting DO [address] [place] [address] PCP - [place] Commercial Attributed 03/26/21 Nicolas Gold MD [address] [place] [address] Endocrinology 07/11/17 Juanito Rivas MD [address] [place] [address] Referring Provider Surgery, Neurosurgery 02/01/18 Kirk Stringer MD 112 [place] [address] Consulting Provider Sleep Medicine 02/01/18 Jostin Kenny MD 112 [place] [address] Nephrology 02/01/18 05/13/23 Ashley Tilley MD [address] [place] [address] Cardiovascular Disease 01/25/21 Jostin Kenny MD [address] [place] [address] Nephrology 05/14/23 Trini Brown MD [address] [place] [address] Endocrinology 01/04/24 Ashley Tilley MD [address] [place] [address] Primary Oncology Radiation Physician Cardiovascular Disease 01/17/24 Franky Fonseca MD [address] [place] [address] Nephrology 06/10/24 documented as of this encounter
--- OUTSIDE RECORDS SUMMARY | 2024-12-24 17:32 | XMS_ITS | Encounter Summary ---
Author Organization [facility] Address [address] [place] [address] Care Team Providers Care Scrap Baller Name Role Phone Ludwig Whiting DO Primary Care Provider [phone] Nicolas Gold MD Unavailable Unavailable Juanito Rivas MD Unavailable Kirk Stringer MD Unavailable Jostin Kenny MD Unavailable [phone] Marcelle Bass RN Unavailable Ashley Tilley MD Unavailable [phone] Bianca Elena Unavailable Ludwig Whiting DO Unavailable Jostin Kenny MD Unavailable [phone] Trini Brown MD Unavailable [phone] Ashley Tilley MD Unavailable [phone] Franky Fonseca MD Unavailable Encounter Details Date Type Department Care Team (Late st Contact Info) Description 07/01/2020 Scanned Document [facility] [address] [place], [place] [address], [place] [address] Ludwig Whiting, DO [address] [facility] [place] [address] Social History Tobacco Use Types Packs/Day Years [...] Description 04/10/2025 4:00 PM EDT Office Visit [facility] Endocrinology [address] [address] Trini Brown MD [address] [address] 05/25/2025 3:30 PM EDT [facility] 1060 [facility] [place] [address] Ludwig Whiting, DO 1060 [facility] [address] 06/25/2025 2:00 PM EDT Office Visit [facility] Cardiology [address] [place] [address] Ashley Tilley MD [address] [place] [address] documented as of this encounter Visit Diagnoses Not on filedocumented in this encounter Care Teams Scrap Baller Relationship Specialty Start Date End Date Ludwig Whiting DO 1060 [facility] [address] PCP - General Family Medicine 12/01/16 Bianca Elena [address] [place] [address] PCP - Ophthalmology Ophthalmology 01/25/21 Ludwig Whiting DO 1060 [facility] [address] PCP - [place] Commercial Attributed 03/26/21 Nicolas Gold MD 1060 [facility] [address] Endocrinology 07/11/17 Juanito Rivas MD [address] [place] [address] Referring Provider Surgery, Neurosurgery 02/01/18 Kirk Stringer MD [address] [place] [address] Consulting Provider Sleep Medicine 02/01/18 Jostin Kenny MD [address] [place] [address] Nephrology 02/01/18 05/13/23 Marcelle Bass, WING [address] [facility] 2nd [place] [address] ICP Transition Business Operations Manager 08/25/20 09/20/21 Ashley Tilley MD [address] [place], [place] [address] Cardiovascular Disease 01/25/21 Jostin Kenny MD [address] [place] [address] Nephrology 05/14/23 Trini Brown MD [address] [place] [address] Endocrinology 01/04/24 Ashley Tilley MD [address] [place] [address] Primary Rn Tele Cardiovascular Disease 01/17/24 Franky Fonseca MD [address] [place] [address] Nephrology 06/10/24 documented as of this encounter
--- OUTSIDE RECORDS SUMMARY | 2024-12-24 17:32 | XMS_ITS | Encounter Summary ---
Author Organization [facility] Address [address] [place] [address] Care Team Providers Care Pharmacy Assistant Name Role Phone Ludwig Whiting DO Primary Care Provider [phone] Nicolas Gold MD Unavailable Unavailable Juanito Rivsa MD Unavailable Kirk Stringer MD Unavailable Ashley Tilley MD Unavailable [phone] Bianca Elena Unavailable Ludwig Whiting DO Unavailable Jostin Kenny MD Unavailable [phone] Trini Brown MD Unavailable [phone] Ashley Tilley MD Unavailable [phone] Franky Fonseca MD Unavailable [phone] Encounter Details Date Type Department Care Team (Late st Contact Info) Description 06/07/2023 Scanned Document [facility] Cardiology [address] [place] [phone] Ashley Tilley MD [address] [place] [address] Social History Tobacco Use Types Packs/Day Years [...] [facility] Endocrinology [address] [address] Trini Brown MD [address] [address] 05/25/2025 3:30 PM EDT Office Visit [facility] 1060 [place] [address] Ludwig Whiting DO 10[address] [place] [address] 06/25/2025 2:00 PM EDT Office Visit [facility] Cardiology [address] [place] [address] Ashley Tilley MD [address] [place] [address] documented as of this encounter Visit Diagnoses Not on filedocumented in this encounter Care Teams Pharmacy Assistant Relationship Specialty Start Date End Date Ludwig Whiting DO [address] [place] [address] PCP - General Family Medicine 12/01/16 Bianca Elena [address] [place] [address] PCP - Ophthalmology Ophthalmology 01/25/21 Ludwig Whiting DO [address] [place] [address] PCP - [place] Commercial Attributed 03/26/21 Nicolas Gold MD 1060 [facility] [place] [address] Endocrinology 07/11/17 Juanito Rivas MD [address] [place] [address] Referring Provider Surgery, Neurosurgery 02/01/18 Kirk Stringer MD [address] [place] [address] Consulting Provider Sleep Medicine 02/01/18 Ashley Tilley MD [address] [place] [address] Cardiovascular Disease 01/25/21 Jostin Kenny MD [address] [place] [address] Nephrology 05/14/23 Trini Brown MD [address] [place] [address] Endocrinology 01/04/24 Ashley Tilley MD [address] [place] [address] Primary Tar Man Cardiovascular Disease 01/17/24 Franky Fonseca MD [address] [place] [address] Nephrology 06/10/24 documented as of this encounter
--- OUTSIDE RECORDS SUMMARY | 2024-12-24 17:32 | XMS_ITS | Encounter Summary ---
Author Organization [facility] Address [address] [place] [address] Care Team Providers Care Yarn Man Name Role Phone Ludwig Whiting DO Primary Care Provider [phone] Nicolas Gold MD Unavailable Unavailable Juanito Rivas MD Unavailable [phone] Kirk Stringer MD Unavailable Jostin Kenny MD Unavailable [phone] Ashley Tilley MD Unavailable [phone] Bianca Elena Unavailable Ludwig Whiting DO Unavailable [phone] Jostin Kenny MD Unavailable [phone] Trini Brown MD Unavailable [phone] Ashley Tilley MD Unavailable [phone] Franky Fonseca MD Unavailable [phone] Reason for Visit * Reason Comments Medication Refill Encounter Details Date Type Department Care Team (Late st Contact Info) Description 10/17/2021 Refill [facility] Endocrinology [place] [phone] Nicolas Gold MD Needs valid address Type [...] Visit [facility] Endocrinology [place] 100 [facility] 101 [place] [address] Trini Brown MD 100 [facility] 101 [place] [address] 05/25/2025 3:30 PM EDT Office Visit [facility] [place] 10[address] [place] [address] Ludwig Whiting, DO 1060 [place] [address] 06/25/2025 2:00 PM EDT Office Visit [facility] Cardiology [address] [place] [address] Ashley Tilley MD [address] [address] documented as of this encounter Visit Diagnoses Diagnosis Type 2 diabetes mellitus without complications (HCC) documented in this encounter Care Teams Yarn Man Relationship Specialty Start Date End Date Ludwig Whiting DO 1060 [facility] [place] [address] PCP - General Family Medicine 12/01/16 Bianca Elena [address] [place] [address] PCP - Ophthalmology Ophthalmology 01/25/21 Ludwig Whiting DO 1060 [facility] [place] [address] PCP - [place] Commercial Attributed 03/26/21 Nicolas Gold MD 1060 [place] [address] Endocrinology 07/11/17 Juanito Rivas MD [address] [place] [address] Referring Provider Surgery, Neurosurgery 02/01/18 Kirk Stringer MD 112 [place] [address] Consulting Provider Sleep Medicine 02/01/18 Jostin Kenny MD [address] [place] [address] Nephrology 02/01/18 05/13/23 Ashley Tilley MD [address] [place] [address] Cardiovascular Disease 01/25/21 Jostin Kenny MD [address] [place] [address] Nephrology 05/14/23 Trini Brown MD [address] [place] [address] Endocrinology 01/04/24 Ashley Tilley MD [address] [place] [address] Primary Hydro Plant Technician Cardiovascular Disease 01/17/24 Franky Fonseca MD [address] [place] [address] Nephrology 06/10/24 documented as of this encounter
== END 2024-12-24 15:59 | disposition home or self-care (01) ==
PROVIDERS: PCP Family Medicine; Visit Provider Internal Medicine Hypertension Specialist
DX: N18.9 Chronic kidney disease, unspecified (principal)
CPT/HCPCS: 99214

== ENCOUNTER 2025-06-24 14:12 | Outpatient (AMB) | payer BC, SELFPAY ==
--- NOTE | 2025-06-24 14:17 | HO.NEPHOV_ITS ---
Vital Signs 06/24/25 14:18 Height 5 ft 9 in Weight 280 lb BMI 41.3 BP 112/52 L Blood Pressure Location Rt brachial Position Sitting Pulse 93 Pulse Source Pulse Oximeter Pulse Oximetry (%) 95 Oxygen Delivery Method Room Air Intake Visit Reasons: 6mon follow-up w/labs Non Licensed Nuclear Equipment Operator Required: No Accompanied by: Self / Same As Patient Allergies No Known Allergies Allergy (Verified 06/24/25 14:20) Medication List - Last Reconciled 06/24/25 by Jostin Kenny MD allopurinol 300 mg PO BID betamethasone valerate 0.1% topical BID dapagliflozin propanediol 5 mg PO QAM doxazosin 4 mg PO BEDTIME insulin glargine (Lantus U-100 Insulin) units subcut insulin lispro (Humalog KwikPen (U-100) Insulin) 40 - 100 units subcut TID latanoprost 0.005% 1 drp ophthalmic (eye) QPM lisinopril 20 mg PO DAILY simvastatin 20 mg PO DAILY tirzepatide (Mounjaro) mg subcut QWEEK torsemide 40 mg PO DAILY triamcinolone acetonide 0.1% appl topical BID HPI Comments Details: 68-year-old man with a history of obesity longstanding diabetes mellitus and chronic kidney disease. Has history of acute kidney injury and severe hyperkalemia. JULIAN has resolved. He has underlying CKD in a setting of longstanding diabetes mellitus. Baseline creatinine is around 1.1 mg/dL. He is currently on spironolactone and torsemide. Today denies any new complaints no shortness of breath no nausea vomiting. 07/23/24 On maunjaro - lost about 30 lbs Off Spironolactone due to high K Torsemide down to 50 mg BP is good Creatinine is bumped up to 1.66. 12/24/2024. Overall he is doing well. After adding majority has lost further weight. Torsemide has been decreased to 40 mg. Creatinine has dropped to 0.85. Overall he is feeling fine without any new complaints 06/24/25 Dapa has been started BP rather low Cr up from 0.8 to 1.55 [facility] Medical History (Updated 07/22/24 @ 11:38 by Denise Hay MA) Viral pericarditis Spinal stenosis of lumbar region Sleep apnea Prolapsed lumbosacral intervertebral disc Other anterior pituitary disorders Obesity Metabolic acidosis, increased anion gap Hypertension Hyperlipidemia Hypercholesterolemia History of pericarditis H/O kidney disease Gout GERD (gastroesophageal reflux disease) Diabetes mellitus Coronary atherosclerosis Conductive hearing loss, bilateral Chronic heart failure Cardiac tamponade Anemia Acute sinusitis Surgical History Hx of tonsillectomy Family History Mother Cancer Social History Alcohol intake: former Patient Tobacco Use Status: Former Tobacco user Physical Exam Vital Signs: Last Vital Signs Pulse 93 06/24/25 14:18 BP 112/52 L 06/24/25 14:18 Pulse Ox 95 06/24/25 14:18 Oxygen Delivery Method Room Air 06/24/25 14:18 BMI result Body Mass Index 41.3 Comfortable Neck supple no JVD. Lungs entry equal no rales. Heart S1-S2 heard no gallop or rub. Abdomen soft nontender. Neuro alert awake oriented. No asterixis. Extremities no edema. Results Reviewed Results Reviewed: Potassium 5.2 Creatinine 1.66 Assessment & Plan Assessment & Plan (1) CKD (chronic kidney disease): Code(s): N18.9 - Chronic kidney disease, unspecified Category: Medical Plan Middle-aged man with CKD 3 in the setting of longstanding obesity and diabetes mellitus. He had a history of acute kidney injury which has resolved renal function is back to baseline. Goal is to slow the progression of renal disease. Continue with NAVEEN inhibition. Hemoglobin A1c should be maintained less than 7% and blood pressure less than 130/80. Continue to avoid nephrotoxic agents including NSAIDs. Discussed weight loss and low-sodium diet. volume status looks acceptable. Agree with Torsemide 40 mg DAILY and titrate dose based on blood pressure and fluid status Agree with the discontinuing spironolactone given JULIAN and hyperkalemia. Continue with SGLT2 inhibitors. Increase PO fluids Recheck labs Orders: Orders Basic Metabolic Panel 1 Week N18.9 - Chronic kidney disease, unspecified Coding Level of Care Code Est Pt Level 4 (03434) Diagnoses CKD (chronic kidney disease) N18.9
[2025-06-24 14:18] VITALS: BP 112/52; PULSE 93; O2SAT 95; BMI 41.3
--- OUTSIDE RECORDS SUMMARY | 2025-06-24 14:54 | XMS_ITS | Clinical Summary ---
Author Organization [facility] Address [address] [place] [address] Phone Care Team Providers Care Engineering Supplies Sales Name Role Phone Ludwig Whiting DO Primary Care Provider [phone] Allergies No known active allergies Medications allopurinol [...] each day 0 Active Multiple Minerals-Vitamins (CALCIUM [id number] ALS PO) Take 1 capsule by mouth [...] Secondary hypercoagulable state 10/24/2022 Overview (05/08/2023): afib [id number] Stroke Risk was calculated. Total Score: 4 [...] 02/07/2014 04/04/2022 Overview (04/05/2021): Annotation : bi-pap Immunizations Immunization Administration Dates Next Due Influenza TIV (IM) [...] A1C 06/20/2022 03/21/2022, 05/0 12/2020 Pneumococcal Vaccine: 50+ Years (3 of 3 - PCV20 or PCV21) 06/22/2023 04/27/2023, 03/18/2015, 08/26/2003 Influenza Vaccine (#1) 2025 2, 10/19/2021, 08/24/2020, Additional history exists Pneumococcal Vaccine: Peds (0 to 5 Years) and At-Risk Patients (6 to 49 Years) Discontinued 04/27/2023, 03/18/2015, 08/26/2003 Hepatitis B Vaccine Aged Out No longe r eligible based on patient's age to complete this topic Procedures Procedure Name Priority Date/Time Associated Diagnosis Comments EXT RESULT ENTRY Routine 03/21/2022 from Last 3 Months or Most Recently Relevant to Health Maintenance Results * (ABNORMAL) EXT RESULT ENTRY (03/21/2022) Sodium 138 137 - 147 Potassium 4.5 3.4 - 5.5 Chloride 105.0 99.0 - 108.0 Bicarbonate (CO2) 25 22 - 30 mmol/L Creatinine 0.84 0.60 - 1.30 mg/dL eGFR Non-Afr Hungarian 93 eGFR 107 AST (SGOT) 21 U/L Alkaline Phosphatase 26 U/L Hemoglobin A1C 5.7 4.0 - 6.0 Creatinine, Urine Random 23 mg/dL Alb/Creat Ratio, Ur 130 mg/g Creat Triglycerides 265(A) 40 - 160 Cholesterol 109 0 - 200 HDL 25(A) 35 - 70 MG/DL LDL Calculated 53 0 - 160 mg/dL 03/21/2022 us Historical Provider LAB BLOOD ORDERABLES Nancy calderon Result from Last 3 Months or Most Recently Relevant to Health Maintenance Insurance Care Teams Engineering Supplies Sales Relationship Specialty Start Date End Date Ludwig Whiting DO [address] [place], [place] PCP - General Family Medicine 04/05/21
--- OUTSIDE RECORDS SUMMARY | 2025-06-24 14:54 | XMS_ITS | Encounter Summary ---
Author Organization [facility] Address [address] [place] [address] Care Team Providers Care Drafter Geophysical Name Role Phone Ludwig Whiting DO Primary Care Provider [phone] Nicolas Gold MD Unavailable Unavailable Juanito Rivas MD Unavailable Kirk Stringer MD Unavailable Jostin Kenny MD Unavailable [phone] Marcelle Bass RN Unavailable Ashley Tilley MD Unavailable [phone] Bianca Elena Unavailable Ludwig Whiting DO Unavailable Jostin Kenny MD Unavailable [phone] Trini Brown MD Unavailable [phone] Ashley Tilley MD Unavailable [phone] Franky Fonseca MD Unavailable [phone] Encounter Details Date Type Department Care Team (Late st Contact Info) Description 04/07/2021 Scanned Document [facility] [address] [address] Ludwig Whiting, DO [facility] [place] [address] Social History Tobacco Use Types Packs/Day Years Used Date Smoking Tobacco: Former Cigarettes Q uit: 1989 Cigars Smokeless Tobacco: Never Alcohol Use Standard Drinks/Week Comments No 0 (1 standard drink = 0.6 oz pur e alcohol) Sex and Gender Information Value Date Recorded Sex Assigned at Male 04/26/2023 10:23 AM EDT Legal Sex Male 12:11 PM EDT Gender Identity Male 04/26/2023 10:23 AM [...] Care Team (Late st Contact Info) Description 06/25/2025 2:00 PM EDT Office Visit [facility] Cardiology [address] [place] [address] Ashley Tilley MD 100 [facility] [address] [place] [address] 08/21/2025 11:30 AM EDT Office Visit [facility] Endocrinology [place] 100 [facility] [address] [place] [address] Trini Brown MD 100 [facility] 101 [place] [address] 10/08/2025 2:30 PM EST Office Visit [address] [address] Ludwig Whiting, DO 1060 [facility] [address] 12/11/2025 1:30 PM EST Office Visit [facility] Endocrinology [place] [address] [place] [address] Trini Brown MD [address] [place] [address] documented as of this encounter Visit Diagnoses Not on filedocumented in this encounter Care Teams Drafter Geophysical Relationship Specialty Start Date End Date Ludwig Whiting DO [address] [place] [address] [place] [address] PCP - General Family Medicine 12/01/16 Bianca Elena 139 [facility] [address] [place] [address] PCP - Ophthalmology Ophthalmology 01/25/21 Ludwig Whiting, [address] [place] [address] [place] [address] PCP - [place] Commercial Attributed 03/26/21 Nicolas Gold MD [address] [place] [address] [place] [address] Endocrinology 07/11/17 Juanito Rivas MD [address] [place] [address] Referring Provider Surgery, Neurosurgery 02/01/18 Kirk Stringer MD [address] [place] [address] Consulting Provider Sleep Medicine 02/01/18 Jostin Kenny MD 112 [place] [address] Nephrology 02/01/18 05/13/23 Marcelle Bass, RN [address] [facility] [address] [address] [place] [address] ICP Transition Ecommerce Merchandising Manager 08/25/20 09/20/21 Ashley Tilley MD [address] [place] [address] Cardiovascular Disease 01/25/21 Jostin Kenny MD [address] [place] [address] Nephrology 05/14/23 Trini Brown MD [address] [place] [address] Endocrinology 01/04/24 Ashley Tilley MD [address] [place] [address] Primary Beef Cattle Farm Manager Cardiovascular Disease 01/17/24 Franky Fonseca MD [address] [place] [address] Nephrology 06/10/24 documented as of this encounter
--- OUTSIDE RECORDS SUMMARY | 2025-06-24 14:54 | XMS_ITS | Clinical Summary ---
Author Organization [facility] Address [address] [place] [address] Care Team Providers Care Production Control Pegboard Clerk Name Role Phone Kirk Stringer Primary Care Provider Unav ailable Medications LISINOPRIL-HCTZ (PRINZIDE,ZESTO RETIC) 20-12.5 MG per tablet Lisinopril-Erie chlorothiazide 20-12.5MG, 2 daily #0.00, starting 09/03/2007, No Refill. Active. 0 0 7 Active Simvastatin (Zocor) 40 MG tablet Zocor 40MG, 1 Every Day #0.00, starting 09/03/2007, No Refill. Active. 0 0 7 Active MetFORMIN HCl (FORTAMET) 1000 MG 24 hr tablet MetFORMIN HCl ER (OSM) 1000MG (OSM), 1 TAB QAM AND 1 1/2 TAB Q PM #0.00, starting 09/03/2007, No Refill. Active. 0 0 7 Active Aspirin (Aspirin 81) 81 MG EC tablet Aspir-81 81MG, 1 Every Day #0.00, starting 09/03/2007, No Refill. Active. 0 0 7 Active Bumetanide (Bumex) 1 MG tablet Bumex 1MG, 2 Every A.M. #0.00, starting 07/20/2010, No Refill. Active. 0 0 0 Active Bumetanide (BUMEX) 2 MG tablet Bumetanide (2MG 1 Oral daily) Active -Hx Entry 0 0 8 Active hydrALAZINE HCl (APRESOLINE) 100 MG tablet HydrALAZINE HCl (100MG Oral two times daily) Active -Hx Entry 0 0 11/07/201 8 Active Niacin CR 500 MG CR capsule Niacin ER (500MG 1 Oral daily) Active -Hx Entry 0 0 8 Active Dorzolamide-Zane olol (COSOPT) 2-0.5 % ophthalmic solution Dorzolamide HCl-Timolol Mal (22.3-6.8MG/ML Ophthalmic three times daily) Active -Hx Entry 0 0 8 Active Insulin Lispro, 1 Unit Dial, (HumaLOG KwikPen) 100 UNIT/ML Solution Pen-injector HumaLOG KwikPen (100UNIT/ML Subcutaneous three times daily) Active -Hx Entry 0 0 8 Active Fenofibrate Micronized (LOFIBRA) 134 MG capsule Fenofibrate Micronized (134MG 1 Oral daily) Active -Hx Entry 0 0 8 Active NIFEdipine CR Osmotic (PROCARDIA XL) 30 MG 24 hr tablet NIFEdipine ER Osmotic Release (30MG Oral daily) Active -Hx Entry 0 0 8 Active Allopurinol (Zyloprim) 300 MG tablet Allopurinol (300MG Oral two times daily) Active -Hx Entry 0 0 8 Active Liraglutide (VICTOZA) 18 MG/3ML prefilled pen Victoza (18MG/3ML Subcutaneous daily) Active -Hx Entry 0 0 8 Active Aspirin (Aspirin Childrens) 81 MG chewable tablet Aspirin Child (81MG 1 Oral daily) Active -Hx Entry 0 0 8 Active Bimatoprost (Lumigan) 0.01 % ophthalmic drops Lumigan (0.01% Ophthalmic daily) Active -Hx Entry 0 0 8 Active Vitamin D3 (VITAMIN D-3) 50 MCG (1999 UT) capsule Vitamin D3 (2000UNIT 1 Oral daily) Active -Hx Entry 0 0 8 Active Simvastatin (ZOCOR) 40 MG tablet Simvastatin (40MG 1 Oral daily) Active -Hx Entry 0 0 8 Active Fish Oil (FISH OIL) 1000 MG Cap Fish Oil (1000MG Oral daily) Active -Hx Entry 0 0 8 Active Multiple Vitamins-Iron (Multi-Vitamin/ Iron) Tab Multivitamin/Iro n ( Oral daily) Active -Hx Entry 0 0 8 Active FLUTICASONE PROPIONATE, NASAL, (FT Allergy Relief 24 HR) 50 MCG/ACT nasal spray USE 1 SPRAY IN EACH NOSTRIL TWICE DAILY (USE AFTER NASAL SALINE). 1 3 0 Active Saline Nasal Scalf (OCEAN) 0.65 % nasal spray USE 1 SPRAY IN EACH NOSTRIL TWICE DAILY. 1 spray 5 0 Active Doxazosin Mesylate (CARDURA) 2 MG tablet 90 0 2 Active Lisinopril (PRINIVIL,ZESTR IL) 20 MG tablet TAKE 1 TABLET BY MOUTH EVERY DAY 90 0 2 Active Triamcinolone Acetonide (KENALOG) 0.1 % cream 60 0 2 Active Dorzolamide HCl-Timolol Mal PF 2-0.5 % Solution 180 0 2 Active Torsemide (DEMADEX) 100 MG tablet TAKE 1 TABLET BY MOUTH EVERY DAY 90 0 2 Active Doxazosin Mesylate (CARDURA) 4 MG tablet 90 0 2 Active Spironolactone (ALDACTONE) 25 MG tablet 90 0 2 Active Continuous Blood Gluc Sensor (FreeStyle Luis 14 Day Sensor) Misc 6 0 2 Active Betamethasone Valerate (VALISONE) 0.1 % ointment 30 0 2 Active Active Problems Problem Noted Date Diagnosed Date 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 Hearing loss 07/05/2020 Eustachian tube dysfunction 07/05/2020 Daily caffeine consumption 05/16/2019 Overview (12/30/2023): Onset: 09/03/2007; Description: Sleep Medicine Migration - Source Name: CAFFEINE: Consumes a moderate amount of caffeinated beverages daily Mother 05/16/2019 Overview (12/30/2023): Onset: 09/03/2007; Description: Sleep Medicine Migration - Source Name: MOTHER: The mother is Father 05/16/2019 Overview (12/30/2023): Onset: 09/03/2007; Description: Sleep Medicine Migration - Source Name: FATHER: The father is 05/16/2019 Overview (12/30/2023): Onset: 09/03/2007; Description: Sleep Medicine Migration - Source Name: MARITAL STATUS: , living with spouse Tonsillectomy with adenoidectomy 05/16/2019 Overview (12/30/2023): Onset: 09/03/2007; Description: Sleep Medicine Migration - Source Name: SURGICAL: Tonsils and adenoids Rhinitis, chronic 05/16/2019 Overview (12/30/2023): Onset: 09/03/2007; Description: Sleep Medicine Migration - Source Name: Rhinitis, chronic (472.0); Notes: ASSESSMENT: resolved. History of marijuana use 05/16/2019 Overview (12/30/2023): Onset: 09/03/2007; Description: Sleep Medicine Migration - Source Name: ILLICIT DRUG USE: Previously used marijuana Hypertension 05/16/2019 Overview (12/30/2023): Onset: 07/19/2012; Description: Sleep Medicine Migration - Source Name: MEDICAL: Hypertension Glaucoma 05/16/2019 Overview (12/30/2023): Onset: 07/19/2012; Description: Sleep Medicine Migration - Source Name: MEDICAL: Glaucoma Seldom use of alcohol 05/16/2019 Overview (12/30/2023): Onset: 09/03/2007; Description: Sleep Medicine Migration - Source Name: ALCOHOL: Seldom drinks alcohol Does not exercise 05/16/2019 Overview (12/30/2023): Onset: 09/03/2007; Description: Sleep Medicine Migration - Source Name: EXERCISES: The patient does not exercise regularly Smokes cigarettes 05/16/2019 Overview (12/30/2023): Onset: 09/03/2007; Description: Sleep Medicine Migration - Source Name: TOBACCO USE: Smoked for 20 to 30 years Former cigarette smoker 05/16/2019 Overview (12/30/2023): Onset: 09/03/2007; Description: Sleep Medicine Migration - Source Name: TOBACCO USE: Stopped using cigarettes recently Diabetes 05/16/2019 Overview (12/30/2023): Onset: 07/19/2012; Description: Sleep Medicine Migration - Source Name: MEDICAL: Diabetes Hypercholesterolemia 05/16/2019 Overview (12/30/2023): Onset: 07/19/2012; Description: Sleep Medicine Migration - Source Name: MEDICAL: Hypercholesterolemia 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 Sleep related hypoxia 05/16/2019 Overview (12/30/2023): Transitioned From: Comorbid sleep-related hypoventilation Impression - [id number]: Continue with PAP; Description: O2< 89% for 54% of the night with earlene of 30%. Was responsive to CPAP. Obstructive sleep apnea 05/16/2019 Overview (12/30/2023): Onset: 09/03/2007 Impression - [id number]: Continue APAP with all sleep. He can remain at the current pressures.; He benefits from PAP use.; He should replace the mask cushion and filter at least once a month.; Replace the tubing every 3 months.; Replace the headgear and water chamber every 6 months. Impression - [id number]: Continue with PAP at current pressure setting. Will send script for supplies. Will f/u in 1 year or sooner as needed.; Description: 07/2007 dxPSG: AHI 87.6, O2 earlene 30% 08/2007 CPAP Titration: Excellent results at 2117 Morbid obesity with BMI of 50.0-59.9, adult 04/27 Overview (12/30/2023): Onset: 09/03/2007 Impression - [id number]: Additional weight loss is advised. Impression - [id number]: Additional weight loss is advised.; Description: A risk factor for PRINCE. Social History Tobacco Use Types Packs/Day Years Used Date Smoking Tobacco: Never Assessed Comments:Smoking Status:Form er smoker Sex and Gender Information Value Date Recorded Sex Assigned at Not on file Legal Sex Male 7:02 PM EDT Gender Identity Not on file Sexual Orientation Not on file Last Filed Vital Signs Vital Sign Reading Time Taken Comments Blood Pressure 140/50 02/02/2023 1:20 PM EST Pulse 106 02/02/2023 1:20 PM EST Temperature - - Respiratory Rate 16 10/20/2019 11:11 AM EST Oxygen Saturation 96% 02/02/2023 1:20 PM EST Inhaled Oxygen Concentration - - Weight 145 kg (320 lb) 02/02/2023 1:20 PM EST Height 176.5 cm (5' 9.5 ) 10/02/2018 12:40 PM ES T Body Mass Index 46.58 10/02/2018 12:40 PM EST Plan of Treatment Health Maintenance Due Date Last Done Comments HA1C 1955 Hepatitis C Screening 1955 DTaP/Tdap/Td (1 - Tdap) 1975 Eye/Retina Exam 1975 GFR 1975 LDL Cholesterol 1975 Microalbumin 1975 Pneumococcal 50+ years (1 of 2 - PCV) 1976 Colon Cancer Screening 2002 Zoster (Shingrix) (1 of 2) 2007 RSV (1 - Risk 60-74 years 1- dose series) 2017 COVID-19 Vaccine ( - 2023-2 5 season) 2024 Influenza (#1) 2025 Abdominal Aorta Imaging Discontinued HPV Vaccine (No Doses Required) Completed Hep A Aged Out No longer eligi ble based on patient's age to complete this topic Hep B Aged Out No longer eligi ble based on patient's age to complete this topic Hib Aged Out No longer eligi ble based on patient's age to complete this topic Meningococcal ACWY Aged Out No longer eligible based on patient's age to complete this topic Zoster (Zostavax) Discontinued Care Teams Production Control Pegboard Clerk Relationship Specialty Start Date End Date Kirk Stringer PCP - General 07/02/23
--- OUTSIDE RECORDS SUMMARY | 2025-06-24 14:54 | XMS_ITS | Clinical Summary ---
Author Organization [facility] Address [address] [place] [address] Care Team Providers Care Mixer Helper Name Role Phone Ludwig Whiting MD Primary Care Provider [phone] Allergies No known active allergies Medications Medication [...] season) 2024 03/21/2021, 02/28/2021 Influenza Vaccine (#1) 2025 0, 08/24/2020, 08/30/2019, Additional history exists RSV Adult > 60+ Yrs or (1 - 1-dose 75+ series) 2032 Hepatitis B Vaccines Aged Out No long er eligible based on patient's age to complete this topic RSV Ped < 20 months Aged Out No longe r eligible based on patient's age to complete this topic Care Teams Mixer Helper Relationship Specialty Start Date End Date Ludwig Whiting MD [address] [place], [place] [id number] PCP - General Family Medicine 09/21/17
--- OUTSIDE RECORDS SUMMARY | 2025-06-24 14:54 | XMS_ITS ---
Author Name [facility] Organization Unknown Results Test Name/Text Value Interpretation Date Range Source HbA1c MFr Bld 6.7 % Above high normal 04/09/2025 - 5.7 [facility] BUN SerPl-mCnc 22.0 mg/dL Normal 04/09/2025 7 - [address] Chloride SerPl-sCnc 105.0 mmol/L Normal 04/09/2025 98 - 1 10 [facility] Sodium SerPl-sCnc 138.0 mmol/L Normal 04/09/2025 135 - 14 6 [facility] CO2 SerPl-sCnc 25.0 mmol/L Normal 04/09/2025 20 - 32 [facility] EST eGFRcr SerPlBld CKD-EPI 2020 94.0 mL/min/1.73m2 Normal 04/09/2025 - [facility] Glucose SerPl-mCnc 131.0 mg/dL Above high normal 04/09/2025 65 - 99 [facility] BUN/Creat SerPl SEE NOTE: 04/09/2025 6 - [address] Potassium SerPl-sCnc 4.0 mmol/L Normal 04/09/2025 3.5 - 5 .3 [facility] Calcium SerPl-mCnc 10.1 mg/dL Normal 04/09/2025 8.6 - 10. 3 [facility] Creat SerPl-mCnc 0.9 mg/dL Normal 04/09/2025 0.7 - 1.35 Q [facility] POC Glucose 115.0 mg/dL Above high normal 12/04/2024 65 - 99 [facility] POC Glucose 114.0 mg/dL Above high normal 12/04/2024 65 - 99 [facility] Calcium SerPl-mCnc 9.8 mg/dL Normal 11/29/2024 8.6 - 10.3 [facility] Creat SerPl-mCnc 0.82 mg/dL Normal 11/29/2024 0.7 - 1.35 [facility] CO2 SerPl-sCnc 26.0 mmol/L Normal 11/29/2024 20 - 32 [facility] Sodium SerPl-sCnc 142.0 mmol/L Normal 11/29/2024 135 - 14 6 [facility] Glucose SerPl-mCnc 76.0 mg/dL Normal 11/29/2024 65 - 99 [facility] Potassium SerPl-sCnc 4.0 mmol/L Normal 11/29/2024 3.5 - 5 .3 [facility] BUN/Creat SerPl SEE NOTE: Normal 11/29/2024 6 - [address] BUN SerPl-mCnc 19.0 mg/dL Normal 11/29/2024 7 - [address] Chloride SerPl-sCnc 107.0 mmol/L Normal 11/29/2024 98 - 1 10 [facility] eGFRcr SerPlBld CKD-EPI 2020 96.0 mL/min/1.73m2 Normal 11/29/2024 - [facility] Neutrophils/leuk NFr Bld Auto 64.5 % Normal 11/29/2024 [facility] Neutrophils # Bld Auto 3677.0 cells/uL Normal 11/29/2024 1500 - 7800 [facility] Platelet # Bld Auto 208.0 Thousand/uL Normal 11/29/2024 140 - 400 [facility] Hgb Bld-mCnc 13.8 g/dL Normal 11/29/2024 13.2 - 17.1 [facility] T Basophils/leuk NFr Bld Auto 0.5 % Normal 11/29/2024 [facility] Hct VFr Bld Auto 42.3 % Normal 11/29/2024 38.5 - 50 [facility] EST Basophils # Bld Auto 29.0 cells/uL Normal 11/29/2024 0 - 200 [facility] RBC # Bld Auto 4.55 Million/uL Normal 11/29/2024 4.2 - 5. 8 [facility] Monocytes/leuk NFr Bld Auto 11.1 % Normal 11/29/2024 [facility] Lymphocytes/leuk NFr Bld Auto 21.3 % Normal 11/29/2024 [facility] Lymphocytes # Bld Auto 1214.0 cells/uL Normal 11/29/2024 850 - 3900 [facility] WBC # Bld Auto 5.7 Thousand/uL Normal 11/29/2024 3.8 - 10 .8 [facility] MCH RBC Qn Auto 30.3 pg Normal 11/29/2024 27 - [address] Eosinophil/leuk NFr Bld Auto 2.6 % Normal 11/29/2024 [facility] MCHC RBC Auto-mCnc 32.6 g/dL Normal 11/29/2024 32 - 36 [facility] Eosinophil # Bld Auto 148.0 cells/uL Normal 11/29/2024 15 - 500 [facility] RDW RBC Auto-Rto 15.0 % Normal 11/29/2024 11 - 15 [facility] EST PMV Bld Jurgen-Zeb 11.6 fL Normal 11/29/2024 7.5 - 12.5 [facility] MCV RBC Auto 93.0 fL Normal 11/29/2024 80 - 100 [facility] Monocytes # Bld Auto 633.0 cells/uL Normal 11/29/2024 200 - 950 [facility] History of Medication Use Medication Directions Dispensed Refills Start Date End Date Status dapagliflozin (FARXIGA) 5 mg tablet Take 1 tablet (5 mg total) by mouth every morning. 04/10/20 25 active tirzepatide (MOUNJARO) 12.5 mg/0.5 mL pen-injector Inject 1 Pen (12.5 mg total) under the skin once a week. 04/10/20 25 active insulin glargine (Lantus) 100 units/mL injection Inject 0.35 mL (35 Units total) under the skin 2 (two) times a day. DX CODE E11.21 02/13/20 25 active lisinopril (PRINIVIL,ZeSTRIL) 20 MG tablet Take 1 tablet (20 mg total) by mouth daily. 11/24/20 24 active tirzepatide (MOUNJARO) 5 mg/0.5 mL pen-injector Inject 1 pen(s) (5 mg total) under the skin once a week. 06/18/20 24 active simvastatin (ZOCOR) 20 MG tablet Take 1 tablet (20 mg total) by mouth nightly. 06/12/20 24 active tirzepatide (MOUNJARO) 2.5 mg/0.5 mL pen-injector Inject 1 pen(s) (2.5 mg total) under the skin once a week. 04/04/20 24 active Lantus 100 UNIT/ML injection INJECT 2 ML (200 UNITS TOTAL) UNDER THE SKIN 2 (TWO) TIMES A DAY. 06/19/20 23 active insulin glargine (Lantus) 100 units/mL injection Inject 2 mL (200 Units total) under the skin 2 (two) times a day. 09/28/20 22 active betamethasone valerate (VALISONE) 0.1 % ointment Apply topically 2 (two) times a day. 09/26/20 22 023 active allopurinol (ZYLOPRIM) 300 MG tablet TAKE 1 TABLET BY MOUTH TWICE A DAY 08/14/20 22 active spironolactone (ALDACTONE) 25 MG tablet TAKE 1 TABLET (25 MG TOTAL) BY MOUTH DAILY. 05/20/20 22 024 active zlpsku-hsfyewirz-lo gnesium sulfates (Suprep Bowel Prep Kit) 17.5-3.13-1.6 GM/177ML Solution solution Follow directions provided by physician's office. 03/03/20 22 active Lantus 100 UNIT/ML injection INJECT 2 ML (200 UNITS TOTAL) UNDER THE SKIN 2 (TWO) TIMES A DAY. 02/21/20 22 active Blood Glucose Monitoring Suppl (Stremor Verio) w/Device Kit Use to test blood sugar two times daily 01/23/20 22 active doxazosin (CARDURA) 2 MG tablet Take 1 tablet (2 mg total) by mouth nightly. 11/08/20 21 active latanoprost (XALATAN) 0.005 % ophthalmic solution Administer 1 drop to both eyes nightly. 10/27/20 19 active BiPAP CHANDLER 99 BiPAP CHANDLER 99ResMed AirCurve 10S: IPAP 21 / EPAP 17 cm H2O, ALL NEC SUPPLIES, Heated humidifier&hose. Mask: Pt. Pref. G47.33, CHANDLER: 99months;QTY 1X Ea. Quantity: 1 Refills: 0ShouKirk jolly M.D. Start : [id number]-[id number] 10/20/20 19 completed Allopurinol 300 MG Oral Tablet Allopurinol 300 MG Oral TabletAllopurinol (300MG Oral two times daily) Active -Hx Entry Quantity: 0 Refills: 0Unknown, Provider Start : 6-Voc-8549Rudyht 10/02/20 18 completed Dorzolamide HCl-Timolol Mal 22.3-6.8 MG/ML Ophthalmic Solution Dorzolamide HCl-Timolol Mal 22.3-6.8 MG/ML Ophthalmic SolutionDorzolamide HCl-Timolol Mal (22.3-6.8MG/ML Ophthalmic three times daily) Active -Hx Entry Quantity: 0 Refills: 0Unknown, Provider Start : 3-Gwh-9558Jhupmh 10/02/20 18 completed Fish Oil 1000 MG Oral Capsule Fish Oil 1000 MG Oral CapsuleFish Oil (1000MG Oral daily) Active -Hx Entry Quantity: 0 Refills: 0Unknown, Provider Start : 0-Ucx-6976Bgfhzx 10/02/20 18 completed HumaLOG KwikPen 100 UNIT/ML Subcutaneous Solution Pen-injector HumaLOG KwikPen 100 UNIT/ML Subcutaneous Solution Pen-injectorHumaLOG KwikPen (100UNIT/ML Subcutaneous three times daily) Active -Hx Entry Quantity: 0 Refills: 0Unknown, Provider Start : 10/02/20 18 completed hydrALAZINE HCl - 100 MG Oral Tablet hydrALAZINE HCl - 100 MG Oral TabletHydrALAZINE HCl (100MG Oral two times daily) Active -Hx Entry Quantity: 0 Refills: 0Unknown, Provider Start : 3-Jar-6288Jylhzv 10/02/20 18 completed Niacin ER 500 MG Oral Capsule Extended Release Niacin ER 500 MG Oral Capsule Extended ReleaseNiacin ER (500MG 1 Oral daily) Active -Hx Entry Quantity: 0 Refills: 0Unknown, Provider Start : 10/02/20 18 completed Simvastatin 40 MG Oral Tablet Simvastatin 40 MG Oral TabletSimvastatin (40MG 1 Oral daily) Active -Hx Entry Quantity: 0 Refills: 0Unknown, Provider Start : 2-Eru-0224Azvffl 10/02/20 18 completed Vitamin D3 50 MCG (2000 UT) Oral Capsule Vitamin D3 50 MCG (2000 UT) Oral CapsuleVitamin D3 (2000UNIT 1 Oral daily) Active -Hx Entry Quantity: 0 Refills: 0Unknown, Provider Start : 1-Dpk-4812Zmfvpe 10/02/20 18 completed Aspirin 81 81 MG Oral Tablet Delayed Release Aspirin 81 81 MG Oral Tablet Delayed ReleaseAspir-81 81MG, 1 Every Day #0.00, starting 09/03/2007, No Refill. Active. Quantity: 0 Refills: 0Unknown, Provider Start : 3-Afc-6018Mxnltp 09/03/20 07 completed Lisinopril-hydroCHL OROthiazide 20-12.5 MG Oral Tablet Lisinopril-hydroCHLOROt hiazide 20-12.5 MG Oral TabletLisinopril-Hydroc hlorothiazide 20-12.5MG, 2 daily #0.00, starting 09/03/2007, No Refill. Active. Quantity: 0 Refills: 0Unknown, Provider Start : 2-Fqe-2978Orlndb 09/03/20 07 completed cetirizine (ZyrTEC) 5 MG chewable tablet Chew 1 tablet (5 mg total) daily. active Cholecalciferol (VITAMIN D3) 2000 UNITS Cap capsule Take 1 capsule (2,000 Units total) by mouth every other day. active omega-3 fatty acids (FISH OIL) 1000 MG Cap capsule Take by mouth 2 (two) times a day. 300 QD active Problems Problem Status Onset Date Problem Type Date of Resoluti on Source Gout active 2017-11-02 ProblemAct [facility] Chronic heart failure with preserved ejection fraction active 2021-01-25 ProblemAct [facility] Mild nonproliferative diabetic retinopathy of both eyes without macular edema associated with type 2 diabetes mellitus active 2022-03-16 ProblemAct [facility] Conductive hearing loss, bilateral active 2020-07-07 ProblemAct [facility] Secondary hypercoagulable state active 2022-10-24 ProblemAct [facility] Essential hypertension active 2015-03-18 ProblemAct [facility] Type 2 diabetes mellitus with stage 3a chronic kidney disease, with long-term current use of insulin active 2015-03-18 ProblemAct [facility] Chronic low back pain active 2014-02-07 ProblemAct [facility] GERD (gastroesophageal reflux disease) active 2020-08-24 ProblemAct [facility] PRINCE treated with BiPAP active 2014-02-07 ProblemAct [facility] Lumbar herniated disc active 2017-09-24 ProblemAct [facility] History of viral pericarditis active 2021-01-25 ProblemAct [facility] Ex-smoker active 2020-10-05 ProblemAct [facility] Coronary artery disease involving [place] coronary artery of [place] heart without angina pectoris active 2021-07-07 ProblemAct [facility] T Spinal stenosis of lumbar region with radiculopathy active 2017-09-24 ProblemAct [facility] Other anterior pituitary disorders active 2014-08-11 ProblemAct [facility] Type 2 diabetes mellitus with diabetic polyneuropathy, with long-term current use of insulin active 2023-04-27 ProblemAct [facility] 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 ProblemAct [facility] Anemia of chronic disease active 2021-04-05 ProblemAct [facility] Class 3 severe obesity due to excess calories with serious comorbidity and body mass index (BMI) of 45.0 to 49.9 in adult active 2015-03-18 ProblemAct [facility] Atherosclerosis of abdominal aorta active 2022-10-24 ProblemAct [facility] Secondary hyperaldosteronism active 2022-10-24 ProblemAct [facility] Mixed hyperlipidemia active 2015-03-18 ProblemAct [facility] Personal history of colonic polyps active 2022-02-24 ProblemAct [facility] Paroxysmal atrial fibrillation active 2020-10-05 ProblemAct [facility] Immunizations Vaccine Date Source Lot Number Status Influenza High-Dose Trivalen t,(FLUZONE HIGH-DOSE), Perservative Free IM 0.5 mL 65 years and older 11/24/2024 [facility] [id number] completed Influenza, Quadrivalent (FLU AD) Adjuvanted Preservative Free IM 65 years and older 10/19/2023 [facility] [id number] completed Pneumococcal Conjugate 20-Valent 04/27/2023 [facility] [id number] [id number] completed Zoster Vaccine Recombinant (Shingrix) 04/27/2023 [facility] [id number] completed Covid-19 mRNA Bivalent Vacci ne - Pfizer 30 mcg/0.3mL 12+ 10/27/2022 [facility] [id number] completed Influenza Inactivated/Split Preservative Free IM 10/27/2022 [facility] [id number] completed Zoster Vaccine Recombinant (Shingrix) 09/05/2022 [facility] [id number] completed Tdap 04/27/2022 [facility] [id number] completed Zoster Vaccine Recombinant (Shingrix) 04/27/2022 [facility] completed Covid-19 MRNA Vaccine - Pfiz er 12+ (Purple Cap) 10/27/2021 [facility] [id number] completed Influenza, Quadrivalent (FLU ARIX, AFLURIA, FLULAVAL, FLUZONE) Preservative Free IM 10/19/2021 [facility] [id number] completed Influenza Inactivated/Split Preservative Free IM 08/24/2020 [facility] [id number] completed Influenza Inactivated/Split Preservative Free IM 08/30/2019 [facility] completed Influenza, Quadrivalent (FLU ARIX, AFLURIA, FLULAVAL, FLUZONE) Preservative Free IM 08/30/2019 [facility] [id number] completed Pneumococcal Conjugate 13-Valent 03/18/2015 [facility] [id number] completed Influenza (AFLURIA/FLUZONE) Inactivated/Split Quadrivalent with Preservative IM 2014 [facility] [id number] completed Influenza Inactivated/Split Preservative Free IM 11/11/2013 [facility] [id number] completed Influenza Inactivated/Split Preservative Free IM 09/05/2012 [facility] [id number] completed Influenza Inactivated/Split Preservative Free IM 08/23/2010 [facility] [id number] completed Influenza Inactivated/Split Preservative Free IM 08/16/2009 [facility] [id number] completed Tdap 12/04/2008 [facility] [id number] completed TD Preservative Free 11/26/2008 [facility] comp leted Influenza Inactivated/Split Preservative Free IM 09/10/2008 [facility] [id number] completed Influenza Inactivated/Split Preservative Free IM 10/25/2007 [facility] [id number] completed Pneumococcal Polysaccharide 23-Valent 08/26/2003 [facility] completed Encounters Encounter Type Encounter Reason Primary Diagnosis Location Date Ambulatory Type 2 diabetes mellitus with other specified complication Type 2 diabetes mellitus with other specified complication bttn 04/10/2025 Ambulatory Type 2 diabetes mellitus without complications Type 2 diabetes mellitus without complications bttn 12/04/2024 Ambulatory Type 2 diabetes mellitus with diabetic chronic kidney disease Type 2 diabetes mellitus with diabetic chronic kidney disease bttn 11/24/2024 Ambulatory bttn 11/18/2024 Ambulatory Type 2 diabetes mellitus with other specified complication Type 2 diabetes mellitus with other specified complication bttn 11/14/2024 Ambulatory Paroxysmal atrial fibrillation Paroxysmal atrial fibrillation bttn 11/11/2024 Ambulatory Paroxysmal atrial fibrillation Paroxysmal atrial fibrillation bttn 09/09/2024 Ambulatory Paroxysmal atrial fibrillation Paroxysmal atrial fibrillation bttn 08/14/2024 Ambulatory Unspecified atrial fibrillation Unspecified atrial fibrillation bttn 08/11/2024 Ambulatory Type 2 diabetes mellitus with other specified complication Type 2 diabetes mellitus with other specified complication bttn 07/18/2024 Ambulatory Paroxysmal atrial fibrillation Paroxysmal atrial fibrillation bttn 07/11/2024 Ambulatory Paroxysmal atrial fibrillation Paroxysmal atrial fibrillation bttn 06/12/2024 Ambulatory Paroxysmal atrial fibrillation Paroxysmal atrial fibrillation bttn 06/11/2024 Ambulatory Essential (primary) hypertension Essential (primary) hypertension bttn 05/22/2024 Ambulatory Paroxysmal atrial fibrillation Paroxysmal atrial fibrillation bttn 04/14/2024 Ambulatory Type 2 diabetes mellitus with hypoglycemia without coma Type 2 diabetes mellitus with hypoglycemia without coma bttn 04/04/2024 Ambulatory Paroxysmal atrial fibrillation Paroxysmal atrial fibrillation bttn 03/13/2024 Ambulatory Paroxysmal atrial fibrillation Paroxysmal atrial fibrillation bttn 02/12/2024 Ambulatory Paroxysmal atrial fibrillation Paroxysmal atrial fibrillation bttn 01/14/2024 Ambulatory 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 bttn 01/04/2024 Ambulatory Atherosclerosis of aorta Atherosclerosis of aorta bttn 12/21/2023 Ambulatory Paroxysmal atrial fibrillation Paroxysmal atrial fibrillation bttn 12/14/2023 Ambulatory Paroxysmal atrial fibrillation Paroxysmal atrial fibrillation bttn 11/14/2023 Ambulatory Paroxysmal atrial fibrillation Paroxysmal atrial fibrillation bttn 10/15/2023 Ambulatory Paroxysmal atrial fibrillation Paroxysmal atrial fibrillation bttn 09/17/2023 Ambulatory Essential (primary) hypertension Essential (primary) hypertension bttn 08/30/2023 Ambulatory Paroxysmal atrial fibrillation Paroxysmal atrial fibrillation bttn 08/16/2023 Ambulatory Paroxysmal atrial fibrillation Paroxysmal atrial fibrillation bttn 07/17/2023 Ambulatory Paroxysmal atria l fibrillation bttn 06/19/2023 Ambulatory Categorical 06/05/2023 Ambulatory Paroxysmal atria l fibrillation bttn 05/18/2023 Ambulatory Encounter for screening for malignant neoplasm of prostate bttn 04/27/2023 Ambulatory Paroxysmal atria l fibrillation bttn 04/18/2023 Ambulatory Paroxysmal atria l fibrillation bttn 03/20/2023 Ambulatory Type 2 diabetes mellitus with diabetic nephropathy bttn 03/05/2023 Ambulatory [employer] 02/27/2023 Ambulatory Paroxysmal atria l fibrillation bttn 02/19/2023 Ambulatory Paroxysmal atria l fibrillation bttn 01/19/2023 Ambulatory Paroxysmal atria l fibrillation bttn 12/19/2022 Ambulatory Essential (prima ry) hypertension bttn 12/07/2022 Ambulatory Phimosis bttn 11/28/2022 Ambulatory Paroxysmal atria l fibrillation bttn 11/22/2022 Ambulatory Type 2 diabetes mellitus with diabetic chronic kidney disease bttn 10/27/2022 Ambulatory Paroxysmal atria l fibrillation bttn 10/24/2022 Ambulatory Type 2 diabetes mellitus with diabetic nephropathy bttn 10/09/2022 Ambulatory Phimosis bttn 09/26/2022 Ambulatory Paroxysmal atria l fibrillation bttn 09/20/2022 Ambulatory Encounter for immunization bttn 09/05/2022 Ambulatory Paroxysmal atria l fibrillation bttn 08/21/2022 Ambulatory Paroxysmal atria l fibrillation bttn 07/24/2022 Ambulatory Unspecified atri al fibrillation bttn 06/23/2022 Ambulatory Paroxysmal atria l fibrillation bttn 05/23/2022 Ambulatory [facility] [place] 05/11/2022 Ambulatory Unspecified atri al fibrillation bttn 04/28/2022 Ambulatory Personal history of colonic polyps bttn 04/28/2022 Ambulatory Type 2 diabetes mellitus with diabetic nephropathy bttn 04/27/2022 Ambulatory Type 2 diabetes mellitus with diabetic nephropathy bttn 03/28/2022 Ambulatory Paroxysmal atria l fibrillation bttn 03/24/2022 Ambulatory Personal history of colonic polyps bttn 02/24/2022 Ambulatory Paroxysmal atria l fibrillation bttn 02/22/2022 Ambulatory Unspecified atri al fibrillation bttn 01/23/2022 Ambulatory Essential (prima ry) hypertension bttn 11/08/2021 Ambulatory Type 2 diabetes mellitus with diabetic nephropathy bttn 10/27/2021 Ambulatory Unspecified atri al fibrillation bttn 10/25/2021 Ambulatory Type 2 diabetes mellitus with diabetic nephropathy bttn 10/04/2021 Ambulatory Paroxysmal atria l fibrillation bttn 09/26/2021 Ambulatory Paroxysmal atria l fibrillation bttn 08/26/2021 Care Team Organization Name Specialty Phone Email Start Date End Da felicia bttn [facility] 04/10/2025 [facility] 09/28/2023 [facility] 10/27/202204/26 [facility] 10/26/2021 11/14/2022 [facility] 10/04/2021
== END 2025-06-24 14:36 | disposition home or self-care (01) ==
LOC: HO.HKAE 14:13
PROVIDERS: PCP Family Medicine; Visit Provider Internal Medicine Hypertension Specialist
DX: N18.9 Chronic kidney disease, unspecified (principal)
CPT/HCPCS: 99214

== ENCOUNTER 2025-11-04 14:25 | Outpatient (AMB) | payer BC, SELFPAY ==
--- NOTE | 2025-11-04 14:32 | HO.NEPHOV_ITS ---
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: No Accompanied by: Self / Same As Patient Allergies No Known Allergies Allergy (Verified 06/24/25 14:20) Medication List - Last Reconciled 11/04/25 by Jostin Kenny MD allopurinol 300 mg PO BID betamethasone valerate 0.1% topical BID dapagliflozin propanediol 5 mg PO QAM doxazosin 4 mg PO BEDTIME insulin glargine (Lantus U-100 Insulin) units subcut insulin lispro (Humalog KwikPen (U-100) Insulin) 40 - 100 units subcut TID latanoprost 0.005% 1 drp ophthalmic (eye) QPM lisinopril 20 mg PO DAILY simvastatin 20 mg PO DAILY tirzepatide (Mounjaro) mg subcut QWEEK triamcinolone acetonide 0.1% appl topical BID HPI Comments Details: History of Present Illness The patient is a 69 year old male presenting for follow-up regarding his kidney function. His high lead yarder expressed concern about his kidney function, noting a creatinine level of 1.55 mg/dL in May. Following this, the patient independently discontinued torsemide, which he was taking at a dose of 20 mg after it had been reduced from 40 mg. After stopping the torsemide, his creatinine level improved to 1.03 mg/dL in August. He reports that his history of pedal edema has resolved since stopping the medication, and he denies any shortness of breath. The patient has experienced significant weight loss, from 368 pounds down to a current weight of 272 pounds over more than a year. He reports excellent blood sugar control. His primary care provider noted labile blood pressure readings and suggested he may need to restart a diuretic. His current medications include lisinopril, Mounjaro, doxazosin, and Farxiga. The patient uses CPAP therapy for sleep apnea. Results - Labs: - Creatinine (May): 1.55 mg/dL. - Creatinine (August): 1.03 mg/dL. [facility] Medical History (Updated 07/22/24 @ 11:38 by Denise Hay MA) Viral pericarditis Spinal stenosis of lumbar region Sleep apnea Prolapsed lumbosacral intervertebral disc Other anterior pituitary disorders Obesity Metabolic acidosis, increased anion gap Hypertension Hyperlipidemia Hypercholesterolemia History of pericarditis H/O kidney disease Gout GERD (gastroesophageal reflux disease) Diabetes mellitus Coronary atherosclerosis Conductive hearing loss, bilateral Chronic heart failure Cardiac tamponade Anemia Acute sinusitis Surgical History Hx of tonsillectomy Family History Mother Cancer Social History Alcohol intake: former Patient Tobacco Use Status: Former Tobacco user Physical Exam Exam Exam: Physical Exam General: Awake. Comfortable. HENT: Neck supple. Mucosa moist. Pulmonary: Lungs clear. No rales. Cardiology: Heart S1-S2 heard. No gallop. Abdomen: Soft. Non tender. Bowel sounds normal. Neurologic: No involuntary movements. No myoclonus. Extremities: Trace edema. No rash. Vital Signs: Last Vital Signs Pulse 94 11/04/25 14:33 BP 130/70 11/04/25 14:49 Pulse Ox 94 11/04/25 14:33 Oxygen Delivery Method Room Air 11/04/25 14:33 BMI result Body Mass Index 40.2 Assessment & Plan Assessment & Plan (1) CKD (chronic kidney disease): Code(s): N18.9 - Chronic kidney disease, unspecified Category: Medical Plan Plan 1. Acute Kidney Injury superimposed on CKD CKD 3 in the setting of longstanding obesity and diabetes mellitus. - The patient's kidney function has improved significantly, with creatinine decreasing from 1.55 mg/dL to 1.03 mg/dL, after discontinuing torsemide. h/o CHD Currently not on diuretics and there is evidence of mild hypervolemia Add LAsix 20 mg DIALY Check BMP in two weeks to check kidney function. 2. Hypertension - Blood pressure today was 150/62 mmHg, and the patient's PCP has noted labile readings. - To help manage blood pressure and potential hypervolemia, the patient will be started on the lowest possible dose of a diuretic. - Prescribed furosemide (Lasix) 20 mg daily, with a 90-day supply sent to the pharmacy. Orders: Orders Basic Metabolic Panel 2 Weeks N18.9 - Chronic kidney disease, unspecified Medications: New furosemide (Lasix) 20 mg PO DAILY 90 tabs 1RF Coding Level of Care Code Est Pt Level 4 (48406) Diagnoses CKD (chronic kidney disease) N18.9
[2025-11-04 14:33] VITALS: BP 150/62; PULSE 94; O2SAT 94; BMI 40.2
[2025-11-04 14:49] VITALS: BP 130/70
--- OUTSIDE RECORDS SUMMARY | 2025-11-04 22:38 | XMS_ITS | Encounter Summary ---
Author Organization [facility] Address [address] [place] [address] Care Team Providers Care Team Foreman Name Role Phone Ludwig Whiting DO Primary Care Provider [phone] Nicolas Gold MD Unavailable Unavailable Juanito Rivas MD Unavailable Kirk Stringer MD Unavailable Jostin Kenny MD Unavailable [phone] Ashley Tilley MD Unavailable [phone] Bianca Elena Unavailable Ludwig Whiting DO Unavailable Jostin Kenny MD Unavailable [phone] Trini Brown MD Unavailable [phone] Ashley Tilley MD Unavailable [phone] Franky Fonseca MD Unavailable [phone] Encounter Details Date Type Department Care Team (Late st Contact Info) Description 08/13/2022 Scanned Document [facility] Cardiology [address] [place] [phone] Ashley Tilley MD [address] [place] [address] Social History Tobacco Use Types Packs/Day Years [...] Care Team (Late st Contact Info) Description 12/11/2025 1:30 PM EST Office Visit [facility] Endocrinology [address] [phone] Trini Brown MD [address] [place] [address] 04/08/2026 1:45 PM EDT Office Visit [facility] 10[address] [place] [address] Ludwig Whiting, [address] [address] 05/06/2026 2:45 PM EDT Office Visit [facility] Cardiology [address] [place] [phone] Ashley Tilley MD [address] [place] [address] 06/01/2027 12:00 PM EDT Office Visit [facility] Endocrinology [place] [address] [place] [address] Trini Brown MD [address] [place] [address] documented as of this encounter Visit Diagnoses Not on filedocumented in this encounter Care Teams Team Foreman Relationship Specialty Start Date End Date Ludwig Whiting DO 1060 [facility] [place] [address] PCP - General Family Medicine 12/01/16 Bianca Elena [address] [facility] [address] [place] [address] PCP - Ophthalmology Ophthalmology 01/25/21 Ludiwg Whiting DO 1060 [facility] [place] [address] PCP - [place] Commercial Attributed 03/26/21 Nicolas Gold MD 1060 [facility] [place] [address] Endocrinology 07/11/17 Juanito Rivas MD [address] [place] [address] Referring Provider Surgery, Neurosurgery 02/01/18 Kirk Stringer MD [address] [place] [address] Consulting Provider Sleep Medicine 02/01/18 Jostin Kenny MD [address] [place] [address] Nephrology 02/01/18 05/13/23 Ashley Tilley MD [address] [place] [address] Cardiovascular Disease 01/25/21 Jostin Kenny MD [address] [place] [address] Nephrology 05/14/23 Trini Brown MD [address] [place] [address] Endocrinology 01/04/24 Ashley Tilley MD [address] [place] [address] Primary Retail Field Representative Cardiovascular Disease 01/17/24 Franky Fonseca MD [address] [place] [address] Nephrology 06/10/24 documented as of this encounter
--- OUTSIDE RECORDS SUMMARY | 2025-11-04 22:38 | XMS_ITS | Encounter Summary ---
Author Organization [facility] Address [address] [place] [address] Care Team Providers Care Box Office Manager Name Role Phone Ludwig Whiting DO Primary Care Provider [phone] Nicolas Gold MD Unavailable Unavailable Juanito Rivas MD Unavailable [phone] Kirk Stringer MD Unavailable Jostin Kenny MD Unavailable [phone] Marcelle Bass RN Unavailable Ashley Tilley MD Unavailable [phone] Bianca Elena Unavailable Ludwig Whiting DO Unavailable Jostin Kenny MD Unavailable [phone] Trini Brown MD Unavailable [phone] Ashley Tilley MD Unavailable [phone] Franky Fonseca MD Unavailable Encounter Details Date Type Department Care Team (Late st Contact Info) Description 03/24/2021 Scanned Document [facility] 1060 [place] [address] Cardiology, Scan Social History Tobacco Use Types Packs/Day Years Used Date Smoking Tobacco: Former Cigarettes 0 Q uit: 1990 Cigars Smokeless Tobacco: Never Alcohol Use Standard [...] AM EDT documented as of this encounter Functional Status * Level of Risk per Screen Answer Date of Assessment Author Low Risk 03/26/2021 4:00 PM EDT Lois Sewell RN documented as of this encounter Plan of Treatment Upcoming Encounters Date Type Department Care Team (Late st Contact Info) Description 12/11/2025 1:30 PM EST Office Visit [facility] Endocrinology [place] [address] [address] Trini Brown MD [address] [address] 04/08/2026 1:45 PM EDT Office Visit [place] [address] [place] [address] Ludwig Whiting, [address] [place] [address] 05/06/2026 2:45 PM EDT Office Visit [facility] Cardiology [address] [place] [address] Ashley Tilley MD [address] [place] [address] 06/01/2027 12:00 PM EDT Office Visit [facility] Endocrinology [place] [address] [place] [address] Trini Brown MD [address] [place] [address] documented as of this encounter Visit Diagnoses Not on filedocumented in this encounter Care Teams Box Office Manager Relationship Specialty Start Date End Date Ludwig Whiting DO [address] [place] [address] PCP - General Family Medicine 12/01/16 Bianca Elena 139 [facility] [address] [place] [address] PCP - Ophthalmology Ophthalmology 01/25/21 Ludwig Whiting, [address]60 [facility] [place] [address] PCP - [place] Commercial Attributed 03/26/21 Nicolas Gold MD 1060 [place] [address] Endocrinology 07/11/17 Juanito Rivas MD [address] [place] [address] Referring Provider Surgery, Neurosurgery 02/01/18 Kirk Stringer MD [address] [place] [address] Consulting Provider Sleep Medicine 02/01/18 Jostin Kenny MD [address] [place] [address] Nephrology 02/01/18 05/13/23 Marcelle Bass, RN [address] [facility] [facility] 2nd [place] [address] ICP Transition Behavioral Health Care Coordinator 08/25/20 09/20/21 Ashley Tilley MD [address] [place] [address] Cardiovascular Disease 01/25/21 Jostin Kenny MD [address] [place] [address] Nephrology 05/14/23 Trini Brown MD [address] [place] [address] Endocrinology 01/04/24 Ashley Tilley MD [address] [place] [address] Primary Marketing Services Manager Cardiovascular Disease 01/17/24 Franky Fonseca MD [address] [place] [address] Nephrology 06/10/24 documented as of this encounter
--- OUTSIDE RECORDS SUMMARY | 2025-11-04 22:38 | XMS_ITS | Clinical Summary ---
Author Organization [facility] Address [address] [place] [address] Care Team Providers Care Correctional Case Manager Name Role Phone Kirk Stringer Primary Care Provider Unav ailable Medications LISINOPRIL-HCTZ (PRINZIDE,ZESTO RETIC) 20-12.5 MG per tablet Lisinopril-Austin chlorothiazide 20-12.5MG, 2 daily #0.00, starting 09/03/2007, [...] SALINE). 1 3 0 Active Saline Nasal [place] (OCEAN) 0.65 % nasal spray USE 1 [...] Transitioned From: Comorbid sleep-related hypoventilation Impression - [id number]: Continue with PAP; Description: O2< 89% for [...] water chamber every 6 months. Impression - [id number]: Continue with PAP at current pressure setting. Will send script for supplies. Will f/u in 1 year or sooner as needed.; Description: 07/2007 dxPSG: AHI 87.6, O2 earlene 30% 08/2007 CPAP Titration: Excellent results at 2117 Morbid obesity with BMI of 50.0-59.9, adult 04/27 Overview (12/30/2023): Onset: 09/03/2007 Impression - [id number]: Additional weight loss is advised. Impression - [id number]: Additional weight loss is advised.; Description: A [...] - PCV) 1976 Colon Cancer Screening 2002 RSV (1 - Risk 50-74 years 1- dose series) 2007 Zoster (Shingrix) (1 of 2) 2007 COVID-19 Vaccine ( - 2024-2 6 season) 2025 Influenza (#1) 2025 Abdominal Aorta Imaging Discontinued [...] this topic Zoster (Zostavax) Discontinued Care Teams Correctional Case Manager Relationship Specialty Start Date End Date Kirk Stringer PCP - General 07/02/23
--- OUTSIDE RECORDS SUMMARY | 2025-11-04 22:38 | XMS_ITS | Encounter Summary ---
Author Organization [facility] Address [address] [place] [address] Care Team Providers Care Electronic Funds Transfer Coordinator Name Role Phone Oneal Farrell MD Primary Care Provider Ludwig Whiting DO Primary Care Provider [phone] Nicolas Gold MD Unavailable Unavailable Juanito Rivas MD Unavailable [phone] Kirk Stringer MD Unavailable Jostin Kenny MD Unavailable [phone] Marcelle Bass RN Unavailable Ashley Tilley MD Unavailable [phone] Bianca Elena Unavailable Ludwig Whiting DO Unavailable [phone] Jostin Kenny MD Unavailable [phone] Tirni Brown MD Unavailable [phone] Ashley Tilley MD Unavailable [phone] Franky Fonseca MD Unavailable [phone] Encounter Details Date Type Department Care Team (Late st Contact Info) Description 12/06/2015 Scanned Document [facility] [address] [phone] Provider, Generic Social History Tobacco Use Types [...] Description 12/11/2025 1:30 PM EST Office Visit [facility] Endocrinology [address] [phone] Trini Brown MD [address] [address] 04/08/2026 1:45 PM EDT Office Visit [facility] 10[address] [place] [address] Ludwig Whiting, [address] [place] [address] 05/06/2026 2:45 PM EDT Office Visit [facility] Cardiology [address] [place] [address] Ashley Tilley MD [address] [place] [address] 811 [place] [address] 06/01/2027 12:00 PM EDT Office Visit [facility] Endocrinology [address] [address] Trini Brown MD [address] [place] [address] documented as of this encounter Visit Diagnoses Not on filedocumented in this encounter Care Teams Electronic Funds Transfer Coordinator Relationship Specialty Start Date End Date Oneal Farrell MD PCP - General Internal Medicine 08/05/15 11/30/16 Ludwig Whiting DO 1060 [place] [address] PCP - General Family Medicine 12/01/16 Bianca Elena [address] [place] [address] PCP - Ophthalmology Ophthalmology 01/25/21 Ludwig Whiting DO 1060 [place] [address] PCP - [place] Commercial Attributed 03/26/21 Nicolas Gold MD 1060 [place] [address] Endocrinology 07/11/17 Juanito Rivas MD 1000 [place] [address] Referring Provider Surgery, Neurosurgery 02/01/18 Kirk Stringer MD [address] [place] [address] Consulting Provider Sleep Medicine 02/01/18 Jostin Kenny MD [address] [place] [address] Nephrology 02/01/18 05/13/23 Marcelle Bass, RN [address] [facility] [address] 2nd [place] [address] ICP Transition Prior Authorization Technician 08/25/20 09/20/21 Ashley Tilley MD [address] [place] [address] Cardiovascular Disease 01/25/21 Jostin Kenny MD [address] [place] [address] Nephrology 05/14/23 Trini Brown MD [address] [place] [address] Endocrinology 01/04/24 Ashley Tilley MD [address] [place] [address] Primary Lead Pressman [employer] Cardiovascular Disease 01/17/24 Franky Fonseca MD [address] [place] [address] Nephrology 06/10/24 documented as of this encounter
--- OUTSIDE RECORDS SUMMARY | 2025-11-04 22:38 | XMS_ITS | Encounter Summary ---
Author Organization [facility] Address [address] [place] [address] Care Team Providers Care Mail Caller Name Role Phone Ludwig Whiting DO Primary Care Provider [phone] Nicolas Gold MD Unavailable Unavailable Juanito Rivas MD Unavailable Kirk Stringer MD Unavailable [phone] Jostin Kenny MD Unavailable [phone] Marcelle Bass RN Unavailable Ashley Tilley MD Unavailable [phone] Bianca Elena Unavailable Ludwig Whiting DO Unavailable Jostin Kenny MD Unavailable [phone] Trini Brown MD Unavailable [phone] Ashley Tilley MD Unavailable [phone] Franky Fonseca MD Unavailable [phone] Encounter Details Date Type Department Care Team (Late st Contact Info) Description 01/25/2021 Scanned Document [facility] 1060 [place] [address] Ludwig Whiting, 1059 [place] [address] Social History Tobacco Use Types Packs/Day Years [...] Description 12/11/2025 1:30 PM EST Office Visit [facility] Endocrinology [address] [address] Trini Brown MD [address] [place] [address] 04/08/2026 1:45 PM EDT Office [facility] 10[address] [place] [address] Ludwig Whiting, [facility] [place] [address] 05/06/2026 2:45 PM EDT Office Visit [facility] Cardiology [address] [place] [address] Ashley Tilley MD [address] [place] [address] 06/01/2027 12:00 PM EDT Office Visit [facility] Endocrinology [place] [address] [place] [address] Trini Brown MD [address] [place] [address] documented as of this encounter Visit Diagnoses Not on filedocumented in this encounter Care Teams Mail Caller Relationship Specialty Start Date End Date Ludwig Whiting DO 10[address] [place] [address] PCP - General Family Medicine 12/01/16 Bianca Elena [address] [facility] [address] [place] [address] PCP - Ophthalmology Ophthalmology 01/25/21 Ludwig Whiting DO 1060 [facility] [place] [address] PCP - [place] Commercial Attributed 03/26/21 Nicolas Gold MD 1060 [facility] [place] [address] Endocrinology 07/11/17 Juanito Rivas MD [address] [place] [address] Referring Provider Surgery, Neurosurgery 02/01/18 Kirk Stringer MD [address] [place] [address] Consulting Provider Sleep Medicine 02/01/18 Jostin Kenny MD 112 [place] [address] Nephrology 02/01/18 05/13/23 Marcelle Bass, RN [address] [place] [address] ICP Transition Material Preparation Worker 08/25/20 09/20/21 Ashley Tilley MD [address] [place] [address] Cardiovascular Disease 01/25/21 Jostin Kenny MD [address] [place] [address] Nephrology 05/14/23 Trini Brown MD [address] [place] [address] Endocrinology 01/04/24 Ashley Tilley MD [address] [place] [address] Primary Ux Research Associate Cardiovascular Disease 01/17/24 Franky Fonseca MD [address] [place] [address] Nephrology 06/10/24 documented as of this encounter
--- OUTSIDE RECORDS SUMMARY | 2025-11-04 22:38 | XMS_ITS | Clinical Summary ---
Author Organization [facility] Prior to 04/25/25 Address [address] [place] [address] Care Team Providers Care Home Health Aide Name Role Phone Ludwig Whiting MD Primary Care Provider [phone] Allergies No known active allergies Medications Medication [...] 03/18/2015, 08/26/2003 COVID-19 Vaccine (3 - season) 2025 03/21/2021, 02/28/2021 Influenza Vaccine (#1) 2025 0, 08/24/2020, 08/30/2019, Additional history exists RSV Adult > 60+ Yrs or (1 - 1-dose 75+ series) 2032 Hepatitis B Vaccines Aged Out No long er eligible based on patient's age to complete this topic RSV Ped < 20 months Aged Out No longe r eligible based on patient's age to complete this topic Care Teams Home Health Aide Relationship Specialty Start Date End Date Ludwig Whiting MD 1060 [facility] [address] [place] [address] PCP - General Family Medicine 09/21/17
--- OUTSIDE RECORDS SUMMARY | 2025-11-04 22:38 | XMS_ITS | Encounter Summary ---
Author Organization [facility] Address [address] [place] [address] Care Team Providers Care Orthodontist Assistant Name Role Phone Ludwig Whiting DO Primary Care Provider [phone] Nicolas Gold MD Unavailable Unavailable Juanito Rivas MD Unavailable Kirk Stringer MD Unavailable Jostin Kenny MD Unavailable [phone] Marcelle Bass RN Unavailable Ashley Tilley MD Unavailable [phone] Bianca Elena Unavailable Ludwig Whiting DO Unavailable Jostin Kenny MD Unavailable [phone] Trini Brown MD Unavailable [phone] Ashley Tilley MD Unavailable [phone] Franky Fonseca MD Unavailable [phone] Encounter Details Date Type Department Care Team (Late st Contact Info) Description 04/07/2021 Scanned Document [facility] 10[address] [place] [address] Ludwig Whiting, DO 1060 [facility] [place] [address] Social History Tobacco Use Types Packs/Day Years [...] Description 12/11/2025 1:30 PM EST Office Visit [facility] Endocrinology [address] [address] Trini Brown MD [address] [place] [address] 04/08/2026 1:45 PM EDT Office Visit [facility] 10[address] [place] [address] Ludwig Whiting, DO 1060 [facility] [place] [address] 05/06/2026 2:45 PM EDT Office Visit [facility] Cardiology [address] [place] [address] Ashley Tilley MD [address] [place] [address] 06/01/2027 12:00 PM EDT Office Visit [facility] Endocrinology [place] [address] [place] [address] Trini Brown MD [address] [place] [address] documented as of this encounter Visit Diagnoses Not on filedocumented in this encounter Care Teams Orthodontist Assistant Relationship Specialty Start Date End Date Ludwig Whiting DO 1060 [place] [address] PCP - General Family Medicine 12/01/16 Bianca Elena 139 [facility] [address] [place] [address] PCP - Ophthalmology Ophthalmology 01/25/21 Ludwig Whitign DO [address] [place] [address] PCP - [place] Commercial Attributed 03/26/21 Nicolas Gold MD 1060 [facility] [place] [address] Endocrinology 07/11/17 Juanito Rivas MD 1000 [place] [address] Referring Provider Surgery, Neurosurgery 02/01/18 Kirk Stringer MD [address] [place] [address] Consulting Provider Sleep Medicine 02/01/18 Jostin Kenny MD 112 [place] [address] Nephrology 02/01/18 05/13/23 Marcelle Bass, RN [address] [facility] [address] 2nd [place] [address] ICP Transition Fuel Efficient Automobile Designer 08/25/20 09/20/21 Ashley Tilley MD [address] [place] [address] Cardiovascular Disease 01/25/21 Jostin Kenny MD [address] [place] [address] Nephrology 05/14/23 Trini Brown MD [address] [place] [address] Endocrinology 01/04/24 Ashley Tilley MD [address] [place] [address] Primary Felt Strip Finisher Cardiovascular Disease 01/17/24 Franky Fonseca MD [address] [place] [address] Nephrology 06/10/24 documented as of this encounter
--- OUTSIDE RECORDS SUMMARY | 2025-11-04 22:39 | XMS_ITS | Encounter Summary ---
Author Organization [facility] Address [address] [place] [address] Care Team Providers Care Tavern Operator Name Role Phone Ludwig Whiting DO Primary Care Provider [phone] Nicolas Gold MD Unavailable Unavailable Juanito Rivas MD Unavailable Kirk Stringer MD Unavailable Jostin Kenny MD Unavailable [phone] Marcelle Bass RN Unavailable Ashley Tilley MD Unavailable [phone] Bianca Elena Unavailable Ludwig Whiting DO Unavailable Jostin Kenny MD Unavailable [phone] Trini Brown MD Unavailable [phone] Ashley Tilley MD Unavailable [phone] Franky Fonseca MD Unavailable [phone] Encounter Details Date Type Department Care Team (Late st Contact Info) Description 07/20/2021 Scanned Document [facility] Cardiology [address] [place] [address] Ashley Tilley MD [address] [facility] [address] [place] [address] Social History Tobacco Use Types Packs/Day Years [...] Description 12/11/2025 1:30 PM EST Office Visit [facility] Endocrinology [address] [address] Trini Brown MD [address] [place] [address] 04/08/2026 1:45 PM EDT [facility] 1060 [place] [address] Ludwig Whiting, [address] [place] [address] 05/06/2026 2:45 PM EDT Office Visit [facility] Cardiology [address] [place] [address] Ashley Tilley MD [address] [place] [address] 06/01/2027 12:00 PM EDT Office Visit [facility] Endocrinology [place] [address] [place] [address] Trini Brown MD [address] [place] [address] documented as of this encounter Visit Diagnoses Not on filedocumented in this encounter Care Teams Tavern Operator Relationship Specialty Start Date End Date Ludwig Whiting DO [address] [place] [address] PCP - General Family Medicine 12/01/16 Bianca Elena 139 [facility] [address] [place] [address] PCP - Ophthalmology Ophthalmology 01/25/21 Ludwig Whiting DO [address] [place] [address] PCP - [place] Commercial Attributed 03/26/21 Nicolas Gold MD [facility] [place] [address] Endocrinology 07/11/17 Juanito Rivas MD [address] [place] [address] Referring Provider Surgery, Neurosurgery 02/01/18 Kirk Stringer MD [address] [place] [address] Consulting Provider Sleep Medicine 02/01/18 Jostin Kenny MD 112 [place] [address] Nephrology 02/01/18 05/13/23 Marcelle Bass, RN [address] [facility] [address] 2nd [place] [address] ICP Transition Judicial Clerk 08/25/20 09/20/21 Ashley Tilley MD [address] [place] [address] Cardiovascular Disease 01/25/21 Jostin Kenny MD [address] [place] [address] Nephrology 05/14/23 Trini Brown MD [address] [place] [address] Endocrinology 01/04/24 Ashley Tilley MD [address] [place] [address] Primary Heading And Priming Tool Setter Cardiovascular Disease 01/17/24 Franky Fonseca MD [address] [place] [address] Nephrology 06/10/24 documented as of this encounter
--- OUTSIDE RECORDS SUMMARY | 2025-11-04 22:39 | XMS_ITS | Encounter Summary ---
Author Organization [facility] Address [address] [place] [address] Care Team Providers Care Language Interpreter Name Role Phone Oneal Farrell MD Primary Care Provider Ludwig Whiting DO Primary Care Provider [phone] Nicolas Gold MD Unavailable Unavailable Juanito Rivas MD Unavailable [phone] Kirk Stringer MD Unavailable [phone] Jostin Kenny MD Unavailable [phone] Marcelle Bass RN Unavailable Ashley Tilley MD Unavailable [phone] Bianca Elena Unavailable Ludwig Whiting DO Unavailable [phone] Jostin Kenny MD Unavailable [phone] Trini Brown MD Unavailable [phone] Ashley Tilley MD Unavailable [phone] Franky Fonseca MD Unavailable [phone] Encounter Details Date Type Department Care Team (Late st Contact Info) Description 05/01/2016 Scanned Document [facility] [address] [id number] Provider, Generic Social History Tobacco Use Types [...] Description 12/11/2025 1:30 PM EST Office Visit [facility] Endocrinology [address] [phone] Trini Brown MD [address] [address] 04/08/2026 1:45 PM EDT Office Visit [facility] [address] [place] [phone] Ludwig Whiting, [address] [place] [address] 05/06/2026 2:45 PM EDT Office Visit [facility] Cardiology [address] [place] [phone] Ashley Tilley MD [address] [place] [address] [address] [place] [address] 06/01/2027 12:00 PM EDT Office Visit [facility] Endocrinology [address] [address] Trini Brown MD [address] [place] [address] documented as of this encounter Visit Diagnoses Not on filedocumented in this encounter Care Teams Language Interpreter Relationship Specialty Start Date End Date Oneal Farrell MD PCP - General Internal Medicine 08/05/15 11/30/16 Ludwig Whiting DO [address] [place] [address] PCP - General Family Medicine 12/01/16 Bianca Elena [address] [place] [address] PCP - Ophthalmology Ophthalmology 01/25/21 Ludwig Whiting DO [address] [place] [address] PCP - [place] Commercial Attributed 03/26/21 Nicolas Gold MD [address] [place] [address] Endocrinology 07/11/17 Juanito Rivas MD [address] [place] [address] Referring Provider Surgery, Neurosurgery 02/01/18 Kirk Stringer MD [address] [place] [address] Consulting Provider Sleep Medicine 02/01/18 Jostin Kenny MD [address] [place] [address] Nephrology 02/01/18 05/13/23 Marcelle Bass, RN [address] [place] [address] ICP Transition Accounting Representative 08/25/20 09/20/21 Ashley Tilley MD [address] [place] [address] Cardiovascular Disease 01/25/21 Jostin Kenny MD [address] [place] [phone] Nephrology 05/14/23 Trini Brown MD [address] [place] [address] Endocrinology 01/04/24 Ashley Tilley MD [address] [place] [address] Primary Clinical Program Manager Cardiovascular Disease 01/17/24 Franky Fonseca MD [address] [place] [address] Nephrology 06/10/24 documented as of this encounter
--- OUTSIDE RECORDS SUMMARY | 2025-11-04 22:39 | XMS_ITS | Encounter Summary ---
Author Organization [facility] Address [address] [place] [address] Care Team Providers Care Coding Educator Name Role Phone Ludwig Whiting DO Primary Care Provider [phone] Nicolas Gold MD Unavailable Unavailable Juanito Rivas MD Unavailable Kirk Stringer MD Unavailable [phone] Jostin Kenny MD Unavailable [phone] Ashley Tilley MD Unavailable [phone] Bianca Elena Unavailable Ludwig Whiting DO Unavailable Jostin Kenny MD Unavailable [phone] Trini Brown MD Unavailable [phone] Ashley Tilley MD Unavailable [phone] Franky Fonseca MD Unavailable [phone] Encounter Details Date Type Department Care Team (Late st Contact Info) Description 02/02/2023 Scanned Document [facility] Ludwig Whiting, DO [address] [place] [address] Social History Tobacco Use Types Packs/Day Years [...] Description 12/11/2025 1:30 PM EST Office Visit [facility] Endocrinology [address] [phone] Trini Brown MD [address] [place] [address] 04/08/2026 1:45 PM EDT Office Visit [facility] [address] [place] [address] Ludwig Whiting, [address] [place] [address] 05/06/2026 2:45 PM EDT Office Visit [facility] Cardiology [address] [place] [address] Ashley Tilley MD [address] [place] [address] 06/01/2027 12:00 PM EDT Office Visit [facility] Endocrinology [address] [address] Trini Brown MD [address] [place] [address] documented as of this encounter Visit Diagnoses Not on filedocumented in this encounter Care Teams Coding Educator Relationship Specialty Start Date End Date Ludwig Whiting DO [address] [place] [address] PCP - General Family Medicine 12/01/16 Bianca Elena [address] [place] [address] PCP - Ophthalmology Ophthalmology 01/25/21 Ludwig Whiting, [address] [place] [address] PCP - [place] Commercial Attributed 03/26/21 Nicolas Gold MD [address] [place] [address] Endocrinology 07/11/17 Juanito Rivas MD [address] [place] [address] Referring Provider Surgery, Neurosurgery 02/01/18 Kirk Stringer MD [address] [place] [address] Consulting Provider Sleep Medicine 02/01/18 Jostin Kenny MD [address] [place] [address] Nephrology 02/01/18 05/13/23 Ashley Tilley MD [address] [place] [address] Cardiovascular Disease 01/25/21 Jostin Kenny MD [address] [place] [address] Nephrology 05/14/23 Trini Brown MD [address] [place] [address] Endocrinology 01/04/24 Ashley Tilley MD [address] [place] [address] Primary Manager Of [employer] Cardiovascular Disease 01/17/24 Franky Fonseca MD [address] [place] [address] Nephrology 06/10/24 documented as of this encounter
--- OUTSIDE RECORDS SUMMARY | 2025-11-04 22:39 | XMS_ITS | Encounter Summary ---
Author Organization [facility] Address [address] [place] [address] Care Team Providers Care Membership Director Name Role Phone Ludwig Whiting DO Primary Care Provider [phone] Nicolas Gold MD Unavailable Unavailable Juanito Rivas MD Unavailable [phone] Kirk Stringer MD Unavailable Jostin Kenny MD Unavailable [phone] Ashley Tilley MD Unavailable [phone] Bianca Elena Unavailable Ludwig Whiting DO Unavailable [phone] Jostin Kenny MD Unavailable [phone] Trini Brown MD Unavailable Ashley Tilley MD Unavailable [phone] Franky Fonseca MD Unavailable [phone] Encounter Details Date Type Department Care Team (Late st Contact Info) Description 03/08/2022 Scanned Document [facility] [address] [place] [address] Ophthalmology, Scan Social History Tobacco Use Types [...] Description 12/11/2025 1:30 PM EST Office Visit [facility] Endocrinology [address] [phone] Trini Brown MD [address] [place] [address] 04/08/2026 1:45 PM EDT Office Visit [facility] [address] [place] [phone] Ludwig Whiting, [address] [address] 05/06/2026 2:45 PM EDT Office Visit [facility] Cardiology [address] [place] [phone] Ashley Tilley MD [address] [place] [address] 06/01/2027 12:00 PM EDT Office Visit [facility] Endocrinology [address] [phone] Trini Brown MD [address] [place] [address] documented as of this encounter Visit Diagnoses Not on filedocumented in this encounter Care Teams Membership Director Relationship Specialty Start Date End Date Ludwig Whiting DO [facility] [place] [address] PCP - General Family Medicine 12/01/16 Bianca Elena [address] [place] [address] PCP - Ophthalmology Ophthalmology 01/25/21 Ludwig Whiting DO [address] [place] [address] PCP - [place] Commercial Attributed 03/26/21 Nicolas Gold MD [address] [place] [address] Endocrinology 07/11/17 Juanito Rivas MD [address] [place] [address] Referring Provider Surgery, Neurosurgery 02/01/18 Kirk Stringer MD [address] [place] [address] Consulting Provider Sleep Medicine 02/01/18 Jostin Kenny MD [address] [place] [address] Nephrology 02/01/18 05/13/23 Ashley Tilley MD [address] [place] [address] Cardiovascular Disease 01/25/21 Jsotin Kenny MD [address] [place] [address] Nephrology 05/14/23 Trini Brown MD [address] [place] [address] Endocrinology 01/04/24 Ashley Tilley MD [address] [place] [address] Primary Director Counseling Bureau Cardiovascular Disease 01/17/24 Franky Fonseca MD [address] [place] [address] Nephrology 06/10/24 documented as of this encounter
--- OUTSIDE RECORDS SUMMARY | 2025-11-04 22:39 | XMS_ITS | Clinical Summary ---
Author Organization [facility] Address [address] [place] [address] Care Team Providers Care Biomathematician Name Role Phone Ludwig Whiting DO Primary Care Provider [phone] Nicolas Gold MD Unavailable Unavailable Juanito Rivas MD Unavailable Kirk Stringer MD Unavailable [phone] Ashley Tilley MD Unavailable [phone] Bianca Elena Unavailable Ludwig Whiting DO Unavailable [phone] Jostin Kenny MD Unavailable [phone] Trini Brown MD Unavailable [phone] Ashley Tilley MD Unavailable [phone] Franky Fonseca MD Unavailable [phone] Allergies No known active allergies Medications aspirin enteric coated (ECOTRIN LOW STRENGTH) 81 MG EC tabletIndications :Type 2 diabetes mellitus with diabetic nephropathy, with long-term current use of insulin (HCC) Take 1 tablet (81 mg total) by mouth every morning. Active Cholecalciferol (VITAMIN D3) 2000 UNITS Cap capsuleIndication s:Healthcare maintenance Take 1 capsule (2,000 Units total) by mouth every morning. Active multivitamin Tab tabletIndications :Healthcare maintenance Take 1 tablet by mouth. Active omega-3 fatty acids (FISH OIL) 1000 MG Cap capsuleIndication s:Mixed hyperlipidemia Take by mouth 2 (two) times a day. 300 QD Active Insulin Pen Needle 31G X 5 MM Misc by Does not apply route. Active glucose blood test strip 1 test strip by Other (specify) route as needed. Use as instructed Active OneTouch Verio stripIndications: Type 2 diabetes mellitus with morbid obesity (HCC) Use as instructed to test blood sugars two times daily 200 test strip 1 Active Studio WhaleTouch UltraSoft 2 Lancets MiscIndications:T ype 2 diabetes mellitus with morbid obesity (HCC) Use to test blood sugar two times daily 200 each 1 Active Blood Glucose Monitoring Suppl (Studio WhaleTouch Verio) w/Device KitIndications:Ty pe 2 diabetes mellitus with morbid obesity (HCC) Use to test blood sugar two times daily 1 kit Active Vyzulta 0.024 % ophthalmic solution Administer 1 drop to both eyes nightly. Active cetirizine (ZyrTEC) 5 MG chewable tablet Chew 1 tablet (5 mg total) daily. Active lisinopril (PRINIVIL,ZeSTRIL ) 20 MG tabletIndications :Essential hypertension Take 1 tablet (20 mg total) by mouth daily. 90 tablet 3 Active insulin glargine (Lantus) 100 units/mL injectionIndicati ons:Type 2 diabetes mellitus without complications (HCC) Inject 0.35 mL (35 Units total) under the skin 2 (two) times a day. DX CODE E11.21 70 mL 3 025 2025 Active Additional Information Patient taking differently: 10 UnitsSubcutaneous 2 times daily, DX CODE E11.21, Reported on 10/08/2025 doxazosin (CARDURA) 4 MG tabletIndications :Essential hypertension TAKE 1 TABLET BY MOUTH EVERY DAY NIGHTLY 90 tablet 3 025 Active insulin lispro (HumaLOG KWIKPEN) 100 UNIT/ML prefilled pen injectionIndicati ons:Type 2 diabetes mellitus with diabetic nephropathy, with long-term current use of insulin (HCC) USE UP TO 80 UNITS TWICE A DAY BEFORE MEALS PER SLIDING SCALE 150 mL 3 025 Active simvastatin (ZOCOR) 20 MG tabletIndications :Mixed hyperlipidemia TAKE 1 TABLET BY MOUTH EVERY DAY AT NIGHT 90 tablet 3 025 Active tirzepatide (MOUNJARO) 10 mg/0.5 mL pen-injectorIndic ations:Type 2 diabetes mellitus with diabetic nephropathy, with long-term current use of insulin ([facility]) Inject 1 Pen (10 mg total) under the skin once a week. 2 mL 3 025 Active Continuous Glucose Sensor (FreeStyle Luis 3 Plus Sensor) MiscIndications:T ype 2 diabetes mellitus with diabetic nephropathy, with long-term current use of insulin (HCC) Change every 15 days 6 each 3 025 Active Insulin Syringe-Needle U-100 (BD Insulin Syringe U/F) 31G X 5/16 1 ML MiscIndications:T ype 2 diabetes mellitus with diabetic nephropathy, with long-term current use of insulin ([facility]) USE 2 TIMES A DAY WITH INSULIN 200 each 3 025 Active dapagliflozin (FARXIGA) 5 mg tabletIndications :Type 2 diabetes mellitus with diabetic nephropathy, with long-term current use of insulin ([facility]) Take 1 tablet (5 mg total) by mouth every morning. 90 tablet 1 025 2025 Active allopurinol (ZYLOPRIM) 300 MG tabletIndications :Gout, unspecified TAKE 1 TABLET BY MOUTH TWICE A DAY 180 tablet 3 025 Active triamcinolone (KENALOG) 0.1 % creamIndications: Stasis dermatitis of both legs APPLY TO AFFECTED AREA TWICE A DAY 60 g 1 025 Active betamethasone valerate (VALISONE) 0.1 % ointmentIndicatio ns:Phimosis Apply topically 2 (two) times a day. 30 g 5 025 Active betamethasone valerate (VALISONE) 0.1 % ointmentIndicatio ns:Phimosis Apply topically 2 (two) times a day. 30 g 5 023 2024 Disconti nued(Reo rder) torsemide (DEMADEX) 20 MG tabletIndications :Chronic heart failure with preserved ejection fraction (HCC) TAKE 2 TABLETS (40 MG TOTAL) BY MOUTH DAILY. 180 tablet 3 025 2024 Disconti nued(Med List Clean-up /Old Med - No E-Cancel /No AVS) Active Problems Problem Noted Date Diagnosed Date White coat syndrome with diagnosis of hypertensi on 06/25/2025 Type 2 diabetes mellitus wit h diabetic polyneuropathy, with long-term current use of insulin 04/27/2023 Secondary hypercoagulable state 10/24/2022 Overview (10/27/2022): afib [id number] Stroke Risk was calculated. Total Score: 4 [...] also explained. Coronary artery disease invo [place]ving [place] coronary artery of [place] heart without angina pectoris 07/07/2021 Assessment & [...] Conductive hearing loss, bilateral 07/07/2020 Gout 11/02/2017 Assessment & Plan (10/08/2025 3:18 PM EST): Orders: Uric Acid Spinal stenosis of lumbar region with radiculopa thy 09/24/2017 Lumbar herniated disc 09/24/2017 Overview (02/01/2018): L5-S1 Type 2 diabetes mellitus wit h stage 3a chronic kidney disease, with long-term current use of insulin 03/18/2015 Overview (12/21/2023): [place] Class 3 severe obesity due t o excess calories with serious comorbidity and body mass index (BMI) of 45.0 to 49.9 in adult 03/18/2015 Essential hypertension 03/18/2015 Assessment & Plan (10/08/2025 3:18 PM EST): Mixed hyperlipidemia 03/18/2015 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 He has more mild degenerative changes without stenosis at L4-5. He has a central left-sided disc herniation at L5-S1. Resolved Problems Problem Noted Date Diagnosed Date Resolved Date Encounter for loop recorder at end of battery life 11/11/2024 11/24/2024 Encounter for loop recorder at end of battery life 11/11/2024 05/30/2025 Personal history of colon cancer 02/24/2022 02/24/2022 [...] (09/14/2020): Added automatically from request for surgery [id number] Shortness of breath 08/16/2020 01/26/20 21 Elevated liver enzymes 02/01/201806/30 Thoracic or lumbosacral neur itis or radiculitis 02/07/2014 02/01/2018 Special screening for malign ant neoplasm of prostate 02/07/2014 11/02/2017 Hypertension 04/27/2022 Encounters Date Type Department Care Team Description 10/28/2025 3:00 PM EST Office Visit [facility] Cardiology [address] [place] [phone] Lorrie Corbin, GERRY Chronic heart failure with preserved ejection fraction (HCC) (Primary Dx); Mixed hyperlipidemia; Paroxysmal atrial fibrillation (HCC); White coat syndrome with diagnosis of hypertension 10/08/2025 2:30 PM EST Office Visit [facility] [place] [address] [place] [phone] Ludwig Whiting DO Essential hypertension (Primary Dx); Phimosis; Gout of foot, unspecified cause, unspecified chronicity, unspecified laterality; Screening for prostate cancer 08/29/2025 10:55 AM EDT Office Visit [facility] [place] [address] [place] [phone] Robert Martinez MD Kelly, Martin J, PA-C Wound check, abscess (Primary Dx) 08/27/2025 8:05 AM EDT Office Visit 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); Type 2 diabetes mellitus with hypoglycemia without coma, with long-term current use of insulin (HCC); Hyponatremia; Mixed hyperlipidemia from Last 3 Months Immunizations Immunization Administration Dates Next Due Covid-19 MRNA Vaccine [...] AFLURIA, FLULAVAL, FLUZONE) Preservative Free IM 10/19/2021,08/30/2019 Influenza, Trivalent (FLUAD) Adjuvanted Preservative Free IM 65 years and older 10/08/2025 Pneumococcal Conjugate 13-Valent 03/18/2015 Pneumococcal Conjugate 20-Valent [...] drink = 0.6 oz pur e alcohol) [facility] Utilities Answer Date Recorded In the past 12 months has [facility] shipbeat, gas, oil, or water [employer] threatened to shut off services in your home? No 11/24/2024 Social Connection and Isolation Panel Answer Date Recorded In a typical week, how many times do you talk on the phone with family, friends, or neighbors? Three times a week 11/24/2024 Frequency of Social Gatherin gs with Friends and Family Not on file 11/24/2024 Attends Nondenominational Services Not on file 11/24 Active Member [...] any time in the past 12 m [facility], were you homeless or living in a retirement (including now)? No 11/24/2024 Physical Activity Answer [...] Sign Reading Time Taken Comments Blood Pressure 138/60 10/28/2025 2:57 PM EST Pulse 90 10/28/2025 2:57 PM EST Temperature 35.9 C (96.7 F) 10/08/2025 2:20 PM EST Respiratory Rate 17 10/08/2025 2:20 PM EST Oxygen Saturation 97% 10/28/2025 2:57 PM EST Inhaled Oxygen Concentration - - Weight 123 kg (271 lb) 10/28/2025 2:57 PM EST Height 172.7 cm (5' 8 ) 10/28/2025 2:57 PM EST Body Mass Index 41.21 10/28/2025 2:57 PM EST Plan of Treatment Upcoming Encounters Date Type Department Care Team (Late st Contact Info) Description 12/11/2025 1:30 PM EST Office Visit [facility]inology [place] [address] [phone] Trini Brown MD [address] [place] [phone] 04/08/2026 1:45 PM EDT Office Visit [facility] [address] [place] [address] Ludwig Whiting, [address] [place] [address] 05/06/2026 2:45 PM EDT Office Visit [facility] Cardiology [address] [place] [phone] Ashley Tilley MD [address] [place] [address] [place] [phone] 06/01/2027 12:00 PM EDT Office Visit [facility] Endocrinology [address] [phone] Trini Brown MD [address] [place] [phone] Health Maintenance Due Date Last Done Comments Advance Care Planning 1955 RSV Vaccine 50 years and older and Patients (1 - Risk 50-74 years 1-dose series) 2007 Physical 01/09/2018 01/09/2017 COVID-19 Vaccine ( season) 2025 11/03/2023, 10/27/2022, 10/27/2021, Additional history exists Ophthalmology Exam 08/15/2025 08/15/2024, 0 03/07/2022 (Previously Completed), 02/09/2022, Additional history exists Hemoglobin A1C 02/11/2026 08/14/2025, 03/26, 11/12/2024, Additional history exists Lipid Panel 08/14/2026 08/14/2025, 10/26, 07/31/2024, Additional history exists Foot Exam 08/21/2026 08/21/2025, 07/28, 08/21/2025, Additional history exists Creatinine with GFR 08/27/2026 08/27/2025, 08/14/2025, 04/08/2025, Additional history exists Colonoscopy 04/28/2027 04/28/2022, 12/01/2016 DTaP/Tdap/Td Vaccines (3 - Td or Tdap) 04/27/2032 04/27/2022, 12/04/2008, 11/26/2008 Hepatitis C Virus Screening Completed 08/05/2018 Abdominal Aortic Aneurysm (AAA) Screening Completed 08/18/2020 Chronic Controlled Substance User PDMP Review Discontinued 09/13/2020 Pneumococcal Vaccines 50+ Completed 2022, 03/18/2015, 08/26/2003 Zoster (Shingles) Vaccine Completed 04/27/2023, 09/2022 Microalbumin/Creatinine Ratio Urine Discontinued 08/27/2025, 11/15/2023, 02/28/2023, Additional history exists Influenza Vaccine Completed 10/08/2025, , 10/19/2023, Additional history exists Hepatitis B Vaccines Aged Out No long er eligible based on patient's age to complete this topic Medical Devices Explanted Type Area [employer] Worker Device Identifier Shelf Expiration Date Model / Serial / Lot [id number] System Livestock Counter Rvl Linq - [id number] Implanted:Qty : 1 on 12/28/2020 by Roderick Peoples MD at [facility] Explanted:Qty : 1 on 12/04/2024 by Oneal Wong MD at [facility] Implantable Loop Recorder [employer] MINIMALLY INVASIVE T 09/22/2021 [id number] / [id number] / Procedures Procedure Name Priority Date/Time Associated Diagnosis Comments ECG 12-LEAD Routine 10/28/2025 2:28 PM EST Chronic heart failure with preserved ejection fraction (HCC) COMPLETE BLOOD COUNT, WITH DIFFERENTIAL Routine 08/27/2025 1:58 PM EDT MICROALBUMIN, CREATININE, URINE, RANDOM Routine 08/27/2025 1:58 PM EDT BASIC METABOLIC PANEL Routine 08/27/2025 1:58 PM EDT Type 2 diabetes mellitus with diabetic nephropathy, with long-term current use of insulin (HCC) HEMOGLOBIN A1C Routine 08/14/2025 11:00 AM EDT Type 2 diabetes mellitus with diabetic nephropathy, with long-term current use of insulin (HCC) LIPID PANEL REFLEX DIRECT LDL Routine 08/14/2025 11:00 AM EDT Type 2 diabetes mellitus with diabetic nephropathy, with long-term current use of insulin (HCC) COMPREHENSIVE METABOLIC PANEL Routine 08/14/2025 11:00 AM EDT Type 2 diabetes mellitus with diabetic nephropathy, with long-term current use of insulin (HCC) HX OPHTHALMOLOGY TESTING PROCEDURES Routine 08/15/2024 2:[address] ABDOMEN+PELVIS W/CONTRAST W/PO Routine 08/18/2020 12:50 PM EDT HEPATITIS C VIRUS (HCV) ANTIBODY Routine 08/05/2018 2:09 PM EDT Need for hepatitis C screening test from Last 3 Months or Most Recently Relevant to Health Maintenance Results * ECG 12 lead (10/28/2025 2:28 PM EST) Ventricular rate 90 BPM EKG [facility] Atrial rate 101 BPM EKG [facility] P-R interval 360 ms EKG [facility] QRS duration 88 ms EKG [facility] Q-T interval 350 ms EKG [facility] QTC calculation (Bazett) 428 ms EKG [facility] P axis 39 degrees EKG [facility] R axis 62 degrees EKG [facility] T axis 36 degrees EKG [facility] 10/28/2025 2:28 PM EST Narrative EKG [facility] - 10/28/2025 4:19 PM EST Normal sinus rhythm with First degree AV block Low voltage QRS When compare with multiple prior ECGs, No significant change was found Confirmed by GERRY Corbin Lauren ([id number]) on 10/28/2025 4:19:17 PM Procedure Note Lorrie Corbin APRN - 10/28/2025 Normal sinus rhythm with First degree AV block Low voltage QRS When compare with multiple prior ECGs, No significant change was found Confirmed by GERRY Corbin Lauren ([id number]) on 10/28/2025 4:19:17 PM Lorrie Corbin APRN ECG ORDERABLES Final Result [facility] * (ABNORMAL) Microalbumin, Creatinine, Urine, Random (08/27/2025 1:58 PM EDT) Creatinine, Urine, Random 68 20 - 320 mg/dL [facility] Microalbumin, Urine, Random 10.1 See Note: mg/dL [facility] Comment: Reference Range: Reference Range Not established Microalbumin/Crea tinine Ratio 149(H) <30 mg/g creat [facility] Comment: The ADA defines abnormalities in albumin excretion as follows: Albuminuria Category Result (mg/g creatinine) Normal to Mildly increased <30 Moderately increased 30-299 Severely increased > OR = 300 The ADA recommends that at least two of three specimens collected within a 3-6 month period be abnormal before considering a patient to be within a diagnostic category. 08/27/2025 1:58 PM EDT 08/27/2025 2:02 PM EDT Narrative [facility] - 08/28/2025 8:59 PM EDT FASTING:YES FASTING: YES us Trini Brown MD URINE ORDERABLES Final Result [facility] [address] [place] [address] * (ABNORMAL) Complete Blood Count, with Differential (08/27/2025 1:58 PM EDT) White Blood Cell Count 7.0 3.8 - 10.8 Thousand/ uL [facility] Red Blood Cell Count 4.10(L) 4.20 - 5.80 Million/u L [facility] Hemoglobin 13.1(L) 13.2 - 17.1 g/dL [facility] Hematocrit 39.7 38.5 - 50.0 % [facility] MCV 96.8 80.0 - 100.0 fL [facility] MCH 32.0 27.0 - 33.0 pg [facility] MCHC 33.0 32.0 - 36.0 g/dL [facility] Comment: For adults, a slight decrease in the calculated MCHC value (in the range of 30 to 32 g/dL) is most likely not clinically significant; however, it should be interpreted with caution in correlation with other red cell parameters and the patient's clinical condition. RDW 14.2 11.0 - 15.0 % [facility] Platelet Count 182 140 - 400 Thousand/ uL [facility] MPV 10.7 7.5 - 12.5 fL [facility] Abs Neutrophils Auto 5,110 1,500 - 7,800 cells/uL [facility] Abs Lymphocytes Auto 1,225 850 - 3,900 cells/uL [facility] Abs Monocytes Auto 567 200 - 950 cells/uL [facility] Abs Eosinophils Auto 77 15 - 500 cells/uL [facility] Abs Basophils Auto 21 0 - 200 cells/uL [facility] Neutrophils Auto 73 % [facility] Lymphocytes Auto 17.5 % [facility] Monocytes Auto 8.1 % [facility] Eosinophils Auto 1.1 % [facility] Basophils Auto 0.3 % [facility] 08/27/2025 1:58 PM EDT 08/27/2025 2:02 PM EDT Narrative [facility] - 08/28/2025 8:59 PM EDT FASTING:YES FASTING: YES us Trini Brown MD LAB BLOOD ORDERABLES Final Resu lt [facility] [address] [place] [address] * Basic Metabolic Panel (08/27/2025 1:58 PM EDT) Pathologist [facility] Glucose 98 65 - 99 mg/dL [facility] Comment: Fasting reference interval Blood Urea Nitrogen (BUN) 23 7 - 25 mg/dL [facility] Creatinine 1.03 0.70 - 1.35 mg/dL [facility] Creatinine w/ eGFR 80 > OR = 60 mL/min/1. 73m2 [facility] BUN/Creatinine Ratio SEE NOTE: 6 - 22 (calc) [facility] Comment: Not Reported: BUN and Creatinine are within reference range. Sodium 138 135 - 146 mmol/L [facility] Comment: Verified by repeat analysis. Potassium 4.8 3.5 - 5.3 mmol/L [facility] Comment: Verified by repeat analysis. Chloride 107 98 - 110 mmol/L [facility] Comment: Verified by repeat analysis. CO2 24 20 - 32 mmol/L [facility] Calcium 9.8 8.6 - 10.3 mg/dL [facility] Blood Blood specimen / Unknown 08/27/2025 1:58 PM EDT 08/27/2025 2:02 PM EDT Narrative [facility] - 08/28/2025 8:59 PM EDT FASTING:YES FASTING: YES us Trini Brown MD LAB BLOOD ORDERABLES Final Resu lt [facility] [address] [place] [address] * (ABNORMAL) Lipid Panel Reflex Direct LDL (08/14/2025 11:00 AM EDT) Cholesterol, Total 98 <200 mg/dL [facility] Cholesterol, HDL 21(L) > OR = 40 mg/dL [facility] Triglycerides 285(H) <150 mg/dL [facility] Comment: If a non-fasting specimen was collected, consider repeat triglyceride testing on a fasting specimen if clinically indicated. Ivett et al. J. of Clin. Lipidol. 2015;9:129-169. LDL Cholesterol 43 mg/dL (calc) [facility] Comment: Reference range: <100 Desirable range <100 mg/dL for primary prevention; <70 mg/dL for patients with CHD or diabetic patients with > or = 2 CHD risk factors. LDL-C is now calculated using the Christopher-Serrato calculation, which is a validated novel method providing better accuracy than the Friedewald equation in the estimation of LDL-C. Christopher SS et al. JUAN J. 2013;310(19): 4285-2716 (http://education.LogicBay/faq/JHL553) Cholesterol/HDL Ratio 4.7 <5.0 (calc) [facility] Non HDL Chol. (LDL+VLDL) 77 <130 mg/dL (calc) [facility] Comment: For patients with diabetes plus 1 major ASCVD risk factor, treating to a non-HDL-C goal of <100 mg/dL (LDL-C of <70 mg/dL) is considered a therapeutic option. Blood Blood specimen / Unknown 08/14/2025 11:00 AM EDT 08/14/2025 11:00 AM EDT Narrative [facility] - 08/15/2025 8:07 AM EDT FASTING:YES PATIENT UNABLE TO VOID; ADVISED TO RETURN FOR COLLECTION. FASTING: YES Trini Brown MD LAB BLOOD ORDERABLES Final Resu lt Performing Organization Address [facility] de Phone Number [facility] [address] [place] [address] * (ABNORMAL) Hemoglobin A1C (08/14/2025 11:00 AM EDT) Hemoglobin A1C 6.0(H) <5.7 % [facility] Comment: For someone without known diabetes, a [...] for children. Blood Blood specimen / Unknown 08/14/2025 11:00 AM EDT 08/14/2025 11:00 AM EDT Narrative [facility] - 08/15/2025 8:07 AM EDT FASTING:YES PATIENT UNABLE TO VOID; ADVISED TO RETURN FOR COLLECTION. FASTING: YES Trini Brown MD LAB BLOOD ORDERABLES Final Resu lt Performing Organization Address [facility] de Phone Number [email or web address] [address] [place] [address] * (ABNORMAL) Comprehensive Metabolic Panel (08/14/2025 11:00 AM EDT) Glucose 132(H) 65 - 99 mg/dL [facility] Comment: Fasting reference interval For someone without known diabetes, a glucose value >125 mg/dL indicates that they may have diabetes and this should be confirmed with a follow-up test. Blood Urea Nitrogen (BUN) 42(H) 7 - 25 mg/dL [facility] Creatinine 1.59(H) 0.70 - 1.35 mg/dL [facility] Creatinine w/ eGFR 47(L) > OR = 60 mL/min/1. 73m2 [facility] BUN/Creatinine Ratio 26(H) 6 - 22 (calc) [facility] Sodium 133(L) 135 - 146 mmol/L [facility] Potassium 4.3 3.5 - 5.3 mmol/L [facility] Chloride 103 98 - 110 mmol/L [facility] CO2 19(L) 20 - 32 mmol/L [facility] Calcium 9.6 8.6 - 10.3 mg/dL [facility] Protein, Total 6.0(L) 6.1 - 8.1 g/dL [facility] Albumin 4.1 3.6 - 5.1 g/dL [facility] Globulin 1.9 1.9 - 3.7 g/dL (calc) [facility] Albumin/Globulin Ratio 2.2 1.0 - 2.5 (calc) [facility] Bilirubin, Total 0.5 0.2 - 1.2 mg/dL [facility] Alkaline Phosphatase 94 35 - 144 U/L [facility] Aspartate Aminotrans (AST) 13 10 - 35 U/L [facility] Alanine Aminotrans (ALT) 16 9 - 46 U/L [facility] Blood Blood specimen / Unknown 08/14/2025 11:00 AM EDT 08/14/2025 11:00 AM EDT Narrative [facility] - 08/15/2025 8:07 AM EDT FASTING:YES PATIENT UNABLE TO VOID; ADVISED TO RETURN FOR COLLECTION. FASTING: YES us Trini Brown MD LAB BLOOD ORDERABLES Final Resu lt [facility] [address] [place] [phone] * OPHTHALMOLOGY TESTING PROCEDURES (08/15/2024 2:11 PM EDT) us Scan Ophthalmology HX AMB PROCEDURES Final Resul t * CT Abdomen+pelvis w/contrast w/PO (08/18/2020 12:50 PM EDT) Anatomical Region Laterality Modality Abdomen, Pelvis Computed Tomogra phy 08/18/2020 12:5 3 PM EDT Impressions 08/18/2020 3:06 PM EDT 1. Moderate pericardial effusion measuring simple fluid density. No pulmonary embolism. 2. [id number] right and small left pleural effusions with associated atelectasis. 3. Hepatomegaly. 4. Diffuse skin thickening of the anterior abdominal wall around the level of the umbilicus with mild subcutaneous edema. Correlate clinically. VTE: negative Terri Beard M.D. human resources vice president I personally reviewed the images and, if [...] none are pathologically enlarged by size criteria. No evidence of septal bowing or right heart [...] the tail the pancreas. No focal lesion. ADRENAL GLANDS: Normal; no mass. KIDNEYS AND URETERS: The kidneys are normal in size, shape, and attenuation. No hydronephrosis, hydroureter, or calculi. Mild bilateral nonspecific perinephric stranding. GASTROINTESTINAL TRACT: Stomach and small bowel non-dilated. Scattered diverticulosis without evidence of diverticulitis. No colonic wall thickening or pericolonic inflammatory changes. Normal appendix. ABDOMINAL WALL: No significant hernia is appreciated. There is diffuse skin thickening of the anterior abdominal wall around the level of the umbilicus with mild subcutaneous edema. LYMPHOVASCULAR STRUCTURES: No lymphadenopathy. The aorta is unremarkable. Scattered atherosclerotic calcifications noted. BLADDER: No focal mass. Mild wall thickening, likely secondary to underdistention. No bladder calculi. PELVIC VISCERA: The prostate and seminal vesicles are normal. OSSEOUS STRUCTURES: No acute or suspicious osseous abnormality. Moderate multilevel spondylosis. Diffuse idiopathic skeletal hyperostosis. Procedure Note Shoaib Cedeño MD - 08/18/2020 [...] measuring simple fluid density. Nopulmonary embolism. 2. Rqhir-[id number] right and small left pleural effusions withassociated atelectasis. 3. Hepatomegaly. 4. Diffuse skin thickening of the anterior abdominal wall around thelevel of the umbilicus with mild subcutaneous edema. Correlate clinically. VTE: negative Terri Beard M.D. human resources vice president I personally reviewed the images and, if necessary, I edited the report.I agree with the report as now presented. Miguel Sen MD IMG CT ORDERABLES Final Result * Hepatitis C Virus (HCV) Antibody (08/05/2018 2:09 PM EDT) Hepatitis C Antibody NON-REACTI VE NON-REACT MAGDA [facility] Hepatitis C Antibody (s/co) 0.25 <1.00 [facility] Blood specimen (specimen) Blood specimen / Unknown 08/05/2018 2:09 PM EDT 08/05/2018 2:09 PM EDT Narrative Resulting Agency Comment Performing Organization Information: Site ID: [id number] Name: [facility] Address: [address] [place] [address], [place] [address] Director: Meek Isabel MD us Ludwig Whiting DO LAB BLOOD ORDERABLES Nancy l Result [facility] [address] [place] [address], [place] [address] from Last 3 Months or Most Recently Relevant to Health Maintenance Insurance [facility] MEDICARE PART A HOPE CROSS OUT OF [facility] BLUE ELIM OUT [facility] - PPO Advance Directives * Full Code (Latest Code [...] File Name Relationship Healthcare Agent Relationship Communication Guera Galo Spouse 4. Next of Kin ( Spouse, Adult Child, Parent, Adult Sibling, Grandparent) Care Teams Biomathematician Relationship Specialty Start Date End Date Ludwig Whiting DO [address] [place] [address] PCP - General Family Medicine 12/01/16 Bianca Elena [address] [place] [address] PCP - Ophthalmology Ophthalmology 01/25/21 Ludwig Whiting DO 1060 [place] [address] PCP - [place] Commercial Attributed 03/26/21 Nicolas Gold MD [facility] [place] [address] Endocrinology 07/11/17 Juanito Rivas MD [address] [place] [address] Referring Provider Surgery, Neurosurgery 02/01/18 Kirk Stringer MD [address] [place] [address] Consulting Provider Sleep Medicine 02/01/18 Ashley Tilley MD [address] [place] [address] Cardiovascular Disease 01/25/21 Jostin Kenny MD [address] [place] [address] Nephrology 05/14/23 Trini Brown MD [address] [place] [address] Endocrinology 01/04/24 Ashley Tilley MD [address] [place] [address] Primary Commercial Finance Analyst Cardiovascular Disease 01/17/24 Franky Fonseca MD [address] [place] [address] Nephrology 06/10/24
--- OUTSIDE RECORDS SUMMARY | 2025-11-04 22:39 | XMS_ITS | Encounter Summary ---
Author Organization [facility] Address [address] [place] [address] Care Team Providers Care Sash Installer Name Role Phone Oneal Farrell MD Primary Care Provider Ludwig Whiting DO Primary Care Provider [phone] Nicolas Gold MD Unavailable Unavailable Juanito Rivas MD Unavailable [phone] Kirk Stringer MD Unavailable [phone] Jostin Kenny MD Unavailable [phone] Marcelle Bass RN Unavailable Ashley Tilley MD Unavailable [phone] Bianca Elena Unavailable Ludwig Whiting DO Unavailable [phone] Jostin Kenny MD Unavailable [phone] Trini Brown MD Unavailable [phone] Ashley Tilley MD Unavailable [phone] Franky Fonseca MD Unavailable [phone] Encounter Details Date Type Department Care Team (Late st Contact Info) Description 08/02/2016 Scanned Document [facility] Endocrinology [place] 100 [facility] 101 [place] [address] Provider, Generic Social History Tobacco Use Types [...] Description 12/11/2025 1:30 PM EST Office Visit [facility] Endocrinology [place] 100 [facility] 101 [place] [address] Trini Brown MD 100 [facility] 101 [place] [address] 04/08/2026 1:45 PM EDT [facility] 1060 [place] [address] Ludwig Whiting, 1060 [place] [address] 05/06/2026 2:45 PM EDT Office Visit [facility] Cardiology [address] [place] [address] Ashley Tilley MD 100 [facility] 811 [place] [address] 06/01/2027 12:00 PM EDT Office Visit [facility] Endocrinology [place] [address] [phone] Trini Brown MD [address] [place] [address] documented as of this encounter Visit Diagnoses Not on filedocumented in this encounter Care Teams Sash Installer Relationship Specialty Start Date End Date Oneal Farrell MD PCP - General Internal Medicine 08/05/15 11/30/16 Ludwig Whiting DO 1060 [place] [address] PCP - General Family Medicine 12/01/16 Bianca Elena [address] [place] [address] PCP - Ophthalmology Ophthalmology 01/25/21 Ludwig Whiting DO 1060 [place] [address] PCP - [place] Commercial Attributed 03/26/21 Nicolas Gold MD 1060 [place] [address] Endocrinology 07/11/17 Juanito Rivas MD [address] [place] [address] Referring Provider Surgery, Neurosurgery 02/01/18 Kirk Stringer MD [address] [place] [address] Consulting Provider Sleep Medicine 02/01/18 Jostin Kenny MD [address] [place] [address] Nephrology 02/01/18 05/13/23 Marcelle Bass, RN [address]nd [place] [address] ICP Transition Mail List Librarian 08/25/20 09/20/21 Ashley Tilley MD [address] [place] [address] Cardiovascular Disease 01/25/21 Jostin Kenny MD [address] [place] [address] Nephrology 05/14/23 Trini Brown MD [address] [place] [address] Endocrinology 01/04/24 Ashley Tilley MD [address] [place] [address] Primary Game Author Cardiovascular Disease 01/17/24 Franky Fonseca MD [address] [place] [address] Nephrology 06/10/24 documented as of this encounter
--- OUTSIDE RECORDS SUMMARY | 2025-11-04 22:39 | XMS_ITS | Encounter Summary ---
Author Organization [facility] Address [address] [place] [address] Care Team Providers Care Backbreaker Name Role Phone Ludwig Whiting DO Primary Care Provider [phone] Nicolas Gold MD Unavailable Unavailable Juanito Rivas MD Unavailable [phone] Kirk Stringer MD Unavailable Ashley Tilley MD Unavailable [phone] Bianca Elena Unavailable Ludwig Whiting DO Unavailable Jostin Kenny MD Unavailable [phone] Trini Brown MD Unavailable [phone] Ashley Tilley MD Unavailable [phone] Franky Fonseca MD Unavailable [phone] Encounter Details Date Type Department Care Team (Late st Contact Info) Description 06/07/2023 Scanned Document [facility] Cardiology [address] [place] [address] Ashley Tilley MD [address] [place] [address] Social History Tobacco Use Types Packs/Day Years [...] Description 12/11/2025 1:30 PM EST Office Visit [facility] Endocrinology [address] [phone] Trini Brown MD [address] [place] [address] 04/08/2026 1:45 PM EDT Office Visit [facility] 1060 [place] [address] Ludwig Whiting, [address] [address] 05/06/2026 2:45 PM EDT Office Visit [facility] Cardiology [address] [phone] Ashley Tilley MD [address] [place] [address] 06/01/2027 12:00 PM EDT Office Visit [facility] Endocrinology [address] [address] Trini Brown MD [address] [place] [address] documented as of this encounter Visit Diagnoses Not on filedocumented in this encounter Care Teams Backbreaker Relationship Specialty Start Date End Date Ludwig Whiting DO 1060 [place] [address] PCP - General Family Medicine 12/01/16 Bianca Elena [address] [place] [address] PCP - Ophthalmology Ophthalmology 01/25/21 Ludwig Whiting DO 10[address] [place] [address] PCP - [place] Commercial Attributed 03/26/21 Nicolas Gold MD [address] [place] [address] Endocrinology 07/11/17 Juanito Rivas MD [address] [place] [address] Referring Provider Surgery, Neurosurgery 02/01/18 Kirk Stringer MD [address] [place] [address] Consulting Provider Sleep Medicine 02/01/18 Ashley Tilley MD [address] [place] [address] Cardiovascular Disease 01/25/21 Jostin Kenny MD [address] [place] [address] Nephrology 05/14/23 Trini Brown MD [address] [place] [address] Endocrinology 01/04/24 Ashley Tilley MD [address] [place] [address] Primary Personal Chef Cardiovascular Disease 01/17/24 Franky Fonseca MD [address] [place] [address] Nephrology 06/10/24 documented as of this encounter
--- OUTSIDE RECORDS SUMMARY | 2025-11-04 22:39 | XMS_ITS | Encounter Summary ---
Author Organization [facility] Address 100 [place] [address] Care Team Providers Care Dispatcher Street Department Name Role Phone Ludwig Whiting DO Primary Care Provider [phone] Nicolas Gold MD Unavailable Unavailable Juanito Rivas MD Unavailable [phone] Kirk Stringer MD Unavailable Jostin Kenny MD Unavailable [phone] Marcelle Bass RN Unavailable Ashley Tilley MD Unavailable [phone] Bianca Elena Unavailable Ludwig Whiting DO Unavailable Jostin Kenny MD Unavailable [phone] Trini Brown MD Unavailable [phone] Ashley Tilley MD Unavailable [phone] Franky Fonseca MD Unavailable [phone] Encounter Details Date Type Department Care Team (Late st Contact Info) Description 07/19/2019 Scanned Document [address] [place] [address] Provider, Generic Social History Tobacco Use Types [...] Description 12/11/2025 1:30 PM EST Office Visit [facility] Endocrinology [address] [address] Trini Brown MD [address] [address] 04/08/2026 1:45 PM EDT Office Visit [facility] [address] [place] [address] Ludwig Whiting, 10[address] [place] [address] 05/06/2026 2:45 PM EDT Office Visit [facility] Cardiology [address] [place] [address] Ashley Tilley MD [address] [place] [address] 06/01/2027 12:00 PM EDT Office Visit [facility] Endocrinology [address] [address] Trini Brown MD [address] [place] [address] documented as of this encounter Procedures Procedure Name Priority Date/Time Associated Diagnosis Comments HX OPHTHALMOLOGY TESTING PROCEDURES 07/19/2019 documented in this encounter Results * HX OPHTHALMOLOGY TESTING PROCEDURES (07/19/2019) Chana Fuller - 07/19/2019 Ordered by an unspecified provider. us Generic Provider HX AMB PROCEDURES Edited Result - Final documented in this encounter Visit Diagnoses Not on filedocumented in this encounter Care Teams Dispatcher Street Department Relationship Specialty Start Date End Date Ludwig Whiting DO [address] [place] [address] PCP - General Family Medicine 12/01/16 Bianca Elena [address] [place] [address] PCP - Ophthalmology Ophthalmology 01/25/21 Ludwig Whiting DO [address] [place] [address] PCP - [place] Commercial Attributed 03/26/21 Nicolas Gold MD [address] [place] [address] Endocrinology 07/11/17 Juanito Rivas MD [address] [place] [address] Referring Provider Surgery, Neurosurgery 02/01/18 Kirk Stringer MD [address] [place] [address] Consulting Provider Sleep Medicine 02/01/18 Jostin Kenny MD [address] [place] [address] Nephrology 02/01/18 05/13/23 Marcelle Bass, RN [address] 2nd [place] [address] ICP Transition Vacuum Spindle Sander 08/25/20 09/20/21 Ashley Tilley MD [address] [place] [address] Cardiovascular Disease 01/25/21 Jostin Kenny MD [address] [place] [address] Nephrology 05/14/23 Trini Brown MD [address] [place] [address] Endocrinology 01/04/24 Ashley Tilley MD [address] [place] [address] Primary Construction Helper Cardiovascular Disease 01/17/24 Franky Fonseca MD [address] [place] [address] Nephrology 06/10/24 documented as of this encounter
--- OUTSIDE RECORDS SUMMARY | 2025-11-04 22:39 | XMS_ITS | Encounter Summary ---
Author Organization [facility] Address 100 [place] [address] Care Team Providers Care Food Production Supervisor Name Role Phone Ludwig Whiting DO Primary Care Provider [phone] Nicolas Gold MD Unavailable Unavailable Juanito Rivas MD Unavailable Kirk Stringer MD Unavailable Ashley Tilley MD Unavailable [phone] Bianca Elena Unavailable Ludwig Whiting DO Unavailable [phone] Jostin Kenny MD Unavailable [phone] Trini Brown MD Unavailable [phone] Ashley Tilley MD Unavailable [phone] Franky Fonseca MD Unavailable [phone] Encounter Details Date Type Department Care Team (Late st Contact Info) Description 12/03/2024 Prep for Surgery [facility] [place] - Electrophysiology [address] [place] [address] [address] [place] [address] Elvie Schmitz, PUBLIC ADDRESS TECHNICIAN [address] [address] Social History Tobacco Use Types Packs/Day Years Used Date Smoking Tobacco: Former Cigarettes 2 27 1 963 - 1989 Cigars Smokeless Tobacco: Never Alcohol Use Standard Drinks/Week Comments No 0 (1 standard drink = 0.6 oz pur e alcohol) [facility] Utilities Answer Date Recorded In the past [...] and Family Not on file 11/24/2024 Attends [employer] Not on file 11/24 Active Member [...] any time in the past [address] [facility], were you homeless or living in a [...] Description 12/11/2025 1:30 PM EST Office Visit [facility] Endocrinology [place] 100 [facility] 101 [place] [address] Trini Brown MD 100 [facility] 101 [place] [address] 04/08/2026 1:45 PM EDT Office Visit [facility] 10[address] [place] [address] Ludwig Whiting, [address] [place] [address] 05/06/2026 2:45 PM EDT Office Visit [facility] Cardiology [address] [place] [address] Ashley Tilley MD [address] [place] [address] [place] [address] 06/01/2027 12:00 PM EDT Office Visit [facility] Endocrinology [place] [address] [place] [address] Trini Brown MD [address] [place] [address] documented as of this encounter Visit Diagnoses Not on filedocumented in this encounter Care Teams Food Production Supervisor Relationship Specialty Start Date End Date Ludwig Whiting DO [address] [place] [address] PCP - General Family Medicine 12/01/16 Bianca Elena [address] [facility] [address] [place] [address] PCP - Ophthalmology Ophthalmology 01/25/21 Ludwig Whiting DO [address] [place] [address] PCP - [place] Commercial Attributed 03/26/21 Nicolas Gold MD [address] [place] [address] Endocrinology 07/11/17 Juanito Rivas MD [address] [place] [address] Referring Provider Surgery, Neurosurgery 02/01/18 Kirk Stringer MD [address] [place] [address] Consulting Provider Sleep Medicine 02/01/18 Ashley Tilley MD [address] [place] [address] Cardiovascular Disease 01/25/21 Jostin Kenny MD [address] [place] [address] Nephrology 05/14/23 Trini Brown MD [address] [place] [address] Endocrinology 01/04/24 Ashley Tilley MD [address] [place] [address] Primary Budget Accountant Cardiovascular Disease 01/17/24 Franky Fonseca MD [address] [place] [address] Nephrology 06/10/24 documented as of this encounter
--- OUTSIDE RECORDS SUMMARY | 2025-11-04 22:39 | XMS_ITS | Encounter Summary ---
Author Organization [facility] Address 100 [place] [address] Care Team Providers Care Blanket Winder Helper Name Role Phone Ludwig Whiting DO Primary Care Provider [phone] Nicolas Gold MD Unavailable Unavailable Juanito Rivas MD Unavailable Kirk Stringer MD Unavailable Jostin Kenny MD Unavailable [phone] Marcelle Bass RN Unavailable Ashley Tilley MD Unavailable [phone] Bianca Elena Unavailable Ludwig Whiting DO Unavailable Jostin Kenny MD Unavailable [phone] Trini Brown MD Unavailable [phone] Ashley Tilley MD Unavailable [phone] Franky Fonseca MD Unavailable [phone] Encounter Details Date Type Department Care Team (Late st Contact Info) Description 10/14/2020 Scanned Document [facility] 1060 [place] [address] Ludwig Whiting, DO 10[address] [place] [address] Social History Tobacco Use Types Packs/Day Years [...] [facility] Endocrinology [place] 100 [facility] 101 [place] [address] Trini Brown MD 100 [facility] 101 [place] [address] 04/08/2026 1:45 PM EDT Office Visit [address] [address] Ludwig Whiting, DO [address] [place] [address] 05/06/2026 2:45 PM EDT Office [facility] Cardiology [address] [place] [address] Ashley Tilley MD [address] [address] 06/01/2027 12:00 PM EDT Office Visit [facility] Endocrinology [place] [address] [place] [address] Trini Brown MD [address] [place] [address] documented as of this encounter Visit Diagnoses Not on filedocumented in this encounter Care Teams Blanket Winder Helper Relationship Specialty Start Date End Date Ludwig Whiting DO [address] [facility] [place] [address] PCP - General Family Medicine 12/01/16 Bianca Elena 139 [facility] [address] [place] [address] PCP - Ophthalmology Ophthalmology 01/25/21 Ludwig Whiting DO [address] [facility] [place] [address] PCP - [place] Commercial Attributed 03/26/21 Nicolas Gold MD 1060 [facility] [place] [address] Endocrinology 07/11/17 Juanito Rivas MD [address] [place] [address] Referring Provider Surgery, Neurosurgery 02/01/18 Kirk Stringer MD 112 [place] [address] Consulting Provider Sleep Medicine 02/01/18 Jostin Kenny MD 112 [place] [address] Nephrology 02/01/18 05/13/23 Marcelle Bass, RN [address] [place] [address] ICP Transition Senior Sales Associate 08/25/20 09/20/21 Ashley Tilley MD [address] [place] [address] Cardiovascular Disease 01/25/21 Jostin Kenny MD [address] [place] [address] Nephrology 05/14/23 Trini Brown MD [address] [place] [address] Endocrinology 01/04/24 Ashley Tilley MD [address] [place] [address] Primary Pole Peeling Machine Operator Cardiovascular Disease 01/17/24 Franky Fonseca MD [address] [place] [address] Nephrology 06/10/24 documented as of this encounter
--- OUTSIDE RECORDS SUMMARY | 2025-11-04 22:39 | XMS_ITS | Encounter Summary ---
Author Organization [facility] Address 100 [place] [address] Care Team Providers Care Websphere Commerce Consultant Name Role Phone Ludwig Whiting DO Primary Care Provider [phone] Nicolas Gold MD Unavailable Unavailable Juanito Rivas MD Unavailable [phone] Kirk Stringer MD Unavailable Jostin Kenny MD Unavailable [phone] Ashley Tilley MD Unavailable [phone] Bianca Elena Unavailable Ludwig Whiting DO Unavailable Jostin Kenny MD Unavailable [phone] Trini Brown MD Unavailable [phone] Ashley Tilley MD Unavailable [phone] Franky Fonseca MD Unavailable [phone] Encounter Details Date Type Department Care Team (Late st Contact Info) Description 10/17/2021 Scanned Document [address] [address] Ludwig Whiting, DO [address] [place] [address] Social History Tobacco Use Types Packs/Day Years [...] Description 12/11/2025 1:30 PM EST Office [facility] Endocrinology [place] 100 [facility] 101 [place] [address] Trini Brown MD 100 [facility] 101 [place] [address] 04/08/2026 1:45 PM EDT Office Visit [facility] 1060 [place] [address] Ludwig Whiting, DO [facility]0 [place] [address] 05/06/2026 2:45 PM EDT Office Visit [facility] Cardiology [address] [place] [address] Ashley Tilley MD [address] [place] [address] 06/01/2027 12:00 PM EDT Office [facility] Endocrinology [place] [address] [place] [address] Trini Brown MD [address] [place] [address] documented as of this encounter Visit Diagnoses Not on filedocumented in this encounter Care Teams Websphere Commerce Consultant Relationship Specialty Start Date End Date Ludwig Whiting DO [address] [place] [address] PCP - General Family Medicine 12/01/16 Bianca Elena 139 [facility] [address] [place] [address] PCP - Ophthalmology Ophthalmology 01/25/21 Ludwig Whiting, [address] [place] [address] PCP - [place] Commercial Attributed 03/26/21 Nicolas Gold MD [address] [place] [address] Endocrinology 07/11/17 Juanito Rivas MD [address] [place] [address] Referring Provider Surgery, Neurosurgery 02/01/18 Kirk Stringer MD [address] [place] [address] Consulting Provider Sleep Medicine 02/01/18 Jostin Kenny MD [address] [place] [address] Nephrology 02/01/18 05/13/23 Ashley Tilley MD [address] [place] [address] Cardiovascular Disease 01/25/21 Jostin Kenny MD [address] [place] [address] Nephrology 05/14/23 Trini Brown MD [address] [place] [address] Endocrinology 01/04/24 Ashley Tilley MD [address] [place] [address] Primary Commercial Construction Estimator Cardiovascular Disease 01/17/24 Franky Fonseca MD [address] [place] [address] Nephrology 06/10/24 documented as of this encounter
--- OUTSIDE RECORDS SUMMARY | 2025-11-04 22:39 | XMS_ITS | Encounter Summary ---
Author Organization [facility] Address [address] [place] [address] Care Team Providers Care Information Systems Planner Name Role Phone Oneal Farrell MD Primary Care Provider Ludwig Whiting DO Primary Care Provider [phone] Nicolas Gold MD Unavailable Unavailable Juanito Rivas MD Unavailable [phone] Kirk Stringer MD Unavailable Jostin Kenny MD Unavailable [phone] Marcelle Bass RN Unavailable Ashley Tilley MD Unavailable [phone] Bianca Elena Unavailable Ludwig Whiting DO Unavailable [phone] Jostin Kenny MD Unavailable [phone] Trini Brown MD Unavailable [phone] Ashley Tilley MD Unavailable [phone] Franky Fonseca MD Unavailable [phone] Encounter Details Date Type Department Care Team (Late st Contact Info) Description 08/16/2015 Scanned Document [facility] 10[address] [place] [address] Provider, Generic Social History Tobacco Use Types [...] [facility] Endocrinology [place] 100 [facility] 101 [place] [address] Trini Brown MD 100 [facility] 101 [place] [address] 04/08/2026 1:45 PM EDT Office Visit [facility] 10[address] [place] [address] Ludwig Whiting, 10[address] [place] [address] 05/06/2026 2:45 PM EDT Office Visit [facility] Cardiology [address] [place] [address] Ashley Tilley MD [address] [place] [address] 06/01/2027 12:00 PM EDT Office Visit [facility] Endocrinology [place] 100 [facility] 101 [place] [address] Trini Brown MD [address] [place] [address] documented as of this encounter Visit Diagnoses Not on filedocumented in this encounter Care Teams Information Systems Planner Relationship Specialty Start Date End Date Oneal Farrell MD PCP - General Internal Medicine 08/05/15 11/30/16 Ludwig Whiting DO 10[address] [place] [address] PCP - General Family Medicine 12/01/16 Bianca Elena [address] [place] [address] PCP - Ophthalmology Ophthalmology 01/25/21 Ludwig Whiting DO 1060 [facility] [place] [address] PCP - [place] Commercial Attributed 03/26/21 Nicolas Gold MD 1060 [facility] [place] [address] Endocrinology 07/11/17 Juanito Rivas MD [address] [place] [address] Referring Provider Surgery, Neurosurgery 02/01/18 Kirk Stringer MD [address] [place] [address] Consulting Provider Sleep Medicine 02/01/18 Jostin Kenny MD [address] [place] [address] Nephrology 02/01/18 05/13/23 Marcelle Bass, RN [address] 2nd [place] [address] ICP Transition Fish Boning Machine Feeder 08/25/20 09/20/21 Ashley Tilley MD [address] [place] [address] Cardiovascular Disease 01/25/21 Jostin Kenny MD [address] [place] [address] Nephrology 05/14/23 Trini Brown MD [address] [place] [address] Endocrinology 01/04/24 Ashley Tilley MD [address] [place] [address] Primary Green Chain Marker Cardiovascular Disease 01/17/24 Franky Fonseca MD [address] [place] [address] Nephrology 06/10/24 documented as of this encounter
--- OUTSIDE RECORDS SUMMARY | 2025-11-04 22:39 | XMS_ITS | Encounter Summary ---
Author Organization [facility] Address [address] [place] [address] Care Team Providers Care Sports Lawyer Name Role Phone Oneal Farrell MD Primary Care Provider [phone] Ludwig Whiting DO Primary Care Provider [phone] Nicolas Gold MD Unavailable Unavailable Juanito Rivas MD Unavailable [phone] Kirk Stringer MD Unavailable Jostin Kenny MD Unavailable [phone] Marcelle Bass RN Unavailable Ashley Tilley MD Unavailable Bianca Elena Unavailable Ludwig Whiting DO Unavailable [phone] Ludwig Whiting DO Primary Care Provider Jostin Kenny MD Unavailable [phone] Trini Brown MD Unavailable [phone] Ashley Tilley MD Unavailable [phone] Franky Fonseca MD Unavailable [phone] Encounter Details Date Type Department Care Team (Late st Contact Info) Description 02/22/2009 Scanned Document [facility] [address] [place] [address] Provider, Generic Social History Tobacco Use Types [...] Description 12/11/2025 1:30 PM EST Office Visit [facility] Endocrinology [place] 100 [facility] 101 [place] [address] Trini Brown MD 100 [facility] 101 [place] [address] 04/08/2026 1:45 PM EDT Office Visit [facility] 1060 [place] [address] Ludwig Whiting, [address] [place] [address] 05/06/2026 2:45 PM EDT Office Visit [facility] Cardiology [address] [place] [address] Ashley Tilley MD [address] [place] [address] 06/01/2027 12:00 PM EDT Office Visit [facility] Endocrinology [place] [address] [phone] Trini Brown MD [address] [place] [address] documented as of this encounter Procedures Procedure Name Priority Date/Time Associated Diagnosis Comments XRAY EXTERNAL RESULT 02/22/2009 documented in this encounter Results * XRAY EXTERNAL RESULT (02/22/2009) Anatomical Region Laterality Modality Computed Radiogr aphy Narrative 01/12/2017 5:17 AM EST Ordered by an unspecified provider. us Generic Provider IMG DIAGNOSTIC IMAGING ORDERABL ES Final Result documented in this encounter Visit Diagnoses Not on filedocumented in this encounter Care Teams Sports Lawyer Relationship Specialty Start Date End Date Oneal Farrell MD PCP - General Internal Medicine 08/05/15 11/30/16 Ludwig Whiting DO [facility] [place] [address] PCP - General Family Medicine 12/01/16 Bianca Elena [address] [place] [address] PCP - Ophthalmology Ophthalmology 01/25/21 Ludwig Whiting DO [facility] [place] [address] PCP - [place] Commercial Attributed 03/26/21 Ludwig Whiting DO 1060 [facility] [place] [address] PCP - General 08/04/15 Nicolas Gold MD 1060 [place] [address] Endocrinology 07/11/17 Juanito Rivas MD [address] [place] [address] Referring Provider Surgery, Neurosurgery 02/01/18 Kirk Stringer MD 112 [place] [address] Consulting Provider Sleep Medicine 02/01/18 Jostin Kenny MD 112 [place] [address] Nephrology 02/01/18 05/13/23 Marcelle Bass, WING 17 [facility] 2nd [place] [address] ICP Transition Yarn Twister 08/25/20 09/20/21 Ashley Tilley MD [address] [place] [address] Cardiovascular Disease 01/25/21 Jostin Kenny MD [address] [place] [address] Nephrology 05/14/23 Trini Brown MD [address] [place] [address] Endocrinology 01/04/24 Ashley Tilley MD [address] [place] [address] Primary Forest Ecologist Cardiovascular Disease 01/17/24 Franky Fonseca MD [address] [place] [address] Nephrology 06/10/24 documented as of this encounter
--- OUTSIDE RECORDS SUMMARY | 2025-11-04 22:39 | XMS_ITS | Encounter Summary ---
Author Organization [facility] Address [address] [place] [address] Care Team Providers Care Etcher Aircraft Name Role Phone Ludwig Whiting DO Primary Care Provider [phone] Nicolas Gold MD Unavailable Unavailable Juanito Rivas MD Unavailable Kirk Stringer MD Unavailable Jostin Kenny MD Unavailable Marcelle Bass RN Unavailable Ashley Tilley MD Unavailable [phone] Bianca Elena Unavailable Ludwig Whiting DO Unavailable Jostin Kenny MD Unavailable [phone] Trini Brown MD Unavailable Ashley Tilley MD Unavailable [phone] Franky Fonseca MD Unavailable [phone] Encounter Details Date Type Department Care Team (Late st Contact Info) Description 10/02/2018 Scanned Document [facility] [address] [place], [place] [address], [place] [address] Provider, Generic Social History Tobacco Use Types [...] 12/11/2025 1:30 PM EST Office [facility] Endocrinology [address] [phone] Trini Brown MD [address] [place] [address] 04/08/2026 1:45 PM EDT Office Visit [facility] [address] [place] [phone] Ludwig Whiting, [address] [place] [address] 05/06/2026 2:45 PM EDT Office [facility] Cardiology [address] [place] [address] Ashley Tilley MD [address] [place] [address] 06/01/2027 12:00 PM EDT Office Visit [facility] Endocrinology [address] [phone] Trini Brown MD [address] [place] [address] documented as of this encounter Visit Diagnoses Not on filedocumented in this encounter Care Teams Etcher Aircraft Relationship Specialty Start Date End Date Ludwig Whiting, DO [address] [place] [address] PCP - General Family Medicine 12/01/16 Bianca Elena [address] [place] [address] PCP - Ophthalmology Ophthalmology 01/25/21 Ludwig Whiting, DO [address] [place] [address] PCP - [place] Commercial Attributed 03/26/21 Nicolas Gold MD [address] [facility] [address] Endocrinology 07/11/17 Juanito Rivas MD 1000 [place] [address] Referring Provider Surgery, Neurosurgery 02/01/18 Kirk Stringer MD [address] [place] [address] Consulting Provider Sleep Medicine 02/01/18 Jostin Kenny MD [address] [place] [address] Nephrology 02/01/18 05/13/23 Marcelle Bass, WING 17 [facility] 2nd [place] [address] ICP Transition Assistant Professor Of Music 08/25/20 09/20/21 Ashley Tilley MD [address] [place] [address] Cardiovascular Disease 01/25/21 Jostin Kenny MD [address] [place] [address] Nephrology 05/14/23 Trini Brown MD [address] [place] [address] Endocrinology 01/04/24 Ashley Tilley MD [address] [place] [address] Primary Hydro Generation Manager Cardiovascular Disease 01/17/24 Franky Fonseca MD [address] [place] [address] Nephrology 06/10/24 documented as of this encounter
--- OUTSIDE RECORDS SUMMARY | 2025-11-04 22:39 | XMS_ITS | Encounter Summary ---
Author Organization [facility] Address [address] [place] [address] Care Team Providers Care Laboratory Coordinator Name Role Phone Oneal Farrell MD Primary Care Provider [phone] Ludwig Whiting DO Primary Care Provider [phone] Nicolas Gold MD Unavailable Unavailable Juanito Rivas MD Unavailable [phone] Kirk Stringer MD Unavailable Jostin Kenny MD Unavailable [phone] Marcelle Bass RN Unavailable Ashley Tilley MD Unavailable Bianca Elena Unavailable Ludwig Whiting DO Unavailable [phone] Ludwig Whiting DO Primary Care Provider Jostin Kenny MD Unavailable [phone] Trini Brown MD Unavailable [phone] Ashley Tilley MD Unavailable [phone] Franky Fonseca MD Unavailable [phone] Encounter Details Date Type Department Care Team (Late st Contact Info) Description 02/15/2012 Scanned Document [facility] 1060 [place] [address] Provider, Generic Social History Tobacco Use Types [...] Description 12/11/2025 1:30 PM EST Office Visit [facility] Endocrinology [place] 100 [facility] 101 [place] [address] Trini Brown MD 100 [facility] 101 [place] [address] 04/08/2026 1:45 PM EDT Office Visit [facility] 1060 [place] [address] Ludwig Whiting, [address] [place] [address] 05/06/2026 2:45 PM EDT Office Visit [facility] Cardiology [address] [place] [address] Ashley Tilley MD [address] [place] [address] 06/01/2027 12:00 PM EDT Office Visit [facility] Endocrinology [place] [address] [phone] Trini Brown MD [address] [place] [address] documented as of this encounter Procedures Procedure Name Priority Date/Time Associated Diagnosis Comments MRI EXTERNAL RESULT 02/15/2012 documented in this encounter Results * MRI EXTERNAL RESULT (02/15/2012) Anatomical Region Laterality Modality Magnetic Resonan ce Narrative 01/12/2017 5:17 AM EST Ordered by an unspecified provider. us Generic Provider IMG MRI ORDERABLES Final Result documented in this encounter Visit Diagnoses Not on filedocumented in this encounter Care Teams Laboratory Coordinator Relationship Specialty Start Date End Date Oneal Farrell MD PCP - General Internal Medicine 08/05/15 11/30/16 Ludwig Whiting, [address] [place] [address] [place] [address] PCP - General Family Medicine 12/01/16 Bianca Elena [address] [place] [address] PCP - Ophthalmology Ophthalmology 01/25/21 Ludwig Whiting DO [facility] [place] [address] PCP - [place] Commercial Attributed 03/26/21 Ludwig Whiting DO 1060 [facility] [place] [address] PCP - General 08/04/15 Nicolas Gold MD 1060 [place] [address] Endocrinology 07/11/17 Juanito Rivas MD [address] [place] [address] Referring Provider Surgery, Neurosurgery 02/01/18 Kirk Stringer MD 112 [place] [address] Consulting Provider Sleep Medicine 02/01/18 Jostin Kenny MD 112 [place] [address] Nephrology 02/01/18 05/13/23 Marcelle Bass, RN 17 [facility] 2nd [place] [address] ICP Transition [id number] Tank Crewman 08/25/20 09/20/21 Ashley Tilley MD [address] [place] [address] Cardiovascular Disease 01/25/21 Jostin Kenny MD [address] [place] [address] Nephrology 05/14/23 Trini Brown MD [address] [place] [address] Endocrinology 01/04/24 Ashley Tilley MD [address] [place] [address] Primary Employee Relations Administrator Cardiovascular Disease 01/17/24 Franky Fonseca MD [address] [place] [address] Nephrology 06/10/24 documented as of this encounter
--- OUTSIDE RECORDS SUMMARY | 2025-11-04 22:39 | XMS_ITS | Encounter Summary ---
Author Organization [facility] Address [address] [place] [address] Care Team Providers Care Decorator Consultant Name Role Phone Ludwig Whiting DO Primary Care Provider [phone] Nicolas Gold MD Unavailable Unavailable Juanito Rivas MD Unavailable Kirk Stringer MD Unavailable Jostin Kenny MD Unavailable [phone] Marcelle Bass RN Unavailable Ashley Tilley MD Unavailable [phone] Bianca Elena Unavailable Ludwig Whiting DO Unavailable Jostin Kenny MD Unavailable [phone] Trini Brown MD Unavailable [phone] Ashley Tilley MD Unavailable [phone] Franky Fonseca MD Unavailable [phone] Encounter Details Date Type Department Care Team (Late st Contact Info) Description 05/26/2021 Scanned Document [facility] [address] [address] Cardiology, Scan Social History Tobacco Use Types [...] Description 12/11/2025 1:30 PM EST Office Visit [facility] Endocrinology [address] [address] Trini Brown MD [address] [place] [address] 04/08/2026 1:45 PM EDT Office Visit [address] [phone] Ludwig Whiting, 10[address] [place] [address] 05/06/2026 2:45 PM EDT Office Visit [facility] Cardiology [address] [place] [address] Ashley Tilley MD [address] [place] [address] 06/01/2027 12:00 PM EDT Office Visit [facility] Endocrinology [address] [address] Trini Brown MD [address] [place] [address] documented as of this encounter Visit Diagnoses Not on filedocumented in this encounter Care Teams Decorator Consultant Relationship Specialty Start Date End Date Ludwig Whiting, DO [address] [place] [address] PCP - General Family Medicine 12/01/16 Bianca Elena [address] [place] [address] PCP - Ophthalmology Ophthalmology 01/25/21 Ludwig Whiting, DO [address] [place] [address] PCP - [place] Commercial Attributed 03/26/21 Nicolas Gold MD 1060 [facility] [place] [address] Endocrinology 07/11/17 Juanito Rivas MD 1000 [place] [address] Referring Provider Surgery, Neurosurgery 02/01/18 Kirk Stringer MD [address] [place] [address] Consulting Provider Sleep Medicine 02/01/18 Jostin Kenny MD [address] [place] [address] Nephrology 02/01/18 05/13/23 Marcelle Bass, WING 17 [facility] 2nd [place] [address] ICP Transition Telephone Coin Box Collector 08/25/20 09/20/21 Ashley Tilley MD [address] [place] [address] Cardiovascular Disease 01/25/21 Jostin Kenny MD [address] [place] [address] Nephrology 05/14/23 Trini Brown MD [address] [place] [address] Endocrinology 01/04/24 Ashley Tilley MD [address] [place] [address] Primary Caustic Preparer Cardiovascular Disease 01/17/24 Franky Fonseca MD [address] [place] [address] Nephrology 06/10/24 documented as of this encounter
--- OUTSIDE RECORDS SUMMARY | 2025-11-04 22:39 | XMS_ITS | Clinical Summary ---
Author Organization [facility] Address [address] [place] [address] Phone Care Team Providers Care Product/Industry Consultant Name Role Phone Ludwig Whiting DO Primary Care Provider [phone] Allergies No known active allergies Medications allopurinol [...] each day 0 Active Multiple Minerals-Vitamins (CALCIUM [id number]-[id number]-LCMQD ALS PO) Take 1 capsule by mouth [...] Secondary hypercoagulable state 10/24/2022 Overview (05/08/2023): afib [id number] Stroke Risk was calculated. Total Score: 4 [...] Smoking Tobacco: Former Cigarettes 0 Q uit: 11/26/2001 Smokeless Tobacco: Never Tobacco [...] 04/27/2023, 03/18/2015, 08/26/2003 Influenza Vaccine (#1) 2025 , 10/19/2023, 10/27/2022, Additional history exists Pneumococcal Vaccine: Peds (0 [...] 0.84 0.60 - 1.30 mg/dL eGFR Non-Afr Malagasy 93 eGFR 107 AST (SGOT) 21 U/L [...] Relevant to Health Maintenance Insurance Care Teams Product/Industry Consultant Relationship Specialty Start Date End Date Ludwig Whiting DO [address] [place], [place] PCP - General Family Medicine 04/05/21
--- OUTSIDE RECORDS SUMMARY | 2025-11-04 22:39 | XMS_ITS | Encounter Summary ---
Author Organization [facility] Address [address] [place] [address] Care Team Providers Care Consumer Loan Underwriter Name Role Phone Ludwig Whiting DO Primary Care Provider [phone] Nicolas Gold MD Unavailable Unavailable Juanito Rivas MD Unavailable [phone] Kirk Stringer MD Unavailable Jostin Kenny MD Unavailable [phone] Marcelle Bass RN Unavailable Ashley Tilley MD Unavailable [phone] Bianca Elena Unavailable Ludwig Whiting DO Unavailable Jostin Kenny MD Unavailable [phone] Trini Brown MD Unavailable [phone] Ashley Tilley MD Unavailable [phone] Franky Fonseca MD Unavailable [phone] Encounter Details Date Type Department Care Team (Late st Contact Info) Description 12/19/2017 Scanned Document [facility] [address] [place], [place] [address], [place] [address] Provider, Generic Social History Tobacco Use Types [...] Description 12/11/2025 1:30 PM EST Office Visit [facility] Endocrinology [address] [address] Trini Brown MD [address] [place] [address] 04/08/2026 1:45 PM EDT Office Visit [address] [phone] Ludwig Whiting, [address] [place] [address] 05/06/2026 2:45 PM EDT Office Visit [facility] Cardiology [address] [place] [phone] Ashley Tilley MD [address] [address] 06/01/2027 12:00 PM EDT Office Visit [facility] Endocrinology [address] [address] Trini Brown MD [address] [place] [address] documented as of this encounter Visit Diagnoses Not on filedocumented in this encounter Care Teams Consumer Loan Underwriter Relationship Specialty Start Date End Date Ludwig Whiting DO [address]60 [place] [address] PCP - General Family Medicine 12/01/16 Bianca Elena [address] [place] [address] PCP - Ophthalmology Ophthalmology 01/25/21 Ludwig Whiting, DO 1060 [place] [address] PCP - [place] Commercial Attributed 03/26/21 Nicolas Gold MD 1060 [place] [address] Endocrinology 07/11/17 Juanito Rivas MD 1000 [place] [address] Referring Provider Surgery, Neurosurgery 02/01/18 Kirk Stringer MD [address] [place] [address] Consulting Provider Sleep Medicine 02/01/18 Jostin Kenny MD [address] [place] [address] Nephrology 02/01/18 05/13/23 Marcelle Bass RN 17 [facility] 2nd [place] [address] ICP Transition Compliance Representative Dealer 08/25/20 09/20/21 Ashley Tilley MD [address] [place] [address] Cardiovascular Disease 01/25/21 Jostin Kenny MD [address] [place] [address] Nephrology 05/14/23 Trini Brown MD [address] [place] [address] Endocrinology 01/04/24 Ashley Tilley MD [address] [place] [address] Primary Ceiling Installer Cardiovascular Disease 01/17/24 Franky Fonseca MD [address] [place] [address] Nephrology 06/10/24 documented as of this encounter
--- OUTSIDE RECORDS SUMMARY | 2025-11-04 22:39 | XMS_ITS | Encounter Summary ---
Author Organization Formerly [facility] Address [address] [place] [address] Care Team Providers Care Drop Hammer Setter Up Name Role Phone Ludwig Whiting DO Primary Care Provider [phone] Nicolas Gold MD Unavailable Unavailable Juanito Rivas MD Unavailable Kirk Stringer MD Unavailable Jostin Kenny MD Unavailable [phone] Marcelle Bass RN Unavailable Ashley Tilley MD Unavailable [phone] Bianca Elena Unavailable Ludwig Whiting DO Unavailable Jostin Kenny MD Unavailable [phone] Trini Brown MD Unavailable [phone] Ashley Tilley MD Unavailable [phone] Franky Fonseca MD Unavailable [phone] Encounter Details Date Type Department Care Team (Late st Contact Info) Description 12/30/2020 Scanned Document [facility] 1060 [place] [address] Cardiology, Scan Social History Tobacco Use Types [...] Description 12/11/2025 1:30 PM EST Office Visit [facility] [place] [place] 100 [facility] 101 [place] [address] Trini Brown MD 100 [facility] 101 [place] [address] 04/08/2026 1:45 PM EDT Office Visit [facility] [address] [place] [phone] Ludwig Whiting, [address] [place] [address] 05/06/2026 2:45 PM EDT Office Visit [facility] Cardiology [address] [place] [address] Ashley Tilley MD 100 [facility] [address] [place] [address] 06/01/2027 12:00 PM EDT Office Visit [facility] [place] [place] [address] [place] [address] Trini Brown MD [address] [place] [address] documented as of this encounter Visit Diagnoses Not on filedocumented in this encounter Care Teams Drop Hammer Setter Up Relationship Specialty Start Date End Date Ludwig Whiting DO 1060 [facility] [place] [address] PCP - General Family Medicine 12/01/16 Bianca Elena [address] [place] [address] PCP - Ophthalmology Ophthalmology 01/25/21 Ludwig Whiting DO 1060 [facility] [place] [address] PCP - [place] Commercial Attributed 03/26/21 Nicolas Gold MD 1060 [place] [address] Endocrinology 07/11/17 Juanito Rivas MD [address] [place] [address] Referring Provider Surgery, Neurosurgery 02/01/18 Kirk Stringer MD [address] [place] [address] Consulting Provider Sleep Medicine 02/01/18 Jostin Kenny MD [address] [place] [address] Nephrology 02/01/18 05/13/23 Marcelle Bass, RN [address] [place] [address] ICP Transition It Portfolio Manager 08/25/20 09/20/21 Ashley Tilley MD [address] [place], [place] [phone] Cardiovascular Disease 01/25/21 Jostin Kenny MD [address] [place] [address] Nephrology 05/14/23 Trini Brown MD [address] [place] [address] Endocrinology 01/04/24 Ashley Tilley MD [address] [place], [place] [id number] Primary Investment Fund Manager Cardiovascular Disease 01/17/24 Franky Fonseca MD [address] [place] [address] Nephrology 06/10/24 documented as of this encounter
--- OUTSIDE RECORDS SUMMARY | 2025-11-04 22:39 | XMS_ITS | Encounter Summary ---
Author Organization [facility] Address 100 [place] [address] Care Team Providers Care Waste Minimization Technician Name Role Phone Ludwig Whiting DO Primary Care Provider [phone] Nicolas Gold MD Unavailable Unavailable Juanito Rivas MD Unavailable Kirk Stringer MD Unavailable Jostin Kenny MD Unavailable [phone] Marcelle Bass RN Unavailable Ashley Tilley MD Unavailable [phone] Bianca Elena Unavailable Ludwig Whiting DO Unavailable Jostin Kenny MD Unavailable [phone] Trini Brown MD Unavailable [phone] Ashley Tilley MD Unavailable [phone] Franky Fonseca MD Unavailable [phone] Encounter Details Date Type Department Care Team (Late st Contact Info) Description 03/20/2018 Scanned Document [facility] [address] [place], [place] [address], [place] [address] Provider, Generic Social History Tobacco Use Types [...] Description 12/11/2025 1:30 PM EST Office Visit [facility] Endocrinology [address] [address] Trini Brown MD [address] [place] [address] 04/08/2026 1:45 PM EDT Office Visit [address] [phone] Ludwig Whiting, [address] [place] [address] 05/06/2026 2:45 PM EDT Office Visit [facility] Cardiology [address] [place] [phone] Ashley Tilley MD [address] [address] 06/01/2027 12:00 PM EDT Office Visit [facility] Endocrinology [address] [address] Trini Brown MD [address] [place] [address] documented as of this encounter Procedures Procedure Name Priority Date/Time Associated Diagnosis Comments PULMONARY SLEEP STUDY 03/20/2018 documented in this encounter Results * PULMONARY SLEEP STUDY (03/20/2018) Narrative 03/20/2018 Ordered by an unspecified provider. us Generic Provider HX AMB PROCEDURES Edited Result - Final documented in this encounter Visit Diagnoses Not on filedocumented in this encounter Care Teams Waste Minimization Technician Relationship Specialty Start Date End Date Ludwig Whiting DO 1060 [place] [address] PCP - General Family Medicine 12/01/16 Bianca Elena [address] [place] [address] PCP - Ophthalmology Ophthalmology 01/25/21 Ludwig Whiting DO 1060 [place] [address] PCP - [place] Commercial Attributed 03/26/21 Nicolas Gold MD 1060 [place] [address] Endocrinology 07/11/17 Juanito Rivas MD 1000 [place] [address] Referring Provider Surgery, Neurosurgery 02/01/18 Kirk Stringer MD [address] [place] [address] Consulting Provider Sleep Medicine 02/01/18 Jostin Kenny MD 112 [place] [address] Nephrology 02/01/18 05/13/23 Marcelle Bass, RN [address] [facility] [address] 2nd [place] [address] ICP Transition Barrel Raiser Helper 08/25/20 09/20/21 Ashley Tilley MD [address] [place] [address] Cardiovascular Disease 01/25/21 Jostin Kenny MD [address] [place] [address] Nephrology 05/14/23 Trini Brown MD [address] [place] [address] Endocrinology 01/04/24 Ashley Tilley MD [address] [place] [address] Primary Senior Production Supervisor Cardiovascular Disease 01/17/24 Franky Fonseca MD [address] [place] [address] Nephrology 06/10/24 documented as of this encounter
--- OUTSIDE RECORDS SUMMARY | 2025-11-04 22:39 | XMS_ITS | Encounter Summary ---
Author Organization [facility] Address 100 [place] [address] Care Team Providers Care Tool Room Machinist Name Role Phone Ludwig Whiting DO Primary Care Provider [phone] Nicolas Gold MD Unavailable Unavailable Juanito Rivas MD Unavailable Kirk Stringer MD Unavailable Jostin Kenny MD Unavailable [phone] Marcelle Bass RN Unavailable Ashley Tilley MD Unavailable [phone] Bianca Elena Unavailable Ludwig Whiting DO Unavailable Jostin Kenny MD Unavailable [phone] rTini Brown MD Unavailable [phone] Ashley Tilley MD Unavailable [phone] Franky Fonseca MD Unavailable [phone] Encounter Details Date Type Department Care Team (Late st Contact Info) Description 06/01/2021 Scanned Document [facility] 1060 [place] [address] Ludwig Whiting, DO 1060 [place] [address] Social History Tobacco Use Types Packs/Day Years [...] Description 12/11/2025 1:30 PM EST Office Visit [facility] Endocrinology [place] 100 [facility] [address] [place] [address] Trini Brown MD 100 [facility] 101 [place] [address] 04/08/2026 1:45 PM EDT Office Visit [address] [address] Ludwig Whtiing, DO 1060 [place] [address] 05/06/2026 2:45 PM EDT Office Visit [facility] Cardiology [address] [place] [address] Ashley Tilley MD [address] [place] [address] 06/01/2027 12:00 PM EDT Office Visit [facility] Endocrinology [place] [address] [place] [address] Trini Brown MD [address] [place] [address] documented as of this encounter Visit Diagnoses Not on filedocumented in this encounter Care Teams Tool Room Machinist Relationship Specialty Start Date End Date Ludwig Whiting DO 1060 [facility] [place] [address] PCP - General Family Medicine 12/01/16 Bianca Elena [address] [place] [address] PCP - Ophthalmology Ophthalmology 01/25/21 Ludwig Whiting DO 1060 [place] [address] PCP - [place] Commercial Attributed 03/26/21 Nicolas Gold MD 1060 [facility] [place] [address] Endocrinology 07/11/17 Juanito Rivas MD 1000 [place] [address] Referring Provider Surgery, Neurosurgery 02/01/18 Kirk Stringer MD 112 [place] [address] Consulting Provider Sleep Medicine 02/01/18 Jostin Kenny MD 112 [place] [address] Nephrology 02/01/18 05/13/23 Marcelle Bass, RN [address] [facility] [address] [place] [address] ICP Transition Deputy Sheriff 08/25/20 09/20/21 Ashley Tilley MD [address] [place] [address] Cardiovascular Disease 01/25/21 Jostin Kenny MD [address] [place] [address] Nephrology 05/14/23 Trini Brown MD [address] [place] [address] Endocrinology 01/04/24 Ashley Tilley MD [address] [place] [address] Primary Modular Set Crew Member Cardiovascular Disease 01/17/24 Franky Fonseca MD [address] [place] [address] Nephrology 06/10/24 documented as of this encounter
--- OUTSIDE RECORDS SUMMARY | 2025-11-04 22:39 | XMS_ITS | Encounter Summary ---
Author Organization Formerly [facility] Address [address] [place] [address] Care Team Providers Care Product Manager E Commerce Name Role Phone Ludwig Whiting DO Primary Care Provider [phone] Nicolas Gold MD Unavailable Unavailable Juanito Rivas MD Unavailable Kirk Stringer MD Unavailable [phone] Jostin Kenny MD Unavailable [phone] Ashley Tilley MD Unavailable [phone] Bianca Elena Unavailable Ludwig Whiting DO Unavailable Jostin Kenny MD Unavailable [phone] Trini Brown MD Unavailable [phone] Ashley Tilley MD Unavailable [phone] Franky Fonseca MD Unavailable [phone] Encounter Details Date Type Department Care Team (Late st Contact Info) Description 04/26/2022 Scanned Document [facility] PRIMARY CARE SCAN Ludwig Whiting DO 1060 [place] [address] Social History Tobacco Use Types Packs/Day Years [...] Description 12/11/2025 1:30 PM EST Office Visit [facility] Endocrinology [place] 100 [facility] 101 [place] [address] Trini Brown MD 100 [facility] 101 [place] [address] 04/08/2026 1:45 PM EDT Office Visit [facility] 1060 [place] [address] Ludwig Whiting, 1060 [place] [address] 05/06/2026 2:45 PM EDT Office Visit [facility] Cardiology [address] [place] [address] Ashley Tilley MD 100 [facility] [address]11 [place] [address] 06/01/2027 12:00 PM EDT Office Visit [facility] Endocrinology [place] [address] [place] [address] Trini Brown MD [address] [place] [address] documented as of this encounter Visit Diagnoses Not on filedocumented in this encounter Care Teams Product Manager E Commerce Relationship Specialty Start Date End Date Ludwig Whiting DO 1060 [place] [address] PCP - General Family Medicine 12/01/16 Bianca Elena [address] [place] [address] PCP - Ophthalmology Ophthalmology 01/25/21 Ludwig Whiting DO 1060 [place] [address] PCP - [place] Commercial Attributed 03/26/21 Nicolas Gold MD 1060 [place] [address] Endocrinology 07/11/17 Juanito Rivas MD 1000 [place] [address] Referring Provider Surgery, Neurosurgery 02/01/18 Kirk Stringer MD [address] [place] [address] Consulting Provider Sleep Medicine 02/01/18 Jostin Kenny MD [address] [place] [address] Nephrology 02/01/18 05/13/23 Ashley Tilley MD [address] [place] [address] Cardiovascular Disease 01/25/21 Jostin Kenny MD [address] [place] [address] Nephrology 05/14/23 Trini Brown MD [address] [place] [address] Endocrinology 01/04/24 Ashley Tilley MD [address] [place] [address] Primary Pediatrics Physician Cardiovascular Disease 01/17/24 Franky Fonseca MD [address] [place] [address] Nephrology 06/10/24 documented as of this encounter
--- OUTSIDE RECORDS SUMMARY | 2025-11-04 22:39 | XMS_ITS | Encounter Summary ---
Author Organization [facility] Address 100 [place] [address] Care Team Providers Care Production Floater Name Role Phone Ludwig Whiting DO Primary Care Provider [phone] Nicolas Gold MD Unavailable Unavailable Juanito Rivas MD Unavailable [phone] Kirk Stringer MD Unavailable Jostin Kenny MD Unavailable [phone] Ashley Tilley MD Unavailable [phone] Bianca Elena Unavailable Ludwig Whiting DO Unavailable Jostin Kenny MD Unavailable Trini Brown MD Unavailable [phone] Ashley Tilley MD Unavailable [phone] Franky Fonseca MD Unavailable Encounter Details Date Type Department Care Team (Late st Contact Info) Description 03/24/2022 Scanned Document [address] [address] Ludwig Whiting, DO [employer] [place] [address] Social History Tobacco Use Types Packs/Day Years [...] Description 12/11/2025 1:30 PM EST Office Visit [facility] Endocrinology [address] [address] Trini Brown MD [address] [place] [address] 101 [place] [address] 04/08/2026 1:45 PM EDT Office Visit [facility] 1060 [place] [address] Ludwig Whiting, DO [employer] [place] [address] 05/06/2026 2:45 PM EDT Office Visit [facility] Cardiology [address] [place] [address] Ashley Tilley MD [address] [place] [address] 06/01/2027 12:00 PM EDT Office Visit [facility] Endocrinology [address] [place] [address] Trini Brown MD [address] [place] [address] documented as of this encounter Visit Diagnoses Not on filedocumented in this encounter Care Teams Production Floater Relationship Specialty Start Date End Date Ludwig Whiting DO 1060 [facility] [place] [address] PCP - General Family Medicine 12/01/16 Bianca Elena 139 [facility] [address] [place] [address] PCP - Ophthalmology Ophthalmology 01/25/21 Ludwig Whiting DO 1060 [facility] [place] [address] PCP - [place] Commercial Attributed 03/26/21 Nicolas Gold MD 1060 [facility] [address] Endocrinology 07/11/17 Juanito Rivas MD [address] [place] [address] Referring Provider Surgery, Neurosurgery 02/01/18 Kirk Stringer MD [address] [place] [address] Consulting Provider Sleep Medicine 02/01/18 Jostin Kenny MD [address] [place] [address] Nephrology 02/01/18 05/13/23 Ashley Tilley MD [address] [place] [address] Cardiovascular Disease 01/25/21 Jostin Kenny MD [address] [place] [address] Nephrology 05/14/23 Trini Brown MD [address] [place] [address] Endocrinology 01/04/24 Ashley Tilley MD [address] [place] [address] Primary Processing Tech Cardiovascular Disease 01/17/24 Franky Fonseca MD [address] [place] [address] Nephrology 06/10/24 documented as of this encounter
--- OUTSIDE RECORDS SUMMARY | 2025-11-04 22:39 | XMS_ITS | Encounter Summary ---
Author Organization [facility] Address 100 [place] [address] Care Team Providers Care Collection Officer Name Role Phone Ludwig Whiting DO Primary Care Provider [phone] Nicolas Gold MD Unavailable Unavailable Juanito Rivas MD Unavailable Kirk Stringer MD Unavailable [phone] Ashley Tilley MD Unavailable [phone] Bianca Elena Unavailable Ludwig Whiting DO Unavailable Jostin Kenny MD Unavailable [phone] Trini Brown MD Unavailable [phone] Ashley Tilley MD Unavailable [phone] Franky Fonseca MD Unavailable [phone] Encounter Details Date Type Department Care Team (Late st Contact Info) Description 06/04/2024 Scanned Document [facility] PULMONOLGY SCAN Pulmonary, Scan Social History Tobacco [...] Description 12/11/2025 1:30 PM EST Office Visit [facility] Endocrinology [place] [address] [address] Trini Brown MD [address] [place] [address] 04/08/2026 1:45 PM EDT Office Visit [facility] 1060 [place] [address] Ludwig Whiting, [address] [place] [address] 05/06/2026 2:45 PM EDT Office Visit [facility] Cardiology [address] [address] Ashley Tilley MD [address] [address] 06/01/2027 12:00 PM EDT Office Visit [facility] Endocrinology [address] [address] Trini Brown MD [address] [place] [address] documented as of this encounter Visit Diagnoses Not on filedocumented in this encounter Care Teams Collection Officer Relationship Specialty Start Date End Date Ludwig Whiting DO 1060 [facility] [place] [address] PCP - General Family Medicine 12/01/16 Bianca Elena [address] [place] [address] PCP - Ophthalmology Ophthalmology 01/25/21 Ludwig Whiting DO 1060 [place] [address] PCP - [place] Commercial Attributed 03/26/21 Nicolas Gold MD 1060 [place] [address] Endocrinology 07/11/17 Juanito Rivas MD 1000 [place] [address] Referring Provider Surgery, Neurosurgery 02/01/18 Kirk Stringer MD [address] [place] [address] Consulting Provider Sleep Medicine 02/01/18 Ashley Tilley MD [address] [place] [address] Cardiovascular Disease 01/25/21 Jostin Kenny MD [address] [place] [address] Nephrology 05/14/23 Trini Brown MD [address] [place] [address] Endocrinology 01/04/24 Ashley Tilley MD [address] [place] [address] Primary Client Hr Manager Cardiovascular Disease 01/17/24 Franky Fonseca MD [address] [place] [address] Nephrology 06/10/24 documented as of this encounter
--- OUTSIDE RECORDS SUMMARY | 2025-11-04 22:39 | XMS_ITS | Encounter Summary ---
Author Organization [facility] Address 100 [place] [address] Care Team Providers Care Seam Stayer Name Role Phone Ludwig Whiting DO Primary Care Provider [phone] Nicolas Gold MD Unavailable Unavailable Juanito Rivas MD Unavailable Kirk Stringer MD Unavailable Jostin Kenny MD Unavailable [phone] Marcelle Bass RN Unavailable Ashley Tilley MD Unavailable [phone] Bianca Elena Unavailable Ludwig Whiting DO Unavailable Jostin Kenny MD Unavailable [phone] Trini Brown MD Unavailable [phone] Ashley Tilley MD Unavailable [phone] Franky Fonseca MD Unavailable Encounter Details Date Type Department Care Team (Late st Contact Info) Description 08/28/2018 Scanned Document [facility] 1060 [place] [address] Ludwig Whiting, DO 1060 [place] [address] Social History Tobacco Use Types Packs/Day Years [...] Description 12/11/2025 1:30 PM EST Office Visit [facility] Endocrinology [place] 100 [facility] 101 [place] [address] Trini Brown MD 100 [facility] 101 [place] [address] 04/08/2026 1:45 PM EDT Office Visit [facility] 1060 [place] [address] Ludwig Whiting, DO 1060 [place] [address] 05/06/2026 2:45 PM EDT Office Visit [facility] Cardiology [address] [place] [address] Ashley Tilley MD [address] [place] [address] 06/01/2027 12:00 PM EDT Office Visit [facility] Endocrinology [place] [address] [place] [address] Trini Brown MD [address] [place] [address] documented as of this encounter Visit Diagnoses Not on filedocumented in this encounter Care Teams Seam Stayer Relationship Specialty Start Date End Date Ludwig Whiting DO 1060 [facility] [address] PCP - General Family Medicine 12/01/16 Bianca Elena [address] [place] [address] PCP - Ophthalmology Ophthalmology 01/25/21 Ludwig Whiting DO 1060 [place] [address] PCP - [place] Commercial Attributed 03/26/21 Nicolas Gold MD 1060 [place] [address] Endocrinology 07/11/17 Juanito Rivas MD 1000 [place] [address] Referring Provider Surgery, Neurosurgery 02/01/18 Kirk Stringer MD 112 [place] [address] Consulting Provider Sleep Medicine 02/01/18 Jostin Kenny MD 112 [place] [address] Nephrology 02/01/18 05/13/23 Marcelle Bass, RN [address] [facility] [address] 2nd [place] [address] ICP Transition Piping Drafter 08/25/20 09/20/21 Ashley Tilley MD [address] [place] [address] Cardiovascular Disease 01/25/21 Jostin Kenny MD [address] [place] [address] Nephrology 05/14/23 Trini Brown MD [address] [place] [address] Endocrinology 01/04/24 Ashley Tilley MD [address] [place] [address] Primary Transportation Inspector Cardiovascular Disease 01/17/24 Franky Fonseca MD [address] [place] [address] Nephrology 06/10/24 documented as of this encounter
--- OUTSIDE RECORDS SUMMARY | 2025-11-04 22:39 | XMS_ITS | Encounter Summary ---
Author Organization [facility] Address [address] [place] [address] Care Team Providers Care Pig Iron Loader Name Role Phone Ludwig Whiting DO Primary Care Provider [phone] Nicolas Gold MD Unavailable Unavailable Juanito Rivas MD Unavailable Kirk Stringer MD Unavailable Jostin Kenny MD Unavailable [phone] Marcelle Bass RN Unavailable Ashley Tilley MD Unavailable [phone] Bianca Elena Unavailable Ludwig Whiting DO Unavailable Jostin Kenny MD Unavailable [phone] Trini Brown MD Unavailable [phone] Ashley Tilley MD Unavailable [phone] Franky Fonseca MD Unavailable [phone] Encounter Details Date Type Department Care Team (Late st Contact Info) Description 09/21/2017 Scanned Document [address] [place] [address] Provider, Generic Social History Tobacco Use Types [...] 12/11/2025 1:30 PM EST Office Visit [facility] Endocrinology [address] [address] Trini Brown MD [address] [place] [address] 04/08/2026 1:45 PM EDT Office Visit [address] [phone] Ludwig Whiting, [address] [place] [address] 05/06/2026 2:45 PM EDT Office Visit [facility] Cardiology [address] [place] [phone] Ashley Tilley MD [address] [address] 06/01/2027 12:00 PM EDT Office Visit [facility] Endocrinology [address] [address] Trini Brown MD [address] [place], [place] [address], [place] [address] documented as of this encounter Visit Diagnoses Not on filedocumented in this encounter Care Teams Pig Iron Loader Relationship Specialty Start Date End Date Ludwig Whiting DO 1060 [place] [address] PCP - General Family Medicine 12/01/16 Bianca Elena [address] [place] [address] PCP - Ophthalmology Ophthalmology 01/25/21 Ludwig Whiting, DO 1060 [place] [address] PCP - [place] Commercial Attributed 03/26/21 Nicolas Gold MD 1060 [place] [address] Endocrinology 07/11/17 Juanito Rivas MD 1000 [place] [address] Referring Provider Surgery, Neurosurgery 02/01/18 Kirk Stringer MD [address] [place] [address] Consulting Provider Sleep Medicine 02/01/18 Jostin Kenny MD [address] [place] [address] Nephrology 02/01/18 05/13/23 Marcelle Bass, WING 17 [facility] 2nd [place] [address] ICP Transition Cafeteria Table Attendant 08/25/20 09/20/21 Ashley Tilley MD [address] [place] [address] Cardiovascular Disease 01/25/21 Jostin Kenny MD [address] [place] [phone] Nephrology 05/14/23 Trini Brown MD [address] [place] [address] Endocrinology 01/04/24 Ashley Tilley MD [address] [place] [address] Primary Spectral Scientist Cardiovascular Disease 01/17/24 Franky Fonseca MD [address] [place] [address] Nephrology 06/10/24 documented as of this encounter
--- OUTSIDE RECORDS SUMMARY | 2025-11-04 22:39 | XMS_ITS | Encounter Summary ---
Author Organization [facility] Address [address] [place] [address] Care Team Providers Care Leaded Glass Installer Name Role Phone Ludwig Whiting DO Primary Care Provider [phone] Nicolas Gold MD Unavailable Unavailable Juanito Rivas MD Unavailable Kirk Stringer MD Unavailable [phone] Ashley Tilley MD Unavailable [phone] Bianca Elena Unavailable Ludwig Whiting DO Unavailable [phone] Jostin Kenny MD Unavailable [phone] Trini Brown MD Unavailable [phone] Ashley Tilley MD Unavailable Franky Fonseca MD Unavailable [phone] Encounter Details Date Type Department Care Team (Late st Contact Info) Description 11/15/2023 Scanned Document [facility] Endocrinology [address] [address] Nicolas Gold MD Social History Tobacco Use Types Packs/Day [...] 12/11/2025 1:30 PM EST Office Visit [facility] Endocrinology [address] [address] Trnii Brown MD [address] [place] [address] 04/08/2026 1:45 PM EDT Office Visit [address] [phone] Ludwig Whiting, [address] [address] 05/06/2026 2:45 PM EDT Office Visit [facility] Cardiology [address] [place] [phone] Ashley Tilley MD [address] [place] [address] 06/01/2027 12:00 PM EDT Office Visit [facility] Endocrinology [address] [address] Trini Brown MD [address] [place] [address] documented as of this encounter Visit Diagnoses Not on filedocumented in this encounter Care Teams Leaded Glass Installer Relationship Specialty Start Date End Date Ludwig Whiting DO [address] [facility] [place] [place] [address] PCP - General Family Medicine 12/01/16 Bianca Elena [address] [place] [address] PCP - Ophthalmology Ophthalmology 01/25/21 Ludwig Whiting DO 1060 [place] [address] PCP - [place] Commercial Attributed 03/26/21 Nicolas Gold MD 1060 [facility] [place] [address] Endocrinology 07/11/17 Juanito Rivas MD [address] [place] [address] Referring Provider Surgery, Neurosurgery 02/01/18 Kirk Stringer MD 112 [place] [address] Consulting Provider Sleep Medicine 02/01/18 Ashley Tilley MD [address] [place] [address] Cardiovascular Disease 01/25/21 Jostin Kenny MD [address] [place] [phone] Nephrology 05/14/23 Trini Brown MD [address] [place] [address] Endocrinology 01/04/24 Ashley Tilley MD [address] [place] [address] Primary Medical Records Manager Cardiovascular Disease 01/17/24 Franky Fonseca MD [address] [place] [address] Nephrology 06/10/24 documented as of this encounter
--- OUTSIDE RECORDS SUMMARY | 2025-11-04 22:39 | XMS_ITS | Encounter Summary ---
Author Organization [facility] Address [address] [place] [address] Care Team Providers Care Cattle Killer Name Role Phone Ludwig Whiting DO Primary Care Provider [phone] Nicolas Gold MD Unavailable Unavailable Juanito Rivas MD Unavailable Kirk Stringer MD Unavailable Ashley Tilley MD Unavailable [phone] Bianca Elena Unavailable Ludwig Whiting DO Unavailable Jostin Kenny MD Unavailable [phone] Trini Brown MD Unavailable [phone] Ashley Tilley MD Unavailable [phone] Franky Fonseca MD Unavailable [phone] Encounter Details Date Type Department Care Team (Late st Contact Info) Description 05/09/2024 Scanned Document [facility] ENDOCRINOLOGY SCAN Endocrinology, Scan Social History [...] Description 12/11/2025 1:30 PM EST Office Visit [facility] Endocrinology [place] [address] [phone] Trini Brown MD [address] [place] [address] 04/08/2026 1:45 PM EDT Office Visit [facility] 1060 [place] [phone] Ludwig Whiting, [address] [place] [address] 05/06/2026 2:45 PM EDT Office Visit [facility] Cardiology [address] [place] [phone] Ashley Tilley MD [address] [place] [address] [place] [address] 06/01/2027 12:00 PM EDT Office Visit [facility] Endocrinology [place] [address] [phone] Trini Brown MD [address] [place] [address] documented as of this encounter Visit Diagnoses Not on filedocumented in this encounter Care Teams Cattle Killer Relationship Specialty Start Date End Date Ludwig Whiting DO 1060 [place] [address] PCP - General Family Medicine 12/01/16 Bianca Elena [address] [place] [address] PCP - Ophthalmology Ophthalmology 01/25/21 Ludwig Whiting DO 1060 [facility] [place] [address] PCP - [place] Commercial Attributed 03/26/21 Nicolas Gold MD 1060 [facility] [place] [address] Endocrinology 07/11/17 Juanito Rivas MD [address] [place] [address] Referring Provider Surgery, Neurosurgery 02/01/18 Kirk Stringer MD [address] [place] [address] Consulting Provider Sleep Medicine 02/01/18 Ashley Tilley MD [address] [place] [address] Cardiovascular Disease 01/25/21 Jostin Kenny MD [address] [place] [phone] Nephrology 05/14/23 Trini Brown MD [address] [place] [address] Endocrinology 01/04/24 Ashley Tilley MD [address] [place] [address] Primary It Security Manager Cardiovascular Disease 01/17/24 Franky Fonseca MD [address] [place] [address] Nephrology 06/10/24 documented as of this encounter
--- OUTSIDE RECORDS SUMMARY | 2025-11-04 22:39 | XMS_ITS | Encounter Summary ---
Author Organization [facility] Address [address] [place] [address] Care Team Providers Care Freight Rate Analyst Name Role Phone Ludwig Whiting DO Primary Care Provider [phone] Nicolas Gold MD Unavailable Unavailable Juanito Rivas MD Unavailable [phone] Kirk Stringer MD Unavailable Jostin Kenny MD Unavailable [phone] Ashley Tilley MD Unavailable [phone] Bianca Elena Unavailable Ludwig Whiting DO Unavailable Jostin Kenny MD Unavailable [phone] Trini Brown MD Unavailable [phone] Ashley Tilley MD Unavailable [phone] Franky Fonseca MD Unavailable [phone] Encounter Details Date Type Department Care Team (Late st Contact Info) Description 07/21/2022 Scanned Document [facility] Cardiology [address] [place] [phone] Ashley Tilley MD [address] [place] [address] Social History Tobacco Use Types Packs/Day Years [...] [facility] Endocrinology [address] [address] Trini Brown MD [address] [place] [address] 04/08/2026 1:45 PM EDT Office Visit [facility] 1060 [place] [phone] Ludwig Whiting, [address] [address] 05/06/2026 2:45 PM EDT Office Visit [facility] Cardiology [address] [place] [phone] Ashley Tilley MD [address] [place] [address] 06/01/2027 12:00 PM EDT Office Visit [facility] Endocrinology [place] [address] [place] [address] Trini Brown MD [address] [place] [address] documented as of this encounter Visit Diagnoses Not on filedocumented in this encounter Care Teams Freight Rate Analyst Relationship Specialty Start Date End Date Ludwig Whiting DO [address] [place] [address] PCP - General Family Medicine 12/01/16 Bianca Elena [facility] [address] [address] [place] [address] PCP - Ophthalmology Ophthalmology 01/25/21 Ludwig Whiting DO [address] [place] [address] PCP - [place] Commercial Attributed 03/26/21 Nicolas Gold MD 1060 [place] [address] Endocrinology 07/11/17 Juanito Rivas MD [address] [place] [address] Referring Provider Surgery, Neurosurgery 02/01/18 Kirk Stringer MD [address] [place] [address] Consulting Provider Sleep Medicine 02/01/18 Jostin Kenny MD [address] [place] [address] Nephrology 02/01/18 05/13/23 Ashley Tilley MD [address] [place] [address] Cardiovascular Disease 01/25/21 Jostin Kenny MD [address] [place] [address] Nephrology 05/14/23 Trini Brown MD [address] [place] [address] Endocrinology 01/04/24 Ashley Tilley MD [address] [place] [address] Primary Patient Services Manager Cardiovascular Disease 01/17/24 Franky Fonseca MD [address] [place] [address] Nephrology 06/10/24 documented as of this encounter
--- OUTSIDE RECORDS SUMMARY | 2025-11-04 22:39 | XMS_ITS | Encounter Summary ---
Author Organization [facility] Address [address] [place] [address] Care Team Providers Care Lumber Marker Name Role Phone Ludwig Whiting DO Primary Care Provider [phone] Nicolas Gold MD Unavailable Unavailable Juanito Rivas MD Unavailable [phone] Kirk Stringer MD Unavailable Jostin Kenny MD Unavailable [phone] Ashley Tilley MD Unavailable [phone] Bianca Elena Unavailable Ludwig Whiting DO Unavailable Jostin Kenny MD Unavailable [phone] Trini Brown MD Unavailable [phone] Ashley Tilley MD Unavailable [phone] Franky Fonseca MD Unavailable [phone] Encounter Details Date Type Department Care Team (Late st Contact Info) Description 11/16/2022 Scanned Document [facility] PULMONOLGY SCAN Pulmonology, Scan Social History Tobacco [...] EST Office Visit [facility] Endocrinology [address] [phone] Trini Brown MD 100 [facility] 101 [place] [address] 04/08/2026 1:45 PM EDT Office Visit [facility] 1060 [place] [phone] Ludwig Whiting, [address] [place] [address] 05/06/2026 2:45 PM EDT Office Visit [facility] Cardiology [address] [place] [address] Ashley Tilley MD 100 [facility] [address] [place] [address] 06/01/2027 12:00 PM EDT Office Visit [facility] Endocrinology [address] [address] Trini Brown MD [address] [place] [address] documented as of this encounter Visit Diagnoses Not on filedocumented in this encounter Care Teams Lumber Marker Relationship Specialty Start Date End Date Ludwig Whiting DO [address] [place] [address] PCP - General Family Medicine 12/01/16 Bianca Elena [address] [place] [address] PCP - Ophthalmology Ophthalmology 01/25/21 Ludwig Whiting DO 10[address] [place] [address] PCP - [place] Commercial Attributed 03/26/21 Nicolas Gold MD [address] [place] [address] Endocrinology 07/11/17 Juanito Rivas MD [address] [place] [address] Referring Provider Surgery, Neurosurgery 02/01/18 Kirk Stringer MD [address] [place] [address] Consulting Provider Sleep Medicine 02/01/18 Jostin Kenny MD [address] [place] [address] Nephrology 02/01/18 05/13/23 Ashley Tilley MD [address] [place] [address] Cardiovascular Disease 01/25/21 Jostin Kenny MD [address] [place] [address] Nephrology 05/14/23 Trini Brown MD [address] [place] [address] Endocrinology 01/04/24 Ashley Tilley MD [address] [place] [address] Primary Ship'S Pilot Cardiovascular Disease 01/17/24 Franky Fonseca MD [address] [place] [address] Nephrology 06/10/24 documented as of this encounter
--- OUTSIDE RECORDS SUMMARY | 2025-11-04 22:39 | XMS_ITS | Encounter Summary ---
Author Organization [facility] Address [address] [place] [address] Care Team Providers Care Tablet Coater Name Role Phone Ludwig Whiting DO Primary Care Provider [phone] Nicolas Gold MD Unavailable Unavailable Juanito Rivas MD Unavailable Kirk Stringer MD Unavailable Jostin Kenny MD Unavailable Marcelle Bass RN Unavailable Ashley Tilley MD Unavailable [phone] Bianca Elena Unavailable Ludwig Whiting DO Unavailable Jostin Kenny MD Unavailable [phone] Trini Brown MD Unavailable [phone] Ashley Tilley MD Unavailable [phone] Franky Fonseca MD Unavailable [phone] Encounter Details Date Type Department Care Team (Late st Contact Info) Description 09/02/2020 Scanned Document [facility] 1060 [place] [address] Provider, Generic Social History Tobacco Use Types [...] Description 12/11/2025 1:30 PM EST Office Visit [facility] Endocrinology [place] 100 [facility] [address] [place] [address] Trini Brown MD 100 [facility] 101 [place] [address] 04/08/2026 1:45 PM EDT Office Visit [address] [phone] Ludwig Whiting, DO 1060 [place] [address] 05/06/2026 2:45 PM EDT Office Visit [facility] Cardiology [address] [place] [address] Ashley Tilley MD [address] [place] [address] 06/01/2027 12:00 PM EDT Office Visit [facility] Endocrinology [place] [address] [place] [address] Trini Brown MD [address] [place] [address] documented as of this encounter Procedures Procedure Name Priority Date/Time Associated Diagnosis Comments CARDIOLOGY ECHO 09/02/2020 12:13 PM EDT documented in this encounter Results * CARDIOLOGY ECHO (09/02/2020 12:13 PM EDT) Anatomical Region Laterality Modality Other Narrative 09/02/2020 12:13 PM EDT Ordered by an unspecified provider. us Generic Provider HX AMB PROCEDURES Edited Result - Final documented in this encounter Visit Diagnoses Not on filedocumented in this encounter Care Teams Tablet Coater Relationship Specialty Start Date End Date Ludwig Whiting DO 1060 [place] [address] PCP - General Family Medicine 12/01/16 Bianca Elena 139 [facility] [address] [place] [address] PCP - Ophthalmology Ophthalmology 01/25/21 Ludwig Whiting DO [address] [place] [address] PCP - [place] Commercial Attributed 03/26/21 Nicolas Gold MD 1060 [facility] [place] [address] Endocrinology 07/11/17 Juanito Rivas MD [address] [place] [address] Referring Provider Surgery, Neurosurgery 02/01/18 Kirk Stringer MD 112 [place] [address] Consulting Provider Sleep Medicine 02/01/18 Jostin Kenny MD 112 [place] [address] Nephrology 02/01/18 05/13/23 Marcelle Bass, RN [address] [facility] [address] [place] [address] ICP Transition Recreation Instructor 08/25/20 09/20/21 Ashley Tilley MD [address] [place] [address] Cardiovascular Disease 01/25/21 Jostin Kenny MD [address] [place] [address] Nephrology 05/14/23 Trini Brown MD [address] [place] [address] Endocrinology 01/04/24 Ashley Tilley MD [address] [place] [address] Primary Academy Director Cardiovascular Disease 01/17/24 Franky Fonseca MD [address] [place] [address] Nephrology 06/10/24 documented as of this encounter
--- OUTSIDE RECORDS SUMMARY | 2025-11-04 22:40 | XMS_ITS | Encounter Summary ---
Author Organization [facility] Address [address] [place] [address] Care Team Providers Care Inside Sales Recruiter Name Role Phone Ludwig Whiting DO Primary Care Provider [phone] Nicolas Gold MD Unavailable Unavailable Juanito Rivas MD Unavailable Kirk Stringer MD Unavailable Jostin Kenny MD Unavailable [phone] Marcelle Bass RN Unavailable Ashley Tilley MD Unavailable [phone] Bianca Elena Unavailable Ludwig Whiting DO Unavailable Jostin Kenny MD Unavailable [phone] Trini Brown MD Unavailable [phone] Ashley Tilley MD Unavailable [phone] Franky Fonseca MD Unavailable [phone] Encounter Details Date Type Department Care Team (Late st Contact Info) Description 08/17/2017 Scanned Document [address] [place] [address] Ludwig Whiting, DO 1060 [place] [address] Social History Tobacco Use Types Packs/Day Years [...] Description 12/11/2025 1:30 PM EST Office Visit [facility] Endocrinology [place] 100 [facility] 101 [place] [address] Trini Brown MD 100 [facility] 101 [place] [address] 04/08/2026 1:45 PM EDT Office Visit [address] [address] Ludwig Whiting, DO 1060 [place] [address] 05/06/2026 2:45 PM EDT Office Visit [facility] Cardiology [address] [place] [address] Ashley Tilley MD 100 [facility] 811 [place] [address] 06/01/2027 12:00 PM EDT Office Visit [facility] Endocrinology [place] [address] [place] [address] Trini Brown MD [address] [place] [address] documented as of this encounter Visit Diagnoses Not on filedocumented in this encounter Care Teams Inside Sales Recruiter Relationship Specialty Start Date End Date Ludwig Whiting DO 1060 [place] [address] PCP - General Family Medicine 12/01/16 Bianca Elena [address] [facility] [address] [place] [address] PCP - Ophthalmology Ophthalmology 01/25/21 Ludwig Whiting DO 1060 [place] [address] PCP - [place] Commercial Attributed 03/26/21 Nicolas Gold MD 1060 [place] [address] Endocrinology 07/11/17 Juanito Rivas MD 1000 [place] [address] Referring Provider Surgery, Neurosurgery 02/01/18 Kirk Stringer MD 112 [place] [address] Consulting Provider Sleep Medicine 02/01/18 Jostin Kenny MD [address] [place] [address] Nephrology 02/01/18 05/13/23 Marcelle Bass, RN [address] 2nd [place] [address] ICP Transition Coat Operator 08/25/20 09/20/21 Ashley Tilley MD [address] [place] [address] Cardiovascular Disease 01/25/21 Jostin Kenny MD [address] [place] [phone] Nephrology 05/14/23 Trini Brown MD [address] [place] [address] Endocrinology 01/04/24 Ashley Tilley MD [address] [place] [address] Primary Finished Carpet Inspector Cardiovascular Disease 01/17/24 Franky Fonseca MD [address] [place] [address] Nephrology 06/10/24 documented as of this encounter
--- OUTSIDE RECORDS SUMMARY | 2025-11-04 22:40 | XMS_ITS | Encounter Summary ---
Author Organization [facility] Address 100 [place] [address] Care Team Providers Care Single Pass Soil Stabilizer Operator Name Role Phone Ludwig Whiting DO Primary Care Provider [phone] Nicolas Gold MD Unavailable Unavailable Juanito Rivas MD Unavailable [phone] Kirk Stringer MD Unavailable Jostin Kenny MD Unavailable [phone] Ashley Tilley MD Unavailable [phone] Bianca Elena Unavailable Ludwig Whiting DO Unavailable Jostin Kenny MD Unavailable [phone] Trini Brown MD Unavailable [phone] Ashley Tilley MD Unavailable [phone] Franky Fonseca MD Unavailable [phone] Encounter Details Date Type Department Care Team (Late st Contact Info) Description 11/29/2021 Scanned Document [address] [address] Provider, Generic Social History Tobacco Use Types Packs/Day Years Used Date Smoking Tobacco: Former Cigarettes 2 27 1 963 - 1990 Cigars Smokeless Tobacco: Never Alcohol Use [...] Description 12/11/2025 1:30 PM EST Office Visit [facility] [place] 100 [facility] 101 [place] [address] Trini Brown MD 100 [facility] 101 [place] [address] 04/08/2026 1:45 PM EDT Office Visit [facility] 1060 [place] [address] Ludwig Whiting, [address] [address] 05/06/2026 2:45 PM EDT Office Visit [facility] Cardiology [address] [place] [address] Ashley Tilley MD [address] [facility] 811 [place] [address] 06/01/2027 12:00 PM EDT Office Visit [facility] [place] [address] [place] [address] Trini Brown MD [address] [place] [address] documented as of this encounter Visit Diagnoses Not on filedocumented in this encounter Care Teams Single Pass Soil Stabilizer Operator Relationship Specialty Start Date End Date Ludwig Whiting DO [address] [place] [address] PCP - General Family Medicine 12/01/16 Bianca Elena 139 [facility] [address] [place] [address] PCP - Ophthalmology Ophthalmology 01/25/21 Ludwig Whiting DO [address] [place] [address] PCP - [place] Commercial Attributed 03/26/21 Nicolas Gold MD [address] [place] [address] Endocrinology 07/11/17 Juanito Rivas MD [address] [place] [address] Referring Provider Surgery, Neurosurgery 02/01/18 Kirk Stringer MD [address] [place] [address] Consulting Provider Sleep Medicine 02/01/18 Jostin Kenny MD [address] [place] [address] Nephrology 02/01/18 05/13/23 Ashley Tilley MD [address] [place], [place] [phone] Cardiovascular Disease 01/25/21 Jostin Kenny MD [address] [place] [address] Nephrology 05/14/23 Trini Brown MD [address] [place] [address] Endocrinology 01/04/24 Ashley Tilley MD [address] [place] [address] Primary Accountant Certified Public Cardiovascular Disease 01/17/24 Franky Fonseca MD [address] [place] [address] Nephrology 06/10/24 documented as of this encounter
--- OUTSIDE RECORDS SUMMARY | 2025-11-04 22:40 | XMS_ITS | Encounter Summary ---
Author Organization [facility] Address [address] [place] [address] Care Team Providers Care Detasseler Name Role Phone Ludwig Whiting DO Primary Care Provider [phone] Nicolas Gold MD Unavailable Unavailable Juanito Rivas MD Unavailable Kirk Stringer MD Unavailable Jostin Kenny MD Unavailable [phone] Marcelle Bass RN Unavailable Ashley Tilley MD Unavailable [phone] Bianca Elena Unavailable Ludwig Whiting DO Unavailable Jostin Kenny MD Unavailable [phone] Trini Brown MD Unavailable [phone] Ashley Tilley MD Unavailable [phone] Franky Fonseca MD Unavailable [phone] Encounter Details Date Type Department Care Team (Late st Contact Info) Description 06/08/2017 Scanned Document [facility] [address] [place], [place] [address], [place] [address] Provider, Generic Social History Tobacco Use Types [...] Description 12/11/2025 1:30 PM EST Office Visit [facility] Endocrinology [address] [address] Trini Brown MD [address] [place] [address] 04/08/2026 1:45 PM EDT Office Visit [address] [address] Ludwig Whiting, [address] [place] [address] 05/06/2026 2:45 PM EDT Office Visit [facility] Cardiology [address] [place] [phone] Ashley Tilley MD [address] [address] 06/01/2027 12:00 PM EDT Office Visit [facility] Endocrinology [address] [address] Trini Brown MD [address] [place], [place] [address], [place] [address] documented as of this encounter Visit Diagnoses Not on filedocumented in this encounter Care Teams Detasseler Relationship Specialty Start Date End Date Ludwig Whiting DO 1060 [place] [address] PCP - General Family Medicine 12/01/16 Bianca Elena [address] [place] [address] PCP - Ophthalmology Ophthalmology 01/25/21 Ludwig Whiting, DO 1060 [place] [address] PCP - [place] Commercial Attributed 03/26/21 Nicolas Gold MD 1060 [facility] [place] [address] Endocrinology 07/11/17 Juanito Rivas MD 1000 [place] [address] Referring Provider Surgery, Neurosurgery 02/01/18 Kirk Stringer MD [address] [place] [address] Consulting Provider Sleep Medicine 02/01/18 Jostin Kenny MD [address] [place] [address] Nephrology 02/01/18 05/13/23 Marcelle Bass, WING 17 [facility] 2nd [place] [address] ICP Transition Loom Overhauler 08/25/20 09/20/21 Ashley Tilley MD [address] [place] [address] Cardiovascular Disease 01/25/21 Jostin Kenny MD [address] [place] [address] Nephrology 05/14/23 Trini Brown MD [address] [place] [address] Endocrinology 01/04/24 Ashley Tilley MD [address] [place] [address] Primary Hair Baler Cardiovascular Disease 01/17/24 Franky Fonseca MD [address] [place] [address] Nephrology 06/10/24 documented as of this encounter
--- OUTSIDE RECORDS SUMMARY | 2025-11-04 22:40 | XMS_ITS | Encounter Summary ---
Author Organization [facility] Address [address] [place] [address] Care Team Providers Care Mechanical Design Engineer Products Name Role Phone Ludwig Whiting DO Primary Care Provider [phone] Nicolas Gold MD Unavailable Unavailable Juanito Rivas MD Unavailable [phone] Kirk Stringer MD Unavailable Jostin Kenny MD Unavailable [phone] Ashley Tilley MD Unavailable [phone] Bianca Elena Unavailable Ludwig Whiting DO Unavailable Jostin Kenny MD Unavailable [phone] Trini Brown MD Unavailable [phone] Ashley Tilley MD Unavailable [phone] Franky Fonseca MD Unavailable [phone] Encounter Details Date Type Department Care Team (Late st Contact Info) Description 02/24/2022 Scanned Document [facility] [address] [place] [address] Christi Wick PA [address] [facility] 303 [place] [address] Social History Tobacco Use Types Packs/Day Years [...] [facility] [place] Endocr[facility]ology [address] [address] Trini Brown MD [address] [place] [address] 101 [place] [address] 04/08/2026 1:45 PM EDT Office Visit [facility] 1060 [place] [address] Ludwig Whiting, [address] [place] [address] 05/06/2026 2:45 PM EDT Office Visit [facility] Cardiology [address] [place] [phone] Ashley Tilley MD [address] [place], [place] [address] 8[address] [place] [address] 06/01/2027 12:00 PM EDT Office [facility] [place] Endocrinology [address] [address] Trini Brown MD [address] [place] [address] documented as of this encounter Visit Diagnoses Not on filedocumented in this encounter Care Teams Mechanical Design Engineer Products Relationship Specialty Start Date End Date Ludwig Whiting DO 1060 [place] [address] PCP - General Family Medicine 12/01/16 Bianca Elena [address] [place] [address] PCP - Ophthalmology Ophthalmology 01/25/21 Ludwig Whiting DO 1060 [place] [address] PCP - [place] Commercial Attributed 03/26/21 Nicolas Gold MD 1060 [facility] [place] [address] Endocrinology 07/11/17 Juanito Rivas MD 1000 [place] [address] Referring Provider Surgery, Neurosurgery 02/01/18 Kirk Stringer MD [address] [place] [address] Consulting Provider Sleep Medicine 02/01/18 Jostin Kenny MD [address] [place] [address] Nephrology 02/01/18 05/13/23 Ashley Tilley MD [address] [place] [address] Cardiovascular Disease 01/25/21 Jostin Kenny MD [address] [place] [address] Nephrology 05/14/23 Trini Brown MD [address] [place] [address] Endocrinology 01/04/24 Ashley Tilley MD [address] [place] [address] Primary Marine Structural Designer Cardiovascular Disease 01/17/24 Franky Fonseca MD [address] [place] [address] Nephrology 06/10/24 documented as of this encounter
--- OUTSIDE RECORDS SUMMARY | 2025-11-04 22:40 | XMS_ITS | Encounter Summary ---
Author Organization [facility] Address [address] [place] [address] Care Team Providers Care Administrative Asst Name Role Phone Ludwig Whiting DO Primary Care Provider [phone] Nicolas Gold MD Unavailable Unavailable Juanito Rivas MD Unavailable [phone] Kirk Stringer MD Unavailable Jostin Kenny MD Unavailable [phone] Ashley Tilley MD Unavailable [phone] Bianca Elena Unavailable Ludwig Whiting DO Unavailable Jostin Kenny MD Unavailable [phone] Trini Brown MD Unavailable [phone] Ashley Tilley MD Unavailable [phone] Franky Fonseca MD Unavailable [phone] Encounter Details Date Type Department Care Team (Late st Contact Info) Description 02/09/2022 Scanned Document [address] [address] Provider, Generic Social History Tobacco [...] Visit [facility] [address] [address] Trini Brown MD [address] [address] 04/08/2026 1:45 PM EDT Office Visit [facility] 1060 [place] [address] Ludwig Whtiing, 1060 [place] [address] 05/06/2026 2:45 PM EDT Office Visit [facility] Cardiology [address] [place] [phone] Ashley Tilley MD [address] [address] 06/01/2027 12:00 PM EDT Office Visit [facility] [address] [address] Trini Brown MD [address] [place] [address] documented as of this encounter Procedures Procedure Name Priority Date/Time Associated Diagnosis Comments HX OPHTHALMOLOGY TESTING PROCEDURES 02/09/2022 documented in this encounter Results * HX OPHTHALMOLOGY TESTING PROCEDURES (02/09/2022) 02/09/2022 Narrative Yadira Lewis - 02/09/2022 Ordered by an unspecified provider. us Generic Provider HX AMB PROCEDURES Edited Result - Final documented in this encounter Visit Diagnoses Not on filedocumented in this encounter Care Teams Administrative Asst Relationship Specialty Start Date End Date Ludwig Whiting DO [facility] [place] [address] PCP - General Family Medicine 12/01/16 Bianca Elena [address] [place] [address] PCP - Ophthalmology Ophthalmology 01/25/21 Ludwig Whiting DO [address] [place] [address], [place] [address] PCP - [place] Commercial Attributed 03/26/21 Nicolas Gold MD [facility] [place] [address] Endocrinology 07/11/17 Juanito Rivas MD [address] [place] [address] Referring Provider Surgery, Neurosurgery 02/01/18 Kirk Stringer MD [address] [place] [address] Consulting Provider Sleep Medicine 02/01/18 Jostin Kenny MD 112 [place] [address] Nephrology 02/01/18 05/13/23 Ashley Tilley MD [address] [place] [address] Cardiovascular Disease 01/25/21 Jostin Kenny MD [address] [place] [address] Nephrology 05/14/23 Trini Brown MD [address] [place] [address] Endocrinology 01/04/24 Ashley Tilley MD [address] [place] [address] Primary Jet Ski Mechanic Cardiovascular Disease 01/17/24 Franky Fonseca MD [address] [place] [address] Nephrology 06/10/24 documented as of this encounter
--- OUTSIDE RECORDS SUMMARY | 2025-11-04 22:40 | XMS_ITS | Encounter Summary ---
Author Organization [facility] Address [address] [place] [address] Care Team Providers Care Knockup Worker Name Role Phone Ludwig Whiting DO Primary Care Provider [phone] Nicolas Gold MD Unavailable Unavailable Juanito Rivas MD Unavailable Kirk Stringer MD Unavailable Jostin Kenny MD Unavailable [phone] Marcelle Bass RN Unavailable Ashley Tilley MD Unavailable [phone] Bianca Elena Unavailable Ludwig Whiting DO Unavailable Jostin Kenny MD Unavailable Trini Brown MD Unavailable [phone] Ashley Tilley MD Unavailable [phone] Franky Fonseca MD Unavailable [phone] Encounter Details Date Type Department Care Team (Late st Contact Info) Description 03/23/2017 Scanned Document [address] [place] [address] Provider, Generic Social History Tobacco Use Types [...] Description 12/11/2025 1:30 PM EST Office Visit [facility] Endocrinology [address] [address] Trini Brown MD [address] [place] [address] 04/08/2026 1:45 PM EDT Office Visit [address] [address] Ludwig Whiting, [address] [place] [address] 05/06/2026 2:45 PM EDT Office Visit [facility] Cardiology [address] [place] [phone] Ashley Tilley MD [address] [address] 06/01/2027 12:00 PM EDT Office Visit [facility] Endocrinology [address] [address] Trini Brown MD [address] [place] [address], [place] [address] documented as of this encounter Visit Diagnoses Not on filedocumented in this encounter Care Teams Knockup Worker Relationship Specialty Start Date End Date Ludwig Whiting DO 1060 [place] [address] PCP - General Family Medicine 12/01/16 Bianca Elena [address] [place] [address] PCP - Ophthalmology Ophthalmology 01/25/21 Ludwig Whiting, DO 1060 [place] [address] PCP - [place] Commercial Attributed 03/26/21 Nicolas Gold MD 1060 [place] [address] Endocrinology 07/11/17 Juanito Rivas MD 1000 [place] [address] Referring Provider Surgery, Neurosurgery 02/01/18 Kirk Stringer MD [address] [place] [address] Consulting Provider Sleep Medicine 02/01/18 Jostin Kenny MD [address] [place] [address] Nephrology 02/01/18 05/13/23 Marcelle Bass, WING 17 [facility] 2nd [place] [address] ICP Transition Alumni Secretary 08/25/20 09/20/21 Ashley Tilley MD [address] [place] [address] Cardiovascular Disease 01/25/21 Jostin Kenny MD [address] [place] [address] Nephrology 05/14/23 Trini Brown MD [address] [place] [address] Endocrinology 01/04/24 Ashley Tilley MD [address] [place] [address] Primary Filler Leaf Cutter Long Cardiovascular Disease 01/17/24 Franky Fonseca MD [address] [place] [address] Nephrology 06/10/24 documented as of this encounter
--- OUTSIDE RECORDS SUMMARY | 2025-11-04 22:40 | XMS_ITS | Encounter Summary ---
Author Organization [facility] Address 100 [place] [address] Care Team Providers Care Slot Manager Name Role Phone Ludwig Whiting DO Primary Care Provider [phone] Nicolas Gold MD Unavailable Unavailable Juanito Rivas MD Unavailable [phone] Kirk Stringer MD Unavailable Jostin Kenny MD Unavailable [phone] Marcelle Bass RN Unavailable Ashley Tilley MD Unavailable [phone] Bianca Elena Unavailable Ludwig Whiting DO Unavailable Jostin Kenny MD Unavailable Trini Brown MD Unavailable [phone] Ashley Tilley MD Unavailable [phone] Franky Fonseca MD Unavailable [phone] Encounter Details Date Type Department Care Team (Late st Contact Info) Description 07/28/2021 Scanned Document [facility] 1060 [place] [address] Ludwig Whiting, DO 1059 [facility] [place] [address] Social History Tobacco Use Types Packs/Day Years [...] PM EST Office Visit [facility]ology [place] [address] [address] Trini Brown MD [address] [place] [address] 04/08/2026 1:45 PM EDT Office Visit [facility] 1060 [place] [address] Ludwig Whiting, DO 0 [facility] [place] [address] 05/06/2026 2:45 PM EDT Office Visit [facility] Cardiology [address] [place] [address] Ashley Tilley MD [address] [place] [address] 06/01/2027 12:00 PM EDT Office Visit [facility] Endocrinology [place] [address] [place] [address] Trini Brown MD [address] [place] [address] documented as of this encounter Visit Diagnoses Not on filedocumented in this encounter Care Teams Slot Manager Relationship Specialty Start Date End Date Ludwig Whiting DO [facility]0 [place] [address] PCP - General Family Medicine 12/01/16 Bianca Elena 139 [facility] [address] [place] [address] PCP - Ophthalmology Ophthalmology 01/25/21 Ludwig Whiting DO 1060 [place] [address] PCP - [place] Commercial Attributed 03/26/21 Nicolas Gold MD 1060 [facility] [place] [address] Endocrinology 07/11/17 Juanito Rivas MD 1000 [place] [address] Referring Provider Surgery, Neurosurgery 02/01/18 Kirk Stringer MD [address] [place] [address] Consulting Provider Sleep Medicine 02/01/18 Jostin Kenny MD 112 [place] [address] Nephrology 02/01/18 05/13/23 Marcelle Bass, RN [address] [facility] [address] [place] [address] ICP Transition Reamer Hand 08/25/20 09/20/21 Ashley Tilley MD [address] [place] [address] Cardiovascular Disease 01/25/21 Jostin Kenny MD [address] [place] [address] Nephrology 05/14/23 Trini Brown MD [address] [place] [address] Endocrinology 01/04/24 Ashley Tilley MD [address] [place] [address] Primary Resourcing Advisor Cardiovascular Disease 01/17/24 Franky Fonseca MD [address] [place] [address] Nephrology 06/10/24 documented as of this encounter
--- OUTSIDE RECORDS SUMMARY | 2025-11-04 22:40 | XMS_ITS | Encounter Summary ---
Author Organization [facility] Address [address] [place] [address] Care Team Providers Care Film Laboratory Technician Name Role Phone Ludwig Whiting DO Primary Care Provider [phone] Nicolas Gold MD Unavailable Unavailable Juanito Rivas MD Unavailable +[phone] Kirk Stringer MD Unavailable Jostin Kenny MD Unavailable [phone] Ashley Tilley MD Unavailable [phone] Bianca Elena Unavailable Ludwig Whiting DO Unavailable [phone] Jostin Kenny MD Unavailable [phone] Trini Brown MD Unavailable [phone] Ashley Tilley MD Unavailable [phone] Franky Fonseca MD Unavailable [phone] Encounter Details Date Type Department Care Team (Late st Contact Info) Description 10/25/2021 Scanned Document [address] [address] Provider, Generic Social History Tobacco [...] EST Office Visit [facility] Endocrinology [place] 100 [facility] 101 [place] [address] Trini Brown MD 100 [facility] 101 [place] [address] 04/08/2026 1:45 PM EDT Office Visit [facility] 1060 [place] [address] Ludwig Whiting, [address] [address] 05/06/2026 2:45 PM EDT Office Visit [facility] Cardiology [address] [place] [address] Ashley Tilley MD 100 [facility] 811 [place] [address] 06/01/2027 12:00 PM EDT Office Visit [facility] Endocrinology [place] [address] [place] [address] Trini Brown MD [address] [place] [address] documented as of this encounter Visit Diagnoses Not on filedocumented in this encounter Care Teams Film Laboratory Technician Relationship Specialty Start Date End Date Ludwig Whiting DO 1060 [facility] [place] [address] PCP - General Family Medicine 12/01/16 Bianca Elena 139 [facility] [address] [place] [address] PCP - Ophthalmology Ophthalmology 01/25/21 Ludwig Whiting DO 1060 [facility] [place] [address] PCP - [place] Commercial Attributed 03/26/21 Nicolas Gold MD 1060 [facility] [place] [address] Endocrinology 07/11/17 Juanito Rivas MD [address] [place] [address] Referring Provider Surgery, Neurosurgery 02/01/18 Kirk Stringer MD [address] [place] [address] Consulting Provider Sleep Medicine 02/01/18 Jostin Kenny MD [address] [place] [address] Nephrology 02/01/18 05/13/23 Ashley Tilley MD [address] [place], [place] [phone] Cardiovascular Disease 01/25/21 Jostin Kenny MD [address] [place] [address] Nephrology 05/14/23 Trini Brown MD [address] [place] [address] Endocrinology 01/04/24 Ashley Tilley MD [address] [place] [address] Primary News Reel Cameraman Cardiovascular Disease 01/17/24 Franky Fonseca MD [address] [place] [address] Nephrology 06/10/24 documented as of this encounter
--- OUTSIDE RECORDS SUMMARY | 2025-11-04 22:40 | XMS_ITS | Encounter Summary ---
Author Organization [facility] Address [address] [place] [address] Care Team Providers Care Quality Control Engineering Technician Name Role Phone Ludwig Whiting DO Primary Care Provider [phone] Nicolas Gold MD Unavailable Unavailable Juanito Rivas MD Unavailable Kirk Strniger MD Unavailable [phone] Jostin Kenny MD Unavailable [phone] Marcelle Bass RN Unavailable Ashley Tilley MD Unavailable [phone] Bianca Elena Unavailable Ludwig Whiting DO Unavailable Jostin Kenny MD Unavailable [phone] Trini Brown MD Unavailable [phone] Ashley Tilley MD Unavailable [phone] Franky Fonseca MD Unavailable [phone] Encounter Details Date Type Department Care Team (Late st Contact Info) Description 12/31/2019 Scanned Document [facility] [address] [place], [place] [address], [place] [address] Provider, Generic Social History Tobacco Use Types [...] PM EST Office Visit [facility] Endocrinology [address] [phone] Trini Brown MD [address] [place] [address] 04/08/2026 1:45 PM EDT Office Visit [facility] [address] [place] [address] Ludwig Whiting, [address] [place] [address] 05/06/2026 2:45 PM EDT Office Visit [facility] Cardiology [address] [place] [address] Ashley Tilley MD [address] [place] [address] 06/01/2027 12:00 PM EDT Office Visit [facility] Endocrinology [address] [address] Trini Brown MD [address] [place] [address] documented as of this encounter Procedures Procedure Name Priority Date/Time Associated Diagnosis Comments HX OPHTHALMOLOGY TESTING PROCEDURES 12/31/2019 documented in this encounter Results * HX OPHTHALMOLOGY TESTING PROCEDURES (12/31/2019) 12/31/2019 Narrative Yadira Lewis - 12/31/2019 Ordered by an unspecified provider. us Generic Provider HX AMB PROCEDURES Edited Result - Final documented in this encounter Visit Diagnoses Not on filedocumented in this encounter Care Teams Quality Control Engineering Technician Relationship Specialty Start Date End Date Ludwig Whiting DO [address] [place] [address] PCP - General Family Medicine 12/01/16 Bianca Elena [address] [place] [address] PCP - Ophthalmology Ophthalmology 01/25/21 Ludwig Whiting DO [address] [place] [address] PCP - [employer] Commercial Attributed 03/26/21 Nicolas Gold MD [address] [place] [address] Endocrinology 07/11/17 Juanito Rivas MD [address] [place] [address] Referring Provider Surgery, Neurosurgery 02/01/18 Kirk Stringer MD [address] [place] [address] Consulting Provider Sleep Medicine 02/01/18 Jostin Kenny MD [address] [place] [address] Nephrology 02/01/18 05/13/23 Marcelle Bass, RN [address]nd [place] [address] ICP Transition Dials Inspector 08/25/20 09/20/21 Ashley Tilley MD [address] [place] [address] Cardiovascular Disease 01/25/21 Jostin Kenny MD [address] [place] [address] Nephrology 05/14/23 Trini Brown MD [address] [place] [address] Endocrinology 01/04/24 Ashley Tilley MD [address] [place] [address] Primary Patient Transporter Cardiovascular Disease 01/17/24 Franky Fonseca MD [address] [place] [address] Nephrology 06/10/24 documented as of this encounter
--- OUTSIDE RECORDS SUMMARY | 2025-11-04 22:40 | XMS_ITS | Encounter Summary ---
Author Organization [facility] Address [address] [place] [address] Care Team Providers Care Telephone Claims Representative Name Role Phone Ludwig Whiting DO Primary Care Provider [phone] Nicolas Gold MD Unavailable Unavailable Juanito Rivas MD Unavailable Kirk Stringer MD Unavailable Ashley Tilley MD Unavailable [phone] Bianca Elena Unavailable Ludwig Whiting DO Unavailable [phone] Jostin Kenny MD Unavailable [phone] Trini Brown MD Unavailable [phone] Ashley Tilley MD Unavailable [phone] Franky Fonseca MD Unavailable [phone] Encounter Details Date Type Department Care Team (Late st Contact Info) Description 05/26/2025 Scanned Document [address] [address] Pulmonary, Scan Social History Tobacco Use Types Packs/Day Years Used Date Smoking Tobacco: Former Cigarettes 2 27 1 963 - 1989 Cigars Smokeless Tobacco: Never Alcohol Use Standard Drinks/Week Comments No 0 (1 standard drink = 0.6 oz pur e alcohol) [facility] Utilities Answer Date Recorded [...] and Family Not on file 11/24/2024 Attends [employer] Not on file 11/24 Active Member [...] any time in the past 12 m [facility], were you homeless or living in a long term (including now)? No 11/24/2024 Physical Activity Answer [...] Description 12/11/2025 1:30 PM EST Office Visit [facility] Endocrinology [address] [address] Trini Brown MD [address] [place] [address] 04/08/2026 1:45 PM EDT Office Visit [facility] [address] [place] [address] Ludwig Whiting, [address] [place] [address] 05/06/2026 2:45 PM EDT Office Visit [facility] Cardiology [address] [phone] Ashley Tilley MD [address] [place] [address] [place] [address] 06/01/2027 12:00 PM EDT Office Visit [facility] Endocrinology [address] [address] Trini Brown MD [address] [place] [address] documented as of this encounter Visit Diagnoses Not on filedocumented in this encounter Care Teams Telephone Claims Representative Relationship Specialty Start Date End Date Ludwig Whiting DO [address] [place] [address] PCP - General Family Medicine 12/01/16 Bianca Elena [address] [place] [address] PCP - Ophthalmology Ophthalmology 01/25/21 Ludwig Whiting DO [address] [place] [address] PCP - [place] Commercial Attributed 03/26/21 Nicolas Gold MD [address] [place] [address] Endocrinology 07/11/17 Juanito Rivas MD [address] [place] [address] Referring Provider Surgery, Neurosurgery 02/01/18 Kirk Stringer MD [address] [place] [address] Consulting Provider Sleep Medicine 02/01/18 Ashley Tilley MD [address] [place] [address] Cardiovascular Disease 01/25/21 Jostin Kenny MD [address] [place] [address] Nephrology 05/14/23 Trini Brown MD [address] [place] [address] Endocrinology 01/04/24 Ashley Tilley MD [address] [place] [address] Primary Automotive Fuel Systems Converter Cardiovascular Disease 01/17/24 Franky Fonseca MD [address] [place] [address] Nephrology 06/10/24 documented as of this encounter
--- OUTSIDE RECORDS SUMMARY | 2025-11-04 22:40 | XMS_ITS | Encounter Summary ---
Author Organization [facility] Address [address] [place] [address] Care Team Providers Care Turntable Man Name Role Phone Ludwig Whiting DO Primary Care Provider [phone] Nicolas Gold MD Unavailable Unavailable Juanito Rivas MD Unavailable [phone] Kirk Stringer MD Unavailable [phone] Jostin Kenny MD Unavailable [phone] Ashley Tilley MD Unavailable [phone] Bianca Elena Unavailable Ludwig Whiting DO Unavailable Jostin Kenny MD Unavailable [phone] Trini Brown MD Unavailable [phone] Ashley Tilley MD Unavailable [phone] Franky Fonseca MD Unavailable [phone] Encounter Details Date Type Department Care Team (Late st Contact Info) Description 11/04/2021 Scanned Document [facility] PRIMARY CARE SCAN Ludwig Whiting DO [address] [place] [address] Social History Tobacco Use Types Packs/Day Years [...] EST Office Visit [facility] Endocrinology [place] 100 [facility] 101 [place] [address] Trini Brown MD 100 [facility] 101 [place] [address] 04/08/2026 1:45 PM EDT Office Visit [facility] [address] [place] [address] Ludwig Whiting, [address] [place] [address] 05/06/2026 2:45 PM EDT Office [facility] Cardiology [address] [place] [address] Ashley Tilley MD [address] [address] 06/01/2027 12:00 PM EDT Office Visit [facility] Endocrinology [place] [address] [place] [address] Trini Brown MD [address] [place] [address] documented as of this encounter Visit Diagnoses Not on filedocumented in this encounter Care Teams Turntable Man Relationship Specialty Start Date End Date Ludwig Whiting DO 1060 [facility] [place] [address] PCP - General Family Medicine 12/01/16 Bianca Elena [address] [place] [address] PCP - Ophthalmology Ophthalmology 01/25/21 Ludwig Whiting, [address] [place] [address] PCP - [employer] Commercial Attributed 03/26/21 Nicolas Gold MD [address] [place] [address] Endocrinology 07/11/17 Juanito Rivas MD [address] [place] [address] Referring Provider Surgery, Neurosurgery 02/01/18 Kirk Stringer MD [address] [place] [address] Consulting Provider Sleep Medicine 02/01/18 Jostin Kenny MD [address] [place] [address] Nephrology 02/01/18 05/13/23 Ashley Tilley MD [address] [place], [place] [phone] Cardiovascular Disease 01/25/21 Jostin Kenny MD [address] [place] [address] Nephrology 05/14/23 Trini Brown MD [address] [place] [address] Endocrinology 01/04/24 Ashley Tilley MD [address] [place], [place] [phone] Primary Information Technology Analyst Cardiovascular Disease 01/17/24 Franky Fonseca MD [address] [place] [address] Nephrology 06/10/24 documented as of this encounter
--- OUTSIDE RECORDS SUMMARY | 2025-11-04 22:40 | XMS_ITS | Encounter Summary ---
Author Organization [facility] Address [address] [place] [address] Care Team Providers Care Precision Filer Hand Name Role Phone Ludwig Whiting DO Primary Care Provider [phone] Nicolas Gold MD Unavailable Unavailable Juanito Rivas MD Unavailable Kirk Stringer MD Unavailable Jostin Kenny MD Unavailable [phone] Marcelle Bass RN Unavailable Ashley Tilley MD Unavailable [phone] Bianca Elena Unavailable Ludwig Whiting DO Unavailable Jostin Kenny MD Unavailable [phone] Trini Brown MD Unavailable [phone] Ashley Tilley MD Unavailable [phone] Franky Fonseca MD Unavailable [phone] Encounter Details Date Type Department Care Team (Late st Contact Info) Description 07/01/2020 Scanned Document [facility] [address] [place] [address] Ludwig Whiting, DO 1060 [place] [address] Social History Tobacco Use Types Packs/Day Years [...] 1:30 PM EST Office Visit [facility] Endocrinology [address] [address] Trini Brown MD [address] [place] [address] 04/08/2026 1:45 PM EDT Office Visit [facility] [address] [place] [address] Ludwig Whiting, DO 1060 [place] [address] 05/06/2026 2:45 PM EDT Office Visit [facility] Cardiology [address] [place] [address] Ashley Tilley MD [address] [place] [address] 06/01/2027 12:00 PM EDT Office Visit [facility] Endocrinology [place] [address] [place] [address] Trini Brown MD [address] [place] [address] documented as of this encounter Visit Diagnoses Not on filedocumented in this encounter Care Teams Precision Filer Hand Relationship Specialty Start Date End Date Ludwig Whiting DO [address] [place] [address] PCP - General Family Medicine 12/01/16 Bianca Elena [address] [facility] [address] [place] [address] PCP - Ophthalmology Ophthalmology 01/25/21 Ludwig Whiting DO [address] [place] [address] PCP - [place] Commercial Attributed 03/26/21 Nicolas Gold MD 1060 [place] [address] Endocrinology 07/11/17 Juanito Rivas MD [address] [place] [address] Referring Provider Surgery, Neurosurgery 02/01/18 Kirk Stringer MD [address] [place] [address] Consulting Provider Sleep Medicine 02/01/18 Jostin Kenny MD [address] [place] [address] Nephrology 02/01/18 05/13/23 Marcelle Bass, RN [address] [facility] [address] [place] [address] ICP Transition Museum Exhibit Technician 08/25/20 09/20/21 Ashley Tilley MD [address] [place] [address] Cardiovascular Disease 01/25/21 Jostin Kenny MD [address] [place] [address] Nephrology 05/14/23 Trini Brown MD [address] [place] [address] Endocrinology 01/04/24 Ashley Tilley MD [address] [place] [address] Primary Cream Dipper Cardiovascular Disease 01/17/24 Franky Fonseca MD [address] [place] [address] Nephrology 06/10/24 documented as of this encounter
--- OUTSIDE RECORDS SUMMARY | 2025-11-04 22:40 | XMS_ITS | Encounter Summary ---
Author Organization [facility] Address [address] [place] [address] Care Team Providers Care Electronic Controls Repairer Supervisor Name Role Phone Ludwig Whiting DO Primary Care Provider [phone] Nicolas Gold MD Unavailable Unavailable Juanito Rivas MD Unavailable Kirk Stringer MD Unavailable Jostin Kenny MD Unavailable [phone] Marcelle Bass RN Unavailable Ashley Tilley MD Unavailable [phone] Bianca Elena Unavailable Ludwig Whiting DO Unavailable Jostin Kenny MD Unavailable [phone] Trini Brown MD Unavailable [phone] Ashley Tilley MD Unavailable [phone] Franky Fonseca MD Unavailable [phone] Encounter Details Date Type Department Care Team (Late st Contact Info) Description 07/07/2020 Scanned Document [facility] [address] [place] [address] Ludwig Whiting, DO 1060 [facility] [place] [address] Social History Tobacco Use Types Packs/Day Years [...] Description 12/11/2025 1:30 PM EST Office Visit [facility] Endocrinology [address] [address] Trini Brown MD [address] [place] [address] 04/08/2026 1:45 PM EDT Office Visit [facility] [address] [place] [address] Ludwig Whiting, DO 1060 [facility] [place] [address] 05/06/2026 2:45 PM EDT Office Visit [facility] Cardiology [address] [place] [address] Ashley Tilley MD [address] [place] [address] 06/01/2027 12:00 PM EDT Office Visit [facility] Endocrinology [place] [address] [place] [address] Trini Brown MD [address] [place] [address] documented as of this encounter Visit Diagnoses Not on filedocumented in this encounter Care Teams Electronic Controls Repairer Supervisor Relationship Specialty Start Date End Date Ludwig Whiting DO [address] [place] [address] PCP - General Family Medicine 12/01/16 Bianca Elena [address] [facility] [address] [place] [address] PCP - Ophthalmology Ophthalmology 01/25/21 Ludwig Whiting DO [address] [place] [address] PCP - [place] Commercial Attributed 03/26/21 Nicolas Gold MD 1060 [facility] [place] [address] Endocrinology 07/11/17 Juanito Rivas MD [address] [place] [address] Referring Provider Surgery, Neurosurgery 02/01/18 Kirk Stringer MD [address] [place] [address] Consulting Provider Sleep Medicine 02/01/18 Jostin Kenny MD [address] [place] [address] Nephrology 02/01/18 05/13/23 Marcelle Bass, RN [address] [facility] [address] 2nd [place] [address] ICP Transition Plastic Roller 08/25/20 09/20/21 Ashley Tilley MD [address] [place] [address] Cardiovascular Disease 01/25/21 Jostin Kenny MD [address] [place] [address] Nephrology 05/14/23 Trini Brown MD [address] [place] [address] Endocrinology 01/04/24 Ashley Tilley MD [address] [place] [address] Primary Manpower Development Specialist Cardiovascular Disease 01/17/24 Franky Fonseca MD [address] [place] [address] Nephrology 06/10/24 documented as of this encounter
--- OUTSIDE RECORDS SUMMARY | 2025-11-04 22:40 | XMS_ITS | Encounter Summary ---
Author Organization [facility] Address [address] [place] [address] Care Team Providers Care Commanding Officer Traffic Division Name Role Phone Ludwig Whiting DO Primary Care Provider [phone] Nicolas Gold MD Unavailable Unavailable Juanito Rivas MD Unavailable Kirk Stringer MD Unavailable Jostin Kenny MD Unavailable [phone] Ashley Tilley MD Unavailable [phone] Bianca Elena Unavailable Ludwig Whiting DO Unavailable Jostin Kenny MD Unavailable [phone] Trini Brown MD Unavailable [phone] Ashley Tilley MD Unavailable [phone] Franky Fonseca MD Unavailable [phone] Encounter Details Date Type Department Care Team (Late st Contact Info) Description 12/05/2021 Scanned Document [facility] INTERNAL MED SCAN Ludwig Whiting, DO [address] [place] [address] Social History Tobacco Use Types Packs/Day Years [...] Description 12/11/2025 1:30 PM EST Office Visit [facility] Endocrinology [place] 100 [facility] 101 [place] [address] Trini Brown MD 100 [facility] 101 [place] [address] 04/08/2026 1:45 PM EDT Office Visit [facility] [address] [place] [address] Ludwig Whiting, [address] [place] [address] 05/06/2026 2:45 PM EDT Office Visit [facility] Cardiology [address] [place] [address] Ashley Tilley MD [address] [address] 06/01/2027 12:00 PM EDT Office Visit [facility] Endocrinology [place] [address] [place] [address] Trini Brown MD [address] [place] [address] documented as of this encounter Visit Diagnoses Not on filedocumented in this encounter Care Teams Commanding Officer Traffic Division Relationship Specialty Start Date End Date Ludwig Whiting DO 1060 [facility] [place] [address] PCP - General Family Medicine 12/01/16 Bianca Elena [address] [place] [address] PCP - Ophthalmology Ophthalmology 01/25/21 Ludwig Whiting, 1060 [place] [address] PCP - [place] Commercial Attributed 03/26/21 Nicolas Gold MD [address] [place] [address] Endocrinology 07/11/17 Juanito Rivas MD [address] [place] [address] Referring Provider Surgery, Neurosurgery 02/01/18 Kirk Stringer MD [address] [place] [address] Consulting Provider Sleep Medicine 02/01/18 Jostin Kenny MD [address] [place] [address] Nephrology 02/01/18 05/13/23 Ashley Tilley MD [address] [place], [place] [phone] Cardiovascular Disease 01/25/21 Jostin Kenny MD [address] [place] [address] Nephrology 05/14/23 Trini Brown MD [address] [place] [address] Endocrinology 01/04/24 Ashley Tilley MD [address] [place], [place] [address] Primary Precision Instrument And Tool Maker Cardiovascular Disease 01/17/24 Franky Fonseca MD [address] [place] [address] Nephrology 06/10/24 documented as of this encounter
== END 2025-11-04 14:53 | disposition home or self-care (01) ==
LOC: HO.HKAE 14:25
PROVIDERS: PCP Family Medicine; Visit Provider Internal Medicine Hypertension Specialist
DX: N18.9 Chronic kidney disease, unspecified (principal)
CPT/HCPCS: 99214